=== PATIENT | male | born 1935 | race Caucasian/White ===

== ENCOUNTER 2017-06-14 10:09 | Inpatient (IN) | payer MEDICARE, OTHER ==
[2017-06-14 10:13] VITALS: BMI 23.7
--- NOTE | 2017-06-14 11:01 | C.PDOC ---
History Of Present Illness 81 y/o male, with no significant past medical history, presents to emergency department for evaluation of left lateral neck mass, gradually growing for the past few months. Patient states that for the past few weeks, the mass enlarged significantly, and gives discomfort on chewing and swallowing. Denies headache, dizziness, vertigo, SOB, dyspnea, fever, chills, nausea, vomiting, or other associated symptoms. Patient was evaluated in the clinic today and sent to ER for evaluation. Time Seen by Provider: 06/14/17 10:43 Chief Complaint (Nursing): Abnormal Skin Integrity History Per: Patient History/Exam Limitations: no limitations Onset/Duration Of Symptoms: Days, Gradual Current Symptoms Are (Timing): Still Present Location Of Injury: Left: Neck (lateral) Quality Of Symptoms: Swollen. denies: Painful Recent travel outside of the [place]: No Past Medical History Reviewed: Historical Data, Nursing Documentation, Vital Signs Vital Signs: Last Vital Signs Temp 98.2 F 06/14/17 14:56 Pulse 79 06/14/17 14:56 Resp 20 06/14/17 14:56 BP 149/83 06/14/17 14:56 Pulse Ox 98 06/14/17 16:10 - Medical History PMH: No Chronic Diseases Family History: States: Unknown Family Hx - Social History Hx Alcohol Use: No Hx Substance Use: No Review Of Systems Except As Marked, All Systems Reviewed And Found Negative. Constitutional: Negative for: Fever, Chills ENT: Negative for: Ear Pain, Throat Pain, Throat Swelling Cardiovascular: Negative for: Chest Pain Respiratory: Negative for: Cough, Shortness of Breath, Wheezing Gastrointestinal: Negative for: Nausea, Vomiting, Abdominal Pain Skin: Positive for: Other (mass to left lateral neck area). Negative for: Rash Neurological: Negative for: Weakness, Numbness, Headache, Dizziness Physical Exam - Physical Exam Appears: Non-toxic, No Acute Distress Skin: Normal Color, Warm, Dry, No Rash Head: Atraumatic, Normacephalic Eye(s): bilateral: Normal Inspection, PERRL, EOMI Ear(s): Bilateral: Normal Nose: Normal Oral Mucosa: Moist Tongue: Normal Appearing Lips: Normal Appearing Gingiva: Normal Appearing Throat: Normal, No Erythema, No Exudate, No Drooling Neck: Normal ROM, Supple, Other (10.0 x 8.0 cm, hard and solid, non-tender mass overlying the left submandibular area extending down to lateral neck. No skin changes, erythema, or fluctuance. (+) Mild trismus. ) Chest: Symmetrical Cardiovascular: Rhythm Regular Respiratory: Normal Breath Sounds, No Accessory Muscle Use, No Rales, No Rhonchi , No Wheezing Gastrointestinal/Abdominal: Soft, No Tenderness Back: Normal Inspection Extremity: Normal ROM, Capillary Refill (< 2 sec.) Neurological/Psych: Oriented x3, Normal Speech, Normal Cognition ED Course And Treatment - Laboratory Results Result Diagrams: 06/14/17 11:27 06/14/17 11:27 Lab Interpretation: No Acute Changes O2 Sat by Pulse Oximetry: 98 Pulse Ox Interpretation: Normal - CT Scan/US CT neck Other Rad Studies (CT/US): Radiology Report Reviewed CT/US Interpretation: IMPRESSION: 11.4 cm mass with an epicenter at the left oral cavity/tonsillar pillar is appreciated involving numerous spaces of the bilateral neck suspicious for an aggressive neoplasm. Consider neoplasm from the oral cavity, left tonsillar pillar including carcinoma or even potentially lymphoma. Left parotid neoplasm is not favored and tissue diagnosis is recommended. Vascular encasement affects the proximal left internal and external carotid arteries as per above with invasion into local structures including the left side of the tongue. Please see discussion above. Progress Note: CT neck soft tissue, bloodwork, UA ordered . Blood work review and appears without acute abnoramlities. CT neck review and aggressive neoplasm 11cm diameter suggested by radiologist with vascular encasement affects proximal left ICA and ECA, invasion to left side of tongue. Case discussed with ED attending and admission recommend. Swallow eval at bedside was order and as per RN, pt failed. Pt was placed NPO. Case discussed with med -on-call and admission arranged, and surgery consult was placed per . notified about consult, request CT chest/abdomen w/IV, NPO. results review and discussed with pt, agrees with plan and admission arranged. Disposition - Disposition Disposition: HOSPITALIZED Disposition Time: 15:23 Condition: STABLE - Clinical Impression Clinical Impression: Mass of left side of neck - PA / OCCUPATIONAL HEALTH PROFESSIONAL / Resident Statement MD/DO has reviewed & agrees with the documentation as recorded. - Scribe Statement The provider has reviewed the documentation as recorded by the Scribe Vinh Moussa All medical record entries made by the Scribe were at my direction and personally dictated by me. I have reviewed the chart and agree that the record accurately reflects my personal performance of the history, physical exam, medical decision making, and the department course for this patient. I have also personally directed, reviewed, and agree with the discharge instructions and disposition.
[2017-06-14 11:33] LABS: BASO % 0.6 % (0.0-2.0); EOS % 0.5 % (0.0-4.0); LYMPH # 0.8 K/uL (1.0-4.3); LYMPH % 9.6 % (20.0-40.0); MEAN CELL VOLUME 94.3 fL (80.0-94.0); MEAN CORPUSCULAR HGB CONC 33.9 g/dL (33.0-37.0); MEAN PLATELET VOLUME 8.7 fL (7.2-11.7); MONO # 0.8 K/uL (0.0-0.8); MONO % 10.1 % (0.0-10.0); PLATELET COUNT 307 K/uL (130-400); RED CELL DISTRIBUTION WIDTH 13.7 % (11.5-14.5); WHITE BLOOD COUNT 8.3 K/uL (4.8-10.8)
[2017-06-14 11:38] LABS: CHLORIDE 95 mmol/L (98-107); POTASSIUM 3.4 mmol/L (3.6-5.2); SODIUM 138 mmol/L (132-148)
[2017-06-14 11:40] LABS: BILIRUBIN,TOTAL 0.8 mg/dL (0.2-1.3); CARBON DIOXIDE 25 mmol/L (22-30); GFR AFRICAN-AMERICAN > 60
[2017-06-14 11:41] LABS: ALB/GLOB RATIO 0.9 (1.0-2.1); ALKALINE PHOSPHATASE 80 U/L (38-126); ALT/SGPT 25 U/L (21-72); AST/SGOT 39 U/L (17-59); BLOOD UREA NITROGEN 23 mg/dL (9-20); CALCIUM 9.3 mg/dl (8.6-10.4); GLUCOSE,RANDOM 105 mg/dL (75-110); TOTAL PROTEIN 8.4 g/dL (6.3-8.3)
[2017-06-14 11:43] LABS: INR 1.2
[2017-06-14 11:49] LABS: EOSINOPHIL 1 % (0-4); NEUTROPHIL 91 % (50-75); TOTAL CELLS COUNTED 100
[2017-06-14] MEDS ORDERED: Iodixanol 320 MG/ML 100 ML BOTTLE IV ONE (13:31)
--- NOTE | 2017-06-14 15:10 | CT ---
PROCEDURE: CT NECK WITH CONTRAST HISTORY: Left lateral neck mass COMPARISON: None TECHNIQUE: CT of the neck with intravenous contrast. Coronal and sagittal reformats generated. Intravenous contrast dose: Visipaque 320, 100 cc Radiation dose: DLP 393.15 mGy-cm This CT exam was performed using one or more of the following dose reduction techniques: Automated exposure control, adjustment of the mA and/or kV according to patient size, and/or use of iterative reconstruction technique. FINDINGS: Examination is positive for a very large mass enhancing in a heterogeneous fashion measuring 8.6 x 11.4 x 10.0 cm at the left neck. The epicenter of this lesion appears to be at the inferior left oral cavity/oropharynx region or possibly in the deep portion of the left parotid gland. It extends superiorly to up but the left soft palate and also extends into medial as well as lateral upper public space attendant space but does not appear to erode the left side of the mandible. It invades the mid to posterior left tongue and extends inferiorly to limit the left side of the glottis. It effaces the left vallecula and displaces the carotid sheath posteriorly likely encasing segments of both the proximal internal and external carotid arteries as well as numerous left external carotid artery branches. The lateral extent of the tumor X is to the subcutaneous fat of the left neck and the mid most medial extent is to the right submandibular space without obvious invasion of the right submandibular gland. There is limited lymphadenopathy but includes a a necrotic left jugular digastric lymph node measuring 1.3 x 1.2 cm Vocal cords intact. GLANDS: The right parotid gland appears unremarkable the right submandibular gland is compressed by the aforementioned mass with left submandibular gland potentially incorporated in the mass but is not independently identified. The left parotid gland superficial portion appears nonfocal grossly with the deep segment not identified. A small nonfocal thyroid gland is identified. LYMPH NODES: As above in initial paragraph of body of report. CERVICAL SPINE: Multilevel cervical spondylosis with reversal of upper cervical curvature evident. No fracture or spondylolisthesis. OTHER FINDINGS: Biapical pulmonary fibrosis noted minimally. IMPRESSION: 11.4 cm mass with an epicenter at the left oral cavity/tonsillar pillar is appreciated involving numerous spaces of the bilateral neck suspicious for an aggressive neoplasm. Consider neoplasm from the oral cavity, left tonsillar pillar including carcinoma or even potentially lymphoma. Left parotid neoplasm is not favored and tissue diagnosis is recommended. Vascular encasement affects the proximal left internal and external carotid arteries as per above with invasion into local structures including the left side of the tongue. Please see discussion above.
[2017-06-14] MEDS ORDERED: Dextrose 5%/0.45% NS 1,000 ML IV ONE ×2 (16:05→16:22)
[2017-06-14] MEDS ORDERED: Iohexol 350mgl/ml 50 ML ONE (18:53)
--- NOTE | 2017-06-14 20:54 | CT ---
EXAM: CT Chest With Intravenous Contrast CLINICAL HISTORY: 81 years old, male; large facial/neck mass, suspicious for malignancy TECHNIQUE: Axial computed tomography images of the chest with intravenous contrast. All CT scans at this facility use one or more dose reduction techniques, viz.: automated exposure control; ma/kV adjustment per patient size (including targeted exams where dose is matched to indication; i.e. head); or iterative reconstruction technique. Coronal and sagittal reformatted images were created and reviewed. CONTRAST: 75 mL of omnipaque 350 administered intravenously. COMPARISON: There are no prior studies for comparison. FINDINGS: Neck: There is an incompletely imaged heterogeneous mass in the base of the mouth. There is mass effect on the hypopharynx. There is extension into the left jugular space. . Lungs and pleural spaces: Subglottic trachea is unremarkable.Trachea and main bronchi are patent. There is apical pleural-parenchymal scarring bilaterally. There is dependent atelectasis bilaterally. There is atelectasis and scarring at the lung bases left greater than right. There is no focal consolidation. There is a 5.8 mm left base nodule, image 50 series 2. There are no nodules on the right There are no effusions. Pulmonary vessels are unremarkable. Heart and vasculature: Heart size is normal. There are coronary artery calcifications. There is no pericardial effusion.There is no aneurysm or dissection. There is perfusion of the 3 arch vesselsThere are vascular calcifications. Mediastinum: There are no pathologically enlarged mediastinal or hilar nodes. Esophagus is unremarkable. There is a moderately large hiatal hernia. Thyroid: Thyroid is not optimally demonstrated. Bones/joints: Bony structures are osteopenic. There degenerative changes. Soft tissues: There is mild gynecomastia. Upper abdomen: Refer to following report for abdominal findings IMPRESSION: Incompletely imaged left facial/neck mass suspicious for malignancy; indeterminate 5.8 mm left lower lobe nodule infectious/inflammatory versus neoplastic; no pathologic adenopathy in the chest; moderate size hiatal hernia Additional findings as described above. Footer: As per Fleischner Society guidelines for follow-up and management of pulmonary nodules: Consider PET scan and/or biopsy as clinically warranted. EXAM: CT Abdomen and Pelvis With Intravenous Contrast EXAM DATE/TIME: 06/14/2017 6:08 PM CLINICAL HISTORY: 81 years old, male; Condition or disease; Cancer; Other: Lymphoma; Additional info: Left neck mass / R/O lymphoma TECHNIQUE: Axial computed tomography images of the abdomen and pelvis with intravenous contrast. All CT scans at this facility use one or more dose reduction techniques, viz.: automated exposure control; ma/kV adjustment per patient size (including targeted exams where dose is matched to indication; i.e. head); or iterative reconstruction technique. Coronal and sagittal reformatted images were created and reviewed. CONTRAST: 75 mL of omnipaque 350 administered intravenously. COMPARISON: There are no prior studies for comparison. FINDINGS: Lower thorax: Refer to prior report for chest findings ABDOMEN: Liver: There is fatty infiltration of the liver. Gallbladder and bile ducts: Gallbladder is partially distended. There are is calcified stones. Common duct is unremarkable. Pancreas: Pancreas is atrophic. Spleen: unremarkable Adrenals: There is nodular adrenal thickening bilaterally. Kidneys and ureters: unremarkable Stomach and bowel: There is a moderately large hiatal hernia. Stomach is partially distended. Rotation is normal. There is no small bowel obstruction. There are mildly distended small bowel loops in the pelvis. Appendix and terminal ileum are unremarkable. Colon is incompletely distended which limits evaluation. Appendix: See above. PELVIS: Bladder: unremarkable Reproductive: Seminal vesicles and prostate are unremarkable. ABDOMEN and PELVIS: Intraperitoneal space: There is no free air or free fluid. Bones/joints: Bony structures are osteopenic.There are degenerative changes in the osseus structures. Soft tissues: unremarkable Vasculature: There are vascular calcifications. Aorta is mildly ectatic Lymph nodes: There is no pathologic adenopathy. IMPRESSION: No acute solid visceral or bowel abnormality; gallstones Additional findings as described above.
--- NOTE | 2017-06-14 22:15 | CP.PCM.HP ---
History of Present Illness - History of Present Illness History of Present Illness: CC: Large neck and jaw swelling x 1 month 81 y/o male, with no significant past medical history, presents to emergency department for evaluation of left lateral neck mass underneath the chin extending from jaw, its painful and bothering her alot, gradually growing for the past few months. Patient states that for the past few weeks, the mass enlarged significantly, and gives discomfort on chewing and swallowing. Denies headache, dizziness, vertigo, SOB, dyspnea, fever, chills, nausea, vomiting, or other associated symptoms. Patient was evaluated in the clinic today and sent to ER for evaluation. Present on Admission - Present on Admission Any Indicators Present on Admission: No Review of Systems - Review of Systems Systems not reviewed;Unavailable: Acuity of Condition - Constitutional Constitutional: absent: As Per HPI, Anorexia, Chills, Daytime Sleepiness, Excessive Sweating, Fatigue, Fever, Frequent Falls, Headache, Increased Appetite , Lethargy, Malaise, Night Sweats, Snoring, Sleep Apnea, Weight Gain, Weight Loss, Weakness, Other - EENT Eyes: absent: As Per HPI, Blind Spots, Blurred Vision, Change in Vision, Decreased Night Vision, Diplopia, Discharge, Dry Eye, Exophthalmos, Floaters, Irritation, Itchy Eyes, Loss of Peripheral Vision, Pain, Photophobia, Requires Corrective Lenses, Sees Flashes, Spots in Vision, Tunnel Vision, Other Visual Disturbances, Loss of Vision, Other Nose/Mouth/Throat: Neck Pain, Neck Mass. absent: As Per HPI, Epistaxis, Nasal Congestion, Nasal Discharge, Nasal Obstruction, Nasal Trauma, Nose Pain, Post Nasal Drip, Sinus Pain, Sinus Pressure, Bleeding Gums, Change in Voice, Dental Pain, Dry Mouth, Dysphagia, Halitosis, Hoarsness, Lip Swelling, Mouth Lesions, Mouth Pain, Odynophagia, Sore Throat, Throat Swelling, Tongue Swelling, Facial Pain, Other - Cardiovascular Cardiovascular: absent: As Per HPI, Acrocyanosis, Chest Pain, Chest Pain at Rest , Chest Pain with Activity, Claudication, Diaphoresis, Dyspnea, Dyspnea on Exertion, Edema, Irregular Heart Rhythm, Pain Radiating to Arm/Neck/Jaw, Leg Edema, Leg Ulcers, Lightheadedness, Orthopnea, Palpitations, Paroxysmal Nocturnal Dyspnea, Pedal Edema, Radiating Pain, Rapid Heart Rate, Slow Heart Rate, Syncope, Other - Respiratory Respiratory: absent: As Per HPI, Cough, Dyspnea, Hemoptysis, Dyspnea on Exertion , Wheezing, Snoring, Stridor, Pain on Inspiration, Chest Congestion, Excessive Mucous Production, Change in Mucous Color, Pain with Coughing, Other - Gastrointestinal Gastrointestinal: absent: As Per HPI, Abdominal Pain, Belching, Bloating, Change in Bowel Habits, Change in Stool Character, Coffee Ground Emesis, Constipation, Cramping, Diarrhea, Dyspepsia, Dysphagia, Early Satiety, Excessive Flatus, Fecal Incontinence, Heartburn, Hematemesis, Hematochezia, Loose Stools, Melena, Nausea, Odynophagia, Temesmus, Vomiting, Other - Genitourinary Genitourinary: absent: As Per HPI, Change in Urinary Stream, Difficulty Urinating, Dysuria, Flank Pain, Hematuria, Pyuria, Nocturia, Urinary Incontinence, Urinary Frequency, Urinary Hesitance, Urinary Urgency, Voiding Freq/Small Amts, Freq UTI, Hx Renal/Bladder Calculi, Hx /Renal Surgery, Bladder Distension, Other - Integumentary Integumentary: Swelling. absent: As Per HPI, Acne, Alopecia, Bleeding Lesions, Change in Hair, Change in Nails, Change in Pigmentation, Changing Lesions, Dry Skin, Erythema, Furuncle, Hirsutism, Lesions, New Lesions, Non-Healing Lesions, Photosensitivity, Pruritus, Rash, Skin Pain, Skin Ulcer, Sores, Striae, Unusual Bruising, Wounds, Jaundice, Other - Neurological Neurological: absent: As Per HPI, Abnormal Gait, Abnormal Hearing, Abnormal Movements, Abnormal Speech, Behavioral Changes, Burning Sensations, Confusion, Convulsions, Disequilibrium, Dizziness, Numbness, Focal Weakness, Frequent Falls , Headaches, Lack of Coordination, Loss of Vision, Memory Loss, Paresthesias, Radicular Pain, Restless Legs, Sensory Deficit, Syncope, Tingling, Tremor, Vertigo, Weakness, Other Visual Disturbances, Other Past Patient History - Past Medical History & Family History Past Medical History?: Yes - Past Social History Smoking Status: Never Smoked - CARDIAC Hx Cardiac Disorders: No - PULMONARY Hx Respiratory Disorders: No - NEUROLOGICAL Hx Neurological Disorder: No - HEENT Hx HEENT Problems: No - RENAL Hx Chronic Kidney Disease: No - ENDOCRINE/METABOLIC Hx Endocrine Disorders: No - HEMATOLOGICAL/ONCOLOGICAL Hx Blood Disorders: No - INTEGUMENTARY Hx Dermatological Problems: No - MUSCULOSKELETAL/RHEUMATOLOGICAL Hx Musculoskeletal Disorders: No Hx Falls: No - GASTROINTESTINAL Hx Gastrointestinal Disorders: No - GENITOURINARY/GYNECOLOGICAL Hx Genitourinary Disorders: No - PSYCHIATRIC Hx Psychophysiologic Disorder: No Hx Substance Use: No - SURGICAL HISTORY Hx Surgeries: No - ANESTHESIA Hx Anesthesia: No Hx Anesthesia Reactions: No Meds Allergies/Adverse Reactions: Allergies Allergy/AdvReac Type Severity Reaction Status Date / Time No Known Allergies Allergy Verified 06/14/17 10:12 Physical Exam - Constitutional Appears: No Acute Distress - Head Exam Head Exam: ATRAUMATIC, NORMAL INSPECTION, NORMOCEPHALIC - Eye Exam Eye Exam: EOMI, Normal appearance, PERRL Pupil Exam: NORMAL ACCOMODATION, PERRL - ENT Exam ENT Exam: Mucous Membranes Moist, Normal Exam - Neck Exam Additional comments: Large sweling 10.0 x 8.0 cm, hard and solid, non-tender mass overlying the left submandibular area extending down to lateral neck underneath the chin.tense, compressible. No skin changes, erythema, or fluctuance. (+) Mild trismus. Results - Vital Signs Recent Vital Signs: Last Vital Signs Temp 98.1 F 06/14/17 20:34 Pulse 81 06/14/17 20:34 Resp 20 06/14/17 20:34 BP 158/85 H 06/14/17 20:34 Pulse Ox 98 06/14/17 20:34 - Labs Result Diagrams: 07/01/17 06:26 07/01/17 06:26 Labs: Laboratory Results - last 24 hr 06/14/17 06/14/17 06/14/17 11:27 11:27 11:27 WBC 8.3 RBC 3.93 L Hgb 12.6 Hct 37.0 MCV 94.3 H MCH 32.0 H MCHC 33.9 RDW 13.7 Plt Count 307 MPV 8.7 Neut % (Auto) 79.2 H Lymph % (Auto) 9.6 L Payette % (Auto) 10.1 H Eos % (Auto) 0.5 Baso % (Auto) 0.6 Neut # 6.6 Lymph # 0.8 L Payette # 0.8 Eos # 0.0 Baso # 0.0 Neutrophils % (Manual) 91 H Lymphocytes % (Manual) 4 L Monocytes % (Manual) 4 Eosinophils % (Manual) 1 Platelet Estimate Normal RBC Morphology Normal PT 13.5 H INR 1.2 APTT 31 Sodium 138 Potassium 3.4 L Chloride 95 L Carbon Dioxide 25 Anion Gap 21 H BUN 23 H Creatinine 0.8 Est GFR ( Amer) > 60 Est GFR (Non-Af Amer) > 60 Random Glucose 105 Calcium 9.3 Total Bilirubin 0.8 AST 39 ALT 25 Alkaline Phosphatase 80 Total Protein 8.4 H Albumin 3.9 Globulin 4.5 H Albumin/Globulin Ratio 0.9 L Assessment & Plan (1) Mass of left side of neck Assessment and Plan: Rule out saladenitis, to me it looks like she has large collection of saliva in parotid gland Surgical consult Status: Acute (2) Dysphagia Status: Acute (3) Dehydration Status: Acute - Assessment and Plan (Free Text) Plan: monitor pt Surgical consult pending meanwhile medical management
[2017-06-15] MEDS ORDERED: Enoxaparin 30 mg Syringe SC SCH (10:00)
[2017-06-15] MEDS: Potassium Ch 20mEq in D5-1/2NS 1,000 ML IV SCH ×2 (14:30→18:00)
[2017-06-15] MEDS ORDERED: Lactated Ringer's 1,000 ML IV ONE (15:47)
[2017-06-15] MEDS ORDERED: Midazolam 2 MG/2 ML VIAL ONE (15:58)
[2017-06-15] MEDS ORDERED: ceFAZolin IV 2 gm in Dextrose 1 GM/50 ML BAG IVPB ONE (16:02)
[2017-06-15] MEDS: Lidocaine 1% Inj (20ml) ONE (16:02)
[2017-06-15] MEDS ORDERED: Bupivacaine HCl 0.25% PF (10 ml) Inj ONE (16:02)
--- NOTE | 2017-06-15 17:17 | OP ---
PROCEDURE DATE: 06/14/2017 PREOPERATIVE DIAGNOSIS: Malignant neoplasm of the neck. 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 PROCEDURE PERFORMED: 1. Excision of malignant neoplasm of the neck 4cm (47827) 2 Adjacent tissue closure 25 sq cm (42068) SURGEON: Rd Matrinez MD TYPE OF ANESTHESIA: Local with sedation. ESTIMATED BLOOD LOSS: 20 mL. POSTOPERATIVE CONDITION: Stable INDICATIONS FOR SURGERY: This is an 81-year-old male presents with several malignant appearing tumors of the neck who now undergo a excisional removal of one of them. DESCRIPTION OF PROCEDURE: The patient was taken to the operating room and placed in the supine position. A 4 cm tumor was selected and an elliptical incision was made surrounding it. It was dissected free and removed into the fascia. It was divided in 2 pieces, one for frozen section and one for permanent section. Bleeding was controlled using a Bovie. Generous tissue flaps were raised using the Bovie and 28 cm2 adjacent tissue transfer closure was performed using multiple layers of Monocryl, subcuticular Monocryl and skin clips. The patient tolerated the procedure well, returned to recovery room in stable condition. Rd Martinez MD MTDD
--- NOTE | 2017-06-15 22:46 | CP.PCM.PN ---
Subjective - Date & Time of Evaluation Date of Evaluation: 06/15/17 Time of Evaluation: 21:15 - Subjective Subjective: Pt seen and evalauted , He had a biopsy of frozen section of mass on his jaw and squamaous cell carcinoma was daignosed. He is on Iv fluids, he needs peg Objective - Vital Signs/Intake and Output Vital Signs (last 24 hours): Temp Pulse Resp BP Pulse Ox 99.2 F 80 14 145/79 98 06/15/17 17:15 06/15/17 17:15 06/15/17 17:15 06/15/17 17:15 06/15/17 17:15 Intake and Output: 06/15/17 06/16/17 18:59 06:59 Intake Total 1000 Balance 1000 - Medications Medications: Current Medications Enoxaparin Sodium (Lovenox) 30 mg SC DAILY [facility] Last Admin: 06/15/17 10:09 Dose: Not Given Potassium Chloride/Dextrose/Sod Cl (Potassium Chl 20 Meq In D5-1/2ns) 1,000 mls @ 100 mls/hr IV .Q10H [facility] Last Admin: 06/15/17 18:00 Dose: 100 mls/hr Pneumococcal Polyvalent Vaccine (Pneumovax 23 Vaccine) 0.5 ml IM .ONCE ONE Stop: 06/17/17 10:01 - Labs Labs: 06/14/17 11:27 06/14/17 11:27 PT 13.5 SECONDS (9.7-12.2) H 06/14/17 11:27 INR 1.2 06/14/17 11:27 APTT 31 SECONDS (21-34) 06/14/17 11:27 - Constitutional Appears: Well - Head Exam Head Exam: ATRAUMATIC, NORMAL INSPECTION, NORMOCEPHALIC - Eye Exam Eye Exam: EOMI, Normal appearance, PERRL Pupil Exam: NORMAL ACCOMODATION, PERRL - ENT Exam Additional comments: mass in right neck and jaw area - Neck Exam Additional comments: tender to touvh right neck mass extending to lateral jaw line and covering the right sided chin - Respiratory Exam Respiratory Exam: Clear to Ausculation Bilateral, NORMAL BREATHING PATTERN - Cardiovascular Exam Cardiovascular Exam: REGULAR RHYTHM, +S1, +S2. absent: Murmur - GI/Abdominal Exam GI & Abdominal Exam: Soft, Normal Bowel Sounds. absent: Tenderness - Rectal Exam Rectal Exam: Deferred Assessment and Plan (1) Mass of left side of neck Assessment & Plan: Sqaumous cell carcinoma according to biospy primary unknonw wait for further biospy result Status: Acute (2) Dysphagia Status: Acute (3) Dehydration Assessment & Plan: On Iv fluis pt need PEG Status: Acute
[2017-06-16] MEDS: Potassium Ch 20mEq in D5-1/2NS 1,000 ML IV SCH ×3 (02:30→16:34)
[2017-06-16 04:45] LABS: BASO # 0.1 K/uL (0.0-0.2); BASO % 0.5 % (0.0-2.0); EOS # 0.3 K/uL (0.0-0.7); EOS % 2.4 % (0.0-4.0); HEMATOCRIT 34.3 % (35.0-51.0); LYMPH # 1.1 K/uL (1.0-4.3); LYMPH % 9.5 % (20.0-40.0); MEAN CELL VOLUME 93.7 fL (80.0-94.0); MEAN CORPUSCULAR HGB CONC 33.1 g/dL (33.0-37.0); MEAN PLATELET VOLUME 8.8 fL (7.2-11.7); MONO # 1.4 K/uL (0.0-0.8); PLATELET COUNT 293 K/uL (130-400); RED CELL DISTRIBUTION WIDTH 13.9 % (11.5-14.5); WHITE BLOOD COUNT 11.8 K/uL (4.8-10.8)
[2017-06-16 04:52] LABS: CHLORIDE 98 mmol/L (98-107); POTASSIUM 3.1 mmol/L (3.6-5.2); SODIUM 135 mmol/L (132-148)
[2017-06-16 04:54] LABS: GFR AFRICAN-AMERICAN > 60
[2017-06-16 04:55] LABS: ALB/GLOB RATIO 0.7 (1.0-2.1); ALKALINE PHOSPHATASE 67 U/L (38-126); ALT/SGPT 27 U/L (21-72); AST/SGOT 27 U/L (17-59); BILIRUBIN,TOTAL 0.6 mg/dL (0.2-1.3); BLOOD UREA NITROGEN 9 mg/dL (9-20); CALCIUM 8.8 mg/dl (8.6-10.4); CARBON DIOXIDE 27 mmol/L (22-30); GLUCOSE,RANDOM 117 mg/dL (75-110); TOTAL PROTEIN 7.6 g/dL (6.3-8.3)
[2017-06-16 06:03] LABS: EOSINOPHIL 1 % (0-4); NEUTROPHIL 77 % (50-75); TOTAL CELLS COUNTED 100
--- NOTE | 2017-06-16 07:14 | CP.PCM.PN ---
Subjective - Date & Time of Evaluation Date of Evaluation: 06/16/17 Time of Evaluation: 10:00 - Subjective Subjective: Pt seen s/p radation oncology eval, he is for peg and helena cath, pt is afebrile c/oo dysphagia Objective - Vital Signs/Intake and Output Vital Signs (last 24 hours): Temp Pulse Resp BP Pulse Ox 98.5 F 78 20 135/75 94 L 06/16/17 00:00 06/16/17 00:00 06/16/17 00:00 06/16/17 00:00 06/16/17 00:00 - Medications Medications: Current Medications Enoxaparin Sodium (Lovenox) 30 mg SC DAILY COUNTS INCLUDE 234 BEDS AT THE [facility] Last Admin: 06/15/17 10:09 Dose: Not Given Potassium Chloride/Dextrose/Sod Cl (Potassium Chl 20 Meq In D5-1/2ns) 1,000 mls @ 100 mls/hr IV .Q10H [facility] Last Admin: 06/15/17 18:00 Dose: 100 mls/hr Pneumococcal Polyvalent Vaccine (Pneumovax 23 Vaccine) 0.5 ml IM .ONCE ONE Stop: 06/17/17 10:01 - Labs Labs: 06/16/17 04:42 06/16/17 04:42 PT 13.5 SECONDS (9.7-12.2) H 06/14/17 11:27 INR 1.2 06/14/17 11:27 APTT 31 SECONDS (21-34) 06/14/17 11:27 - Constitutional Appears: No Acute Distress - Head Exam Head Exam: ATRAUMATIC, NORMAL INSPECTION, NORMOCEPHALIC - Eye Exam Eye Exam: EOMI, Normal appearance, PERRL Pupil Exam: NORMAL ACCOMODATION, PERRL - Neck Exam Additional comments: 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 - Respiratory Exam Respiratory Exam: Clear to Ausculation Bilateral, NORMAL BREATHING PATTERN - Cardiovascular Exam Cardiovascular Exam: REGULAR RHYTHM, +S1, +S2. absent: Murmur - GI/Abdominal Exam GI & Abdominal Exam: Soft, Normal Bowel Sounds. 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 We would concur that he would benefit from chemoradiation. We would recommend a PET for staging and planning if he is discharged soon. He will be getting a port and PEG today. We spoke to the patient about radiation including the risks and benefits. Dr Salgado and Dr Sheppard will be seeing the patient. I will coordinate his chemoradiation with Dr Sheppard. We simulated the patient today to begin planning the radiation. We will follow up on the final pathology from his biopsy. A fiberoptic examination in our office showed patent airway. The large tumor involves the left neck, submental region and posterior glottis and vallecula. The epiglottis was slightly displaced posteriorly due to the vallecular involvement, however did not appear involved. Status: Acute (2) Dysphagia Status: Acute (3) Dehydration Status: Acute
--- NOTE | 2017-06-16 09:21 | CP.PCM.CON ---
History of Present Illness - History of Present Illness History of Present Illness: Mr Collins is a 81 year old male with locally advanced oropharyngeal cancer. In late April, he noticed a grape size mass in the left upper neck. He did not have a physician at this time. Over the subsequent weeks, the mass grew quickly in size. He tried to see a doctor as an outpatient, however he could not find someone who accepted his insurance. In the past week, he started having difficulty with swallowing and was mostly having a liquid/soft diet. He saw his dentist who referred him to a clinic physician who then sent him to [facility] for further evaluation. A CT of the neck on June 14, 2017 revealed a large 8.6 x 11.4 x 10cm left neck mass which was also deep to the left parotid and extending into the soft palate. 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 The tumor displaced the carotid sheath and encased the internal and external carotids. The tumor extended into the medial right submandibular space. He had a left jugular digastric node measuring 1.[address] of the chest, abdomen and pelvis revealed a 5.8mm left lower lobe nodule. He had an open biopsy on June 15, 2017 which reportedly showed squamous cell on frozen section. He is getting a port and PEG today. He is referred to us for consideration of definitive radiation. Review of Systems - Constitutional Constitutional: Weight Loss - EENT Nose/Mouth/Throat: Dysphagia, Hoarsness, Odynophagia, Neck Pain, Neck Mass Past Patient History - Past Medical History & Family History Past Medical History?: Yes - Past Social History Smoking Status: Never Smoked Alcohol: None Home Situation {Lives}: Alone - CARDIAC Hx Cardiac Disorders: No - PULMONARY Hx Respiratory Disorders: No - NEUROLOGICAL Hx Neurological Disorder: No - HEENT Hx HEENT Problems: No - RENAL Hx Chronic Kidney Disease: No - ENDOCRINE/METABOLIC Hx Endocrine Disorders: No - HEMATOLOGICAL/ONCOLOGICAL Hx Blood Disorders: No - INTEGUMENTARY Hx Dermatological Problems: No - MUSCULOSKELETAL/RHEUMATOLOGICAL Hx Musculoskeletal Disorders: No Hx Falls: No - GASTROINTESTINAL Hx Gastrointestinal Disorders: No - GENITOURINARY/GYNECOLOGICAL Hx Genitourinary Disorders: No - PSYCHIATRIC Hx Psychophysiologic Disorder: No Hx Substance Use: No - SURGICAL HISTORY Hx Surgeries: No - ANESTHESIA Hx Anesthesia: No Hx Anesthesia Reactions: No Meds Allergies/Adverse Reactions: Allergies Allergy/AdvReac Type Severity Reaction Status Date / Time No Known Allergies Allergy Verified 06/14/17 10:12 - Medications Medications: Current Medications Enoxaparin Sodium (Lovenox) 30 mg SC DAILY [facility] Last Admin: 06/15/17 10:09 Dose: Not Given Potassium Chloride/Dextrose/Sod Cl (Potassium Chl 20 Meq In D5-1/2ns) 1,000 mls @ 100 mls/hr IV .Q10H [facility] Last Admin: 06/15/17 18:00 Dose: 100 mls/hr Potassium Chloride (Potassium Chloride 20 Meq/100 Ml) 20 meq in 100 mls @ 50 mls/hr IVPB Q2 [facility] Stop: 06/16/17 17:59 Pneumococcal Polyvalent Vaccine (Pneumovax 23 Vaccine) 0.5 ml IM .ONCE ONE Stop: 06/17/17 10:01 Physical Exam - Head Exam Head Exam: NORMAL INSPECTION - Eye Exam Eye Exam: EOMI - ENT Exam Additional comments: + 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 Limited visualization of the posterior pharynx. Induration of the posterior oral tongue. - Respiratory Exam Respiratory Exam: Clear to Auscultation Bilateral - Cardiovascular Exam Cardiovascular Exam: REGULAR RHYTHM - GI/Abdominal Exam GI & Abdominal Exam: Normal Bowel Sounds - Neurological Exam Neurological exam: Motor Sensory Deficit, Oriented x3 Results - Vital Signs Recent Vital Signs: Last Vital Signs Temp 98.1 F 06/16/17 07:31 Pulse 81 06/16/17 07:31 Resp 20 06/16/17 07:31 BP 137/80 06/16/17 07:31 Pulse Ox 97 06/16/17 07:31 - Labs Result Diagrams: 06/16/17 04:42 06/16/17 04:42 Labs: Laboratory Results - last 24 hr 06/16/17 06/16/17 04:42 04:42 WBC 11.8 H RBC 3.66 L Hgb 11.3 L Hct 34.3 L MCV 93.7 MCH 31.0 MCHC 33.1 RDW 13.9 Plt Count 293 MPV 8.8 Neut % (Auto) 75.6 H Lymph % (Auto) 9.5 L Mckinley % (Auto) 12.0 H Eos % (Auto) 2.4 Baso % (Auto) 0.5 Neut # 8.9 H Lymph # 1.1 Mckinley # 1.4 H Eos # 0.3 Baso # 0.1 Neutrophils % (Manual) 77 H Lymphocytes % (Manual) 10 L Monocytes % (Manual) 12 H Eosinophils % (Manual) 1 Platelet Estimate Normal Anisocytosis (manual) Slight Sodium 135 Potassium 3.1 L Chloride 98 Carbon Dioxide 27 Anion Gap 13 BUN 9 Creatinine 0.6 L Est GFR ( Amer) > 60 Est GFR (Non-Af Amer) > 60 Random Glucose 117 H Calcium 8.8 Total Bilirubin 0.6 AST 27 ALT 27 Alkaline Phosphatase 67 Total Protein 7.6 Albumin 3.0 L D Globulin 4.5 H Albumin/Globulin Ratio 0.7 L Assessment & Plan - Assessment and Plan (Free Text) Assessment: Mr Collins is an 81 year old male with 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 We would concur that he would benefit from chemoradiation. We would recommend a PET for staging and planning if he is discharged soon. He will be getting a port and PEG today. We spoke to the patient about radiation including the risks and benefits. Dr Salgado and Dr Sheppard will be seeing the patient. I will coordinate his chemoradiation with Dr Sheppard. We simulated the patient today to begin planning the radiation. We will follow up on the final pathology from his biopsy. A fiberoptic examination in our office showed patent airway. The large tumor involves the left neck, submental region and posterior glottis and vallecula. The epiglottis was slightly displaced posteriorly due to the vallecular involvement, however did not appear involved.
[2017-06-16] MEDS ORDERED: Midazolam 2 MG/2 ML VIAL ONE (11:04)
[2017-06-16] MEDS ORDERED: Lactated Ringer's 1,000 ML IV ONE ×2 (11:13)
[2017-06-16] MEDS ORDERED: Lidocaine 1% Inj (20ml) ONE ×2 (11:27→11:33)
[2017-06-16] MEDS ORDERED: Bupivacaine HCl 0.25% PF (10 ml) Inj ONE ×2 (11:27→11:33)
[2017-06-16] MEDS ORDERED: Propofol 10 mg/ml Inj (20 ML) ONE (11:28)
[2017-06-16] MEDS ORDERED: HEPARIN-NS 5,000 UNITS/500 ML 5,000 UNIT/500 ML BAG IV ONE (11:28)
[2017-06-16] MEDS ORDERED: ceFAZolin IV 1 gm in Dextrose 1 GM/50 ML BAG IVPB ONE ×2 (11:28→11:35)
[2017-06-16] MEDS ORDERED: ceFAZolin IV 2 gm in Dextrose 0 GM/0 ML BAG IVPB ONE (11:33)
[2017-06-16] MEDS: Lidocaine 1% Inj (20ml) ONE (12:01)
[2017-06-16] MEDS: Bupivacaine HCl 0.25% PF (10 ml) Inj ONE ×2 (12:01→12:06)
[2017-06-16] MEDS ORDERED: Lactated Ringer's 1,000 ML IV SCH (13:00)
--- NOTE | 2017-06-16 15:17 | RAD ---
HISTORY: post op insertion of portacath rt chest COMPARISON: CT chest, abdomen, and pelvis with IV contrast 06/14/17 TECHNIQUE: Chest, one view. FINDINGS: Right-sided MediPort tip extends to the expected location of the SVC. LUNGS: Biapical pleural thickening. Left basilar atelectasis/infiltrate. Please note that chest x-ray has limited sensitivity for the detection of pulmonary masses. PLEURA: Blunting of left costophrenic angle consistent trace effusion. No definite pneumothorax . CARDIOVASCULAR: Borderline cardiomegaly. Atherosclerotic calcifications of the aortic knob. OSSEOUS STRUCTURES: Degenerative changes. VISUALIZED UPPER ABDOMEN: Unremarkable. OTHER FINDINGS: None. IMPRESSION: Right-sided MediPort tip extends to the expected location of the SVC. Biapical pleural thickening. Left basilar atelectasis/infiltrate. Blunting of left costophrenic angle consistent with trace effusion. Borderline cardiomegaly. Atherosclerotic calcifications of the aortic knob.
--- NOTE | 2017-06-16 15:24 | RAD ---
PROCEDURE: Intraoperative Fluoroscopy. HISTORY: SQUAMOUS CELL cancer FINDINGS: Fluoroscopic assistance was provided for right sided central venous catheter placement. Please refer to the operative report from
[2017-06-16] MEDS ORDERED: Acetaminophen 650mg/20.3ml solution UD GT PRN (17:25)
--- NOTE | 2017-06-17 02:48 | OP ---
PROCEDURE DATE: 06/16/2017 PREOPERATIVE DIAGNOSIS: Squamous cell carcinoma of the neck. POSTOPERATIVE DIAGNOSIS: Squamous cell carcinoma of the neck. PROCEDURE PERFORMED: 1. Open Rachael gastrostomy (59784). 2. Repair of enterotomy transverse colon (35540). 3. Insertion of right internal jugular Port-A-Cath (58415). 4. Use of C-arm (38719) SURGEON: Rd Martinez MD ANESTHESIA: Local sedation. INDICATION FOR SURGERY: This is an 81-year-old male who presented with a large neck mass after biopsy yesterday revealed squamous cell carcinoma since he is unable to eat. He was taken to the OR today for open gastrostomy under local anesthesia. Due to difficulty in intubation, a PEG will not be attempted. He also undergo a Port-A-Cath placement at this time. DESCRIPTION OF PROCEDURE: The patient was taken to the operating room. IV sedation was administrated. He was placed in the supine position. The neck, chest wall and abdomen were all prepped and draped. The right internal jugular vein was easily cannulated and a guidewire was inserted into the vena cava, this was confirmed fluoroscopically. Next, subcutaneous pocket was created on the chest wall and catheter was tunneled into the neck puncture site. It was inserted over an introducer. I connected to a subcutaneous port, which was placed in the pocket. I flushed with heparinized saline. Placement was confirmed fluoroscopically. The pocket was closed with subcuticular Vicryl sutures and glue. Attention was then turned to the abdomen. After local anesthesia was administered, a small upper midline abdominal incision was made. The abdomen was entered and there was a fair amount of adhesions in the upper quadrant. These were taken down and a serosal tear was noted of the colon. This was a transverse colon, this was repaired with silk. Next, the stomach was mobilized into the wound and pursestring suture of 0 Novafil was placed in it. A 20-Azeri Flexiflo gastrostomy tube was brought through the lateral stab wound into the abdomen and placed to a gastrotomy through the pursestring suture. The pursestring suture was secured and a balloon was inflated. The stomach was sutured to the abdomen wall using the same Novafil suture. The incision was closed with a running double-stranded PDS suture. The subcutaneous tissue was irrigated thoroughly and closed with Monocryl and the skin was closed with skin clips. The patient tolerated the procedure well, returned to recovery room in stable condition. Rd Martinez MD
--- NOTE | 2017-06-17 06:39 | CP.PCM.PN ---
Subjective - Date & Time of Evaluation Date of Evaluation: 06/17/17 Time of Evaluation: 06:38 - Subjective Subjective: PATIENT SEEN .. FULL NOTE WILL BE DICTATED Objective - Vital Signs/Intake and Output Vital Signs (last 24 hours): Temp Pulse Resp BP Pulse Ox 99.2 F 95 H 20 125/73 92 L 06/17/17 00:00 06/17/17 00:00 06/17/17 00:00 06/17/17 00:00 06/17/17 00:00 Intake and Output: 06/16/17 06/17/17 18:59 06:59 Intake Total 1000 Output Total 100 Balance -100 1000 - Medications Medications: Current Medications Acetaminophen (Tylenol 650mg/20.3ml Solution Ud) 650 mg GT Q6 PRN PRN Reason: Pain, Mild (1-3) Enoxaparin Sodium (Lovenox) 30 mg SC DAILY COUNTS INCLUDE 234 BEDS AT THE [facility] Last Admin: 06/15/17 10:09 Dose: Not Given Potassium Chloride/Dextrose/Sod Cl (Potassium Chl 20 Meq In D5-1/2ns) 1,000 mls @ 100 mls/hr IV .Q10H COUNTS INCLUDE 234 BEDS AT THE [facility] Last Admin: 06/16/17 16:34 Dose: 100 mls/hr Lactated Ringer's (Lactated Ringer's) 1,000 mls @ 50 mls/hr IV .Q20H COUNTS INCLUDE 234 BEDS AT THE [facility] Last Admin: 06/16/17 15:25 Dose: Not Given Morphine Sulfate (Morphine) 2 mg IVP Q6 PRN PRN Reason: Pain, moderate (4-7) Ondansetron HCl (Zofran Inj) 4 mg IVP Q6 PRN PRN Reason: Nausea/Vomiting Pneumococcal Polyvalent Vaccine (Pneumovax 23 Vaccine) 0.5 ml IM .ONCE ONE Stop: 06/17/17 10:01 - Labs Labs: 06/16/17 04:42 06/16/17 04:42 PT 13.5 SECONDS (9.7-12.2) H 06/14/17 11:27 INR 1.2 06/14/17 11:27 APTT 31 SECONDS (21-34) 06/14/17 11:27
[2017-06-17] MEDS: Potassium Ch 20mEq in D5-1/2NS 1,000 ML IV SCH ×4 (06:45→19:22)
[2017-06-17 07:25] LABS: BASO % 0.3 % (0.0-2.0); EOS % 0.2 % (0.0-4.0); HEMATOCRIT 34.9 % (35.0-51.0); LYMPH # 0.9 K/uL (1.0-4.3); LYMPH % 7.4 % (20.0-40.0); MEAN CELL VOLUME 94.2 fL (80.0-94.0); MEAN CORPUSCULAR HEMOGLOBIN 31.8 pg (27.0-31.0); MEAN CORPUSCULAR HGB CONC 33.8 g/dL (33.0-37.0); MEAN PLATELET VOLUME 9.7 fL (7.2-11.7); MONO # 1.2 K/uL (0.0-0.8); MONO % 10.1 % (0.0-10.0); PLATELET COUNT 310 K/uL (130-400); RED CELL DISTRIBUTION WIDTH 13.8 % (11.5-14.5); WHITE BLOOD COUNT 12.3 K/uL (4.8-10.8)
[2017-06-17 07:36] LABS: CHLORIDE 94 mmol/L (98-107); POTASSIUM 3.3 mmol/L (3.6-5.2); SODIUM 131 mmol/L (132-148)
[2017-06-17 07:39] LABS: BLOOD UREA NITROGEN 10 mg/dL (9-20); CARBON DIOXIDE 25 mmol/L (22-30); GFR AFRICAN-AMERICAN > 60
[2017-06-17 07:40] LABS: CALCIUM 8.3 mg/dl (8.6-10.4); GLUCOSE,RANDOM 152 mg/dL (75-110)
[2017-06-17 08:48] LABS: NEUTROPHIL 89 % (50-75); TOTAL CELLS COUNTED 100
[2017-06-17] MEDS ORDERED: Pneumococcal 23-Valent Vaccine IM ONE (10:00)
[2017-06-17] MEDS ORDERED: Influenza Vaccine 60 mcg/0.5 mL SYR (4YR UP) IM ONE (10:00)
--- NOTE | 2017-06-18 02:42 | CP.PCM.PN ---
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 Pt is s/p oncology eval and is advised for chemoradiation. He will be getting a port and PEG today. Dr Salgado and Dr Sheppard will be seeing the patient. Objective - Vital Signs/Intake and Output Vital Signs (last 24 hours): Temp Pulse Resp BP Pulse Ox 99.7 F H 110 H 20 139/80 93 L 06/18/17 00:00 06/18/17 00:00 06/18/17 00:00 06/18/17 00:00 06/18/17 00:00 Intake and Output: 06/17/17 06/18/17 18:59 06:59 Intake Total 1240 1380 Balance 1240 1380 - Medications Medications: Current Medications Acetaminophen (Tylenol 650mg/20.3ml Solution Ud) 650 mg GT Q6 PRN PRN Reason: Pain, Mild (1-3) Enoxaparin Sodium (Lovenox) 30 mg SC DAILY [facility] Last Admin: 06/15/17 10:09 Dose: Not Given Potassium Chloride/Dextrose/Sod Cl (Potassium Chl 20 Meq In D5-1/2ns) 1,000 mls @ 100 mls/hr IV .Q10H [facility] Last Admin: 06/17/17 19:22 Dose: Not Given Morphine Sulfate (Morphine) 2 mg IVP Q6 PRN PRN Reason: Pain, moderate (4-7) Ondansetron HCl (Zofran Inj) 4 mg IVP Q6 PRN PRN Reason: Nausea/Vomiting - Labs Labs: 06/17/17 07:04 06/17/17 07:04 PT 13.5 SECONDS (9.7-12.2) H 06/14/17 11:27 INR 1.2 06/14/17 11:27 APTT 31 SECONDS (21-34) 06/14/17 11:27 - Constitutional Appears: No Acute Distress - Head Exam Head Exam: ATRAUMATIC, NORMAL INSPECTION, NORMOCEPHALIC - Eye Exam Eye Exam: EOMI, Normal appearance, PERRL - Neck Exam Additional comments: 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 tumor involves the left neck, submental region and posterior glottis and vallecula. - Respiratory Exam Respiratory Exam: Clear to Ausculation Bilateral, NORMAL BREATHING PATTERN - Cardiovascular Exam Cardiovascular Exam: REGULAR RHYTHM, +S1, +S2. absent: Murmur - GI/Abdominal Exam GI & Abdominal Exam: Soft, Normal Bowel Sounds. 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 We would concur that he would benefit from chemoradiation. We would recommend a PET for staging and planning if he is discharged soon. He will be getting a port and PEG today. We spoke to the patient about radiation including the risks and benefits. Dr Salgado and Dr Sheppard will be seeing the patient. I will coordinate his chemoradiation with Dr Sheppard. We simulated the patient today to begin planning the radiation. We will follow up on the final pathology from his biopsy. A fiberoptic examination in our office showed patent airway. The large tumor involves the left neck, submental region and posterior glottis and vallecula. The epiglottis was slightly displaced posteriorly due to the vallecular involvement, however did not appear involved. Status: Acute (2) Dysphagia Status: Acute (3) Dehydration Status: Acute
--- NOTE | 2017-06-18 02:43 | CP.PCM.PN ---
Subjective - Date & Time of Evaluation Date of Evaluation: 06/18/17 Time of Evaluation: 09:00 - Subjective Subjective: PT SEEN & EXAMINED AT BEDSIDE Objective - Vital Signs/Intake and Output Vital Signs (last 24 hours): Temp Pulse Resp BP Pulse Ox 99.7 F H 110 H 20 139/80 93 L 06/18/17 00:00 06/18/17 00:00 06/18/17 00:00 06/18/17 00:00 06/18/17 00:00 Intake and Output: 06/17/17 06/18/17 18:59 06:59 Intake Total 1240 1380 Balance 1240 1380 - Medications Medications: Current Medications Acetaminophen (Tylenol 650mg/20.3ml Solution Ud) 650 mg GT Q6 PRN PRN Reason: Pain, Mild (1-3) Enoxaparin Sodium (Lovenox) 30 mg SC DAILY [facility] Last Admin: 06/15/17 10:09 Dose: Not Given Potassium Chloride/Dextrose/Sod Cl (Potassium Chl 20 Meq In D5-1/2ns) 1,000 mls @ 100 mls/hr IV .Q10H [facility] Last Admin: 06/17/17 19:22 Dose: Not Given Morphine Sulfate (Morphine) 2 mg IVP Q6 PRN PRN Reason: Pain, moderate (4-7) Ondansetron HCl (Zofran Inj) 4 mg IVP Q6 PRN PRN Reason: Nausea/Vomiting - Labs Labs: 06/17/17 07:04 06/17/17 07:04 PT 13.5 SECONDS (9.7-12.2) H 06/14/17 11:27 INR 1.2 06/14/17 11:27 APTT 31 SECONDS (21-34) 06/14/17 11:27 Assessment and Plan (1) Mass of left side of neck Status: Acute (2) Dysphagia Status: Acute (3) Dehydration Status: Acute
[2017-06-18] MEDS: Potassium Ch 20mEq in D5-1/2NS 1,000 ML IV SCH ×3 (05:00→15:04)
[2017-06-18 06:37] LABS: BASO % 0.1 % (0.0-2.0); EOS % 0.2 % (0.0-4.0); HEMATOCRIT 33.7 % (35.0-51.0); LYMPH % 6.3 % (20.0-40.0); MEAN CELL VOLUME 94.8 fL (80.0-94.0); MEAN CORPUSCULAR HEMOGLOBIN 31.8 pg (27.0-31.0); MEAN CORPUSCULAR HGB CONC 33.5 g/dL (33.0-37.0); MEAN PLATELET VOLUME 9.4 fL (7.2-11.7); MONO # 1.3 K/uL (0.0-0.8); MONO % 7.9 % (0.0-10.0); PLATELET COUNT 266 K/uL (130-400); RED CELL DISTRIBUTION WIDTH 13.7 % (11.5-14.5); WHITE BLOOD COUNT 15.9 K/uL (4.8-10.8)
[2017-06-18 06:51] LABS: CHLORIDE 97 mmol/L (98-107); POTASSIUM 3.6 mmol/L (3.6-5.2); SODIUM 131 mmol/L (132-148)
[2017-06-18 06:54] LABS: CARBON DIOXIDE 26 mmol/L (22-30); GFR AFRICAN-AMERICAN > 60
[2017-06-18 06:55] LABS: BLOOD UREA NITROGEN 9 mg/dL (9-20); CALCIUM 8.7 mg/dl (8.6-10.4); GLUCOSE,RANDOM 231 mg/dL (75-110)
[2017-06-18 08:55] LABS: NEUTROPHIL 82 % (50-75); TOTAL CELLS COUNTED 100
[2017-06-18 08:56] LABS: LARGE PLATELETS PRESENT
[2017-06-18] MEDS ORDERED: Potassium Chloride 20 mEq/15 ml LIQ UD PO STA (13:51)
[2017-06-19 07:16] LABS: BASO % 0.1 % (0.0-2.0); EOS % 0.2 % (0.0-4.0); HEMATOCRIT 33.3 % (35.0-51.0); LYMPH # 0.6 K/uL (1.0-4.3); LYMPH % 4.5 % (20.0-40.0); MEAN CELL VOLUME 94.3 fL (80.0-94.0); MEAN CORPUSCULAR HEMOGLOBIN 31.8 pg (27.0-31.0); MEAN CORPUSCULAR HGB CONC 33.7 g/dL (33.0-37.0); MEAN PLATELET VOLUME 10.1 fL (7.2-11.7); MONO # 1.1 K/uL (0.0-0.8); MONO % 8.6 % (0.0-10.0); PLATELET COUNT 256 K/uL (130-400); RED CELL DISTRIBUTION WIDTH 13.7 % (11.5-14.5)
[2017-06-19 08:05] LABS: CHLORIDE 96 mmol/L (98-107); POTASSIUM 3.6 mmol/L (3.6-5.2); SODIUM 130 mmol/L (132-148)
[2017-06-19 08:08] LABS: BLOOD UREA NITROGEN 9 mg/dL (9-20); CALCIUM 8.5 mg/dl (8.6-10.4); CARBON DIOXIDE 24 mmol/L (22-30); GFR AFRICAN-AMERICAN > 60; GLUCOSE,RANDOM 237 mg/dL (75-110)
[2017-06-19 10:50] LABS: NEUTROPHIL 86 % (50-75); TOTAL CELLS COUNTED 100
[2017-06-19 10:53] LABS: GIANT PLATELETS PRESENT; LARGE PLATELETS PRESENT
--- NOTE | 2017-06-19 14:55 | CON ---
DATE: 06/17/2017 REASON FOR CONSULTATION: Neck mass and possible tonsil mass. REQUESTING PHYSICIAN: Dr. Villa. HISTORY OF PRESENT ILLNESS: This is an 81-year-old male with left neck mass for months. The patient is not a very reliable historian; therefore, further history cannot be given; however, the patient does not report of any pain on that side. The mass has been enlarging and is not changing and it has not been painful. The patient also reports some difficulty swallowing, which is [id number] in intensity, constant, and for months as well. PAST MEDICAL HISTORY: As noted in the chart by me. MEDICATIONS: As noted in the chart by me. PHYSICAL EXAMINATION: HEAD: Atraumatic and normocephalic. FACE: Good facial movements bilaterally. CONSTITUTIONAL: Well fed, well nourished. COMMUNICATION: Communicates around appropriately. EXTERNAL NOSE: No abnormal masses. No lesions. No erythema. No edema. INTERNAL NOSE: Deviated septum. No masses. No lesions. No erythema. No edema. LIPS AND GUMS: No masses. No lesions. No erythema. No edema. NECK: There is a large level 1/2 neck mass on the left. ORAL CAVITY AND OROPHARYNX: Limited exam secondary to trismus, possible left tonsillar lesion is noted. LYMPH NODES: Lad in the neck on the left THYROID: No thyromegaly. No goiter. LABORATORY DATA: CAT scan was reviewed by me, which reveals a very large mass, possibly originating from the tonsil, going to the base of tongue, wrapped around the ramus of the mandible and extending to the neck. ASSESSMENT: 1. Deviated septum. 2. Tonsillar mass. 3. Neck mass. PLAN: The patient has excisional biopsy done already and the scar can be noted. We will await the results of the biopsy. Watson Salgado MD [email or web address]
--- NOTE | 2017-06-19 23:12 | CP.PCM.PN ---
Subjective - Date & Time of Evaluation Date of Evaluation: 06/19/17 Time of Evaluation: 09:45 - Subjective Subjective: PT SEEN & EXAMINED AT BEDSIDE Objective - Vital Signs/Intake and Output Vital Signs (last 24 hours): Temp Pulse Resp BP Pulse Ox 101.2 F H 105 H 20 129/73 91 L 06/19/17 15:00 06/19/17 15:00 06/19/17 15:00 06/19/17 15:00 06/19/17 15:00 Intake and Output: 06/19/17 06/20/17 18:59 06:59 Intake Total 1100 Balance 1100 - Medications Medications: Current Medications Acetaminophen (Tylenol 650mg/20.3ml Solution Ud) 650 mg GT Q6 PRN PRN Reason: Pain, Mild (1-3) Enoxaparin Sodium (Lovenox) 30 mg SC DAILY [facility] Last Admin: 06/15/17 10:09 Dose: Not Given Morphine Sulfate (Morphine) 2 mg IVP Q6 PRN PRN Reason: Pain, moderate (4-7) Ondansetron HCl (Zofran Inj) 4 mg IVP Q6 PRN PRN Reason: Nausea/Vomiting - Labs Labs: 06/19/17 07:01 06/19/17 07:01 PT 13.5 SECONDS (9.7-12.2) H 06/14/17 11:27 INR 1.2 06/14/17 11:27 APTT 31 SECONDS (21-34) 06/14/17 11:27 Assessment and Plan (1) Mass of left side of neck Status: Acute (2) Dysphagia Status: Acute (3) Dehydration Status: Acute
[2017-06-20] MEDS ORDERED: Sodium Chloride 0.9% 1,000 ML IV ONE ×2 (07:52→09:43)
[2017-06-20] MEDS ORDERED: Iodixanol 320 MG/ML 100 ML BOTTLE IV ONE (08:11)
--- NOTE | 2017-06-20 08:21 | PCM.RRT ---
Addendum entered and electronically signed by Derik Silverman DO 06/20/17 09:48: Patient transferred to telemetry for further monitoring Original Note: <Derik Silverman - Last Filed: 06/20/17 08:17> BEATER ENGINEER HELPER Nurses Assessment - Situation Date: 06/20/17 Time BEATER ENGINEER HELPER was called: 07:39 BEATER ENGINEER HELPER Responder Arrival Time:: 07:40 BEATER ENGINEER HELPER Location:: Med/Oncology Room Number: 357B BEATER ENGINEER HELPER Reason for Call: Tachycardia, Respiratory Distress, Looks Sicker BEATER ENGINEER HELPER Called By: RN - IV IV Inserted during BEATER ENGINEER HELPER?: No IV Fluids Initiated During BEATER ENGINEER HELPER?: NS bolus New IV Insertion Tolerance: Good - Respiratory BEATER ENGINEER HELPER Delivery Method: Nasal Cannula @L/min Oxygen Flow Rate: 6 Received Nebulizer Treatments: No Was the Patient Ventilated with Bag/Mask 100% O2?: Yes Secretions Suctioned?: Yes Was the Patient Intubated?: No Was the Patient Placed on a Ventilator?: No - Diagnostic Test Ordered EKG: Yes Chest X-Ray: Yes CT Scan: Yes Other Diagnostic Test Ordered: CT Abdomen - Stat Labs Ordered BEATER ENGINEER HELPER Stat Labs Ordered: ABG CPR started during BEATER ENGINEER HELPER?: No - Vital Signs Vital Signs: Rapid Response Vital Sign Blood Pressure 97/68 Pulse Rate 135 Respiratory Rate 24 Temperature 97.4 F Oxygen Saturation 90 - Adriane Coma Scale Coma Scale Eye Opening: Spontaneous Coma Scale Motor: Obeys Commands Movement Coma Scale Verbal: Oriented Coma Scale Total: 15 - Sepsis Screen Part 1 Sepsis Screen Part 1: Hypotensive - Time BEATER ENGINEER HELPER Ended Time BEATER ENGINEER HELPER Ended: 08:06 - Vital Signs at end of BEATER ENGINEER HELPER Vital Signs at end of BEATER ENGINEER HELPER: Rapid Response End Vital Sign Blood Pressure 115/80 Pulse Rate 115 Respiratory Rate 25 Temperature 97.4 F O2 Sat by Pulse Oximetry 90 - Recommendations Notifications: Attending Physician, Consultations I.Reason for BEATER ENGINEER HELPER - A) Acute Change in Patient: Subjective: BEATER ENGINEER HELPER was called when patient found to have stool content leaking from PEG site, which was placed on 06/17. Patient was sitting on commode at the time. Patient found to be SOB but was able to respond to commands and speak in full sentences. Patient denied any pain. Feed was on hold per RN. - Neurological Status (Select all that apply): Alert, Responsive, Follows Commands - Respiratory Oxygen Delivery Method: Nasal Cannula @L/min Oxygen Flow Rate: 6 - Constitutional Appears: Non-toxic, No Acute Distress, Chronically Ill - Head Head Exam: NORMOCEPHALIC - Eyes Eye Exam: Normal appearance - Respiratory Exam Respiratory Exam: Rales (RLL), NORMAL BREATHING PATTERN - Cardiovascular Exam Cardiovascular Exam: REGULAR RHYTHM, +S1, +S2 - GI/Abdominal Exam GI & Abdominal Exam: Soft, Normal Bowel Sounds. absent: Tenderness - Neurological Exam Neurological Exam: Alert, Awake - Extremities Exam Extremities Exam: Full ROM Plan - Assessment of Findings&Treatment Plan Initially vital BP was 97/65, HR 135, temp 97.9. Pt was moved to bed with head elevated. Feeding was stopped. NS bolus started. STAT ABG, EKG and CXR was ordered. Per Thao YANG, Dr. Martinez was contacted and ordered STAT CT of chest and abdomen. Attending Dr. Villa was also notified. <Sonia Doss V - Last Filed: 06/20/17 12:10> BEATER ENGINEER HELPER Nurses Assessment - Vital Signs Vital Signs: Rapid Response Vital Sign Blood Pressure 97/68 Pulse Rate 135 Respiratory Rate 24 Temperature 97.4 F Oxygen Saturation 90 - Vital Signs at end of BEATER ENGINEER HELPER Vital Signs at end of BEATER ENGINEER HELPER: Rapid Response End Vital Sign Blood Pressure 115/80 Pulse Rate 115 Respiratory Rate 25 Temperature 97.4 F O2 Sat by Pulse Oximetry 90 Attending/Attestation - Attestation I have personally seen and examined this patient.: Yes I have fully participated in the care of the patient.: Yes I have reviewed all pertinent clinical information, including history, physical exam and plan: Yes Notes (Text): Brief Hospitalist Note: Responded to the first BEATER ENGINEER HELPER. Nurse called following fecal/feedings on the floor. Patient sitting on the commode. Patient is borderline hypotensive and tachycardic. EKG shows tachycardia HR : 115. Chest xray ordered showing pneumonia and b/l small pleural effusions. COMMUNICATIONS SPECIALIST covering Dr. Villa is aware, will speak with the surgeon, Dr. Torres concerning that the part of peg is missing. Appears patient's peg is out and hanging by a stitch.
--- NOTE | 2017-06-20 08:42 | CP.PCM.PN ---
Subjective - Date & Time of Evaluation Date of Evaluation: 06/20/17 Time of Evaluation: 08:25 - Subjective Subjective: DIRECTOR ENTERPRISE DATA ARCHITECTURE NOTES [facility]IL [facility] CALLED THIS AM FOR GASTRIC CONTENT LEAKING FROM G - TUBE SITE , HYPOTENTION AN D TACHYCARDIA Objective - Vital Signs/Intake and Output Vital Signs (last 24 hours): Temp Pulse Resp BP Pulse Ox 99.1 F 104 H 20 93/66 L 96 06/20/17 00:00 06/20/17 00:00 06/20/17 00:00 06/20/17 00:00 06/20/17 00:00 Intake and Output: 06/20/17 06/20/17 06:59 18:59 Intake Total 580 Balance 580 - Medications Medications: Current Medications Acetaminophen (Tylenol 650mg/20.3ml Solution Ud) 650 mg GT Q6 PRN PRN Reason: Pain, Mild (1-3) Enoxaparin Sodium (Lovenox) 30 mg SC DAILY JUAN CARLOS Last Admin: 06/15/17 10:09 Dose: Not Given Sodium Chloride (Sodium Chloride 0.9%) 1,000 mls @ 1,000 mls/hr IV .Q1H ONE Stop: 06/20/17 08:51 Morphine Sulfate (Morphine) 2 mg IVP Q6 PRN PRN Reason: Pain, moderate (4-7) Ondansetron HCl (Zofran Inj) 4 mg IVP Q6 PRN PRN Reason: Nausea/Vomiting - Labs Labs: 06/19/17 07:01 06/19/17 07:01 PT 13.5 SECONDS (9.7-12.2) H 06/14/17 11:27 INR 1.2 06/14/17 11:27 APTT 31 SECONDS (21-34) 06/14/17 11:27 - Constitutional Appears: Non-toxic, In Acute Distress - Respiratory Exam Respiratory Exam: Rales, Rhonchi, Respiratory Distress (moderate ) - Cardiovascular Exam Cardiovascular Exam: Tachycardia, +S1, +S2 - GI/Abdominal Exam GI & Abdominal Exam: Soft (gastic contents leaking from g tube site bakish color and no ballon noted ) Assessment and Plan - Assessment and Plan (Free Text) Assessment: A/P 81 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 Juan above the finding , will see the patient and evaluate Dr. Pearce consulted for possible ICU transfer CXR- result- New opacity mid right lung and questionable opacity at right base. Possible small bilateral pleural effusion started on zozyn and vancomycin and Dr. Julio DIAZ consulted - ( serpsis ) The above plan discussed with Dr. Allen javier agrees with plan
--- NOTE | 2017-06-20 08:52 | RAD ---
HISTORY: rapid COMPARISON: 06/16/2017 FINDINGS: LUNGS: New opacity mid right lung. Rule out pneumonia. Followup. Questionable opacity at right lung base. PLEURA: Minimal blunting of both costophrenic angles. No pneumothorax. CARDIOVASCULAR: Right central venous infusion port. No congestive change. OSSEOUS STRUCTURES: No significant abnormalities. VISUALIZED UPPER ABDOMEN: Normal. OTHER FINDINGS: None. IMPRESSION: New opacity mid right lung and questionable opacity at right base. Possible small bilateral pleural effusion. Follow-up advised.
[2017-06-20] MEDS ORDERED: Vancomycin 1 GM 1 GM/250 ML BAG IVPB STA (09:43)
--- NOTE | 2017-06-20 09:51 | PCM.RRT ---
Addendum entered and electronically signed by Derik Silverman DO 06/20/17 10:09: lactate 6.4, pt also have hypotension as well as elevated WBC. Will call code sepsis. Original Note: <Derik Silverman - Last Filed: 06/20/17 09:54> HEALTH AND SAFETY COORDINATOR Nurses Assessment - Situation Date: 06/20/17 Time HEALTH AND SAFETY COORDINATOR was called: 09:31 HEALTH AND SAFETY COORDINATOR Responder Arrival Time:: :31 HEALTH AND SAFETY COORDINATOR Location:: Med/Surg Room Number: 357B HEALTH AND SAFETY COORDINATOR Reason for Call: Hypotension HEALTH AND SAFETY COORDINATOR Called By: RN - IV IV Fluids Initiated During HEALTH AND SAFETY COORDINATOR?: NS bolus New IV Insertion Tolerance: Good - Respiratory HEALTH AND SAFETY COORDINATOR Delivery Method: Nasal Cannula @L/min Oxygen Flow Rate: 6 Received Nebulizer Treatments: No Was the Patient Ventilated with Bag/Mask 100% O2?: Yes Was the Patient Intubated?: No Was the Patient Placed on a Ventilator?: No - Diagnostic Test Ordered EKG: No Chest X-Ray: No CT Scan: No CPR started during HEALTH AND SAFETY COORDINATOR?: No - Vital Signs Vital Signs: Rapid Response Vital Sign Blood Pressure 78/53 Pulse Rate 117 Respiratory Rate 30 Temperature 98.4 F Oxygen Saturation 86 - Adriane Coma Scale Coma Scale Eye Opening: Spontaneous Coma Scale Motor: Obeys Commands Movement Coma Scale Verbal: Oriented Coma Scale Total: 15 - Sepsis Screen Part 1 Sepsis Screen Part 1: Hypotensive - Time HEALTH AND SAFETY COORDINATOR Ended Time HEALTH AND SAFETY COORDINATOR Ended: 09:50 - Vital Signs at end of HEALTH AND SAFETY COORDINATOR Vital Signs at end of HEALTH AND SAFETY COORDINATOR: Rapid Response End Vital Sign Blood Pressure 112/70 Pulse Rate 112 Respiratory Rate 25 Temperature 97.4 F O2 Sat by Pulse Oximetry 91 - Recommendations Notifications: Attending Physician, Consultations I.Reason for HEALTH AND SAFETY COORDINATOR - A) Acute Change in Patient: (Select all that apply): Acute change in SBP below - Neurological Status (Select all that apply): Alert, Responsive, Oriented - Respiratory Oxygen Delivery Method: Nasal Cannula @L/min Oxygen Flow Rate: 6 - Constitutional Appears: Non-toxic, No Acute Distress - Head Head Exam: NORMOCEPHALIC - Eyes Eye Exam: Normal appearance - Respiratory Exam Respiratory Exam: Rales (bilateral bases), NORMAL BREATHING PATTERN - Cardiovascular Exam Cardiovascular Exam: REGULAR RHYTHM, +S1, +S2. absent: Gallop, Rubs - GI/Abdominal Exam GI & Abdominal Exam: Soft, Normal Bowel Sounds - Neurological Exam Neurological Exam: Alert, Awake, Oriented x3 Plan - Assessment of Findings&Treatment Plan HEALTH AND SAFETY COORDINATOR called 09:31 for hypotension of 78/53. Pt had another HEALTH AND SAFETY COORDINATOR this morning on 3T for leaking gastric content from PEG site and hypotension, and was just transferred to telemetry. Pt is asymptomatic. CXR from this AM showed possible bilateral pleural effusion as well as new RLL opacity. CT angio was done this AM and pending report. Pt was placed in trendelenburg position along with 1L NS bolus and pressure impoved to 112/70. Pt was also placed on ventimask and saturation improved from 86 to 91%. Pt was placed on aspiration precaution and BIPAP PRN ordered. <Sonia Doss V - Last Filed: 06/20/17 20:07> HEALTH AND SAFETY COORDINATOR Nurses Assessment - Vital Signs Vital Signs: Rapid Response Vital Sign Blood Pressure 78/53 Pulse Rate 117 Respiratory Rate 33 Temperature 98.4 F Oxygen Saturation 85 - Vital Signs at end of HEALTH AND SAFETY COORDINATOR Vital Signs at end of HEALTH AND SAFETY COORDINATOR: Rapid Response End Vital Sign Blood Pressure 110/67 Pulse Rate 106 Respiratory Rate 28 Temperature 98.4 F O2 Sat by Pulse Oximetry 91 Attending/Attestation - Attestation I have personally seen and examined this patient.: Yes I have fully participated in the care of the patient.: Yes I have reviewed all pertinent clinical information, including history, physical exam and plan: Yes Notes (Text): Brief Hospitalist Note Responded to second HEALTH AND SAFETY COORDINATOR. patient transferred to telemetry. patient is hypotensive. Patient ordered for fluid bolus. Patient completed ABG this HEALTH AND SAFETY COORDINATOR. Note for Lactic acid of 6.4. Advised resident to call code sepsis. Chest xray from 1st HEALTH AND SAFETY COORDINATOR noted for b/l pleural effusion and new opacity in light of possible aspiration. patient completed CT scan reporting pending. Blood pressure improved to 112/70. Pt was also placed on ventimask and saturation improved from 86 to 91%. Pt was placed on aspiration precaution and BIPAP PRN ordered.
[2017-06-20] MEDS: Piperacillin/Tazobact 3.375 GM in Sodium Chloride 100 ML IVPB SCH ×2 (10:00→19:24)
[2017-06-20 10:01] LABS: ABG ALLEN TEST POS; DRAW SITE RRA
[2017-06-20] MEDS ORDERED: Vancomycin 1 gm/NS 200 ml 1 GM/200 ML BAG IVPB STA ×2 (10:11→11:35)
--- NOTE | 2017-06-20 10:23 | PCM.SEPTIC ---
<SilvermanDerik - Last Filed: 06/20/17 10:19> Sepsis Progress Note - Reassessment Type Reassessment Type: Non-invasive reassessment - Non Invasive Reassessment Were the most recent vital sign reviewed: Yes Vital Sign (Latest): Temp Pulse Resp BP Pulse Ox 97.4 F L 117 H 21 115/80 90 L 06/20/17 08:43 06/20/17 08:43 06/20/17 08:43 06/20/17 08:43 06/20/17 08:43 Cardiovascular: Yes: Regular Rate, Rhythm, Chest Non Tender, Tachycardia. No: JVD Respiratory: Yes: Accessory Muscle Use, Rales Capillary Refill: Normal (Less than 2 sec) Skin: Normal Color, Dry Was a bedside cardiovascular ultrasound performed within 6 hours after the presentation of septic shock: No Was a passive leg raise performed or was a fluid challenge performed within 6 hrs of the initial fluid bolus: Yes Fluid Challenge performed: Yes <Sonia Doss V - Last Filed: 06/20/17 20:20> Sepsis Progress Note - Non Invasive Reassessment Vital Sign (Latest): Temp Pulse Resp BP Pulse Ox 99.5 F 106 H 24 111/58 L 86 L 06/20/17 15:45 06/20/17 19:00 06/20/17 19:05 06/20/17 18:29 06/20/17 19:00 Attending/Attestation - Attestation I have personally seen and examined this patient.: Yes I have fully participated in the care of the patient.: Yes I have reviewed all pertinent clinical information, including history, physical exam and plan: Yes Notes (Text): Brief Hospitalist Note: Patient called for code sepsis in light of elevated lactate. Blood work repeated. Order for fluid bolus: requires 2.4 Liter; ordered for 3 1 Liter NS boluses. Repeat lactate acid order 3 hours later per protocol. Patient ordered for dose of Zosyn and Vancomycin this morning. Informed GENARO Osuna, working with Dr. Villa covering the patient. Thao had informed general surgery regarding the peg tube since COMPOSITE SCIENCE TEACHER and awaiting CT scan result.
[2017-06-20] MEDS: Sodium Chloride 0.9% 1,000 ML IV SCH ×2 (10:30→11:30)
--- NOTE | 2017-06-20 10:38 | CT ---
PROCEDURE: CT Chest with contrast (Pulmonary Angiogram) HISTORY: sob MALFUNCTIONING PEG, THROAT CA COMPARISON: None available. TECHNIQUE: Axial computed tomography images were obtained of the chest in the pulmonary arterial phase of enhancement. Coronal and sagittal reformatted images were created and reviewed. CT angiography of the abdomen and pelvis was also performed with 1.25 mm axial sections acquired through the abdomen and pelvis during the arterial phase of enhancement. Please note that precontrast images were acquired through the abdomen from the lung base to the iliac crests. Intravenous contrast dose: 100 mL Visipaque 320 Radiation dose: Total exam DLP = 1768.13 mGy-cm. This CT exam was performed using one or more of the following dose reduction techniques: Automated exposure control, adjustment of the mA and/or kV according to patient size, and/or use of iterative reconstruction technique. FINDINGS: PULMONARY ARTERIES: Evaluation for pulmonary embolism is somewhat limited due to respiratory motion artifact. There is no evidence of pulmonary embolism. No pulmonary arterial filling defects are identified. Evaluation of subsegmental pulmonary artery branches is somewhat limited. AORTA: No acute findings. No thoracic aortic aneurysm. LUNGS: Multifocal pulmonary infiltrates are noted in all lobes. There are patchy left upper lobe opacities. There are patchy and confluent opacities in the right upper lobe. There is extensive left lower lobe opacity. There is right lower lobe subsegmental atelectasis. Followup to clearing is advised to exclude underlying pulmonary neoplasm. PLEURAL SPACES: There is small to moderate right pleural effusion. There is no left pleural effusion. There is no pneumothorax. HEART: Unremarkable. No cardiomegaly. No significant pericardial effusion. LYMPH NODES: No lymphadenopathy. BONES, CHEST WALL: Unremarkable. No fracture or destructive lesion OTHER FINDINGS: Moderate hiatal hernia. CT angiography of the abdomen and pelvis was performed following the CT angiogram chest. Contiguous 1.25 mm axial sections were acquired through the abdomen and pelvis. Sagittal and coronal images were reformatted. There is no evidence of abdominal aortic aneurysm. There is no evidence of abdominal aortic dissection. 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 The SMA is widely patent. Renal arteries are widely patent. The liver is normal in size, contour and attenuation. There is no mass or biliary dilatation. The gallbladder is significant for multiple small calculi within the gallbladder neck. The gallbladder wall is not thickened and no pericholecystic fluid is seen. The spleen is unremarkable. The pancreas is normal in appearance without evidence of focal mass or peripancreatic fluid collection. There is no pancreatic ductal dilatation. There is no adrenal mass. There is a punctate nonobstructing left lower pole renal calculus. There is no renal mass or hydronephrosis. There are no abnormal bowel loops identified. There is mild retained feces. As noted above, there is a moderate hiatal hernia. There is no bowel obstruction. The appendix is not identified. There are no secondary findings to suggest acute appendicitis. There is no ascites. There is no evidence of pneumoperitoneum. The urinary bladder is unremarkable. The prostate is small. There is lumbar levoscoliosis. There is no acute osseous fracture. There is no retroperitoneal or pelvic lymphadenopathy. IMPRESSION: No evidence of pulmonary embolism. Evaluation for pulmonary embolism is limited in the subsegmental pulmonary artery branches. See above. Multifocal bilateral pulmonary infiltrates. Nonspecific. Infectious versus inflammatory. Followup to clearing to exclude underlying neoplasm. Small to moderate right pleural effusion. Moderate hiatal hernia. No evidence of pneumoperitoneum or ascites. No bowel obstruction. No abdominal aortic aneurysm. Cholelithiasis without evidence of cholecystitis. Nonobstructing punctate left lower pole renal calculus.
[2017-06-20 11:50] LABS: BASO % 0.1 % (0.0-2.0); LYMPH # 0.6 K/uL (1.0-4.3); LYMPH % 21.4 % (20.0-40.0); MEAN CELL VOLUME 94.8 fL (80.0-94.0); MEAN CORPUSCULAR HEMOGLOBIN 31.4 pg (27.0-31.0); MEAN CORPUSCULAR HGB CONC 33.1 g/dL (33.0-37.0); MEAN PLATELET VOLUME 9.7 fL (7.2-11.7); MONO # 0.3 K/uL (0.0-0.8); MONO % 9.2 % (0.0-10.0); NRBC % 0.5 % (0.0-2.0); RED CELL DISTRIBUTION WIDTH 13.9 % (11.5-14.5); WHITE BLOOD COUNT 2.9 K/uL (4.8-10.8)
--- NOTE | 2017-06-20 11:52 | CP.PCM.CON ---
History of Present Illness - History of Present Illness History of Present Illness: INFECTIOUS DISEASE CONSULT; HPI; Patient is 81-year-old male with locally advanced oropharyngeal cancer. 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 Today rapid response was called for hypotension, tachycardia and shortness of breath. CAT scan of the chest showed bilateral infiltrate and effusion. ABG consistent with hypoxemia and elevated lactate level. Code Sepsis was initiated and pt was transferred to intensive care unit. PATIENT WAS FOUND TO HAVE LEUKOCYTOSIS WITH SERUM LACTATE OF 6.4. PATIENT ALSO NOTED TO BE FEBRILE TO 101.2. ANGIO OF THE CHEST ABDOMEN AND PELVIS 06/20/17 OBTAINED WHICH SHOWED NO EVIDENCE OF PULMONARY EMBOLISM BUT MULTIFOCAL BILATERAL INFILTRATES WITH SMALL TO MODERATE RIGHT PLEURAL EFFUSION. CHOLELITHIASIS WITHOUT OBSTRUCTION ALSO WAS SEEN. PATIENT WAS STARTED ON BRO[facility]-S[facility] ANTIBIOTICS INCLUDING zOSYN 3.375 EVERY 8 HOURLY AND zITHROMAX 500 ONCE A DAY DAILY. INFECTIOUS DISEASE CONSULTATION REQUESTED BY PMD FOR FURTHER EVALUATION FOR SEVERE SEPSIS AND BILATERAL PNEUMONIA AND HYPOXEMIA. 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 PATIENT UNABLE TO GIVE ANY HISTORY BECAUSE OF ALTERED MENTAL STATUS PMH: No Chronic Diseases Family History: States: Unknown Family Hx - Social History Hx Alcohol Use: No Hx Substance Use: No. ALLERGY; NKA. Review of Systems - Review of Systems Systems not reviewed;Unavailable: Altered Mental Status (PATIENT POORLY AROUSABLE.) Past Patient History - Past Medical History & Family History Past Medical History?: Yes - Past Social History Smoking Status: Never Smoked Alcohol: None Home Situation {Lives}: Alone - CARDIAC Hx Cardiac Disorders: No - PULMONARY Hx Respiratory Disorders: No - NEUROLOGICAL Hx Neurological Disorder: No - HEENT Hx HEENT Problems: No - RENAL Hx Chronic Kidney Disease: No - ENDOCRINE/METABOLIC Hx Endocrine Disorders: No - HEMATOLOGICAL/ONCOLOGICAL Hx Blood Disorders: No - INTEGUMENTARY Hx Dermatological Problems: No - MUSCULOSKELETAL/RHEUMATOLOGICAL Hx Musculoskeletal Disorders: No Hx Falls: No - GASTROINTESTINAL Hx Gastrointestinal Disorders: No - GENITOURINARY/GYNECOLOGICAL Hx Genitourinary Disorders: No - PSYCHIATRIC Hx Psychophysiologic Disorder: No Hx Substance Use: No - SURGICAL HISTORY Hx Surgeries: No - ANESTHESIA Hx Anesthesia: No Hx Anesthesia Reactions: No Meds Allergies/Adverse Reactions: Allergies Allergy/AdvReac Type Severity Reaction Status Date / Time No Known Allergies Allergy Verified 06/14/17 10:12 - Medications Medications: Current Medications Acetaminophen (Tylenol 650mg/20.3ml Solution Ud) 650 mg GT Q6 PRN PRN Reason: Pain, Mild (1-3) Enoxaparin Sodium (Lovenox) 30 mg SC DAILY [facility] Last Admin: 06/15/17 10:09 Dose: Not Given Piperacillin Sod/Tazobactam (Sod 3.375 gm/ Sodium Chloride) 100 mls @ 200 mls/ hr IVPB Q8H [facility] Last Admin: 06/20/17 10:00 Dose: 200 mls/hr Sodium Chloride (Sodium Chloride 0.9%) 1,000 mls @ 1,000 mls/hr IV .Q1H [facility] Stop: 06/20/17 12:29 Vancomycin/Sodium Chloride (Vancocin) 1 gm in 200 mls @ 167 mls/hr IVPB STAT STA Stop: 06/20/17 12:46 Morphine Sulfate (Morphine) 2 mg IVP Q6 PRN PRN Reason: Pain, moderate (4-7) Ondansetron HCl (Zofran Inj) 4 mg IVP Q6 PRN PRN Reason: Nausea/Vomiting Physical Exam - Constitutional Appears: Older Than Stated Age, Confused, Chronically Ill - Head Exam Head Exam: NORMOCEPHALIC - Eye Exam Eye Exam: PERRL - ENT Exam ENT Exam: Mucous Membranes Dry - Neck Exam Neck exam: Positive for: Lymphadenopathy (LEFT-SIDED MASS AT THE ANGLE OF THE JAW WITH LB IN POSITION. tHERE IS ERYTHEMA AND TENDERNESS SURROUNDING THE AREA AND MASS.), Normal Inspection, Tenderness Additional comments: PATIENT POORLY OPENS HER MOUTH ONLY HALF. - Respiratory Exam Respiratory Exam: Rhonchi (BILATERAL RHONCHI AND RALES) - Cardiovascular Exam Cardiovascular Exam: Tachycardia (.), +S1, +S2 - GI/Abdominal Exam GI & Abdominal Exam: Normal Bowel Sounds (PEG IN PLACE.), Soft - Extremities Exam Extremities exam: Positive for: pedal edema, pedal pulses present. Negative for : calf tenderness - Neurological Exam Neurological exam: Altered - Psychiatric Exam Psychiatric exam: Flat Affect - Skin Skin Exam: Dry, Warm Results - Vital Signs Recent Vital Signs: Last Vital Signs Temp 97.4 F L 06/20/17 08:43 Pulse 117 H 06/20/17 08:43 Resp 21 06/20/17 08:43 BP 115/80 06/20/17 08:43 Pulse Ox 90 L 06/20/17 08:43 - Labs Result Diagrams: 06/20/17 11:44 06/20/17 11:44 Labs: Laboratory Results - last 24 hr 06/20/17 09:56 Puncture Site Rra pCO2 39 pO2 73 L HCO3 23.4 ABG pH 7.38 ABG Total CO2 24.3 ABG O2 Saturation 97.9 ABG Base Excess -1.8 Harlan Test Pos ABG Potassium 3.8 A-a O2 Difference 591.0 Respiratory Index 8.1 Sodium 136.0 Chloride 103.0 Glucose 293 H Lactate 6.4 H* Liter Flow 15.0 FiO2 100.0 Crit Value Called To Dr. holguin Crit Value Called By Moe jacobs weaver narrow fabrics Crit Value Read Back Y Blood Gas Notified Time 1002 Arterial Blood Potassium 3.8 - Imaging and Cardiology CT scan - chest/ABDOMEN AND PELVIS ANGIO. Status: Report reviewed by me Assessment & Plan (1) Respiratory failure Status: Acute (2) Pneumonia Status: Acute (3) Dysphagia Assessment and Plan: S/P PEG INSERTION. Status: Acute (4) Oropharyngeal cancer Status: Acute (5) Dehydration Status: Acute - Assessment and Plan (Free Text) Assessment: IMPRESSION; SEPSIS- SYNDROME WITH HYPOTENSION ACUTE RESPIRATORY FAILURE . BILATERAL MULTIFOCAL PNEUMONIA ? ASPIRATION VS ATYPICAL. 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 S/P PEG. S/P MED-PORT . DEHYDRATION. PLAN; pANCULTURES CONTINUE iv zOSYN 3.375 EVERY 8 HOURLY.06/20/17 ADD iv VANCOMYCIN 1 G ONCE A DAY DAILY. CONTINUE zITHROMAX 500 MG ONCE A DAY DAILY.06/20/17. vANCO TROUGH LEVEL PRIOR TO THE FOURTH DOSE AND KEEP IT BETWEEN 10 AND 20. FOLLOW-UP RENAL FUNCTIONS CLOSELY fOLLOW-UP CULTURES TO ADJUST ANTIBIOTICS PATIENT HAS EXTENSIVE LARYNGEAL DISEASE. PER ONCOLOGY/ ? RADIATION. WILL FOLLOW PATIENT ALONG WITH YOU AND MAKE RECOMMENDATIONS NEEDED.
[2017-06-20 11:58] LABS: INR 1.4
[2017-06-20] MEDS ORDERED: Iohexol 240 (50 ml) ONE (12:02)
[2017-06-20 12:08] LABS: CHLORIDE 98 mmol/L (98-107); SODIUM 134 mmol/L (132-148)
[2017-06-20 12:09] LABS: POTASSIUM 4.3 mmol/L (3.6-5.2)
[2017-06-20 12:10] LABS: BILIRUBIN,TOTAL 0.8 mg/dL (0.2-1.3); GFR AFRICAN-AMERICAN > 60
[2017-06-20 12:11] LABS: ALB/GLOB RATIO 0.7 (1.0-2.1); ALKALINE PHOSPHATASE 148 U/L (38-126); ALT/SGPT 63 U/L (21-72); AST/SGOT 57 U/L (17-59); BLOOD UREA NITROGEN 28 mg/dL (9-20); CARBON DIOXIDE 22 mmol/L (22-30); GLUCOSE,RANDOM 239 mg/dL (75-110); TOTAL PROTEIN 6.9 g/dL (6.3-8.3)
[2017-06-20 12:12] LABS: CALCIUM 9.4 mg/dl (8.6-10.4); MAGNESIUM 1.8 mg/dL (1.6-2.3)
--- NOTE | 2017-06-20 13:32 | RAD ---
PROCEDURE: Limited upper GI/ gastrostomy tube study. HISTORY: gastrograffin study through gastric feeding tube COMPARISON: No prior similar study available for comparison P TECHNIQUE: Water-soluble contrast was injected in the indwelling gastrostomy tube. FINDINGS: Under fluoroscopic guidance water-soluble contrast was injected through the indwelling gastrostomy tube at the left abdomen. The contrast seen extending to the stomach. There was no evidence of contrast extravasation. The gastrostomy tube is seen at appropriate position. Mild diffuse gastric mucosal wall thickening is noted. IMPRESSION: Appropriate position of the gastrostomy tube.
[2017-06-20 13:42] LABS: VENOUS BLOOD GAS BASE EXCESS -0.2 mmol/L (0.0-2.0); VENOUS BLOOD GAS PCO2 41 mmHg (40-60); VENOUS BLOOD PH 7.39 (7.32-7.43)
[2017-06-20] MEDS: Dextrose 5%/0.9% NS 1,000 ML IV SCH (14:41)
[2017-06-20 14:55] LABS: URINE BILIRUBIN NEGATIVE (NEGATIVE); URINE BLOOD NEGATIVE (NEGATIVE); URINE COLOR Amber (YELLOW); URINE GLUCOSE (UA) 3+ mg/dL (Normal); URINE KETONE NEGATIVE (NEGATIVE); URINE LEUKOCYTE ESTERASE NEG Leu/uL (Negative); URINE PROTEIN 1+ mg/dL (NEGATIVE); WBC URINE 1 /hpf (0-5)
[2017-06-20] MEDS: Azithromycin 500 MG in Sodium Chloride 0.9% 250 ML IVPB SCH (16:22)
--- NOTE | 2017-06-20 19:14 | CP.PCM.CON ---
History of Present Illness - History of Present Illness History of Present Illness: reason for consultation: shortness of breath, hypertension Patient is 81-year-old male with locally advanced oropharyngeal cancer. 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 today rapid response was called for hypotension, tachycardia and shortness of breath. CAT scan of the chest showed bilateral infiltrate and effusion. ABG consistent with hypoxemia and elevated lactate level. code sepsis was initiated and pt was transferred to intensive care unit. Review of Systems - Review of Systems All systems: reviewed and no additional remarkable complaints except (shortness of breath) Past Patient History - Past Medical History & Family History Past Medical History?: Yes - Past Social History Smoking Status: Never Smoked Alcohol: None Home Situation {Lives}: Alone - CARDIAC Hx Cardiac Disorders: No - PULMONARY Hx Respiratory Disorders: No - NEUROLOGICAL Hx Neurological Disorder: No - HEENT Hx HEENT Problems: No - RENAL Hx Chronic Kidney Disease: No - ENDOCRINE/METABOLIC Hx Endocrine Disorders: No - HEMATOLOGICAL/ONCOLOGICAL Hx Blood Disorders: No - INTEGUMENTARY Hx Dermatological Problems: No - MUSCULOSKELETAL/RHEUMATOLOGICAL Hx Musculoskeletal Disorders: No Hx Falls: No - GASTROINTESTINAL Hx Gastrointestinal Disorders: No - GENITOURINARY/GYNECOLOGICAL Hx Genitourinary Disorders: No - PSYCHIATRIC Hx Psychophysiologic Disorder: No Hx Substance Use: No - SURGICAL HISTORY Hx Surgeries: No - ANESTHESIA Hx Anesthesia: No Hx Anesthesia Reactions: No Meds Allergies/Adverse Reactions: Allergies Allergy/AdvReac Type Severity Reaction Status Date / Time No Known Allergies Allergy Verified 06/14/17 10:12 - Medications Medications: Current Medications Acetaminophen (Tylenol 650mg/20.3ml Solution Ud) 650 mg GT Q6 PRN PRN Reason: Pain, Mild (1-3) Enoxaparin Sodium (Lovenox) 30 mg SC DAILY [facility] Last Admin: 06/15/17 10:09 Dose: Not Given Piperacillin Sod/Tazobactam (Sod 3.375 gm/ Sodium Chloride) 100 mls @ 200 mls/ hr IVPB Q8H [facility] Last Admin: 06/20/17 10:00 Dose: 200 mls/hr Azithromycin 500 mg/ Sodium (Chloride) 250 mls @ 166.667 mls/hr IVPB Q24H [facility] Last Admin: 06/20/17 16:22 Dose: 166.667 mls/hr Vancomycin/Sodium Chloride (Vancocin) 1 gm in 200 mls @ 133.333 mls/hr IVPB Q24H [facility] Dextrose/Sodium Chloride (Dextrose 5%/0.9% Ns 1000 Ml) 1,000 mls @ 100 mls/hr IV .Q10H [facility] Last Admin: 06/20/17 14:41 Dose: 100 mls/hr Morphine Sulfate (Morphine) 2 mg IVP Q6 PRN PRN Reason: Pain, moderate (4-7) Physical Exam - Head Exam Head Exam: ATRAUMATIC, NORMOCEPHALIC - ENT Exam ENT Exam: Mucous Membranes Moist - Neck Exam Neck exam: Positive for: Normal Inspection - Respiratory Exam Respiratory Exam: Respiratory Distress - Cardiovascular Exam Cardiovascular Exam: REGULAR RHYTHM - GI/Abdominal Exam GI & Abdominal Exam: Normal Bowel Sounds - Extremities Exam Extremities exam: Positive for: normal inspection Results - Vital Signs Recent Vital Signs: Last Vital Signs Temp 99.5 F 06/20/17 15:45 Pulse 106 H 06/20/17 19:00 Resp 22 06/20/17 19:00 BP 111/58 L 06/20/17 18:29 Pulse Ox 86 L 06/20/17 19:00 - Labs Result Diagrams: 06/20/17 11:44 06/20/17 11:44 Labs: Laboratory Results - last 24 hr 06/20/17 06/20/17 06/20/17 09:56 11:44 11:44 WBC 2.9 L D RBC 3.91 L Hgb 12.3 Hct 37.0 MCV 94.8 H MCH 31.4 H MCHC 33.1 RDW 13.9 Plt Count 240 MPV 9.7 Neut % (Auto) 69.3 Lymph % (Auto) 21.4 [place] % (Auto) 9.2 Eos % (Auto) 0.0 Baso % (Auto) 0.1 Neut # 2.0 Lymph # 0.6 L [place] # 0.3 Eos # 0.0 Baso # 0.0 PT 15.7 H INR 1.4 APTT 26 Puncture Site Rra pCO2 39 pO2 73 L HCO3 23.4 ABG pH 7.38 ABG Total CO2 24.3 ABG O2 Saturation 97.9 ABG Base Excess -1.8 Harlan Test Pos ABG Potassium 3.8 VBG pH VBG pCO2 VBG HCO3 VBG Total CO2 VBG O2 Sat (Calc) VBG Base Excess VBG Potassium A-a O2 Difference 591.0 Respiratory Index 8.1 Sodium 136.0 Chloride 103.0 Glucose 293 H Lactate 6.4 H* Liter Flow 15.0 FiO2 100.0 Crit Value Called To Dr. holguin Crit Value Called By Moe jacobs design architect Crit Value Read Back Y Blood Gas Notified Time 1002 Potassium Carbon Dioxide Anion Gap BUN Creatinine Est GFR ( Amer) Est GFR (Non-Af Amer) Random Glucose Calcium Phosphorus Magnesium Total Bilirubin AST ALT Alkaline Phosphatase Total Protein Albumin Globulin Albumin/Globulin Ratio Arterial Blood Potassium 3.8 Venous Blood Potassium Urine Color Urine Clarity Urine pH Ur Specific [place] Urine Protein Urine Glucose (UA) Urine Ketones Urine Blood Urine Nitrate Urine Bilirubin Urine Urobilinogen Ur Leukocyte Esterase Urine WBC (Auto) Ur Squamous Epith Cells 06/20/17 06/20/17 06/20/17 11:44 13:39 14:24 WBC RBC Hgb Hct MCV MCH MCHC RDW Plt Count MPV Neut % (Auto) Lymph % (Auto) [place] % (Auto) Eos % (Auto) Baso % (Auto) Neut # Lymph # [place] # Eos # Baso # PT INR APTT Puncture Site pCO2 pO2 33 HCO3 ABG pH ABG Total CO2 ABG O2 Saturation ABG Base Excess Harlan Test ABG Potassium VBG pH 7.39 VBG pCO2 41 VBG HCO3 23.8 VBG Total CO2 26.1 VBG O2 Sat (Calc) 66.6 H VBG Base Excess -0.2 L VBG Potassium 4.5 A-a O2 Difference Respiratory Index Sodium 134 138.0 Chloride 98 105.0 Glucose 228 H Lactate 6.1 H* Liter Flow FiO2 Crit Value Called To Dr antonio Crit Value Called By Boo carbajal design architect Crit Value Read Back Y Blood Gas Notified Time 1342 Potassium 4.3 Carbon Dioxide 22 Anion Gap 19 BUN 28 H Creatinine 0.7 L Est GFR ( Amer) > 60 Est GFR (Non-Af Amer) > 60 Random Glucose 239 H Calcium 9.4 Phosphorus 2.0 L Magnesium 1.8 Total Bilirubin 0.8 AST 57 ALT 63 Alkaline Phosphatase 148 H D Total Protein 6.9 Albumin 2.7 L Globulin 4.1 H Albumin/Globulin Ratio 0.7 L Arterial Blood Potassium Venous Blood Potassium 4.5 Urine Color Yoana Urine Clarity Clear Urine pH 5.0 Ur Specific [place] 1.010 Urine Protein 1+ H Urine Glucose (UA) 3+ H Urine Ketones Negative Urine Blood Negative Urine Nitrate Negative Urine Bilirubin Negative Urine Urobilinogen 4.0 Ur Leukocyte Esterase Neg Urine WBC (Auto) 1 Ur Squamous Epith Cells 1 Assessment & Plan (1) Respiratory failure Status: Acute Comment: secondary to bilateral pneumonia. IV antibiotics as per infectious disease. Followup ABG. BiPAP as needed. Palliative care consult. Followup lactate level (2) Oropharyngeal cancer Status: Acute (3) Pneumonia Status: Acute
--- NOTE | 2017-06-20 19:27 | CP.PCM.CON ---
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 status post PEG insertion, who was transferred to the ICU due to TECHNOLOGY LEAD for Code sepsis; hypotension, tachycardia and shortness of breath and lactate of 6.4, 6.1 PMHx: oropharyngeal cancer PSHx: Denies FHx: Denies Allergies: NKDA Medication: As per chart review Social Hx: Denies tobacco use, ETOH and illicit drug use Review of Systems - Constitutional Constitutional: absent: Chills, Fever - EENT Eyes: absent: Change in Vision - Cardiovascular Cardiovascular: absent: Chest Pain, Dyspnea - Respiratory Respiratory: absent: Dyspnea, Wheezing - Gastrointestinal Gastrointestinal: absent: Abdominal Pain, Nausea, Vomiting - Neurological Neurological: Weakness. absent: Dizziness, Headaches, Syncope - Endocrine Endocrine: Fatigue. absent: Palpitations Past Patient History - Past Medical History & Family History Past Medical History?: Yes - Past Social History Smoking Status: Never Smoked Alcohol: None Home Situation {Lives}: Alone - CARDIAC Hx Cardiac Disorders: No - PULMONARY Hx Respiratory Disorders: No - NEUROLOGICAL Hx Neurological Disorder: No - HEENT Hx HEENT Problems: No - RENAL Hx Chronic Kidney Disease: No - ENDOCRINE/METABOLIC Hx Endocrine Disorders: No - HEMATOLOGICAL/ONCOLOGICAL Hx Blood Disorders: No - INTEGUMENTARY Hx Dermatological Problems: No - MUSCULOSKELETAL/RHEUMATOLOGICAL Hx Musculoskeletal Disorders: No Hx Falls: No - GASTROINTESTINAL Hx Gastrointestinal Disorders: No - GENITOURINARY/GYNECOLOGICAL Hx Genitourinary Disorders: No - PSYCHIATRIC Hx Psychophysiologic Disorder: No Hx Substance Use: No - SURGICAL HISTORY Hx Surgeries: No - ANESTHESIA Hx Anesthesia: No Hx Anesthesia Reactions: No Meds Allergies/Adverse Reactions: Allergies Allergy/AdvReac Type Severity Reaction Status Date / Time No Known Allergies Allergy Verified 06/14/17 10:12 - Medications Medications: Current Medications Acetaminophen (Tylenol 650mg/20.3ml Solution Ud) 650 mg GT Q6 PRN PRN Reason: Pain, Mild (1-3) Enoxaparin Sodium (Lovenox) 30 mg SC DAILY [facility] Last Admin: 06/15/17 10:09 Dose: Not Given Piperacillin Sod/Tazobactam (Sod 3.375 gm/ Sodium Chloride) 100 mls @ 200 mls/ hr IVPB Q8H [facility] Last Admin: 06/20/17 10:00 Dose: 200 mls/hr Azithromycin 500 mg/ Sodium (Chloride) 250 mls @ 166.667 mls/hr IVPB Q24H [facility] Last Admin: 06/20/17 16:22 Dose: 166.667 mls/hr Vancomycin/Sodium Chloride (Vancocin) 1 gm in 200 mls @ 133.333 mls/hr IVPB Q24H [facility] Dextrose/Sodium Chloride (Dextrose 5%/0.9% Ns 1000 Ml) 1,000 mls @ 100 mls/hr IV .Q10H [facility] Last Admin: 06/20/17 14:41 Dose: 100 mls/hr Morphine Sulfate (Morphine) 2 mg IVP Q6 PRN PRN Reason: Pain, moderate (4-7) Physical Exam - Head Exam Head Exam: ATRAUMATIC - Eye Exam Eye Exam: EOMI - ENT Exam ENT Exam: Mucous Membranes Dry - Respiratory Exam Respiratory Exam: Rales - Cardiovascular Exam Cardiovascular Exam: +S1, +S2, Systolic Murmur - GI/Abdominal Exam GI & Abdominal Exam: Normal Bowel Sounds, Soft - Extremities Exam Extremities exam: Negative for: pedal edema - Neurological Exam Neurological exam: Alert Results - Vital Signs Recent Vital Signs: Last Vital Signs Temp 99.5 F 06/20/17 15:45 Pulse 106 H 06/20/17 19:00 Resp 22 06/20/17 19:00 BP 111/58 L 06/20/17 18:29 Pulse Ox 86 L 06/20/17 19:00 - Labs Result Diagrams: 06/20/17 11:44 06/20/17 11:44 Labs: Laboratory Results - last 24 hr 06/20/17 06/20/17 06/20/17 09:56 11:44 11:44 WBC 2.9 L D RBC 3.91 L Hgb 12.3 Hct 37.0 MCV 94.8 H MCH 31.4 H MCHC 33.1 RDW 13.9 Plt Count 240 MPV 9.7 Neut % (Auto) 69.3 Lymph % (Auto) 21.4 Lamb % (Auto) 9.2 Eos % (Auto) 0.0 Baso % (Auto) 0.1 Neut # 2.0 Lymph # 0.6 L Lamb # 0.3 Eos # 0.0 Baso # 0.0 PT 15.7 H INR 1.4 APTT 26 Puncture Site Rra pCO2 39 pO2 73 L HCO3 23.4 ABG pH 7.38 ABG Total CO2 24.3 ABG O2 Saturation 97.9 ABG Base Excess -1.8 Harlan Test Pos ABG Potassium 3.8 VBG pH VBG pCO2 VBG HCO3 VBG Total CO2 VBG O2 Sat (Calc) VBG Base Excess VBG Potassium A-a O2 Difference 591.0 Respiratory Index 8.1 Sodium 136.0 Chloride 103.0 Glucose 293 H Lactate 6.4 H* Liter Flow 15.0 FiO2 100.0 Crit Value Called To Dr. holguin Crit Value Called By Moe jacobs belt loop maker Crit Value Read Back Y Blood Gas Notified Time 1002 Potassium Carbon Dioxide Anion Gap BUN Creatinine Est GFR ( Amer) Est GFR (Non-Af Amer) Random Glucose Calcium Phosphorus Magnesium Total Bilirubin AST ALT Alkaline Phosphatase Total Protein Albumin Globulin Albumin/Globulin Ratio Arterial Blood Potassium 3.8 Venous Blood Potassium Urine Color Urine Clarity Urine pH Ur Specific [place] Urine Protein Urine Glucose (UA) Urine Ketones Urine Blood Urine Nitrate Urine Bilirubin Urine Urobilinogen Ur Leukocyte Esterase Urine WBC (Auto) Ur Squamous Epith Cells 06/20/17 06/20/17 06/20/17 11:44 13:39 14:24 WBC RBC Hgb Hct MCV MCH MCHC RDW Plt Count MPV Neut % (Auto) Lymph % (Auto) [place] % (Auto) Eos % (Auto) Baso % (Auto) Neut # Lymph # [place] # Eos # Baso # PT INR APTT Puncture Site pCO2 pO2 33 HCO3 ABG pH ABG Total CO2 ABG O2 Saturation ABG Base Excess Harlan Test ABG Potassium VBG pH 7.39 VBG pCO2 41 VBG HCO3 23.8 VBG Total CO2 26.1 VBG O2 Sat (Calc) 66.6 H VBG Base Excess -0.2 L VBG Potassium 4.5 A-a O2 Difference Respiratory Index Sodium 134 138.0 Chloride 98 105.0 Glucose 228 H Lactate 6.1 H* Liter Flow FiO2 Crit Value Called To Dr antonio Crit Value Called By Boo carbajal belt loop maker Crit Value Read Back Y Blood Gas Notified Time 1342 Potassium 4.3 Carbon Dioxide 22 Anion Gap 19 BUN 28 H Creatinine 0.7 L Est GFR ( Amer) > 60 Est GFR (Non-Af Amer) > 60 Random Glucose 239 H Calcium 9.4 Phosphorus 2.0 L Magnesium 1.8 Total Bilirubin 0.8 AST 57 ALT 63 Alkaline Phosphatase 148 H D Total Protein 6.9 Albumin 2.7 L Globulin 4.1 H Albumin/Globulin Ratio 0.7 L Arterial Blood Potassium Venous Blood Potassium 4.5 Urine Color Yoana Urine Clarity Clear Urine pH 5.0 Ur Specific [place] 1.010 Urine Protein 1+ H Urine Glucose (UA) 3+ H Urine Ketones Negative Urine Blood Negative Urine Nitrate Negative Urine Bilirubin Negative Urine Urobilinogen 4.0 Ur Leukocyte Esterase Neg Urine WBC (Auto) 1 Ur Squamous Epith Cells 1 Assessment & Plan - Assessment and Plan (Free Text) Assessment: 81 y/o male, with no significant past medical history, presents to emergency department for evaluation of left lateral neck mass underneath the chin extending from jaw, who was transferred to the ICU due to TECHNOLOGY LEAD for Code sepsis; hypotension, tachycardia and shortness of breath and lactate of 6.4, 6.1 Plan: Neuro: Alert, mildly confused Cardio: No acute issues Pulm: Pneumonia Chest X-ray (06/20/17): New opacity mid right lung and questionable opacity at right base Medication/Management: * Azithromycin 500mg IVPB Q24H GI: No acute distress Endo: No acute distress ID: Code sepsis Lactate: 6.4, 6.1 Medication/Management: * Zosyn 3.375gm IVPB Q8H * Vanco 1gm IVPB Q24H Prophylaxis: DVT: SCDs, anticogulation on hold GI: Protonix 40mg PO daily
[2017-06-21] MEDS: Dextrose 5%/0.9% NS 1,000 ML IV SCH ×3 (00:10→19:13)
[2017-06-21] MEDS: Piperacillin/Tazobact 3.375 GM in Sodium Chloride 100 ML IVPB SCH ×3 (00:11→17:36)
[2017-06-21 06:18] LABS: CHLORIDE 103 mmol/L (98-107); SODIUM 137 mmol/L (132-148)
[2017-06-21 06:19] LABS: POTASSIUM 3.8 mmol/L (3.6-5.2)
[2017-06-21 06:21] LABS: ALB/GLOB RATIO 0.7 (1.0-2.1); ALKALINE PHOSPHATASE 94 U/L (38-126); ALT/SGPT 37 U/L (21-72); AST/SGOT 27 U/L (17-59); BILIRUBIN,TOTAL 0.8 mg/dL (0.2-1.3); BLOOD UREA NITROGEN 32 mg/dL (9-20); CALCIUM 8.1 mg/dl (8.6-10.4); CARBON DIOXIDE 21 mmol/L (22-30); GFR AFRICAN-AMERICAN > 60; GLUCOSE,RANDOM 179 mg/dL (75-110); PHOSPHOROUS 1.9 mg/dL (2.5-4.5); TOTAL PROTEIN 5.6 g/dL (6.3-8.3)
[2017-06-21 06:22] LABS: MAGNESIUM 1.9 mg/dL (1.6-2.3)
[2017-06-21 06:55] LABS: BASO % 0.1 % (0.0-2.0); EOS % 0.1 % (0.0-4.0); HEMATOCRIT 30.3 % (35.0-51.0); LYMPH # 0.7 K/uL (1.0-4.3); LYMPH % 7.7 % (20.0-40.0); MEAN CELL VOLUME 94.8 fL (80.0-94.0); MEAN CORPUSCULAR HEMOGLOBIN 31.8 pg (27.0-31.0); MEAN CORPUSCULAR HGB CONC 33.6 g/dL (33.0-37.0); MEAN PLATELET VOLUME 9.7 fL (7.2-11.7); MONO # 0.5 K/uL (0.0-0.8); MONO % 4.8 % (0.0-10.0); NRBC % 0.1 % (0.0-2.0); PLATELET COUNT 223 K/uL (130-400); RED CELL DISTRIBUTION WIDTH 14.3 % (11.5-14.5); WHITE BLOOD COUNT 9.7 K/uL (4.8-10.8)
[2017-06-21 08:25] LABS: METAMYELOCYTE 1 % (0-0); MYELOCYTE 4 % (0-0); NEUTROPHIL 19 % (50-75); NUCLEATED RED BLOOD CELL 1 % (0-0); TOTAL CELLS COUNTED 100
[2017-06-21 08:28] LABS: LARGE PLATELETS PRESENT
[2017-06-21 10:50] LABS: DRAW SITE VBG
--- NOTE | 2017-06-21 11:16 | RAD ---
HISTORY: sob COMPARISON: 06/20/2017 FINDINGS: LUNGS: The patchy nodular infiltrate mid to peripheral aspects of both lungs have bilaterally increased-mildly. An element of concomitant interstitial pulmonary edema suggested PLEURA: No significant pleural effusion identified, no pneumothorax apparent. CARDIOVASCULAR: Normal heart size. Concomitant interstitial pulmonary edema suggested OSSEOUS STRUCTURES: Mild thoracic spondylosis VISUALIZED UPPER ABDOMEN: Normal. OTHER FINDINGS: Port-A-Cath tip in superior vena cava-as before. IMPRESSION: Bilateral patchy infiltrates worse since 06/20/2017 superimposed interstitial pulmonary edema suspect
[2017-06-21 11:54] LABS: ABG ALLEN TEST POS; ARTERIAL BLOOD HGB O2 SAT 93.8 % (95.0-98.0); CARBOXYHEMOGLOBIN 1.7 % (0.5-1.5); DRAW SITE RR; HHB 3.2 % (0.0-5.0); METHEMOGLOBIN 1.3 % (0.0-3.0)
[2017-06-21] MEDS ORDERED: Fluconazole IV 200mg/100 ml NS 100 ML IVPB ONE (12:00)
[2017-06-21] MEDS: Azithromycin 500 MG in Sodium Chloride 0.9% 250 ML IVPB SCH (12:10)
[2017-06-21] MEDS: Vancomycin 1 gm/NS 200 ml 1 GM/200 ML BAG IVPB SCH (14:50)
[2017-06-21 16:16] LABS: ABG ALLEN TEST POS; ARTERIAL BLOOD HGB O2 SAT 91.6 % (95.0-98.0); CARBOXYHEMOGLOBIN 1.8 % (0.5-1.5); DRAW SITE RRA; HHB 5.2 % (0.0-5.0); METHEMOGLOBIN 1.5 % (0.0-3.0)
--- NOTE | 2017-06-21 16:57 | CP.CCUPN ---
Addendum entered and electronically signed by Mateo Marie 06/21/17 17:20: A/P: ID: Urosepsis Infectious Disease consult, Dr. Dominguez---> Help appreciated Lactate: 6.4, 6.1, 5.7 ( Trendind down), Bandemia Urine culture: Gram Positive cocci Blood Culture: No growth Medication/Management: * Zosyn 3.375gm IVPB Q8H ( Started 06/20/17) * Vanco 1gm IVPB Q24H ( Started 06/21/17) * D5WNS @100mls/hr Original Note: <Mateo Marie - Last Filed: 06/21/17 17:18> CCU Subjective - Physician Review Subjective (Free Text): Patient was seen and examined at bedside. Patient was resting in bed. Patient seems to be mildly confused. Patient also has difficulty speaking due to enlarged submandibular mass. Patient admits to difficulty with breathing, therefore, patient is on Vaoptherm with 100% FIO2. CCU Objective - Vital Signs / Intake & Output Vital Signs (Last 4 hours): Vital Signs Pulse Resp BP Pulse Ox 06/21/17 14:00 128/67 06/21/17 13:47 28 H 06/21/17 13:01 99 H 15 120/62 94 L 06/21/17 13:00 101 H 21 92 L Intake and Output (Last 8hrs): Intake & Output 06/21/17 06/21/17 06/21/17 06:59 14:59 22:59 Intake Total 800 800 Output Total 445 320 Balance 355 480 Intake: Intake, IV Amount 800 800 Right Port-A-Cath 800 800 Output: Urine 445 320 Urine, Voided 445 320 Other: # Bowel Movements 1 1 - Physical Exam Head: Positive for: Atraumatic Extroacular Muscles: Positive for: EOMI Mouth: Positive for: Dry Respiratory/Chest: Positive for: Good Air Exchange, Decreased Breath Sounds. Negative for: Respiratory Distress, Accessory Muscle Use Cardiovascular: Positive for: Regular Rate and Rhythm, Murmurs Abdomen: Positive for: Other (Decreased bowel sounds ). Negative for: Tenderness, Distention Upper Extremity: Negative for: Edema Lower Extremity: Negative for: Edema, Swelling Skin: Positive for: Normal Color Psychiatric: Positive for: Alert - Medications Active Medications: Active Medications Generic Name Dose Route Start Last Admin Trade Name Freq PRN Reason Stop Dose Admin Acetaminophen 650 mg 06/16/17 17:25 Tylenol 650mg/20.3ml Solution Ud GT Q6 PRN Pain, Mild (1-3) Enoxaparin Sodium 30 mg 06/15/17 10:00 06/15/17 10:09 Lovenox SC Not Given DAILY JUAN CARLOS Piperacillin Sod/Tazobactam 100 mls @ 200 mls/hr 06/20/17 09:00 06/21/17 09: 29 Sod 3.375 gm/ Sodium Chloride IVPB 200 mls/hr Q8H JUAN CARLOS Administration Azithromycin 500 mg/ Sodium 250 mls @ 166.667 mls/hr 06/20/17 12:00 06/21/17 12:10 Chloride IVPB 166.667 mls/hr Q24H JUAN CARLOS Administration Vancomycin/Sodium Chloride 1 gm in 200 mls @ 133.333 mls/hr 06/21/17 13:00 14:50 Vancocin IVPB 133.333 mls/hr Q24H JUAN CARLOS Administration Dextrose/Sodium Chloride 1,000 mls @ 100 mls/hr 06/20/17 13:00 06/21/17 09:38 Dextrose 5%/0.9% Ns 1000 Ml IV 100 mls/hr .Q10H JUAN CARLOS Administration Fluconazole 50 mls @ 100 mls/hr 06/22/17 10:00 Diflucan Iv 100 Mg/50 Ml Ns IVPB DAILY JUAN CARLOS Morphine Sulfate 2 mg 06/16/17 16:40 Morphine IVP Q6 PRN Pain, moderate (4-7) Pantoprazole Sodium 40 mg 06/21/17 10:00 06/21/17 09:29 Protonix Inj IVP 40 mg DAILY JUAN CARLOS Administration - Patient Studies Lab Studies: Microbiology Studies 06/20/17 14:45 Urine Culture - Preliminary Urine Gram Positive Cocci Lab Studies 06/21/17 06/21/17 06/21/17 Range/Units 16:10 11:51 10:46 WBC (4.8-10.8) K/uL RBC (4.40-5.90) Mil/uL Hgb (12.0-18.0) g/dL Hct (35.0-51.0) % MCV (80.0-94.0) fL MCH (27.0-31.0) pg MCHC (33.0-37.0) g/dL RDW (11.5-14.5) % Plt Count (130-400) K/uL MPV (7.2-11.7) fL Neut % (Auto) (50.0-75.0) % Lymph % (Auto) (20.0-40.0) % [place] % (Auto) (0.0-10.0) % Eos % (Auto) (0.0-4.0) % Baso % (Auto) (0.0-2.0) % Neut # (1.8-7.0) K/uL Lymph # (1.0-4.3) K/uL [place] # (0.0-0.8) K/uL Eos # (0.0-0.7) K/uL Baso # (0.0-0.2) K/uL Neutrophils % (Manual) (50-75) % Band Neutrophils % (0-2) % Lymphocytes % (Manual) (20-40) % Monocytes % (Manual) (0-10) % Metamyelocytes % (0-0) % Myelocytes % (0-0) % Nucleated RBC % (0-0) % Toxic Granulation Platelet Estimate (NORMAL) Large Platelets Hypochromasia (manual) Poikilocytosis (manual Anisocytosis (manual) Puncture Site Rra Rr Vbg pCO2 36 37 41 (35-45) mm/Hg pO2 59 L 68 L 40 L* (80-100) mm/Hg HCO3 23.7 24.1 22.0 (21-28) mmol/L ABG pH 7.41 7.41 7.35 (7.35-7.45) ABG Total CO2 23.9 24.6 23.9 (22-28) mmol/L ABG O2 Saturation 94.6 L 96.7 79.8 L (95-98) % ABG Base Excess -1.5 -0.9 -2.9 L (-2.0-3.0) mmol/L ABG Hemoglobin 10.4 L 12.3 (11.7-17.4) g/dL ABG Carboxyhemoglobin 1.8 H 1.7 H (0.5-1.5) % POC ABG HHb (Measured) 5.2 H 3.2 (0.0-5.0) % ABG Methemoglobin 1.5 1.3 (0.0-3.0) % Harlan Test Pos Pos Na ABG Potassium 3.3 L (3.6-5.2) mmol/L A-a O2 Difference 609.0 599.0 mm/Hg Respiratory Index 10.3 8.8 Hgb O2 Saturation 91.6 L 93.8 L (95.0-98.0) % Glucose 176 H (75-110) mg/dl Lactate 5.7 H* (0.7-2.1) mmol/L FiO2 100.0 100.0 % Crit Value Called To Dr foley Crit Value Called By Larisa degroot marble setter helper Crit Value Read Back Y Blood Gas Notified Time 1050 Sodium 144.0 (132-148) mmol/L Potassium (3.6-5.2) mmol/L Chloride 114.0 H (98-107) mmol/L Carbon Dioxide (22-30) mmol/L Anion Gap (10-20) BUN (9-20) mg/dL Creatinine (0.8-1.5) mg/dL Est GFR ( Amer) Est GFR (Non-Af Amer) Random Glucose (75-110) mg/dL Calcium (8.6-10.4) mg/dl Phosphorus (2.5-4.5) mg/dL Magnesium (1.6-2.3) mg/dL Total Bilirubin (0.2-1.3) mg/dL AST (17-59) U/L ALT (21-72) U/L Alkaline Phosphatase (38-126) U/L Total Protein (6.3-8.3) g/dL Albumin (3.5-5.0) g/dL Globulin (2.2-3.9) gm/dL Albumin/Globulin Ratio (1.0-2.1) Arterial Blood Potassium 3.3 L (3.6-5.2) mmol/L 06/21/17 06/21/17 Range/Units 05:51 05:51 WBC 9.7 D (4.8-10.8) K/uL RBC 3.20 L (4.40-5.90) Mil/uL Hgb 10.2 L D (12.0-18.0) g/dL Hct 30.3 L (35.0-51.0) % MCV 94.8 H (80.0-94.0) fL MCH 31.8 H (27.0-31.0) pg MCHC 33.6 (33.0-37.0) g/dL RDW 14.3 (11.5-14.5) % Plt Count 223 (130-400) K/uL MPV 9.7 (7.2-11.7) fL Neut % (Auto) 87.3 H (50.0-75.0) % Lymph % (Auto) 7.7 L (20.0-40.0) % [place] % (Auto) 4.8 (0.0-10.0) % Eos % (Auto) 0.1 (0.0-4.0) % Baso % (Auto) 0.1 (0.0-2.0) % Neut # 8.4 H (1.8-7.0) K/uL Lymph # 0.7 L (1.0-4.3) K/uL [place] # 0.5 (0.0-0.8) K/uL Eos # 0.0 (0.0-0.7) K/uL Baso # 0.0 (0.0-0.2) K/uL Neutrophils % (Manual) 19 L (50-75) % Band Neutrophils % 58 H* (0-2) % Lymphocytes % (Manual) 16 L (20-40) % Monocytes % (Manual) 2 (0-10) % Metamyelocytes % 1 H (0-0) % Myelocytes % 4 H (0-0) % Nucleated RBC % 1 H (0-0) % Toxic Granulation Present Platelet Estimate Normal (NORMAL) Large Platelets Present Hypochromasia (manual) Slight Poikilocytosis (manual Slight Anisocytosis (manual) Slight Puncture Site pCO2 (35-45) mm/Hg pO2 (80-100) mm/Hg HCO3 (21-28) mmol/L ABG pH (7.35-7.45) ABG Total CO2 (22-28) mmol/L ABG O2 Saturation (95-98) % ABG Base Excess (-2.0-3.0) mmol/L ABG Hemoglobin (11.7-17.4) g/dL ABG Carboxyhemoglobin (0.5-1.5) % POC ABG HHb (Measured) (0.0-5.0) % ABG Methemoglobin (0.0-3.0) % Harlan Test ABG Potassium (3.6-5.2) mmol/L A-a O2 Difference mm/Hg Respiratory Index Hgb O2 Saturation (95.0-98.0) % Glucose (75-110) mg/dl Lactate (0.7-2.1) mmol/L FiO2 % Crit Value Called To Crit Value Called By Crit Value Read Back Blood Gas Notified Time Sodium 137 (132-148) mmol/L Potassium 3.8 (3.6-5.2) mmol/L Chloride 103 (98-107) mmol/L Carbon Dioxide 21 L (22-30) mmol/L Anion Gap 17 (10-20) BUN 32 H (9-20) mg/dL Creatinine 0.8 (0.8-1.5) mg/dL Est GFR ( Amer) > 60 Est GFR (Non-Af Amer) > 60 Random Glucose 179 H (75-110) mg/dL Calcium 8.1 L (8.6-10.4) mg/dl Phosphorus 1.9 L (2.5-4.5) mg/dL Magnesium 1.9 (1.6-2.3) mg/dL Total Bilirubin 0.8 (0.2-1.3) mg/dL AST 27 (17-59) U/L ALT 37 (21-72) U/L Alkaline Phosphatase 94 (38-126) U/L Total Protein 5.6 L (6.3-8.3) g/dL Albumin 2.3 L (3.5-5.0) g/dL Globulin 3.3 (2.2-3.9) gm/dL Albumin/Globulin Ratio 0.7 L (1.0-2.1) Arterial Blood Potassium (3.6-5.2) mmol/L Laboratory Results - last 24 hr 06/21/17 06/21/17 06/21/17 05:51 05:51 10:46 WBC 9.7 D RBC 3.20 L Hgb 10.2 L D Hct 30.3 L MCV 94.8 H MCH 31.8 H MCHC 33.6 RDW 14.3 Plt Count 223 MPV 9.7 Neut % (Auto) 87.3 H Lymph % (Auto) 7.7 L [place] % (Auto) 4.8 Eos % (Auto) 0.1 Baso % (Auto) 0.1 Neut # 8.4 H Lymph # 0.7 L [place] # 0.5 Eos # 0.0 Baso # 0.0 Neutrophils % (Manual) 19 L Band Neutrophils % 58 H* Lymphocytes % (Manual) 16 L Monocytes % (Manual) 2 Metamyelocytes % 1 H Myelocytes % 4 H Nucleated RBC % 1 H Toxic Granulation Present Platelet Estimate Normal Large Platelets Present Hypochromasia (manual) Slight Poikilocytosis (manual Slight Anisocytosis (manual) Slight Puncture Site Vbg pCO2 41 pO2 40 L* HCO3 22.0 ABG pH 7.35 ABG Total CO2 23.9 ABG O2 Saturation 79.8 L ABG Base Excess -2.9 L ABG Hemoglobin ABG Carboxyhemoglobin POC ABG HHb (Measured) ABG Methemoglobin Harlan Test Na ABG Potassium 3.3 L A-a O2 Difference Respiratory Index Hgb O2 Saturation Glucose 176 H Lactate 5.7 H* FiO2 Crit Value Called To Dr foley Crit Value Called By Larisa degroot marble setter helper Crit Value Read Back Y Blood Gas Notified Time 1050 Sodium 137 144.0 Potassium 3.8 Chloride 103 114.0 H Carbon Dioxide 21 L Anion Gap 17 BUN 32 H Creatinine 0.8 Est GFR ( Amer) > 60 Est GFR (Non-Af Amer) > 60 Random Glucose 179 H Calcium 8.1 L Phosphorus 1.9 L Magnesium 1.9 Total Bilirubin 0.8 AST 27 ALT 37 Alkaline Phosphatase 94 Total Protein 5.6 L Albumin 2.3 L Globulin 3.3 Albumin/Globulin Ratio 0.7 L Arterial Blood Potassium 3.3 L 06/21/17 06/21/17 11:51 16:10 WBC RBC Hgb Hct MCV MCH MCHC RDW Plt Count MPV Neut % (Auto) Lymph % (Auto) [place] % (Auto) Eos % (Auto) Baso % (Auto) Neut # Lymph # [place] # Eos # Baso # Neutrophils % (Manual) Band Neutrophils % Lymphocytes % (Manual) Monocytes % (Manual) Metamyelocytes % Myelocytes % Nucleated RBC % Toxic Granulation Platelet Estimate Large Platelets Hypochromasia (manual) Poikilocytosis (manual Anisocytosis (manual) Puncture Site Rr Rra pCO2 37 36 pO2 68 L 59 L HCO3 24.1 23.7 ABG pH 7.41 7.41 ABG Total CO2 24.6 23.9 ABG O2 Saturation 96.7 94.6 L ABG Base Excess -0.9 -1.5 ABG Hemoglobin 12.3 10.4 L ABG Carboxyhemoglobin 1.7 H 1.8 H POC ABG HHb (Measured) 3.2 5.2 H ABG Methemoglobin 1.3 1.5 Harlan Test Pos Pos ABG Potassium A-a O2 Difference 599.0 609.0 Respiratory Index 8.8 10.3 Hgb O2 Saturation 93.8 L 91.6 L Glucose Lactate FiO2 100.0 100.0 Crit Value Called To Crit Value Called By Crit Value Read Back Blood Gas Notified Time Sodium Potassium Chloride Carbon Dioxide Anion Gap BUN Creatinine Est GFR ( Amer) Est GFR (Non-Af Amer) Random Glucose Calcium Phosphorus Magnesium Total Bilirubin AST ALT Alkaline Phosphatase Total Protein Albumin Globulin Albumin/Globulin Ratio Arterial Blood Potassium Review of Systems - Constitutional Constitutional: absent: Fever, Chills - EENT Eyes: absent: Change in Vision - Cardiovascular Cardiovascular: Chest Pain, Dyspnea. absent: Diaphoresis, Lightheadedness, Palpitations - Respiratory Respiratory: Dyspnea. absent: Pain on Inspiration - Gastrointestinal Gastrointestinal: absent: Abdominal Pain, Cramping, Nausea, Vomiting - Neurological Neurological: Weakness. 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 Sheppard on board---> Help appreciated Palliative consult, Veronica on board---> Help appreciated ENT, Dr. Salgado on board---> Help appreciated Medication/Managment: * Fluconazole 100mg IV daily * Morphine 2mg IVP Q6 PRN Neuro: Alert, mildly confused Cardio: No acute issues Pulm: Pneumonia and difficulty breathing secondary to enlarged submandibular mass Chest X-ray (06/20/17): New opacity mid right lung and questionable opacity at right base Ammunition Assembly Laborer consult, Dr. GREY---> Help appreciated Medication/Management: * Azithromycin 500mg IVPB Q24H * Vapotherm, 100% FIO2 GI: No acute distress Endo: No acute distress ID: Code sepsis Lactate: 6.4, 6.1, 5.7 ( Trendind down), Bandemia Infectious Disease consult, Dr. Dominguez---> Help appreciated Medication/Management: * Zosyn 3.375gm IVPB Q8H ( Started 06/20/17) * Vanco 1gm IVPB Q24H ( Started 06/21/17) * D5WNS @100mls/hr Prophylaxis: DVT: SCDs, anticogulation on hold GI: Protonix 40mg IVP daily <Amos Foley P - Last Filed: 06/21/17 18:23> CCU Objective - Vital Signs / Intake & Output Vital Signs (Last 4 hours): Vital Signs Temp Pulse Resp BP Pulse Ox 06/21/17 17:00 103 H 37 H 139/71 91 L 06/21/17 16:00 99.4 F 24 119/66 06/21/17 15:00 105 H 12 127/61 92 L Intake and Output (Last 8hrs): Intake & Output 06/21/17 06/21/17 06/21/17 06:59 14:59 22:59 Intake Total 800 800 300 Output Total 445 320 110 Balance 355 480 190 Intake: Intake, IV Amount 800 800 300 Right Port-A-Cath 800 800 300 Output: Urine 445 320 110 Urine, Voided 445 320 110 Other: # Bowel Movements 1 1 - Medications Active Medications: Active Medications Generic Name Dose Route Start Last Admin Trade Name Freq PRN Reason Stop Dose Admin Acetaminophen 650 mg 06/16/17 17:25 Tylenol 650mg/20.3ml Solution Ud GT Q6 PRN Pain, Mild (1-3) Enoxaparin Sodium 30 mg 06/15/17 10:00 06/15/17 10:09 Lovenox SC Not Given DAILY JUAN CARLOS Piperacillin Sod/Tazobactam 100 mls @ 200 mls/hr 06/20/17 09:00 06/21/17 17: 36 Sod 3.375 gm/ Sodium Chloride IVPB 200 mls/hr Q8H JUAN CARLOS Administration Azithromycin 500 mg/ Sodium 250 mls @ 166.667 mls/hr 06/20/17 12:00 06/21/17 12:10 Chloride IVPB 166.667 mls/hr Q24H JUAN CARLOS Administration Vancomycin/Sodium Chloride 1 gm in 200 mls @ 133.333 mls/hr 06/21/17 13:00 14:50 Vancocin IVPB 133.333 mls/hr Q24H JUAN CARLOS Administration Dextrose/Sodium Chloride 1,000 mls @ 100 mls/hr 06/20/17 13:00 06/21/17 09:38 Dextrose 5%/0.9% Ns 1000 Ml IV 100 mls/hr .Q10H JUAN CARLOS Administration Fluconazole 50 mls @ 100 mls/hr 06/22/17 10:00 Diflucan Iv 100 Mg/50 Ml Ns IVPB DAILY JUAN CARLOS Morphine Sulfate 2 mg 06/16/17 16:40 Morphine IVP Q6 PRN Pain, moderate (4-7) Pantoprazole Sodium 40 mg 06/21/17 10:00 06/21/17 09:29 Protonix Inj IVP 40 mg DAILY JUAN CARLOS Administration - Patient Studies Lab Studies: Microbiology Studies 06/20/17 14:45 Urine Culture - Preliminary Urine Gram Positive Cocci Lab Studies 06/21/17 06/21/17 06/21/17 Range/Units 16:10 11:51 10:46 WBC (4.8-10.8) K/uL RBC (4.40-5.90) Mil/uL Hgb (12.0-18.0) g/dL Hct (35.0-51.0) % MCV (80.0-94.0) fL MCH (27.0-31.0) pg MCHC (33.0-37.0) g/dL RDW (11.5-14.5) % Plt Count (130-400) K/uL MPV (7.2-11.7) fL Neut % (Auto) (50.0-75.0) % Lymph % (Auto) (20.0-40.0) % [place] % (Auto) (0.0-10.0) % Eos % (Auto) (0.0-4.0) % Baso % (Auto) (0.0-2.0) % Neut # (1.8-7.0) K/uL Lymph # (1.0-4.3) K/uL [place] # (0.0-0.8) K/uL Eos # (0.0-0.7) K/uL Baso # (0.0-0.2) K/uL Neutrophils % (Manual) (50-75) % Band Neutrophils % (0-2) % Lymphocytes % (Manual) (20-40) % Monocytes % (Manual) (0-10) % Metamyelocytes % (0-0) % Myelocytes % (0-0) % Nucleated RBC % (0-0) % Toxic Granulation Platelet Estimate (NORMAL) Large Platelets Hypochromasia (manual) Poikilocytosis (manual Anisocytosis (manual) Puncture Site Rra Rr Vbg pCO2 36 37 41 (35-45) mm/Hg pO2 59 L 68 L 40 L* (80-100) mm/Hg HCO3 23.7 24.1 22.0 (21-28) mmol/L ABG pH 7.41 7.41 7.35 (7.35-7.45) ABG Total CO2 23.9 24.6 23.9 (22-28) mmol/L ABG O2 Saturation 94.6 L 96.7 79.8 L (95-98) % ABG Base Excess -1.5 -0.9 -2.9 L (-2.0-3.0) mmol/L ABG Hemoglobin 10.4 L 12.3 (11.7-17.4) g/dL ABG Carboxyhemoglobin 1.8 H 1.7 H (0.5-1.5) % POC ABG HHb (Measured) 5.2 H 3.2 (0.0-5.0) % ABG Methemoglobin 1.5 1.3 (0.0-3.0) % Harlan Test Pos Pos Na ABG Potassium 3.3 L (3.6-5.2) mmol/L A-a O2 Difference 609.0 599.0 mm/Hg Respiratory Index 10.3 8.8 Hgb O2 Saturation 91.6 L 93.8 L (95.0-98.0) % Glucose 176 H (75-110) mg/dl Lactate 5.7 H* (0.7-2.1) mmol/L FiO2 100.0 100.0 % Crit Value Called To Dr foley Crit Value Called By Larisa degroot marble setter helper Crit Value Read Back Y Blood Gas Notified Time 1050 Sodium 144.0 (132-148) mmol/L Potassium (3.6-5.2) mmol/L Chloride 114.0 H (98-107) mmol/L Carbon Dioxide (22-30) mmol/L Anion Gap (10-20) BUN (9-20) mg/dL Creatinine (0.8-1.5) mg/dL Est GFR ( Amer) Est GFR (Non-Af Amer) Random Glucose (75-110) mg/dL Calcium (8.6-10.4) mg/dl Phosphorus (2.5-4.5) mg/dL Magnesium (1.6-2.3) mg/dL Total Bilirubin (0.2-1.3) mg/dL AST (17-59) U/L ALT (21-72) U/L Alkaline Phosphatase (38-126) U/L Total Protein (6.3-8.3) g/dL Albumin (3.5-5.0) g/dL Globulin (2.2-3.9) gm/dL Albumin/Globulin Ratio (1.0-2.1) Arterial Blood Potassium 3.3 L (3.6-5.2) mmol/L 06/21/17 06/21/17 Range/Units 05:51 05:51 WBC 9.7 D (4.8-10.8) K/uL RBC 3.20 L (4.40-5.90) Mil/uL Hgb 10.2 L D (12.0-18.0) g/dL Hct 30.3 L (35.0-51.0) % MCV 94.8 H (80.0-94.0) fL MCH 31.8 H (27.0-31.0) pg MCHC 33.6 (33.0-37.0) g/dL RDW 14.3 (11.5-14.5) % Plt Count 223 (130-400) K/uL MPV 9.7 (7.2-11.7) fL Neut % (Auto) 87.3 H (50.0-75.0) % Lymph % (Auto) 7.7 L (20.0-40.0) % [place] % (Auto) 4.8 (0.0-10.0) % Eos % (Auto) 0.1 (0.0-4.0) % Baso % (Auto) 0.1 (0.0-2.0) % Neut # 8.4 H (1.8-7.0) K/uL Lymph # 0.7 L (1.0-4.3) K/uL [place] # 0.5 (0.0-0.8) K/uL Eos # 0.0 (0.0-0.7) K/uL Baso # 0.0 (0.0-0.2) K/uL Neutrophils % (Manual) 19 L (50-75) % Band Neutrophils % 58 H* (0-2) % Lymphocytes % (Manual) 16 L (20-40) % Monocytes % (Manual) 2 (0-10) % Metamyelocytes % 1 H (0-0) % Myelocytes % 4 H (0-0) % Nucleated RBC % 1 H (0-0) % Toxic Granulation Present Platelet Estimate Normal (NORMAL) Large Platelets Present Hypochromasia (manual) Slight Poikilocytosis (manual Slight Anisocytosis (manual) Slight Puncture Site pCO2 (35-45) mm/Hg pO2 (80-100) mm/Hg HCO3 (21-28) mmol/L ABG pH (7.35-7.45) ABG Total CO2 (22-28) mmol/L ABG O2 Saturation (95-98) % ABG Base Excess (-2.0-3.0) mmol/L ABG Hemoglobin (11.7-17.4) g/dL ABG Carboxyhemoglobin (0.5-1.5) % POC ABG HHb (Measured) (0.0-5.0) % ABG Methemoglobin (0.0-3.0) % Harlan Test ABG Potassium (3.6-5.2) mmol/L A-a O2 Difference mm/Hg Respiratory Index Hgb O2 Saturation (95.0-98.0) % Glucose (75-110) mg/dl Lactate (0.7-2.1) mmol/L FiO2 % Crit Value Called To Crit Value Called By Crit Value Read Back Blood Gas Notified Time Sodium 137 (132-148) mmol/L Potassium 3.8 (3.6-5.2) mmol/L Chloride 103 (98-107) mmol/L Carbon Dioxide 21 L (22-30) mmol/L Anion Gap 17 (10-20) BUN 32 H (9-20) mg/dL Creatinine 0.8 (0.8-1.5) mg/dL Est GFR ( Amer) > 60 Est GFR (Non-Af Amer) > 60 Random Glucose 179 H (75-110) mg/dL Calcium 8.1 L (8.6-10.4) mg/dl Phosphorus 1.9 L (2.5-4.5) mg/dL Magnesium 1.9 (1.6-2.3) mg/dL Total Bilirubin 0.8 (0.2-1.3) mg/dL AST 27 (17-59) U/L ALT 37 (21-72) U/L Alkaline Phosphatase 94 (38-126) U/L Total Protein 5.6 L (6.3-8.3) g/dL Albumin 2.3 L (3.5-5.0) g/dL Globulin 3.3 (2.2-3.9) gm/dL Albumin/Globulin Ratio 0.7 L (1.0-2.1) Arterial Blood Potassium (3.6-5.2) mmol/L Laboratory Results - last 24 hr 06/21/17 06/21/17 06/21/17 05:51 05:51 10:46 WBC 9.7 D RBC 3.20 L Hgb 10.2 L D Hct 30.3 L MCV 94.8 H MCH 31.8 H MCHC 33.6 RDW 14.3 Plt Count 223 MPV 9.7 Neut % (Auto) 87.3 H Lymph % (Auto) 7.7 L [place] % (Auto) 4.8 Eos % (Auto) 0.1 Baso % (Auto) 0.1 Neut # 8.4 H Lymph # 0.7 L [place] # 0.5 Eos # 0.0 Baso # 0.0 Neutrophils % (Manual) 19 L Band Neutrophils % 58 H* Lymphocytes % (Manual) 16 L Monocytes % (Manual) 2 Metamyelocytes % 1 H Myelocytes % 4 H Nucleated RBC % 1 H Toxic Granulation Present Platelet Estimate Normal Large Platelets Present Hypochromasia (manual) Slight Poikilocytosis (manual Slight Anisocytosis (manual) Slight Puncture Site Vbg pCO2 41 pO2 40 L* HCO3 22.0 ABG pH 7.35 ABG Total CO2 23.9 ABG O2 Saturation 79.8 L ABG Base Excess -2.9 L ABG Hemoglobin ABG Carboxyhemoglobin POC ABG HHb (Measured) ABG Methemoglobin [place]lan Test Na ABG Potassium 3.3 L A-a O2 Difference Respiratory Index Hgb O2 Saturation Glucose 176 H Lactate 5.7 H* FiO2 Crit Value Called To Dr foley Crit Value Called By Larisa degroot marble setter helper Crit Value Read Back Y Blood Gas Notified Time 1050 Sodium 137 144.0 Potassium 3.8 Chloride 103 114.0 H Carbon Dioxide 21 L Anion Gap 17 BUN 32 H Creatinine 0.8 Est GFR ( Amer) > 60 Est GFR (Non-Af Amer) > 60 Random Glucose 179 H Calcium 8.1 L Phosphorus 1.9 L Magnesium 1.9 Total Bilirubin 0.8 AST 27 ALT 37 Alkaline Phosphatase 94 Total Protein 5.6 L Albumin 2.3 L Globulin 3.3 Albumin/Globulin Ratio 0.7 L Arterial Blood Potassium 3.3 L 06/21/17 06/21/17 11:51 16:10 WBC RBC Hgb Hct MCV MCH MCHC RDW Plt Count MPV Neut % (Auto) Lymph % (Auto) [place] % (Auto) Eos % (Auto) Baso % (Auto) Neut # Lymph # [place] # Eos # Baso # Neutrophils % (Manual) Band Neutrophils % Lymphocytes % (Manual) Monocytes % (Manual) Metamyelocytes % Myelocytes % Nucleated RBC % Toxic Granulation Platelet Estimate Large Platelets Hypochromasia (manual) Poikilocytosis (manual Anisocytosis (manual) Puncture Site Rr Rra pCO2 37 36 pO2 68 L 59 L HCO3 24.1 23.7 ABG pH 7.41 7.41 ABG Total CO2 24.6 23.9 ABG O2 Saturation 96.7 94.6 L ABG Base Excess -0.9 -1.5 ABG Hemoglobin 12.3 10.4 L ABG Carboxyhemoglobin 1.7 H 1.8 H POC ABG HHb (Measured) 3.2 5.2 H ABG Methemoglobin 1.3 1.5 [place]lan Test Pos Pos ABG Potassium A-a O2 Difference 599.0 609.0 Respiratory Index 8.8 10.3 Hgb O2 Saturation 93.8 L 91.6 L Glucose Lactate FiO2 100.0 100.0 Crit Value Called To Crit Value Called By Crit Value Read Back Blood Gas Notified Time Sodium Potassium Chloride Carbon Dioxide Anion Gap BUN Creatinine Est GFR ( Amer) Est GFR (Non-Af Amer) Random Glucose Calcium Phosphorus Magnesium Total Bilirubin AST ALT Alkaline Phosphatase Total Protein Albumin Globulin Albumin/Globulin Ratio Arterial Blood Potassium Critical Care Progress Note - Nutrition Nutrition: Nutrition Category Date Time Status NPO Diet [DIET] Diets 06/14/17 Lunch Active Attending/Attestation - Attestation I have personally seen and examined this patient.: Yes I have fully participated in the care of the patient.: Yes I have reviewed all pertinent clinical information: Yes Notes (Text): Patient awake, oriented visible sob, with RR in 30's but says doing fine, he has been FIO2 of 100% with po2 gradually going down, on CXR multilobar infiltrate noticed, d/w anesthesia and ENT, patient will benefit with elective fibreopic intbation 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 Patient had currently gone for the above procedure in OR electively. 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 See orders for detail.
--- NOTE | 2017-06-21 17:17 | OP ---
PROCEDURE DATE: 06/21/2017 PREOPERATIVE DIAGNOSIS: Possible airway obstruction. POSTOPERATIVE DIAGNOSIS: Possible airway obstruction. PROCEDURE: Flexible laryngoscopy. SIGNIFICANT FINDINGS: Base of tongue infiltrated with tumor, airway is okay. DESCRIPTION OF PROCEDURE: The patient was placed in seated position. The flexible laryngoscope was inserted into the nasal cavity and passed to the nasopharynx, oropharynx and hypopharynx. The pharyngeal bucio, base of tongue, vallecula, epiglottis, AE folds, false cords, true cords and piriform sinuses were brought into view. An infiltrating mass was noted in the base of tongue; however, the mass did not go into the glottis. The Flexible laryngoscope was removed. The airway is okay, and the patient should be intubated well through fiberoptic intubation. Watson Salgado MD MTDD
[2017-06-21] MEDS ORDERED: Lactated Ringer's 1,000 ML IV ONE (17:50)
[2017-06-21] MEDS ORDERED: Lidocaine 2% Jelly (Uro-Jet) ONE (17:53)
[2017-06-21] MEDS ORDERED: Oxymetazoline 0.05% Nasal Spray (30 ml) NS ONE (17:57)
[2017-06-21] MEDS ORDERED: Midazolam 2 MG/2 ML VIAL ONE (18:06)
[2017-06-21] MEDS ORDERED: Propofol 10 mg/ml Inj (20 ML) ONE (18:06)
[2017-06-21] MEDS ORDERED: Rocuronium 10 mg/ml (5 ml) ONE (18:08)
[2017-06-21] MEDS ORDERED: Lidocaine 4% (Laryng-O-Jet) Kit MM ONE (18:34)
[2017-06-21] MEDS: Propofol 10 mg/ml 1,000 MG/100 ML VIAL IV PRN (19:17)
--- NOTE | 2017-06-21 22:24 | CP.PCM.PN ---
Subjective - Date & Time of Evaluation Date of Evaluation: 06/21/17 Time of Evaluation: 22:24 - Subjective Subjective: CHIEF COMPLAINTS TODAY : AFEBRILE, More awake/and responsive but WEAK. C/O DIFFICULTY BREATHING DENIES DYSPHAGIA ROS HEENT : N. Resp : No SOB wheezing, cough Cardio : No CP, PND orthopnea GI : No abd. Pain, n/v FAMILY AND MARRIAGE COUNSELLOR : No headache , focal deficit. Musculoskel : N Ext. : Pedal pulses intact, no edema or calf pain Derm : N Psych : N. PE. Pt. is MORE awake in no distress. V.S As noted in the chart Head ,ear nose,throat and eyes : Normal. Neck : Supple with normal carotids.LTSIDED JAW SWELLING WITH CELLULITIS AND TENDERNESS BX SITE. +VE LB Lungs: Clear air entry. Heart : S1 & S2 normal . . No murmur. S4 + Abd : Soft non tender with normal bowel sounds. Neuro : Moves all ext. with no localized deficit. Ext : No edema with intact pulses. Neg. calf tenderness Derm : No rashes or decubitus ulcer. Radiology/Labs . wbc 9.7 WITH 58% BANDS SERUM LACTATE 5.7. URINE CULTURE GRAM-POSITIVE COCCI 06/20/17. lftS NORMAL. CREATININE 0.8/bun 32. Objective - Vital Signs/Intake and Output Vital Signs (last 24 hours): Temp Pulse Resp BP Pulse Ox 98.3 F 97 H 29 H 98/53 L 95 06/21/17 20:00 06/21/17 21:00 06/21/17 21:00 06/21/17 20:53 06/21/17 21:00 Intake and Output: 06/21/17 06/22/17 18:59 06:59 Intake Total 1200 306.9 Output Total 470 80 Balance 730 226.9 - Medications Medications: Current Medications Acetaminophen (Tylenol 650mg/20.3ml Solution Ud) 650 mg GT Q6 PRN PRN Reason: Pain, Mild (1-3) Enoxaparin Sodium (Lovenox) 30 mg SC DAILY [facility] Last Admin: 06/15/17 10:09 Dose: Not Given Piperacillin Sod/Tazobactam (Sod 3.375 gm/ Sodium Chloride) 100 mls @ 200 mls/ hr IVPB Q8H [facility] Last Admin: 06/21/17 17:36 Dose: 200 mls/hr Azithromycin 500 mg/ Sodium (Chloride) 250 mls @ 166.667 mls/hr IVPB Q24H [facility] Last Admin: 06/21/17 12:10 Dose: 166.667 mls/hr Vancomycin/Sodium Chloride (Vancocin) 1 gm in 200 mls @ 133.333 mls/hr IVPB Q24H [facility] Last Admin: 06/21/17 14:50 Dose: 133.333 mls/hr Dextrose/Sodium Chloride (Dextrose 5%/0.9% Ns 1000 Ml) 1,000 mls @ 100 mls/hr IV .Q10H [facility] Last Admin: 06/21/17 19:13 Dose: Not Given Fluconazole (Diflucan Iv 100 Mg/50 Ml Ns) 50 mls @ 100 mls/hr IVPB DAILY [facility] Propofol (Diprivan) 1,000 mg in 100 mls @ 2.313 mls/hr IV .Q24H PRN; Protocol; 5 MCG/KG/MIN PRN Reason: TITRATE PER MD ORDER Last Admin: 06/21/17 19:17 Dose: 5 mcg/kg/min, 2.313 mls/hr Morphine Sulfate (Morphine) 2 mg IVP Q6 PRN PRN Reason: Pain, moderate (4-7) Pantoprazole Sodium (Protonix Inj) 40 mg IVP DAILY [facility] Last Admin: 06/21/17 09:29 Dose: 40 mg - Labs Labs: 06/21/17 05:51 06/21/17 05:51 PT 15.7 SECONDS (9.7-12.2) H 06/20/17 11:44 INR 1.4 06/20/17 11:44 APTT 26 SECONDS (21-34) 06/20/17 11:44 Assessment and Plan (1) Respiratory failure Status: Acute (2) Pneumonia Status: Acute (3) Dysphagia Status: Acute (4) Oropharyngeal cancer Status: Acute (5) Dehydration Status: Acute - Assessment and Plan (Free Text) Assessment: IMPRESSION; SEPSIS- SYNDROME WITH HYPOTENSION ACUTE RESPIRATORY FAILURE . BILATERAL MULTIFOCAL PNEUMONIA ? ASPIRATION VS ATYPICAL. 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 S/P PEG. S/P MED-PORT . DEHYDRATION. PLAN; pANCULTURES CONTINUE iv zOSYN 3.375 EVERY 8 HOURLY.10/9/17 ADD iv VANCOMYCIN 1 G ONCE A DAY DAILY. 06/20/17 CONTINUE zITHROMAX 500 MG ONCE A DAY DAILY.06/20/17. vANCO TROUGH LEVEL PRIOR TO THE FOURTH DOSE AND KEEP IT BETWEEN 10 AND 20. FOLLOW-UP RENAL FUNCTIONS CLOSELY. F/U URINE CULTURES TO ADJUST ANTIBIOTICS.
--- NOTE | 2017-06-21 23:16 | CP.PCM.PN ---
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, full pathology pending, his lactic acid is elevated Objective - Vital Signs/Intake and Output Vital Signs (last 24 hours): Temp Pulse Resp BP Pulse Ox 98.3 F 94 H 30 H 110/59 L 95 06/21/17 20:00 06/21/17 22:23 06/21/17 22:23 06/21/17 22:23 06/21/17 22:23 Intake and Output: 06/21/17 06/22/17 18:59 06:59 Intake Total 1200 409.2 Output Total 470 80 Balance 730 329.2 - Medications Medications: Current Medications Acetaminophen (Tylenol 650mg/20.3ml Solution Ud) 650 mg GT Q6 PRN PRN Reason: Pain, Mild (1-3) Enoxaparin Sodium (Lovenox) 30 mg SC DAILY [facility] Last Admin: 06/15/17 10:09 Dose: Not Given Piperacillin Sod/Tazobactam (Sod 3.375 gm/ Sodium Chloride) 100 mls @ 200 mls/ hr IVPB Q8H [facility] Last Admin: 06/21/17 17:36 Dose: 200 mls/hr Azithromycin 500 mg/ Sodium (Chloride) 250 mls @ 166.667 mls/hr IVPB Q24H [facility] Last Admin: 06/21/17 12:10 Dose: 166.667 mls/hr Vancomycin/Sodium Chloride (Vancocin) 1 gm in 200 mls @ 133.333 mls/hr IVPB Q24H [facility] Last Admin: 06/21/17 14:50 Dose: 133.333 mls/hr Dextrose/Sodium Chloride (Dextrose 5%/0.9% Ns 1000 Ml) 1,000 mls @ 100 mls/hr IV .Q10H [facility] Last Admin: 06/21/17 19:13 Dose: Not Given Fluconazole (Diflucan Iv 100 Mg/50 Ml Ns) 50 mls @ 100 mls/hr IVPB DAILY [facility] Propofol (Diprivan) 1,000 mg in 100 mls @ 2.313 mls/hr IV .Q24H PRN; Protocol; 5 MCG/KG/MIN PRN Reason: TITRATE PER MD ORDER Last Admin: 06/21/17 19:17 Dose: 5 mcg/kg/min, 2.313 mls/hr Morphine Sulfate (Morphine) 2 mg IVP Q6 PRN PRN Reason: Pain, moderate (4-7) Pantoprazole Sodium (Protonix Inj) 40 mg IVP DAILY [facility] Last Admin: 06/21/17 09:29 Dose: 40 mg - Labs Labs: 06/21/17 05:51 06/21/17 05:51 PT 15.7 SECONDS (9.7-12.2) H 06/20/17 11:44 INR 1.4 06/20/17 11:44 APTT 26 SECONDS (21-34) 06/20/17 11:44 - Constitutional Appears: No Acute Distress - Head Exam Head Exam: ATRAUMATIC, NORMAL INSPECTION, NORMOCEPHALIC - Eye Exam Eye Exam: EOMI, Normal appearance, PERRL Pupil Exam: NORMAL ACCOMODATION, PERRL - Respiratory Exam Respiratory Exam: Clear to Ausculation Bilateral, NORMAL BREATHING PATTERN - Cardiovascular Exam Cardiovascular Exam: REGULAR RHYTHM, +S1, +S2. absent: Murmur - GI/Abdominal Exam GI & Abdominal Exam: Soft, Normal Bowel Sounds. absent: Tenderness - Rectal Exam Rectal Exam: NORMAL INSPECTION Assessment and Plan (1) Mass of left side of neck Assessment & Plan: pathology pending Status: Acute (2) Dysphagia Assessment & Plan: due to tumor compression Status: Acute (3) Dehydration Status: Acute (4) Lactic acid acidosis Assessment & Plan: rule out septicemia Status: Acute - Assessment and Plan (Free Text) Plan: cultures are neg lactic acid high pt is afebrile
[2017-06-22] MEDS: Piperacillin/Tazobact 3.375 GM in Sodium Chloride 100 ML IVPB SCH ×2 (00:58→09:13)
[2017-06-22] MEDS: Dextrose 5%/0.9% NS 1,000 ML IV SCH ×4 (01:02→17:50)
[2017-06-22 05:41] LABS: ABG MECHANICAL RATE 12; ARTERIAL BLOOD GAS MODE PRVC; ARTERIAL BLOOD HGB O2 SAT 93.1 % (95.0-98.0); ATERIAL BLOOD GAS PEEP 5; CARBOXYHEMOGLOBIN 2.1 % (0.5-1.5); DRAW SITE RB; METHEMOGLOBIN 0.7 % (0.0-3.0)
[2017-06-22 06:32] LABS: HEMATOCRIT 30.4 % (35.0-51.0); MEAN CELL VOLUME 94.7 fL (80.0-94.0); WHITE BLOOD COUNT 18.7 K/uL (4.8-10.8)
[2017-06-22 06:33] LABS: BASO % 0.2 % (0.0-2.0); EOS % 0.2 % (0.0-4.0); LYMPH # 0.2 K/uL (1.0-4.3); LYMPH % 1.1 % (20.0-40.0); MEAN CORPUSCULAR HEMOGLOBIN 31.1 pg (27.0-31.0); MEAN CORPUSCULAR HGB CONC 32.9 g/dL (33.0-37.0); MEAN PLATELET VOLUME 10.1 fL (7.2-11.7); MONO # 0.4 K/uL (0.0-0.8); MONO % 2.1 % (0.0-10.0); NRBC % 0.1 % (0.0-2.0); PLATELET COUNT 203 K/uL (130-400); RED CELL DISTRIBUTION WIDTH 14.5 % (11.5-14.5)
[2017-06-22 06:46] LABS: CHLORIDE 107 mmol/L (98-107)
[2017-06-22 06:47] LABS: POTASSIUM 3.5 mmol/L (3.6-5.2); SODIUM 145 mmol/L (132-148)
[2017-06-22 06:48] LABS: GFR AFRICAN-AMERICAN > 60
[2017-06-22 06:49] LABS: ALB/GLOB RATIO 0.6 (1.0-2.1); ALKALINE PHOSPHATASE 97 U/L (38-126); ALT/SGPT 34 U/L (21-72); AST/SGOT 36 U/L (17-59); BILIRUBIN,TOTAL 0.7 mg/dL (0.2-1.3); BLOOD UREA NITROGEN 29 mg/dL (9-20); CALCIUM 8.4 mg/dl (8.6-10.4); CARBON DIOXIDE 24 mmol/L (22-30); GLUCOSE,RANDOM 142 mg/dL (75-110); TOTAL PROTEIN 5.8 g/dL (6.3-8.3)
[2017-06-22 06:50] LABS: MAGNESIUM 2.4 mg/dL (1.6-2.3)
[2017-06-22 08:43] LABS: LARGE PLATELETS PRESENT; MYELOCYTE 1 % (0-0); NEUTROPHIL 39 % (50-75); NUCLEATED RED BLOOD CELL 3 % (0-0); TOTAL CELLS COUNTED 100
[2017-06-22 08:44] LABS: GIANT PLATELETS PRESENT
[2017-06-22] MEDS: Fluconazole IV 100mg/50 ml NS 50 ML IVPB SCH (10:23)
[2017-06-22] MEDS: Propofol 10 mg/ml 1,000 MG/100 ML VIAL IV PRN ×2 (10:26→21:14)
[2017-06-22] MEDS ORDERED: Potassium Phosphate 15 MMOLE in Sodium Chloride 0.9% 250 ML IV ONE (10:30)
--- NOTE | 2017-06-22 10:57 | RAD ---
Chest x-ray single frontal view History: Post intubation. Comparison: None available. Findings: Endotracheal tube extending into upper thoracic trachea. Right chest wall port with tip extending to the cavoatrial junction. Confluent diffuse bilateral airspace opacifications throughout both lungs. Prominent consolidative changes in the left mid to lower lung zone. Small bilateral pleural effusions. Calcification at the aortic knob. Mild cardiomegaly. Degenerative changes in the spine and shoulders. Impression: Endotracheal tube extending into upper thoracic trachea. Right chest wall port with tip extending to the cavoatrial junction. Confluent diffuse bilateral airspace opacifications throughout both lungs. Prominent consolidative changes in the left mid to lower lung zone. Small bilateral pleural effusions. Calcification at the aortic knob. Mild cardiomegaly.
[2017-06-22] MEDS: Azithromycin 500 MG in Sodium Chloride 0.9% 250 ML IVPB SCH (13:23)
--- NOTE | 2017-06-22 13:49 | CP.CCUPN ---
<Mateo Marie E - Last Filed: 06/22/17 16:22> CCU Subjective - Physician Review Subjective (Free Text): Patient was seen and examined at bedside. Patient is currently intubated due to desaturation. Patient was intubated in the OR due to enlarged submandibular mass. Unable to evaluate ROS due to patient current clinical status. CCU Objective - Vital Signs / Intake & Output Vital Signs (Last 4 hours): Vital Signs Temp Pulse Resp BP Pulse Ox 06/22/17 13:03 98 H 17 118/66 93 L 06/22/17 13:00 119 H 29 H 96 06/22/17 12:02 122 H 29 H 115/62 96 06/22/17 12:00 99.1 F 119 H 28 H 96 06/22/17 11:02 117 H 28 H 116/54 L 95 06/22/17 11:00 117 H 25 H 96 06/22/17 10:02 114 H 28 H 115/55 L 95 06/22/17 10:00 115 H 29 H 95 Intake and Output (Last 8hrs): Intake & Output 06/21/17 06/22/17 06/22/17 22:59 06:59 14:59 Intake Total 809.2 931.4 840.6 Output Total 280 250 285 Balance 529.2 681.4 555.6 Intake: IV 40 81 Intake, IV Amount 809.2 891.4 739.6 Right Port-A-Cath 800 850 589 left forearm 100 right PC 9.2 41.4 50.6 Tube Feeding 20 Output: Urine 280 250 285 Urine, Voided 280 250 285 - Physical Exam Head: Positive for: Atraumatic Mouth: Positive for: Dry Respiratory/Chest: Positive for: Good Air Exchange, Decreased Breath Sounds, Other (Patient is currently inutbated ). Negative for: Respiratory Distress, Accessory Muscle Use Cardiovascular: Positive for: Regular Rate and Rhythm, Murmurs Abdomen: Positive for: Other (Decreased bowel sounds ). Negative for: Tenderness, Distention Upper Extremity: Negative for: Edema Lower Extremity: Negative for: Edema, Swelling Skin: Positive for: Normal Color - Medications Active Medications: Active Medications Generic Name Dose Route Start Last Admin Trade Name Freq PRN Reason Stop Dose Admin Acetaminophen 650 mg 06/16/17 17:25 Tylenol 650mg/20.3ml Solution Ud GT Q6 PRN Pain, Mild (1-3) Enoxaparin Sodium 30 mg 06/15/17 10:00 06/15/17 10:09 Lovenox SC Not Given DAILY JUAN CARLOS Azithromycin 500 mg/ Sodium 250 mls @ 166.667 mls/hr 06/20/17 12:00 06/22/17 13:23 Chloride IVPB 166.667 mls/hr Q24H JUAN CARLOS Administration Vancomycin/Sodium Chloride 1 gm in 200 mls @ 133.333 mls/hr 06/21/17 13:00 14:50 Vancocin IVPB 133.333 mls/hr Q24H JUAN CARLOS Administration Dextrose/Sodium Chloride 1,000 mls @ 100 mls/hr 06/20/17 13:00 06/22/17 06:09 Dextrose 5%/0.9% Ns 1000 Ml IV Not Given .Q10H JUAN CARLOS Fluconazole 50 mls @ 100 mls/hr 06/22/17 10:00 06/22/17 10:23 Diflucan Iv 100 Mg/50 Ml Ns IVPB 100 mls/hr DAILY JUAN CARLOS Administration Propofol 1,000 mg in 100 mls @ 2.313 mls/hr 06/21/17 19:02 06/22/17 13:26 Diprivan IV 20 mcg/kg/min .Q24H PRN 9.253 mls/hr TITRATE PER MD ORDER Titration Protocol 5 MCG/KG/MIN Potassium Phosphate 15 mmole/ 255 mls @ 63 mls/hr 06/22/17 10:30 06/22/17 11: 11 Sodium Chloride IV 06/22/17 14:32 63 mls/hr ONCE ONE Administration Imipenem/Cilastatin Sodium 500 100 mls @ 100 mls/hr 06/22/17 12:00 06/22/17 12:37 mg/ Sodium Chloride IVPB 100 mls/hr Q8H JUAN CARLOS Administration Morphine Sulfate 2 mg 06/16/17 16:40 Morphine IVP Q6 PRN Pain, moderate (4-7) Pantoprazole Sodium 40 mg 06/21/17 10:00 06/22/17 09:12 Protonix Inj IVP 40 mg DAILY JUAN CARLOS Administration - Patient Studies Lab Studies: Microbiology Studies 06/20/17 14:45 Urine Culture - Final Urine Enterococcus Faecalis 10/09/17 17:48 MRSA Culture (Admit) - Final Nose MRSA NOT DETECTED Lab Studies 06/22/17 06/22/17 06/22/17 Range/Units 10:23 06:19 06:15 WBC 18.7 H D (4.8-10.8) K/uL RBC 3.21 L (4.40-5.90) Mil/uL Hgb 10.0 L (12.0-18.0) g/dL Hct 30.4 L (35.0-51.0) % MCV 94.7 H (80.0-94.0) fL MCH 31.1 H (27.0-31.0) pg MCHC 32.9 L (33.0-37.0) g/dL RDW 14.5 (11.5-14.5) % Plt Count 203 (130-400) K/uL MPV 10.1 (7.2-11.7) fL Neut % (Auto) 96.4 H (50.0-75.0) % Lymph % (Auto) 1.1 L (20.0-40.0) % Weld % (Auto) 2.1 (0.0-10.0) % Eos % (Auto) 0.2 (0.0-4.0) % Baso % (Auto) 0.2 (0.0-2.0) % Neut # 18.0 H (1.8-7.0) K/uL Lymph # 0.2 L (1.0-4.3) K/uL Weld # 0.4 (0.0-0.8) K/uL Eos # 0.0 (0.0-0.7) K/uL Baso # 0.0 (0.0-0.2) K/uL Neutrophils % (Manual) 39 L (50-75) % Band Neutrophils % 56 H* (0-2) % Lymphocytes % (Manual) 2 L (20-40) % Monocytes % (Manual) 2 (0-10) % Myelocytes % 1 H (0-0) % Nucleated RBC % 3 H (0-0) % Toxic Granulation Present Dohle Bodies Present Jude Rods Platelet Estimate Normal (NORMAL) Large Platelets Present Giant Platelets Present Macrocytosis (manual) Slight Puncture Site pCO2 (35-45) mm/Hg pO2 (80-100) mm/Hg HCO3 (21-28) mmol/L ABG pH (7.35-7.45) ABG Total CO2 (22-28) mmol/L ABG O2 Saturation (95-98) % ABG Base Excess (-2.0-3.0) mmol/L ABG Hemoglobin (11.7-17.4) g/dL ABG Carboxyhemoglobin (0.5-1.5) % POC ABG HHb (Measured) (0.0-5.0) % ABG Methemoglobin (0.0-3.0) % Harlan Test A-a O2 Difference mm/Hg Respiratory Index Hgb O2 Saturation (95.0-98.0) % Vent Mode Mechanical Rate FiO2 % Tidal Volume PEEP Sodium 145 (132-148) mmol/L Potassium 3.5 L (3.6-5.2) mmol/L Chloride 107 (98-107) mmol/L Carbon Dioxide 24 (22-30) mmol/L Anion Gap 18 (10-20) BUN 29 H (9-20) mg/dL Creatinine 0.7 L (0.8-1.5) mg/dL Est GFR ( Amer) > 60 Est GFR (Non-Af Amer) > 60 Random Glucose 142 H (75-110) mg/dL Calcium 8.4 L (8.6-10.4) mg/dl Phosphorus 2.0 L (2.5-4.5) mg/dL Magnesium 2.4 H (1.6-2.3) mg/dL Total Bilirubin 0.7 (0.2-1.3) mg/dL AST 36 (17-59) U/L ALT 34 (21-72) U/L Alkaline Phosphatase 97 (38-126) U/L Total Protein 5.8 L (6.3-8.3) g/dL Albumin 2.1 L (3.5-5.0) g/dL Globulin 3.7 (2.2-3.9) gm/dL Albumin/Globulin Ratio 0.6 L (1.0-2.1) Ur L.pneumophila Ag Negative (NEGATIVE) 06/22/17 06/21/17 Range/Units 05:23 16:10 WBC (4.8-10.8) K/uL RBC (4.40-5.90) Mil/uL Hgb (12.0-18.0) g/dL Hct (35.0-51.0) % MCV (80.0-94.0) fL MCH (27.0-31.0) pg MCHC (33.0-37.0) g/dL RDW (11.5-14.5) % Plt Count (130-400) K/uL MPV (7.2-11.7) fL Neut % (Auto) (50.0-75.0) % Lymph % (Auto) (20.0-40.0) % Weld % (Auto) (0.0-10.0) % Eos % (Auto) (0.0-4.0) % Baso % (Auto) (0.0-2.0) % Neut # (1.8-7.0) K/uL Lymph # (1.0-4.3) K/uL Weld # (0.0-0.8) K/uL Eos # (0.0-0.7) K/uL Baso # (0.0-0.2) K/uL Neutrophils % (Manual) (50-75) % Band Neutrophils % (0-2) % Lymphocytes % (Manual) (20-40) % Monocytes % (Manual) (0-10) % Myelocytes % (0-0) % Nucleated RBC % (0-0) % Toxic Granulation Dohle Bodies Jude Rods Platelet Estimate (NORMAL) Large Platelets Giant Platelets Macrocytosis (manual) Puncture Site Rb Rra pCO2 36 36 (35-45) mm/Hg pO2 60 L 59 L (80-100) mm/Hg HCO3 22.2 23.7 (21-28) mmol/L ABG pH 7.38 7.41 (7.35-7.45) ABG Total CO2 22.4 23.9 (22-28) mmol/L ABG O2 Saturation 95.9 94.6 L (95-98) % ABG Base Excess -3.4 L -1.5 (-2.0-3.0) mmol/L ABG Hemoglobin 9.6 L 10.4 L (11.7-17.4) g/dL ABG Carboxyhemoglobin 2.1 H 1.8 H (0.5-1.5) % POC ABG HHb (Measured) 4.0 5.2 H (0.0-5.0) % ABG Methemoglobin 0.7 1.5 (0.0-3.0) % Harlan Test Na Pos A-a O2 Difference 323.0 609.0 mm/Hg Respiratory Index 5.4 10.3 Hgb O2 Saturation 93.1 L 91.6 L (95.0-98.0) % Vent Mode Prvc Mechanical Rate 12 FiO2 60.0 100.0 % Tidal Volume 550 PEEP 5 Sodium (132-148) mmol/L Potassium (3.6-5.2) mmol/L Chloride (98-107) mmol/L Carbon Dioxide (22-30) mmol/L Anion Gap (10-20) BUN (9-20) mg/dL Creatinine (0.8-1.5) mg/dL Est GFR ( Amer) Est GFR (Non-Af Amer) Random Glucose (75-110) mg/dL Calcium (8.6-10.4) mg/dl Phosphorus (2.5-4.5) mg/dL Magnesium (1.6-2.3) mg/dL Total Bilirubin (0.2-1.3) mg/dL AST (17-59) U/L ALT (21-72) U/L Alkaline Phosphatase (38-126) U/L Total Protein (6.3-8.3) g/dL Albumin (3.5-5.0) g/dL Globulin (2.2-3.9) gm/dL Albumin/Globulin Ratio (1.0-2.1) Ur L.pneumophila Ag (NEGATIVE) Laboratory Results - last 24 hr 06/21/17 06/22/17 06/22/17 16:10 05:23 06:15 WBC 18.7 H D RBC 3.21 L Hgb 10.0 L Hct 30.4 L MCV 94.7 H MCH 31.1 H MCHC 32.9 L RDW 14.5 Plt Count 203 MPV 10.1 Neut % (Auto) 96.4 H Lymph % (Auto) 1.1 L Weld % (Auto) 2.1 Eos % (Auto) 0.2 Baso % (Auto) 0.2 Neut # 18.0 H Lymph # 0.2 L Weld # 0.4 Eos # 0.0 Baso # 0.0 Neutrophils % (Manual) 39 L Band Neutrophils % 56 H* Lymphocytes % (Manual) 2 L Monocytes % (Manual) 2 Myelocytes % 1 H Nucleated RBC % 3 H Toxic Granulation Present Dohle Bodies Present Jude Rods Platelet Estimate Normal Large Platelets Present Giant Platelets Present Macrocytosis (manual) Slight Puncture Site Rra Rb pCO2 36 36 pO2 59 L 60 L HCO3 23.7 22.2 ABG pH 7.41 7.38 ABG Total CO2 23.9 22.4 ABG O2 Saturation 94.6 L 95.9 ABG Base Excess -1.5 -3.4 L ABG Hemoglobin 10.4 L 9.6 L ABG Carboxyhemoglobin 1.8 H 2.1 H POC ABG HHb (Measured) 5.2 H 4.0 ABG Methemoglobin 1.5 0.7 Harlan Test Pos Na A-a O2 Difference 609.0 323.0 Respiratory Index 10.3 5.4 Hgb O2 Saturation 91.6 L 93.1 L Vent Mode Prvc Mechanical Rate 12 FiO2 100.0 60.0 Tidal Volume 550 PEEP 5 Sodium Potassium Chloride Carbon Dioxide Anion Gap BUN Creatinine Est GFR ( Amer) Est GFR (Non-Af Amer) Random Glucose Calcium Phosphorus Magnesium Total Bilirubin AST ALT Alkaline Phosphatase Total Protein Albumin Globulin Albumin/Globulin Ratio Ur L.pneumophila Ag 06/22/17 06/22/17 06:19 10:23 WBC RBC Hgb Hct MCV MCH MCHC RDW Plt Count MPV Neut % (Auto) Lymph % (Auto) Weld % (Auto) Eos % (Auto) Baso % (Auto) Neut # Lymph # Weld # Eos # Baso # Neutrophils % (Manual) Band Neutrophils % Lymphocytes % (Manual) Monocytes % (Manual) Myelocytes % Nucleated RBC % Toxic Granulation Dohle Bodies Jude Rods Platelet Estimate Large Platelets Giant Platelets Macrocytosis (manual) Puncture Site pCO2 pO2 HCO3 ABG pH ABG Total CO2 ABG O2 Saturation ABG Base Excess ABG Hemoglobin ABG Carboxyhemoglobin POC ABG HHb (Measured) ABG Methemoglobin Harlan Test A-a O2 Difference Respiratory Index Hgb O2 Saturation Vent Mode Mechanical Rate FiO2 Tidal Volume PEEP Sodium 145 Potassium 3.5 L Chloride 107 Carbon Dioxide 24 Anion Gap 18 BUN 29 H Creatinine 0.7 L Est GFR ( Amer) > 60 Est GFR (Non-Af Amer) > 60 Random Glucose 142 H Calcium 8.4 L Phosphorus 2.0 L Magnesium 2.4 H Total Bilirubin 0.7 AST 36 ALT 34 Alkaline Phosphatase 97 Total Protein 5.8 L Albumin 2.1 L Globulin 3.7 Albumin/Globulin Ratio 0.6 L Ur L.pneumophila Ag Negative Review of Systems - Constitutional Additional comments: Unable to evaluate due to patient's current clinical status (Intubation) Critical Care Progress Note - Nutrition Nutrition: Nutrition Category Date Time Status NPO Diet [DIET] Diets 06/14/17 Lunch Active Assessment/Plan - Assessment and Plan (Free Text) Assessment: 81 y/o male, with no significant past medical history, presents to emergency department for evaluation of left lateral neck mass underneath the chin extending from jaw (Submandibular mass), 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 Sheppard on board---> Help appreciated Palliative consult, Veronica on board---> Help appreciated ENT, Dr. Salgado on board---> Help appreciated Medication/Managment: * Fluconazole 100mg IV daily * Morphine 2mg IVP Q6 PRN Neuro: Intubated Medication/Management: * Propofil 1,000mg IV 5mcg/kg/min Cardio: No acute issues Pulm: Pneumonia and difficulty breathing secondary to enlarged submandibular mass Chest X-ray (06/20/17): New opacity mid right lung and questionable opacity at right base Shoe Associate consult, Dr. PEREZ---> Help appreciated Medication/Management: * Intubated * Azithromycin 500mg IVPB Q24H GI: No acute distress Endo: No acute distress ID: Code sepsis Lactate: 6.4, 6.1, 5.7 ( Trendind down), Bandemia Infectious Disease consult, Dr. Dominguez---> Help appreciated Medication/Management: * Zosyn 3.375gm IVPB Q8H ( Started 06/20/17)---> stopped (06/22/17) * Primaxin 500mg IV Q8H ( Started 06/22/17) * Vanco 1gm IVPB Q24H ( Started 06/21/17) * D5WNS @100mls/hr Prophylaxis: DVT: SCDs, anticogulation on hold GI: Protonix 40mg IVP daily <Darryl Perez - Last Filed: 06/22/17 17:10> CCU Objective - Vital Signs / Intake & Output Vital Signs (Last 4 hours): Vital Signs Temp Pulse Resp BP Pulse Ox 06/22/17 16:02 106 H 31 H 112/67 95 06/22/17 16:00 99.9 F H 108 H 26 H 95 06/22/17 15:02 113 H 31 H 104/65 96 06/22/17 15:00 112 H 27 H 96 06/22/17 14:02 108 H 24 102/58 L 92 L 06/22/17 14:00 111 H 23 94 L Intake and Output (Last 8hrs): Intake & Output 06/22/17 06/22/17 06/22/17 06:59 14:59 22:59 Intake Total 931.4 1182.8 408.4 Output Total 250 335 95 Balance 681.4 847.8 313.4 Intake: IV 40 81 Intake, IV Amount 891.4 1061.8 368.4 Right Port-A-Cath 850 652 350 left forearm 350 right PC 41.4 59.8 18.4 Tube Feeding 40 40 Output: Urine 250 335 95 Urine, Voided 250 335 95 - Medications Active Medications: Active Medications Generic Name Dose Route Start Last Admin Trade Name Freq PRN Reason Stop Dose Admin Acetaminophen 650 mg 06/16/17 17:25 Tylenol 650mg/20.3ml Solution Ud GT Q6 PRN Pain, Mild (1-3) Enoxaparin Sodium 30 mg 06/15/17 10:00 06/15/17 10:09 Lovenox SC Not Given DAILY JUAN CARLOS Azithromycin 500 mg/ Sodium 250 mls @ 166.667 mls/hr 06/20/17 12:00 06/22/17 13:23 Chloride IVPB 166.667 mls/hr Q24H JUAN CARLOS Administration Vancomycin/Sodium Chloride 1 gm in 200 mls @ 133.333 mls/hr 06/21/17 13:00 15:04 Vancocin IVPB 133.333 mls/hr Q24H JUAN CARLOS Administration Dextrose/Sodium Chloride 1,000 mls @ 100 mls/hr 06/20/17 13:00 06/22/17 15:05 Dextrose 5%/0.9% Ns 1000 Ml IV Not Given .Q10H JUAN CARLOS Fluconazole 50 mls @ 100 mls/hr 06/22/17 10:00 06/22/17 10:23 Diflucan Iv 100 Mg/50 Ml Ns IVPB 100 mls/hr DAILY JUAN CARLOS Administration Propofol 1,000 mg in 100 mls @ 2.313 mls/hr 06/21/17 19:02 06/22/17 13:26 Diprivan IV 20 mcg/kg/min .Q24H PRN 9.253 mls/hr TITRATE PER MD ORDER Titration Protocol 5 MCG/KG/MIN Imipenem/Cilastatin Sodium 500 100 mls @ 100 mls/hr 06/22/17 12:00 06/22/17 12:37 mg/ Sodium Chloride IVPB 100 mls/hr Q8H JUAN CARLOS Administration Morphine Sulfate 2 mg 06/16/17 16:40 Morphine IVP Q6 PRN Pain, moderate (4-7) Pantoprazole Sodium 40 mg 06/21/17 10:00 06/22/17 09:12 Protonix Inj IVP 40 mg DAILY JUAN CARLOS Administration - Patient Studies Lab Studies: Microbiology Studies 06/20/17 14:45 Urine Culture - Final Urine Enterococcus Faecalis 06/20/17 17:48 MRSA Culture (Admit) - Final Nose MRSA NOT DETECTED Lab Studies 06/22/17 06/22/17 06/22/17 Range/Units 10:23 06:19 06:15 WBC 18.7 H D (4.8-10.8) K/uL RBC 3.21 L (4.40-5.90) Mil/uL Hgb 10.0 L (12.0-18.0) g/dL Hct 30.4 L (35.0-51.0) % MCV 94.7 H (80.0-94.0) fL MCH 31.1 H (27.0-31.0) pg MCHC 32.9 L (33.0-37.0) g/dL RDW 14.5 (11.5-14.5) % Plt Count 203 (130-400) K/uL MPV 10.1 (7.2-11.7) fL Neut % (Auto) 96.4 H (50.0-75.0) % Lymph % (Auto) 1.1 L (20.0-40.0) % Weld % (Auto) 2.1 (0.0-10.0) % Eos % (Auto) 0.2 (0.0-4.0) % Baso % (Auto) 0.2 (0.0-2.0) % Neut # 18.0 H (1.8-7.0) K/uL Lymph # 0.2 L (1.0-4.3) K/uL Weld # 0.4 (0.0-0.8) K/uL Eos # 0.0 (0.0-0.7) K/uL Baso # 0.0 (0.0-0.2) K/uL Neutrophils % (Manual) 39 L (50-75) % Band Neutrophils % 56 H* (0-2) % Lymphocytes % (Manual) 2 L (20-40) % Monocytes % (Manual) 2 (0-10) % Myelocytes % 1 H (0-0) % Nucleated RBC % 3 H (0-0) % Toxic Granulation Present Dohle Bodies Present Jude Rods Platelet Estimate Normal (NORMAL) Large Platelets Present Giant Platelets Present Macrocytosis (manual) Slight Puncture Site pCO2 (35-45) mm/Hg pO2 (80-100) mm/Hg HCO3 (21-28) mmol/L ABG pH (7.35-7.45) ABG Total CO2 (22-28) mmol/L ABG O2 Saturation (95-98) % ABG Base Excess (-2.0-3.0) mmol/L ABG Hemoglobin (11.7-17.4) g/dL ABG Carboxyhemoglobin (0.5-1.5) % POC ABG HHb (Measured) (0.0-5.0) % ABG Methemoglobin (0.0-3.0) % Harlan Test A-a O2 Difference mm/Hg Respiratory Index Hgb O2 Saturation (95.0-98.0) % Vent Mode Mechanical Rate FiO2 % Tidal Volume PEEP Sodium 145 (132-148) mmol/L Potassium 3.5 L (3.6-5.2) mmol/L Chloride 107 (98-107) mmol/L Carbon Dioxide 24 (22-30) mmol/L Anion Gap 18 (10-20) BUN 29 H (9-20) mg/dL Creatinine 0.7 L (0.8-1.5) mg/dL Est GFR ( Amer) > 60 Est GFR (Non-Af Amer) > 60 Random Glucose 142 H (75-110) mg/dL Calcium 8.4 L (8.6-10.4) mg/dl Phosphorus 2.0 L (2.5-4.5) mg/dL Magnesium 2.4 H (1.6-2.3) mg/dL Total Bilirubin 0.7 (0.2-1.3) mg/dL AST 36 (17-59) U/L ALT 34 (21-72) U/L Alkaline Phosphatase 97 (38-126) U/L Total Protein 5.8 L (6.3-8.3) g/dL Albumin 2.1 L (3.5-5.0) g/dL Globulin 3.7 (2.2-3.9) gm/dL Albumin/Globulin Ratio 0.6 L (1.0-2.1) Ur L.pneumophila Ag Negative (NEGATIVE) 06/22/17 Range/Units 05:23 WBC (4.8-10.8) K/uL RBC (4.40-5.90) Mil/uL Hgb (12.0-18.0) g/dL Hct (35.0-51.0) % MCV (80.0-94.0) fL MCH (27.0-31.0) pg MCHC (33.0-37.0) g/dL RDW (11.5-14.5) % Plt Count (130-400) K/uL MPV (7.2-11.7) fL Neut % (Auto) (50.0-75.0) % Lymph % (Auto) (20.0-40.0) % Weld % (Auto) (0.0-10.0) % Eos % (Auto) (0.0-4.0) % Baso % (Auto) (0.0-2.0) % Neut # (1.8-7.0) K/uL Lymph # (1.0-4.3) K/uL Weld # (0.0-0.8) K/uL Eos # (0.0-0.7) K/uL Baso # (0.0-0.2) K/uL Neutrophils % (Manual) (50-75) % Band Neutrophils % (0-2) % Lymphocytes % (Manual) (20-40) % Monocytes % (Manual) (0-10) % Myelocytes % (0-0) % Nucleated RBC % (0-0) % Toxic Granulation Dohle Bodies Jude Rods Platelet Estimate (NORMAL) Large Platelets Giant Platelets Macrocytosis (manual) Puncture Site Rb pCO2 36 (35-45) mm/Hg pO2 60 L (80-100) mm/Hg HCO3 22.2 (21-28) mmol/L ABG pH 7.38 (7.35-7.45) ABG Total CO2 22.4 (22-28) mmol/L ABG O2 Saturation 95.9 (95-98) % ABG Base Excess -3.4 L (-2.0-3.0) mmol/L ABG Hemoglobin 9.6 L (11.7-17.4) g/dL ABG Carboxyhemoglobin 2.1 H (0.5-1.5) % POC ABG HHb (Measured) 4.0 (0.0-5.0) % ABG Methemoglobin 0.7 (0.0-3.0) % Harlan Test Na A-a O2 Difference 323.0 mm/Hg Respiratory Index 5.4 Hgb O2 Saturation 93.1 L (95.0-98.0) % Vent Mode Prvc Mechanical Rate 12 FiO2 60.0 % Tidal Volume 550 PEEP 5 Sodium (132-148) mmol/L Potassium (3.6-5.2) mmol/L Chloride (98-107) mmol/L Carbon Dioxide (22-30) mmol/L Anion Gap (10-20) BUN (9-20) mg/dL Creatinine (0.8-1.5) mg/dL Est GFR ( Amer) Est GFR (Non-Af Amer) Random Glucose (75-110) mg/dL Calcium (8.6-10.4) mg/dl Phosphorus (2.5-4.5) mg/dL Magnesium (1.6-2.3) mg/dL Total Bilirubin (0.2-1.3) mg/dL AST (17-59) U/L ALT (21-72) U/L Alkaline Phosphatase (38-126) U/L Total Protein (6.3-8.3) g/dL Albumin (3.5-5.0) g/dL Globulin (2.2-3.9) gm/dL Albumin/Globulin Ratio (1.0-2.1) Ur L.pneumophila Ag (NEGATIVE) Laboratory Results - last 24 hr 06/22/17 06/22/17 06/22/17 05:23 06:15 06:19 WBC 18.7 H D RBC 3.21 L Hgb 10.0 L Hct 30.4 L MCV 94.7 H MCH 31.1 H MCHC 32.9 L RDW 14.5 Plt Count 203 MPV 10.1 Neut % (Auto) 96.4 H Lymph % (Auto) 1.1 L Weld % (Auto) 2.1 Eos % (Auto) 0.2 Baso % (Auto) 0.2 Neut # 18.0 H Lymph # 0.2 L Weld # 0.4 Eos # 0.0 Baso # 0.0 Neutrophils % (Manual) 39 L Band Neutrophils % 56 H* Lymphocytes % (Manual) 2 L Monocytes % (Manual) 2 Myelocytes % 1 H Nucleated RBC % 3 H Toxic Granulation Present Dohle Bodies Present Jude Rods Platelet Estimate Normal Large Platelets Present Giant Platelets Present Macrocytosis (manual) Slight Puncture Site Rb pCO2 36 pO2 60 L HCO3 22.2 ABG pH 7.38 ABG Total CO2 22.4 ABG O2 Saturation 95.9 ABG Base Excess -3.4 L ABG Hemoglobin 9.6 L ABG Carboxyhemoglobin 2.1 H POC ABG HHb (Measured) 4.0 ABG Methemoglobin 0.7 Harlan Test Na A-a O2 Difference 323.0 Respiratory Index 5.4 Hgb O2 Saturation 93.1 L Vent Mode Prvc Mechanical Rate 12 FiO2 60.0 Tidal Volume 550 PEEP 5 Sodium 145 Potassium 3.5 L Chloride 107 Carbon Dioxide 24 Anion Gap 18 BUN 29 H Creatinine 0.7 L Est GFR ( Amer) > 60 Est GFR (Non-Af Amer) > 60 Random Glucose 142 H Calcium 8.4 L Phosphorus 2.0 L Magnesium 2.4 H Total Bilirubin 0.7 AST 36 ALT 34 Alkaline Phosphatase 97 Total Protein 5.8 L Albumin 2.1 L Globulin 3.7 Albumin/Globulin Ratio 0.6 L Ur L.pneumophila Ag 06/22/17 10:23 WBC RBC Hgb Hct MCV MCH MCHC RDW Plt Count MPV Neut % (Auto) Lymph % (Auto) Weld % (Auto) Eos % (Auto) Baso % (Auto) Neut # Lymph # Weld # Eos # Baso # Neutrophils % (Manual) Band Neutrophils % Lymphocytes % (Manual) Monocytes % (Manual) Myelocytes % Nucleated RBC % Toxic Granulation Dohle Bodies Jude Rods Platelet Estimate Large Platelets Giant Platelets Macrocytosis (manual) Puncture Site pCO2 pO2 HCO3 ABG pH ABG Total CO2 ABG O2 Saturation ABG Base Excess ABG Hemoglobin ABG Carboxyhemoglobin POC ABG HHb (Measured) ABG Methemoglobin Harlan Test A-a O2 Difference Respiratory Index Hgb O2 Saturation Vent Mode Mechanical Rate FiO2 Tidal Volume PEEP Sodium Potassium Chloride Carbon Dioxide Anion Gap BUN Creatinine Est GFR ( Amer) Est GFR (Non-Af Amer) Random Glucose Calcium Phosphorus Magnesium Total Bilirubin AST ALT Alkaline Phosphatase Total Protein Albumin Globulin Albumin/Globulin Ratio Ur L.pneumophila Ag Negative Critical Care Progress Note - Nutrition Nutrition: Nutrition Category Date Time Status NPO Diet [DIET] Diets 06/14/17 Lunch Active Assessment/Plan (1) Respiratory failure Current Visit: Yes Status: Acute (2) Oropharyngeal cancer Current Visit: Yes Status: Acute (3) Pneumonia Current Visit: Yes Status: Acute Attending/Attestation - Attestation I have personally seen and examined this patient.: Yes I have fully participated in the care of the patient.: Yes I have reviewed all pertinent clinical information: Yes Notes (Text): 06/22/17 17:08 Patient seen and examined in the intensive care unit. Case discussed with staff in the morning. 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
--- NOTE | 2017-06-22 14:27 | RAD ---
Chest x-ray single frontal view History: Intubation. Comparison: 06/21/2017 Findings: Lines and tubes in stable position. Persistent patchy confluent ill-defined consolidative opacities throughout both lungs. Small right and small to moderate left pleural effusion. More dense consolidation at the left lung base. Biapical pleural thickening with upper lobe granulomatous changes Calcification at the aortic knob. Degenerative changes in the spine and shoulders. Impression: Lines and tubes in stable position. Persistent patchy confluent ill-defined consolidative opacities throughout both lungs. Small right and small to moderate left pleural effusion. More dense consolidation at the left lung base. Biapical pleural thickening with upper lobe granulomatous changes
[2017-06-22] MEDS: Vancomycin 1 gm/NS 200 ml 1 GM/200 ML BAG IVPB SCH (15:04)
--- NOTE | 2017-06-22 17:44 | CARD ---
APPROVED REPORT EXAM: Two-dimensional and M-mode echocardiogram with Doppler and color Doppler. Other Information Quality : TDSRhythm : INDICATION Dyspnea Chest Pain Syncope 2D DIMENSIONS IVSd1.0 (0.7-1.1cm)LVDd3.3 (3.9-5.9cm) PWd1.0 (0.7-1.1cm)LVDs2.0 (2.5-4.0cm) FS (%) 38.8 %LVEF (%)70.5 (>50%) M-Mode DIMENSIONS Left Atrium (MM)3.80 (2.5-4.0cm)Aortic Root3.49 (2.2-3.7cm) Aortic Cusp Exc.2.18 (1.5-2.0cm) Mitral Valve MV E Ybibmyyc98.9cm/sMV A Bsejtcxq758.9cm/sE/A ratio0.6 TDI E/Lateral E'0.0E/Medial E'0.0 Tricuspid Valve TR Peak Ooenlbay868mq/sTR Peak Gr.[id number] LEFT VENTRICLE The left ventricle is normal size. There is normal left ventricular wall thickness. The left ventricular function is normal. The left ventricular ejection fraction is within the normal range. There is normal LV segmental wall motion. Transmitral Doppler flow pattern is Grade I-abnormal relaxation pattern. RIGHT VENTRICLE The right ventricle is normal size. There is normal right ventricular wall thickness. The right ventricular systolic function is normal. ATRIA The left atrium size is normal. The right atrium size is normal. AORTIC VALVE The aortic valve is thickened but opens well. No aortic regurgitation is present. There is no aortic valvular stenosis. MITRAL VALVE The mitral valve is mildly thickened. There is no mitral valve stenosis. There is no mitral valve regurgitation noted. TRICUSPID VALVE There is mild pulmonary hypertension. GREAT VESSELS The aortic root is normal in size. The IVC is normal in size and collapses >50% with inspiration. PERICARDIAL EFFUSION There is no pericardial effusion. <Conclusion> The left ventricle is normal size. There is normal left ventricular wall thickness. The left ventricular function is normal. The left ventricular ejection fraction is within the normal range. There is normal LV segmental wall motion. Transmitral Doppler flow pattern is Grade I-abnormal relaxation pattern. There is mild pulmonary hypertension.
--- NOTE | 2017-06-22 22:55 | CARD ---
APPROVED REPORT EKG Measurement Heart [id number] <Conclusion> Sinus tachycardia Left axis deviation Abnormal ECG
--- NOTE | 2017-06-22 23:10 | CP.PCM.PN ---
Subjective - Date & Time of Evaluation Date of Evaluation: 06/22/17 Time of Evaluation: 23:10 - Subjective Subjective: CHIEF COMPLAINTS TODAY : EVENTS NOTED. PATIENT INTUBATED DUE TO DESATURATION IN THE OR. afebrile, tachycardic Sedated ROS on observation only HEENT : LEFT SUBMANDIBULAR MASS AND SWELLING, ON VENTILATOR Resp : No SOB wheezing, cough Cardio : No CP, PND orthopnea GI : No abd. 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 Musculoskel : N Ext. : Pedal pulses intact, no edema or calf pain Derm : N Psych : N. PE. Pt. is ON VENTILATOR, SEDATED tACHYCARDIC. V.S As noted in the chart Head ,ear nose,throat and eyes : Normal. Neck : Supple with normal carotids.LTSIDED JAW SWELLING WITH CELLULITIS AND TENDERNESS, LEFT-SIDED MANDIBULAR MASS BX SITE. +VE LB Lungs: SCATTERED RHONCHI AND RALES. Heart : S1 & S2 normal . . No murmur. S4 + Abd : Soft non tender with normal bowel sounds. Neuro : Moves all ext. with no localized deficit. Ext : No edema with intact pulses. Neg. calf tenderness Derm : No rashes or decubitus ulcer. Radiology/Labs . WBC 18.7 increasing with 56% bandemia. URINE CULTURE +ve Enterococcus faecalis 06/20/17. lftS NORMAL. CREATININE 0.8/bun 29. URINARY ANTIGEN AND lEGIONELLA NEGATIVE. . Objective - Vital Signs/Intake and Output Vital Signs (last 24 hours): Temp Pulse Resp BP Pulse Ox 100.3 F H 113 H 26 H 115/66 95 06/22/17 20:00 06/22/17 22:02 06/22/17 22:02 06/22/17 22:02 06/22/17 22:02 Intake and Output: 06/22/17 06/23/17 18:59 06:59 Intake Total 1849.6 595.8 Output Total 515 180 Balance 1334.6 415.8 - Medications Medications: Current Medications Acetaminophen (Tylenol 650mg/20.3ml Solution Ud) 650 mg GT Q6 PRN PRN Reason: Pain, Mild (1-3) Enoxaparin Sodium (Lovenox) 30 mg SC DAILY [facility] Last Admin: 06/15/17 10:09 Dose: Not Given Azithromycin 500 mg/ Sodium (Chloride) 250 mls @ 166.667 mls/hr IVPB Q24H [facility] Last Admin: 06/22/17 13:23 Dose: 166.667 mls/hr Vancomycin/Sodium Chloride (Vancocin) 1 gm in 200 mls @ 133.333 mls/hr IVPB Q24H [facility] Last Admin: 06/22/17 15:04 Dose: 133.333 mls/hr Dextrose/Sodium Chloride (Dextrose 5%/0.9% Ns 1000 Ml) 1,000 mls @ 100 mls/hr IV .Q10H [facility] Last Admin: 06/22/17 17:50 Dose: 100 mls/hr Fluconazole (Diflucan Iv 100 Mg/50 Ml Ns) 50 mls @ 100 mls/hr IVPB DAILY [facility] Last Admin: 06/22/17 10:23 Dose: 100 mls/hr Propofol (Diprivan) 1,000 mg in 100 mls @ 2.313 mls/hr IV .Q24H PRN; Protocol; 5 MCG/KG/MIN PRN Reason: TITRATE PER MD ORDER Last Admin: 06/22/17 21:14 Dose: 20 mcg/kg/min, 9.253 mls/hr Imipenem/Cilastatin Sodium 500 (mg/ Sodium Chloride) 100 mls @ 100 mls/hr IVPB Q8H [facility] Last Admin: 06/22/17 12:37 Dose: 100 mls/hr Morphine Sulfate (Morphine) 2 mg IVP Q6 PRN PRN Reason: Pain, moderate (4-7) Pantoprazole Sodium (Protonix Inj) 40 mg IVP DAILY [facility] Last Admin: 06/22/17 09:12 Dose: 40 mg - Labs Labs: 06/22/17 06:15 06/22/17 06:19 PT 15.7 SECONDS (9.7-12.2) H 06/20/17 11:44 INR 1.4 06/20/17 11:44 APTT 26 SECONDS (21-34) 06/20/17 11:44 Assessment and Plan (1) Respiratory failure Status: Acute (2) Pneumonia Status: Acute (3) Dysphagia Status: Acute (4) Oropharyngeal cancer Status: Acute (5) Dehydration Status: Acute - Assessment and Plan (Free Text) Assessment: IMPRESSION; SEPSIS- SYNDROME WITH HYPOTENSION ACUTE RESPIRATORY FAILURE . BILATERAL MULTIFOCAL PNEUMONIA ? ASPIRATION VS ATYPICAL. 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 S/P PEG. S/P MED-PORT . DEHYDRATION. PLAN; ANTIBIOTICS ADJUSTED NOTED oN iv pRIMAXIN 500 EVERY 8 HOURLY 06/22/17 OFF iv zOSYN 3.375 EVERY 8 HOURLY. ON iv VANCOMYCIN 1 G ONCE A DAY DAILY. 06/20/17 CONTINUE zITHROMAX 500 MG ONCE A DAY DAILY.06/20/17. FLUCONAZOLE ADDED BY PLATE FORMER 06/22/17 vANCO TROUGH LEVEL PRIOR TO THE FOURTH DOSE AND KEEP IT BETWEEN 10 AND 20. FOLLOW-UP RENAL FUNCTIONS CLOSELY. PULMONARY TOILET PER PLATE FORMER.
--- NOTE | 2017-06-22 23:31 | CP.PCM.PN ---
Subjective - Date & Time of Evaluation Date of Evaluation: 06/22/17 Time of Evaluation: 18:00 - Subjective Subjective: Pt seen and examined at bedside, pt is feeling better Objective - Vital Signs/Intake and Output Vital Signs (last 24 hours): Temp Pulse Resp BP Pulse Ox 100.3 F H 109 H 22 113/62 95 06/22/17 20:00 06/22/17 23:02 06/22/17 23:02 06/22/17 23:02 06/22/17 23:02 Intake and Output: 06/22/17 06/23/17 18:59 06:59 Intake Total 1849.6 725.0 Output Total 515 225 Balance 1334.6 500.0 - Medications Medications: Current Medications Acetaminophen (Tylenol 650mg/20.3ml Solution Ud) 650 mg GT Q6 PRN PRN Reason: Pain, Mild (1-3) Enoxaparin Sodium (Lovenox) 30 mg SC DAILY [facility] Last Admin: 06/15/17 10:09 Dose: Not Given Azithromycin 500 mg/ Sodium (Chloride) 250 mls @ 166.667 mls/hr IVPB Q24H [facility] Last Admin: 06/22/17 13:23 Dose: 166.667 mls/hr Vancomycin/Sodium Chloride (Vancocin) 1 gm in 200 mls @ 133.333 mls/hr IVPB Q24H [facility] Last Admin: 06/22/17 15:04 Dose: 133.333 mls/hr Dextrose/Sodium Chloride (Dextrose 5%/0.9% Ns 1000 Ml) 1,000 mls @ 100 mls/hr IV .Q10H [facility] Last Admin: 06/22/17 17:50 Dose: 100 mls/hr Fluconazole (Diflucan Iv 100 Mg/50 Ml Ns) 50 mls @ 100 mls/hr IVPB DAILY [facility] Last Admin: 06/22/17 10:23 Dose: 100 mls/hr Propofol (Diprivan) 1,000 mg in 100 mls @ 2.313 mls/hr IV .Q24H PRN; Protocol; 5 MCG/KG/MIN PRN Reason: TITRATE PER MD ORDER Last Admin: 06/22/17 21:14 Dose: 20 mcg/kg/min, 9.253 mls/hr Imipenem/Cilastatin Sodium 500 (mg/ Sodium Chloride) 100 mls @ 100 mls/hr IVPB Q8H [facility] Last Admin: 06/22/17 19:50 Dose: 100 mls/hr Morphine Sulfate (Morphine) 2 mg IVP Q6 PRN PRN Reason: Pain, moderate (4-7) Pantoprazole Sodium (Protonix Inj) 40 mg IVP DAILY [facility] Last Admin: 06/22/17 09:12 Dose: 40 mg - Labs Labs: 06/22/17 06:15 06/22/17 06:19 PT 15.7 SECONDS (9.7-12.2) H 06/20/17 11:44 INR 1.4 06/20/17 11:44 APTT 26 SECONDS (21-34) 06/20/17 11:44 - Constitutional Appears: No Acute Distress - Head Exam Head Exam: ATRAUMATIC, NORMAL INSPECTION, NORMOCEPHALIC Additional comments: neck mass - Eye Exam Eye Exam: EOMI, Normal appearance, PERRL Pupil Exam: NORMAL ACCOMODATION, PERRL - Neck Exam Additional comments: neck mass sqmous cell carcinoma - Respiratory Exam Respiratory Exam: Clear to Ausculation Bilateral, NORMAL BREATHING PATTERN - Cardiovascular Exam Cardiovascular Exam: REGULAR RHYTHM, +S1, +S2. 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
[2017-06-23] MEDS: Dextrose 5%/0.9% NS 1,000 ML IV SCH ×2 (01:59→18:30)
[2017-06-23 05:32] LABS: ARTERIAL BLOOD GAS MODE PRVC; ARTERIAL BLOOD HGB O2 SAT 96.8 % (95.0-98.0); ATERIAL BLOOD GAS PEEP 5; CARBOXYHEMOGLOBIN 1.6 % (0.5-1.5); HHB 0.7 % (0.0-5.0); METHEMOGLOBIN 0.8 % (0.0-3.0)
[2017-06-23 05:43] LABS: ABG MECHANICAL RATE 12; DRAW SITE RB
[2017-06-23 06:46] LABS: BASO % 0.1 % (0.0-2.0); EOS % 0.1 % (0.0-4.0); HEMATOCRIT 30.6 % (35.0-51.0); LYMPH # 0.6 K/uL (1.0-4.3); LYMPH % 2.8 % (20.0-40.0); MEAN CELL VOLUME 95.2 fL (80.0-94.0); MEAN CORPUSCULAR HGB CONC 32.6 g/dL (33.0-37.0); MONO # 0.9 K/uL (0.0-0.8); NRBC % 0.1 % (0.0-2.0); PLATELET COUNT 182 K/uL (130-400); RED CELL DISTRIBUTION WIDTH 14.7 % (11.5-14.5); WHITE BLOOD COUNT 23.3 K/uL (4.8-10.8)
[2017-06-23 07:06] LABS: CHLORIDE 112 mmol/L (98-107); POTASSIUM 3.6 mmol/L (3.6-5.2); SODIUM 149 mmol/L (132-148)
[2017-06-23 07:08] LABS: GFR AFRICAN-AMERICAN > 60
[2017-06-23 07:09] LABS: ALB/GLOB RATIO 0.6 (1.0-2.1); ALKALINE PHOSPHATASE 130 U/L (38-126); ALT/SGPT 40 U/L (21-72); AST/SGOT 54 U/L (17-59); BILIRUBIN,TOTAL 0.5 mg/dL (0.2-1.3); BLOOD UREA NITROGEN 39 mg/dL (9-20); CARBON DIOXIDE 25 mmol/L (22-30); GLUCOSE,RANDOM 205 mg/dL (75-110); PHOSPHOROUS 2.8 mg/dL (2.5-4.5); TOTAL PROTEIN 5.7 g/dL (6.3-8.3)
[2017-06-23 07:10] LABS: CALCIUM 8.3 mg/dl (8.6-10.4); MAGNESIUM 2.6 mg/dL (1.6-2.3)
--- NOTE | 2017-06-23 08:32 | RAD ---
Chest x-ray single frontal view History: Intubation. Comparison: 06/22/2017 Findings: Endotracheal tube in stable position. Right chest wall port with tip extending into the mid right SVC. Prominent diffuse increased interstitial lung markings. Patchy consolidative changes at both lung bases ; left greater than right with associated small bilateral pleural effusions. Biapical pleural thickening with upper lobe granulomatous changes. Degenerative changes in the spine and shoulders. Calcification at the aortic knob. Mild cardiomegaly. Impression: Endotracheal tube in stable position. Right chest wall port with tip extending into the mid right SVC. Prominent diffuse increased interstitial lung markings. Patchy consolidative changes at both lung bases ; left greater than right with associated small bilateral pleural effusions. Biapical pleural thickening with upper lobe granulomatous changes. Degenerative changes in the spine and shoulders. Calcification at the aortic knob. Mild cardiomegaly.
[2017-06-23 08:37] LABS: NEUTROPHIL 77 % (50-75); TOTAL CELLS COUNTED 100
[2017-06-23] MEDS: Fluconazole IV 100mg/50 ml NS 50 ML IVPB SCH (09:23)
[2017-06-23] MEDS: Propofol 10 mg/ml 1,000 MG/100 ML VIAL IV PRN ×2 (09:28→23:00)
[2017-06-23] MEDS: Azithromycin 500 MG in Sodium Chloride 0.9% 250 ML IVPB SCH (11:13)
[2017-06-23] MEDS: (Novolin R) Insulin Human Regular 100 units/ml vial SC SCH ×2 (11:21→18:29)
--- NOTE | 2017-06-23 13:21 | RAD ---
Chest x-ray single frontal view History: Endotracheal tube. Comparison: 06/23/2017 Findings: Endotracheal tube extending into the mid thoracic trachea. Right central venous catheter tip extending to the cavoatrial junction. Prominent diffuse increased interstitial lung markings with confluent airspace opacities throughout both lungs. Confluent consolidative changes in the left mid to lower lung zone as well as the right lung base. Small bilateral pleural effusions. Biapical pleural thickening with upper lobe granulomatous changes. Calcification at the aortic knob. Mild cardiomegaly. Degenerative changes in the spine and shoulders. Impression: Endotracheal tube extending into the mid thoracic trachea. Right central venous catheter tip extending to the cavoatrial junction. Prominent diffuse increased interstitial lung markings with confluent airspace opacities throughout both lungs. Confluent consolidative changes in the left mid to lower lung zone as well as the right lung base. Small bilateral pleural effusions. Biapical pleural thickening with upper lobe granulomatous changes. Calcification at the aortic knob. Mild cardiomegaly.
--- NOTE | 2017-06-23 13:45 | RAD ---
HISTORY: ett placement COMPARISON: Chest x-ray performed 06/23/17 at 715 hours and subsequent chest x-ray performed at 1111 hours TECHNIQUE: Chest, one view. FINDINGS: Distal tip of the endotracheal tube terminates approximately 10.7 cm above the tamia. Right-sided MediPort catheter extends the SVC. LUNGS: Increased interstitial markings may reflect infection or edema. Bibasilar atelectasis or infiltrates. Biapical pleural thickening. Please note that chest x-ray has limited sensitivity for the detection of pulmonary masses. PLEURA: Small bilateral pleural effusions. No definite pneumothorax . CARDIOVASCULAR: Mild cardiomegaly. Atherosclerotic calcifications of the aorta. OSSEOUS STRUCTURES: Osseous demineralization. Degenerative changes. VISUALIZED UPPER ABDOMEN: Unremarkable. OTHER FINDINGS: None. IMPRESSION: Distal tip of the endotracheal tube terminates approximately 10.7 cm above the tamia. Right-sided MediPort catheter extends the SVC. Increased interstitial markings may reflect edema or infection. Bibasilar atelectasis or infiltrates. Biapical pleural thickening. Small bilateral pleural effusions.
[2017-06-23] MEDS: Vancomycin 1 gm/NS 200 ml 1 GM/200 ML BAG IVPB SCH (14:56)
--- NOTE | 2017-06-23 15:03 | CP.PCM.PN ---
Subjective - Date & Time of Evaluation Date of Evaluation: 06/20/17 Time of Evaluation: 09:00 - Subjective Subjective: Today rapid response was called for hypotension, tachycardia and shortness of breath. CAT scan of the chest showed bilateral infiltrate and effusion. ABG consistent with hypoxemia and elevated lactate level. Code Sepsis was initiated and pt was transferred to intensive care unit. PATIENT WAS FOUND TO HAVE LEUKOCYTOSIS WITH SERUM LACTATE OF 6.4. PATIENT ALSO NOTED TO BE FEBRILE TO 101.2. ANGIO OF THE CHEST ABDOMEN AND PELVIS 06/20/17 OBTAINED WHICH SHOWED NO EVIDENCE OF PULMONARY EMBOLISM BUT MULTIFOCAL BILATERAL INFILTRATES WITH SMALL TO MODERATE RIGHT PLEURAL EFFUSION. CHOLELITHIASIS WITHOUT OBSTRUCTION ALSO WAS SEEN. PATIENT WAS STARTED ON BROAD-SPECTRUM ANTIBIOTICS INCLUDING zOSYN 3.375 EVERY 8 HOURLY AND zITHROMAX 500 ONCE A DAY DAILY. Objective - Vital Signs/Intake and Output Vital Signs (last 24 hours): Temp Pulse Resp BP Pulse Ox 99.4 F 111 H 22 113/70 92 L 06/23/17 12:00 06/23/17 15:00 06/23/17 15:00 06/23/17 14:02 06/23/17 15:00 Intake and Output: 06/23/17 06/23/17 06:59 18:59 Intake Total 1529.4 1337.2 Output Total 540 345 Balance 989.4 992.2 - Medications Medications: Current Medications Acetaminophen (Tylenol 650mg/20.3ml Solution Ud) 650 mg GT Q6 PRN PRN Reason: Pain, Mild (1-3) Enoxaparin Sodium (Lovenox) 30 mg SC DAILY [facility] Last Admin: 06/15/17 10:09 Dose: Not Given Azithromycin 500 mg/ Sodium (Chloride) 250 mls @ 166.667 mls/hr IVPB Q24H [facility] Last Admin: 06/23/17 11:13 Dose: 166.667 mls/hr Vancomycin/Sodium Chloride (Vancocin) 1 gm in 200 mls @ 133.333 mls/hr IVPB Q24H [facility] Last Admin: 06/23/17 14:56 Dose: 133.333 mls/hr Fluconazole (Diflucan Iv 100 Mg/50 Ml Ns) 50 mls @ 100 mls/hr IVPB DAILY [facility] Last Admin: 06/23/17 09:23 Dose: 100 mls/hr Propofol (Diprivan) 1,000 mg in 100 mls @ 2.313 mls/hr IV .Q24H PRN; Protocol; 5 MCG/KG/MIN PRN Reason: TITRATE PER MD ORDER Last Admin: 06/23/17 09:28 Dose: 14 mcg/kg/min, 6.477 mls/hr Imipenem/Cilastatin Sodium 500 (mg/ Sodium Chloride) 100 mls @ 100 mls/hr IVPB Q8H [facility] Last Admin: 06/23/17 11:10 Dose: 100 mls/hr Insulin Human Regular (Novolin R) 0 unit SC Q6 [facility] PRN Reason: Protocol Last Admin: 06/23/17 11:21 Dose: 2 unit Morphine Sulfate (Morphine) 2 mg IVP Q6 PRN PRN Reason: Pain, moderate (4-7) Pantoprazole Sodium (Protonix Inj) 40 mg IVP DAILY [facility] Last Admin: 06/23/17 09:29 Dose: 40 mg - Labs Labs: 06/23/17 06:32 06/23/17 06:32 PT 15.7 SECONDS (9.7-12.2) H 06/20/17 11:44 INR 1.4 06/20/17 11:44 APTT 26 SECONDS (21-34) 06/20/17 11:44 - Constitutional Appears: In Acute Distress, Chronically Ill - Head Exam Head Exam: ATRAUMATIC, NORMAL INSPECTION, NORMOCEPHALIC - Eye Exam Eye Exam: EOMI, Normal appearance, PERRL Pupil Exam: NORMAL ACCOMODATION, PERRL - Respiratory Exam Respiratory Exam: Decreased Breath Sounds, Rales, Rhonchi - Cardiovascular Exam Cardiovascular Exam: REGULAR RHYTHM, +S1, +S2. absent: Murmur - GI/Abdominal Exam GI & Abdominal Exam: Soft, Normal Bowel Sounds. absent: Tenderness - Neurological Exam Neurological Exam: Altered Assessment and Plan (1) Mass of left side of neck Status: Acute (2) Dysphagia Status: Acute (3) Dehydration Status: Acute (4) Lactic acid acidosis Status: Acute
--- NOTE | 2017-06-23 15:04 | CP.PCM.PN ---
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, has been seen by oncology Objective - Vital Signs/Intake and Output Vital Signs (last 24 hours): Temp Pulse Resp BP Pulse Ox 99.4 F 111 H 22 113/70 92 L 06/23/17 12:00 06/23/17 15:00 06/23/17 15:00 06/23/17 14:02 06/23/17 15:00 Intake and Output: 06/23/17 06/23/17 06:59 18:59 Intake Total 1529.4 1337.2 Output Total 540 345 Balance 989.4 992.2 - Medications Medications: Current Medications Acetaminophen (Tylenol 650mg/20.3ml Solution Ud) 650 mg GT Q6 PRN PRN Reason: Pain, Mild (1-3) Enoxaparin Sodium (Lovenox) 30 mg SC DAILY [facility] Last Admin: 06/15/17 10:09 Dose: Not Given Azithromycin 500 mg/ Sodium (Chloride) 250 mls @ 166.667 mls/hr IVPB Q24H [facility] Last Admin: 06/23/17 11:13 Dose: 166.667 mls/hr Vancomycin/Sodium Chloride (Vancocin) 1 gm in 200 mls @ 133.333 mls/hr IVPB Q24H [facility] Last Admin: 06/23/17 14:56 Dose: 133.333 mls/hr Fluconazole (Diflucan Iv 100 Mg/50 Ml Ns) 50 mls @ 100 mls/hr IVPB DAILY [facility] Last Admin: 06/23/17 09:23 Dose: 100 mls/hr Propofol (Diprivan) 1,000 mg in 100 mls @ 2.313 mls/hr IV .Q24H PRN; Protocol; 5 MCG/KG/MIN PRN Reason: TITRATE PER MD ORDER Last Admin: 06/23/17 09:28 Dose: 14 mcg/kg/min, 6.477 mls/hr Imipenem/Cilastatin Sodium 500 (mg/ Sodium Chloride) 100 mls @ 100 mls/hr IVPB Q8H [facility] Last Admin: 06/23/17 11:10 Dose: 100 mls/hr Insulin Human Regular (Novolin R) 0 unit SC Q6 [facility] PRN Reason: Protocol Last Admin: 06/23/17 11:21 Dose: 2 unit Morphine Sulfate (Morphine) 2 mg IVP Q6 PRN PRN Reason: Pain, moderate (4-7) Pantoprazole Sodium (Protonix Inj) 40 mg IVP DAILY [facility] Last Admin: 06/23/17 09:29 Dose: 40 mg - Labs Labs: 06/23/17 06:32 06/23/17 06:32 PT 15.7 SECONDS (9.7-12.2) H 06/20/17 11:44 INR 1.4 06/20/17 11:44 APTT 26 SECONDS (21-34) 06/20/17 11:44 - Constitutional Appears: No Acute Distress - Head Exam Head Exam: ATRAUMATIC, NORMOCEPHALIC Additional comments: mass on neck and jaw left side - Respiratory Exam Respiratory Exam: Decreased Breath Sounds, Rales, Rhonchi - Cardiovascular Exam Cardiovascular Exam: REGULAR RHYTHM, +S1, +S2. absent: Murmur - GI/Abdominal Exam GI & Abdominal Exam: Soft, Normal Bowel Sounds. absent: Tenderness Assessment and Plan (1) Mass of left side of neck Status: Acute (2) Dysphagia Assessment & Plan: due to tumor compression Status: Acute (3) Dehydration Status: Acute (4) Lactic acid acidosis Status: Acute (5) Respiratory failure Assessment & Plan: intubated on ventilaotor Status: Acute (6) Oropharyngeal cancer Assessment & Plan: oncology follow up Status: Acute
--- NOTE | 2017-06-23 16:40 | CP.CCUPN ---
<BonanzaZoey [email or web address] E - Last Filed: 06/23/17 16:55> CCU Subjective - Physician Review Subjective (Free Text): Patient was seen and examined at bedside. Patient remains intubated. Unable to evaluate adequate ROS due to patient current clinical status. 06/23/17 16:57 CCU Objective - Vital Signs / Intake & Output Vital Signs (Last 4 hours): Vital Signs Pulse Resp BP Pulse Ox 06/23/17 15:00 111 H 22 92 L 06/23/17 14:02 111 H 22 113/70 95 06/23/17 13:00 103 H 17 97 Intake and Output (Last 8hrs): Intake & Output 06/23/17 06/23/17 06/23/17 06:59 14:59 22:59 Intake Total 933.6 1231.2 106.0 Output Total 360 345 Balance 573.6 886.2 106.0 Intake: IV 100 Intake, IV Amount 873.6 1051.2 106.0 Right Port-A-Cath 800 1000 100 right PC 73.6 51.2 6.0 Tube Feeding 60 80 Output: Urine 360 345 Urine, Voided 360 345 Other: # Bowel Movements 1 - Physical Exam Head: Positive for: Atraumatic Extroacular Muscles: Positive for: EOMI Respiratory/Chest: Positive for: Good Air Exchange, Other (Patient is currently inutbated ). Negative for: Respiratory Distress, Accessory Muscle Use Cardiovascular: Positive for: Regular Rate and Rhythm, Murmurs Abdomen: Positive for: Other (Mildly decreased bowel sounds ). Negative for: Tenderness, Distention Upper Extremity: Negative for: Edema Lower Extremity: Negative for: Edema, Swelling Skin: Positive for: Normal Color - Medications Active Medications: Active Medications Generic Name Dose Route Start Last Admin Trade Name Freq PRN Reason Stop Dose Admin Acetaminophen 650 mg 06/16/17 17:25 Tylenol 650mg/20.3ml Solution Ud GT Q6 PRN Pain, Mild (1-3) Enoxaparin Sodium 30 mg 06/15/17 10:00 06/15/17 10:09 Lovenox SC Not Given DAILY JUAN CARLOS Azithromycin 500 mg/ Sodium 250 mls @ 166.667 mls/hr 06/20/17 12:00 06/23/17 11:13 Chloride IVPB 166.667 mls/hr Q24H JUAN CARLOS Administration Vancomycin/Sodium Chloride 1 gm in 200 mls @ 133.333 mls/hr 06/21/17 13:00 14:56 Vancocin IVPB 133.333 mls/hr Q24H JUAN CARLOS Administration Fluconazole 50 mls @ 100 mls/hr 06/22/17 10:00 06/23/17 09:23 Diflucan Iv 100 Mg/50 Ml Ns IVPB 100 mls/hr DAILY JUAN CARLOS Administration Propofol 1,000 mg in 100 mls @ 2.313 mls/hr 06/21/17 19:02 06/23/17 09:28 Diprivan IV 14 mcg/kg/min .Q24H PRN 6.477 mls/hr TITRATE PER MD ORDER Administration Protocol 5 MCG/KG/MIN Imipenem/Cilastatin Sodium 500 100 mls @ 100 mls/hr 06/22/17 12:00 06/23/17 11:10 mg/ Sodium Chloride IVPB 100 mls/hr Q8H JUAN CARLOS Administration Insulin Human Regular 0 unit 06/23/17 12:00 06/23/17 11:21 Novolin R SC 2 unit Q6 JUAN CARLOS Administration Protocol Morphine Sulfate 2 mg 06/16/17 16:40 Morphine IVP Q6 PRN Pain, moderate (4-7) Pantoprazole Sodium 40 mg 06/21/17 10:00 06/23/17 09:29 Protonix Inj IVP 40 mg DAILY JUAN CARLOS Administration - Patient Studies Lab Studies: Lab Studies 06/23/17 06/23/17 06/23/17 Range/Units 11:08 06:32 06:32 WBC 23.3 H (4.8-10.8) K/uL RBC 3.21 L (4.40-5.90) Mil/uL Hgb 10.0 L (12.0-18.0) g/dL Hct 30.6 L (35.0-51.0) % MCV 95.2 H (80.0-94.0) fL MCH 31.0 (27.0-31.0) pg MCHC 32.6 L (33.0-37.0) g/dL RDW 14.7 H (11.5-14.5) % Plt Count 182 (130-400) K/uL MPV 10.0 (7.2-11.7) fL Neut % (Auto) 93.0 H (50.0-75.0) % Lymph % (Auto) 2.8 L (20.0-40.0) % [place] % (Auto) 4.0 (0.0-10.0) % Eos % (Auto) 0.1 (0.0-4.0) % Baso % (Auto) 0.1 (0.0-2.0) % Neut # 21.7 H (1.8-7.0) K/uL Lymph # 0.6 L (1.0-4.3) K/uL [place] # 0.9 H (0.0-0.8) K/uL Eos # 0.0 (0.0-0.7) K/uL Baso # 0.0 (0.0-0.2) K/uL Neutrophils % (Manual) 77 H (50-75) % Band Neutrophils % 17 H* (0-2) % Lymphocytes % (Manual) 3 L (20-40) % Monocytes % (Manual) 3 (0-10) % Platelet Estimate Normal (NORMAL) Hypochromasia (manual) Slight Poikilocytosis (manual Slight Anisocytosis (manual) Slight Puncture Site pCO2 (35-45) mm/Hg pO2 (80-100) mm/Hg HCO3 (21-28) mmol/L ABG pH (7.35-7.45) ABG Total CO2 (22-28) mmol/L ABG O2 Saturation (95-98) % ABG Base Excess (-2.0-3.0) mmol/L ABG Hemoglobin (11.7-17.4) g/dL ABG Carboxyhemoglobin (0.5-1.5) % POC ABG HHb (Measured) (0.0-5.0) % ABG Methemoglobin (0.0-3.0) % Harlan Test A-a O2 Difference mm/Hg Respiratory Index Hgb O2 Saturation (95.0-98.0) % Vent Mode Mechanical Rate FiO2 % Tidal Volume PEEP Sodium 149 H (132-148) mmol/L Potassium 3.6 (3.6-5.2) mmol/L Chloride 112 H (98-107) mmol/L Carbon Dioxide 25 (22-30) mmol/L Anion Gap 16 (10-20) BUN 39 H (9-20) mg/dL Creatinine 0.8 (0.8-1.5) mg/dL Est GFR ( Amer) > 60 Est GFR (Non-Af Amer) > 60 POC Glucose (mg/dL) 241 H (65-110) mg/dL Random Glucose 205 H (75-110) mg/dL Calcium 8.3 L (8.6-10.4) mg/dl Phosphorus 2.8 (2.5-4.5) mg/dL Magnesium 2.6 H (1.6-2.3) mg/dL Total Bilirubin 0.5 (0.2-1.3) mg/dL AST 54 (17-59) U/L ALT 40 (21-72) U/L Alkaline Phosphatase 130 H D (38-126) U/L Total Protein 5.7 L (6.3-8.3) g/dL Albumin 2.1 L (3.5-5.0) g/dL Globulin 3.6 (2.2-3.9) gm/dL Albumin/Globulin Ratio 0.6 L (1.0-2.1) 06/23/17 Range/Units 05:23 WBC (4.8-10.8) K/uL RBC (4.40-5.90) Mil/uL Hgb (12.0-18.0) g/dL Hct (35.0-51.0) % MCV (80.0-94.0) fL MCH (27.0-31.0) pg MCHC (33.0-37.0) g/dL RDW (11.5-14.5) % Plt Count (130-400) K/uL MPV (7.2-11.7) fL Neut % (Auto) (50.0-75.0) % Lymph % (Auto) (20.0-40.0) % [place] % (Auto) (0.0-10.0) % Eos % (Auto) (0.0-4.0) % Baso % (Auto) (0.0-2.0) % Neut # (1.8-7.0) K/uL Lymph # (1.0-4.3) K/uL [place] # (0.0-0.8) K/uL Eos # (0.0-0.7) K/uL Baso # (0.0-0.2) K/uL Neutrophils % (Manual) (50-75) % Band Neutrophils % (0-2) % Lymphocytes % (Manual) (20-40) % Monocytes % (Manual) (0-10) % Platelet Estimate (NORMAL) Hypochromasia (manual) Poikilocytosis (manual Anisocytosis (manual) Puncture Site Rb pCO2 45 (35-45) mm/Hg pO2 130 H (80-100) mm/Hg HCO3 23.1 (21-28) mmol/L ABG pH 7.33 L (7.35-7.45) ABG Total CO2 25.1 (22-28) mmol/L ABG O2 Saturation 99.6 H (95-98) % ABG Base Excess -2.4 L (-2.0-3.0) mmol/L ABG Hemoglobin 9.5 L (11.7-17.4) g/dL ABG Carboxyhemoglobin 1.6 H (0.5-1.5) % POC ABG HHb (Measured) 0.7 (0.0-5.0) % ABG Methemoglobin 0.8 (0.0-3.0) % Harlan Test Na A-a O2 Difference 527.0 mm/Hg Respiratory Index 4.1 Hgb O2 Saturation 96.8 (95.0-98.0) % Vent Mode Prvc Mechanical Rate 12 FiO2 100.0 % Tidal Volume 550 PEEP 5 Sodium (132-148) mmol/L Potassium (3.6-5.2) mmol/L Chloride (98-107) mmol/L Carbon Dioxide (22-30) mmol/L Anion Gap (10-20) BUN (9-20) mg/dL Creatinine (0.8-1.5) mg/dL Est GFR ( Amer) Est GFR (Non-Af Amer) POC Glucose (mg/dL) (65-110) mg/dL Random Glucose (75-110) mg/dL Calcium (8.6-10.4) mg/dl Phosphorus (2.5-4.5) mg/dL Magnesium (1.6-2.3) mg/dL Total Bilirubin (0.2-1.3) mg/dL AST (17-59) U/L ALT (21-72) U/L Alkaline Phosphatase (38-126) U/L Total Protein (6.3-8.3) g/dL Albumin (3.5-5.0) g/dL Globulin (2.2-3.9) gm/dL Albumin/Globulin Ratio (1.0-2.1) Laboratory Results - last 24 hr 06/23/17 06/23/17 06/23/17 05:23 06:32 06:32 WBC 23.3 H RBC 3.21 L Hgb 10.0 L Hct 30.6 L MCV 95.2 H MCH 31.0 MCHC 32.6 L RDW 14.7 H Plt Count 182 MPV 10.0 Neut % (Auto) 93.0 H Lymph % (Auto) 2.8 L [place] % (Auto) 4.0 Eos % (Auto) 0.1 Baso % (Auto) 0.1 Neut # 21.7 H Lymph # 0.6 L [place] # 0.9 H Eos # 0.0 Baso # 0.0 Neutrophils % (Manual) 77 H Band Neutrophils % 17 H* Lymphocytes % (Manual) 3 L Monocytes % (Manual) 3 Platelet Estimate Normal Hypochromasia (manual) Slight Poikilocytosis (manual Slight Anisocytosis (manual) Slight Puncture Site Rb pCO2 45 pO2 130 H HCO3 23.1 ABG pH 7.33 L ABG Total CO2 25.1 ABG O2 Saturation 99.6 H ABG Base Excess -2.4 L ABG Hemoglobin 9.5 L ABG Carboxyhemoglobin 1.6 H POC ABG HHb (Measured) 0.7 ABG Methemoglobin 0.8 Harlan Test Na A-a O2 Difference 527.0 Respiratory Index 4.1 Hgb O2 Saturation 96.8 Vent Mode Prvc Mechanical Rate 12 FiO2 100.0 Tidal Volume 550 PEEP 5 Sodium 149 H Potassium 3.6 Chloride 112 H Carbon Dioxide 25 Anion Gap 16 BUN 39 H Creatinine 0.8 Est GFR ( Amer) > 60 Est GFR (Non-Af Amer) > 60 POC Glucose (mg/dL) Random Glucose 205 H Calcium 8.3 L Phosphorus 2.8 Magnesium 2.6 H Total Bilirubin 0.5 AST 54 ALT 40 Alkaline Phosphatase 130 H D Total Protein 5.7 L Albumin 2.1 L Globulin 3.6 Albumin/Globulin Ratio 0.6 L 06/23/17 11:08 WBC RBC Hgb Hct MCV MCH MCHC RDW Plt Count MPV Neut % (Auto) Lymph % (Auto) [place] % (Auto) Eos % (Auto) Baso % (Auto) Neut # Lymph # [place] # Eos # Baso # Neutrophils % (Manual) Band Neutrophils % Lymphocytes % (Manual) Monocytes % (Manual) Platelet Estimate Hypochromasia (manual) Poikilocytosis (manual Anisocytosis (manual) Puncture Site pCO2 pO2 HCO3 ABG pH ABG Total CO2 ABG O2 Saturation ABG Base Excess ABG Hemoglobin ABG Carboxyhemoglobin POC ABG HHb (Measured) ABG Methemoglobin Harlan Test A-a O2 Difference Respiratory Index Hgb O2 Saturation Vent Mode Mechanical Rate FiO2 Tidal Volume PEEP Sodium Potassium Chloride Carbon Dioxide Anion Gap BUN Creatinine Est GFR ( Amer) Est GFR (Non-Af Amer) POC Glucose (mg/dL) 241 H Random Glucose Calcium Phosphorus Magnesium Total Bilirubin AST ALT Alkaline Phosphatase Total Protein Albumin Globulin Albumin/Globulin Ratio Review of Systems - Review of Systems Review of Systems: Unable to evaluate due to patient's current clinical status ( Intubated) Critical Care Progress Note - Nutrition Nutrition: Nutrition Category Date Time Status NPO Diet [DIET] Diets 06/14/17 Lunch Active Assessment/Plan - Assessment and Plan (Free Text) Assessment: 81 y/o male, with no significant past medical history, presents to emergency department for evaluation of left lateral neck mass underneath the chin extending from jaw (Submandibular mass), 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 Sheppard on board---> Help appreciated Palliative consult, Veronica on board---> Help appreciated ENT, Dr. Salgado on board---> Help appreciated Medication/Managment: * Fluconazole 100mg IV daily * Morphine 2mg IVP Q6 PRN Neuro: Intubated Medication/Management: * Propofil 1,000mg IV 5mcg/kg/min Cardio: No acute issues Pulm: Pneumonia and difficulty breathing secondary to enlarged submandibular mass Chest X-ray (06/20/17): New opacity mid right lung and questionable opacity at right base Forensic Medical Examiner consult, Dr. GREY---> Help appreciated Medication/Management: * Intubated * Azithromycin 500mg IVPB Q24H GI: No acute distress Endo: No acute distress ID: Code sepsis Lactate: 6.4, 6.1, 5.7 ( Trendind down), Bandemia Infectious Disease consult, Dr. Dominguez---> Help appreciated Medication/Management: * Zosyn 3.375gm IVPB Q8H ( Started 06/20/17)---> stopped (06/22/17) * Primaxin 500mg IV Q8H ( Started 06/22/17) * Vanco 1gm IVPB Q24H ( Started 06/21/17) * D5WNS @100mls/hr Prophylaxis: DVT: SCDs, anticogulation on hold GI: Protonix 40mg IVP daily <Stanislav Cordova - Last Filed: 06/23/17 17:56> CCU Objective - Vital Signs / Intake & Output Vital Signs (Last 4 hours): Vital Signs Temp Pulse Resp BP Pulse Ox 06/23/17 17:02 106 H 22 96/58 L 94 L 06/23/17 17:00 106 H 24 94 L 06/23/17 16:02 108 H 24 111/72 91 L 06/23/17 16:00 98.7 F 06/23/17 15:02 112 H 26 H 113/74 91 L 06/23/17 15:00 111 H 22 92 L 06/23/17 14:02 111 H 22 113/70 95 Intake and Output (Last 8hrs): Intake & Output 06/23/17 06/23/17 06/23/17 06:59 14:59 22:59 Intake Total 933.6 1231.2 318.0 Output Total 360 345 130 Balance 573.6 886.2 188.0 Intake: IV 100 Intake, IV Amount 873.6 1051.2 318.0 Right Port-A-Cath 800 1000 300 right PC 73.6 51.2 18.0 Tube Feeding 60 80 Output: Urine 360 345 130 Urine, Voided 360 345 130 Other: # Bowel Movements 1 - Medications Active Medications: Active Medications Generic Name Dose Route Start Last Admin Trade Name Freq PRN Reason Stop Dose Admin Acetaminophen 650 mg 06/16/17 17:25 Tylenol 650mg/20.3ml Solution Ud GT Q6 PRN Pain, Mild (1-3) Enoxaparin Sodium 30 mg 06/15/17 10:00 06/15/17 10:09 Lovenox SC Not Given DAILY JUAN CARLOS Azithromycin 500 mg/ Sodium 250 mls @ 166.667 mls/hr 06/20/17 12:00 06/23/17 11:13 Chloride IVPB 166.667 mls/hr Q24H JUAN CARLOS Administration Vancomycin/Sodium Chloride 1 gm in 200 mls @ 133.333 mls/hr 06/21/17 13:00 14:56 Vancocin IVPB 133.333 mls/hr Q24H JUAN CARLOS Administration Fluconazole 50 mls @ 100 mls/hr 06/22/17 10:00 06/23/17 09:23 Diflucan Iv 100 Mg/50 Ml Ns IVPB 100 mls/hr DAILY JUAN CARLOS Administration Propofol 1,000 mg in 100 mls @ 2.313 mls/hr 06/21/17 19:02 06/23/17 09:28 Diprivan IV 14 mcg/kg/min .Q24H PRN 6.477 mls/hr TITRATE PER MD ORDER Administration Protocol 5 MCG/KG/MIN Imipenem/Cilastatin Sodium 500 100 mls @ 100 mls/hr 06/22/17 12:00 06/23/17 11:10 mg/ Sodium Chloride IVPB 100 mls/hr Q8H JUAN CARLOS Administration Insulin Human Regular 0 unit 06/23/17 12:00 06/23/17 11:21 Novolin R SC 2 unit Q6 JUAN CARLOS Administration Protocol Morphine Sulfate 2 mg 06/16/17 16:40 Morphine IVP Q6 PRN Pain, moderate (4-7) Pantoprazole Sodium 40 mg 06/21/17 10:00 06/23/17 09:29 Protonix Inj IVP 40 mg DAILY JUAN CARLOS Administration - Patient Studies Lab Studies: Lab Studies 06/23/17 06/23/17 06/23/17 Range/Units 11:08 06:32 06:32 WBC 23.3 H (4.8-10.8) K/uL RBC 3.21 L (4.40-5.90) Mil/uL Hgb 10.0 L (12.0-18.0) g/dL Hct 30.6 L (35.0-51.0) % MCV 95.2 H (80.0-94.0) fL MCH 31.0 (27.0-31.0) pg MCHC 32.6 L (33.0-37.0) g/dL RDW 14.7 H (11.5-14.5) % Plt Count 182 (130-400) K/uL MPV 10.0 (7.2-11.7) fL Neut % (Auto) 93.0 H (50.0-75.0) % Lymph % (Auto) 2.8 L (20.0-40.0) % [place] % (Auto) 4.0 (0.0-10.0) % Eos % (Auto) 0.1 (0.0-4.0) % Baso % (Auto) 0.1 (0.0-2.0) % Neut # 21.7 H (1.8-7.0) K/uL Lymph # 0.6 L (1.0-4.3) K/uL [place] # 0.9 H (0.0-0.8) K/uL Eos # 0.0 (0.0-0.7) K/uL Baso # 0.0 (0.0-0.2) K/uL Neutrophils % (Manual) 77 H (50-75) % Band Neutrophils % 17 H* (0-2) % Lymphocytes % (Manual) 3 L (20-40) % Monocytes % (Manual) 3 (0-10) % Platelet Estimate Normal (NORMAL) Hypochromasia (manual) Slight Poikilocytosis (manual Slight Anisocytosis (manual) Slight Puncture Site pCO2 (35-45) mm/Hg pO2 (80-100) mm/Hg HCO3 (21-28) mmol/L ABG pH (7.35-7.45) ABG Total CO2 (22-28) mmol/L ABG O2 Saturation (95-98) % ABG Base Excess (-2.0-3.0) mmol/L ABG Hemoglobin (11.7-17.4) g/dL ABG Carboxyhemoglobin (0.5-1.5) % POC ABG HHb (Measured) (0.0-5.0) % ABG Methemoglobin (0.0-3.0) % Harlan Test A-a O2 Difference mm/Hg Respiratory Index Hgb O2 Saturation (95.0-98.0) % Vent Mode Mechanical Rate FiO2 % Tidal Volume PEEP Sodium 149 H (132-148) mmol/L Potassium 3.6 (3.6-5.2) mmol/L Chloride 112 H (98-107) mmol/L Carbon Dioxide 25 (22-30) mmol/L Anion Gap 16 (10-20) BUN 39 H (9-20) mg/dL Creatinine 0.8 (0.8-1.5) mg/dL Est GFR ( Amer) > 60 Est GFR (Non-Af Amer) > 60 POC Glucose (mg/dL) 241 H (65-110) mg/dL Random Glucose 205 H (75-110) mg/dL Calcium 8.3 L (8.6-10.4) mg/dl Phosphorus 2.8 (2.5-4.5) mg/dL Magnesium 2.6 H (1.6-2.3) mg/dL Total Bilirubin 0.5 (0.2-1.3) mg/dL AST 54 (17-59) U/L ALT 40 (21-72) U/L Alkaline Phosphatase 130 H D (38-126) U/L Total Protein 5.7 L (6.3-8.3) g/dL Albumin 2.1 L (3.5-5.0) g/dL Globulin 3.6 (2.2-3.9) gm/dL Albumin/Globulin Ratio 0.6 L (1.0-2.1) 06/23/17 Range/Units 05:23 WBC (4.8-10.8) K/uL RBC (4.40-5.90) Mil/uL Hgb (12.0-18.0) g/dL Hct (35.0-51.0) % MCV (80.0-94.0) fL MCH (27.0-31.0) pg MCHC (33.0-37.0) g/dL RDW (11.5-14.5) % Plt Count (130-400) K/uL MPV (7.2-11.7) fL Neut % (Auto) (50.0-75.0) % Lymph % (Auto) (20.0-40.0) % [place] % (Auto) (0.0-10.0) % Eos % (Auto) (0.0-4.0) % Baso % (Auto) (0.0-2.0) % Neut # (1.8-7.0) K/uL Lymph # (1.0-4.3) K/uL [place] # (0.0-0.8) K/uL Eos # (0.0-0.7) K/uL Baso # (0.0-0.2) K/uL Neutrophils % (Manual) (50-75) % Band Neutrophils % (0-2) % Lymphocytes % (Manual) (20-40) % Monocytes % (Manual) (0-10) % Platelet Estimate (NORMAL) Hypochromasia (manual) Poikilocytosis (manual Anisocytosis (manual) Puncture Site Rb pCO2 45 (35-45) mm/Hg pO2 130 H (80-100) mm/Hg HCO3 23.1 (21-28) mmol/L ABG pH 7.33 L (7.35-7.45) ABG Total CO2 25.1 (22-28) mmol/L ABG O2 Saturation 99.6 H (95-98) % ABG Base Excess -2.4 L (-2.0-3.0) mmol/L ABG Hemoglobin 9.5 L (11.7-17.4) g/dL ABG Carboxyhemoglobin 1.6 H (0.5-1.5) % POC ABG HHb (Measured) 0.7 (0.0-5.0) % ABG Methemoglobin 0.8 (0.0-3.0) % Harlan Test Na A-a O2 Difference 527.0 mm/Hg Respiratory Index 4.1 Hgb O2 Saturation 96.8 (95.0-98.0) % Vent Mode Prvc Mechanical Rate 12 FiO2 100.0 % Tidal Volume 550 PEEP 5 Sodium (132-148) mmol/L Potassium (3.6-5.2) mmol/L Chloride (98-107) mmol/L Carbon Dioxide (22-30) mmol/L Anion Gap (10-20) BUN (9-20) mg/dL Creatinine (0.8-1.5) mg/dL Est GFR ( Amer) Est GFR (Non-Af Amer) POC Glucose (mg/dL) (65-110) mg/dL Random Glucose (75-110) mg/dL Calcium (8.6-10.4) mg/dl Phosphorus (2.5-4.5) mg/dL Magnesium (1.6-2.3) mg/dL Total Bilirubin (0.2-1.3) mg/dL AST (17-59) U/L ALT (21-72) U/L Alkaline Phosphatase (38-126) U/L Total Protein (6.3-8.3) g/dL Albumin (3.5-5.0) g/dL Globulin (2.2-3.9) gm/dL Albumin/Globulin Ratio (1.0-2.1) Laboratory Results - last 24 hr 06/23/17 06/23/17 06/23/17 05:23 06:32 06:32 WBC 23.3 H RBC 3.21 L Hgb 10.0 L Hct 30.6 L MCV 95.2 H MCH 31.0 MCHC 32.6 L RDW 14.7 H Plt Count 182 MPV 10.0 Neut % (Auto) 93.0 H Lymph % (Auto) 2.8 L [place] % (Auto) 4.0 Eos % (Auto) 0.1 Baso % (Auto) 0.1 Neut # 21.7 H Lymph # 0.6 L [place] # 0.9 H Eos # 0.0 Baso # 0.0 Neutrophils % (Manual) 77 H Band Neutrophils % 17 H* Lymphocytes % (Manual) 3 L Monocytes % (Manual) 3 Platelet Estimate Normal Hypochromasia (manual) Slight Poikilocytosis (manual Slight Anisocytosis (manual) Slight Puncture Site Rb pCO2 45 pO2 130 H HCO3 23.1 ABG pH 7.33 L ABG Total CO2 25.1 ABG O2 Saturation 99.6 H ABG Base Excess -2.4 L ABG Hemoglobin 9.5 L ABG Carboxyhemoglobin 1.6 H POC ABG HHb (Measured) 0.7 ABG Methemoglobin 0.8 Harlan Test Na A-a O2 Difference 527.0 Respiratory Index 4.1 Hgb O2 Saturation 96.8 Vent Mode Prvc Mechanical Rate 12 FiO2 100.0 Tidal Volume 550 PEEP 5 Sodium 149 H Potassium 3.6 Chloride 112 H Carbon Dioxide 25 Anion Gap 16 BUN 39 H Creatinine 0.8 Est GFR ( Amer) > 60 Est GFR (Non-Af Amer) > 60 POC Glucose (mg/dL) Random Glucose 205 H Calcium 8.3 L Phosphorus 2.8 Magnesium 2.6 H Total Bilirubin 0.5 AST 54 ALT 40 Alkaline Phosphatase 130 H D Total Protein 5.7 L Albumin 2.1 L Globulin 3.6 Albumin/Globulin Ratio 0.6 L 06/23/17 11:08 WBC RBC Hgb Hct MCV MCH MCHC RDW Plt Count MPV Neut % (Auto) Lymph % (Auto) [place] % (Auto) Eos % (Auto) Baso % (Auto) Neut # Lymph # [place] # Eos # Baso # Neutrophils % (Manual) Band Neutrophils % Lymphocytes % (Manual) Monocytes % (Manual) Platelet Estimate Hypochromasia (manual) Poikilocytosis (manual Anisocytosis (manual) Puncture Site pCO2 pO2 HCO3 ABG pH ABG Total CO2 ABG O2 Saturation ABG Base Excess ABG Hemoglobin ABG Carboxyhemoglobin POC ABG HHb (Measured) ABG Methemoglobin Harlan Test A-a O2 Difference Respiratory Index Hgb O2 Saturation Vent Mode Mechanical Rate FiO2 Tidal Volume PEEP Sodium Potassium Chloride Carbon Dioxide Anion Gap BUN Creatinine Est GFR ( Amer) Est GFR (Non-Af Amer) POC Glucose (mg/dL) 241 H Random Glucose Calcium Phosphorus Magnesium Total Bilirubin AST ALT Alkaline Phosphatase Total Protein Albumin Globulin Albumin/Globulin Ratio Critical Care Progress Note - Nutrition Nutrition: Nutrition Category Date Time Status NPO Diet [DIET] Diets 06/14/17 Lunch Active Attending/Attestation - Attestation I have personally seen and examined this patient.: Yes I have fully participated in the care of the patient.: Yes I have reviewed all pertinent clinical information: Yes Notes (Text): 06/23/17 17:18 Today: June The Patient was seen and examined at the bedside, Medical records reviewed, and management issues were discussed and formulated with the house staff. I have reviewed all the relevant clinical, laboratory, hemodynamic, radiographic data and medications Events reviewed Pain issues, skin care, head of the bed elevation, glycemic control were addressed. Acute hypoxemic Respiratory failure, severe sepsis sec to bilateral pneumonia Daily vent wean as tolerates Monitor resp status IV antibiotics with IV Vanco, Azithromycin, Diflucan and Imipenem/Cilastatin Pain control G tube feeding Bowel regimen Monitor urine output BD nebs q 6h prn Tight glycemic control, RISS coverage DVT/GI PPX: PPI, Lovenox Code status: Full code Total critical care time 48 minutes I concur with resident's assessment and plan of care as transcribed in Dr. Marie note.
--- NOTE | 2017-06-23 16:57 | CP.PCM.PN ---
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 Objective - Vital Signs/Intake and Output Vital Signs (last 24 hours): Temp Pulse Resp BP Pulse Ox 98.7 F 108 H 24 111/72 91 L 06/23/17 16:00 06/23/17 16:02 06/23/17 16:02 06/23/17 16:02 06/23/17 16:02 Intake and Output: 06/23/17 06/23/17 06:59 18:59 Intake Total 1529.4 1443.2 Output Total 540 435 Balance 989.4 1008.2 - Medications Medications: Current Medications Acetaminophen (Tylenol 650mg/20.3ml Solution Ud) 650 mg GT Q6 PRN PRN Reason: Pain, Mild (1-3) Enoxaparin Sodium (Lovenox) 30 mg SC DAILY [facility] Last Admin: 06/15/17 10:09 Dose: Not Given Azithromycin 500 mg/ Sodium (Chloride) 250 mls @ 166.667 mls/hr IVPB Q24H [facility] Last Admin: 06/23/17 11:13 Dose: 166.667 mls/hr Vancomycin/Sodium Chloride (Vancocin) 1 gm in 200 mls @ 133.333 mls/hr IVPB Q24H [facility] Last Admin: 06/23/17 14:56 Dose: 133.333 mls/hr Fluconazole (Diflucan Iv 100 Mg/50 Ml Ns) 50 mls @ 100 mls/hr IVPB DAILY [facility] Last Admin: 06/23/17 09:23 Dose: 100 mls/hr Propofol (Diprivan) 1,000 mg in 100 mls @ 2.313 mls/hr IV .Q24H PRN; Protocol; 5 MCG/KG/MIN PRN Reason: TITRATE PER MD ORDER Last Admin: 06/23/17 09:28 Dose: 14 mcg/kg/min, 6.477 mls/hr Imipenem/Cilastatin Sodium 500 (mg/ Sodium Chloride) 100 mls @ 100 mls/hr IVPB Q8H [facility] Last Admin: 06/23/17 11:10 Dose: 100 mls/hr Insulin Human Regular (Novolin R) 0 unit SC Q6 JUAN CARLOS PRN Reason: Protocol Last Admin: 06/23/17 11:21 Dose: 2 unit Morphine Sulfate (Morphine) 2 mg IVP Q6 PRN PRN Reason: Pain, moderate (4-7) Pantoprazole Sodium (Protonix Inj) 40 mg IVP DAILY [facility] Last Admin: 06/23/17 09:29 Dose: 40 mg - Labs Labs: 06/23/17 06:32 06/23/17 06:32 PT 15.7 SECONDS (9.7-12.2) H 06/20/17 11:44 INR 1.4 06/20/17 11:44 APTT 26 SECONDS (21-34) 06/20/17 11:44 - Head Exam Head Exam: ATRAUMATIC, NORMOCEPHALIC - ENT Exam ENT Exam: Mucous Membranes Moist - Respiratory Exam Respiratory Exam: Decreased Breath Sounds - Cardiovascular Exam Cardiovascular Exam: REGULAR RHYTHM - GI/Abdominal Exam GI & Abdominal Exam: Soft, Normal Bowel Sounds - Extremities Exam Extremities Exam: Normal Inspection - Neurological Exam Neurological Exam: Altered Assessment and Plan (1) Respiratory failure Assessment & Plan: continue ventilatory support and reduce FiO2 as tolerated Increase PEEP Continue antibiotics for bilateral pneumonia IV sedation NGT feeding Status: Acute (2) Oropharyngeal cancer Status: Acute (3) Pneumonia Status: Acute
--- NOTE | 2017-06-23 23:36 | CP.PCM.PN ---
Subjective - Date & Time of Evaluation Date of Evaluation: 06/23/17 Time of Evaluation: 23:36 - Subjective Subjective: CHIEF COMPLAINTS TODAY : PATIENT ON VENTILATOR TEMPERATURE 99.3, tachycardic ROS on observation only HEENT : LEFT SUBMANDIBULAR MASS AND SWELLING, ON VENTILATOR Resp : No SOB wheezing, cough Cardio : No CP, PND orthopnea GI : No abd. 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 Musculoskel : N Ext. : Pedal pulses intact, no edema or calf pain Derm : N Psych : N. PE. Pt. is ON VENTILATOR, SEDATED TACHYCARDIC. V.S As noted in the chart Head ,ear nose,throat and eyes : Normal. Neck : Supple with normal carotids.LTSIDED JAW SWELLING WITH CELLULITIS AND TENDERNESS, LEFT-SIDED MANDIBULAR MASS BX SITE. +VE LB Lungs: SCATTERED RHONCHI AND RALES. Heart : S1 & S2 normal . . No murmur. S4 + Abd : Soft non tender with normal bowel sounds. Neuro : Moves all ext. with no localized deficit. Ext : No edema with intact pulses. Neg. calf tenderness Derm : No rashes or decubitus ulcer. Radiology/Labs . WBC 23.3 increasing with DECREASING BANDEMIA URINE CULTURE +ve Enterococcus faecalis 06/20/17.S-AMPICILLIN VANCOMYCIN lftS NORMAL. CREATININE 0.8/bun 29. URINARY ANTIGEN AND lEGIONELLA NEGATIVE. .chest x-ray 06/23/17-bilateral confluent consolidative changes left mid to left lower lung zones and right lower lobe. Objective - Vital Signs/Intake and Output Vital Signs (last 24 hours): Temp Pulse Resp BP Pulse Ox 99.3 F 109 H 19 132/70 97 06/23/17 20:00 06/23/17 22:02 06/23/17 22:02 06/23/17 22:02 06/23/17 22:02 Intake and Output: 06/23/17 06/24/17 18:59 06:59 Intake Total 1655.2 506.7 Output Total 505 120 Balance 1150.2 386.7 - Medications Medications: Current Medications Acetaminophen (Tylenol 650mg/20.3ml Solution Ud) 650 mg GT Q6 PRN PRN Reason: Pain, Mild (1-3) Enoxaparin Sodium (Lovenox) 30 mg SC DAILY JUAN CARLOS Last Admin: 06/15/17 10:09 Dose: Not Given Azithromycin 500 mg/ Sodium (Chloride) 250 mls @ 166.667 mls/hr IVPB Q24H [facility] Last Admin: 06/23/17 11:13 Dose: 166.667 mls/hr Vancomycin/Sodium Chloride (Vancocin) 1 gm in 200 mls @ 133.333 mls/hr IVPB Q24H [facility] Last Admin: 06/23/17 14:56 Dose: 133.333 mls/hr Fluconazole (Diflucan Iv 100 Mg/50 Ml Ns) 50 mls @ 100 mls/hr IVPB DAILY [facility] Last Admin: 06/23/17 09:23 Dose: 100 mls/hr Propofol (Diprivan) 1,000 mg in 100 mls @ 2.313 mls/hr IV .Q24H PRN; Protocol; 5 MCG/KG/MIN PRN Reason: TITRATE PER MD ORDER Last Titration: 06/23/17 19:00 Dose: 14.91 mcg/kg/min, 6.898 mls/hr Imipenem/Cilastatin Sodium 500 (mg/ Sodium Chloride) 100 mls @ 100 mls/hr IVPB Q8H [facility] Last Admin: 06/23/17 20:11 Dose: 100 mls/hr Insulin Human Regular (Novolin R) 0 unit SC Q6 JUAN CARLOS PRN Reason: Protocol Last Admin: 06/23/17 18:29 Dose: 1 unit Morphine Sulfate (Morphine) 2 mg IVP Q6 PRN PRN Reason: Pain, moderate (4-7) Pantoprazole Sodium (Protonix Inj) 40 mg IVP DAILY [facility] Last Admin: 06/23/17 09:29 Dose: 40 mg - Labs Labs: 06/23/17 06:32 06/23/17 06:32 PT 15.7 SECONDS (9.7-12.2) H 06/20/17 11:44 INR 1.4 06/20/17 11:44 APTT 26 SECONDS (21-34) 06/20/17 11:44 Assessment and Plan (1) Respiratory failure Status: Acute (2) Pneumonia Status: Acute (3) Dysphagia Status: Acute (4) Oropharyngeal cancer Status: Acute (5) Dehydration Status: Acute - Assessment and Plan (Free Text) Plan: IMPRESSION; SEPSIS- SYNDROME WITH HYPOTENSION ACUTE RESPIRATORY FAILURE . BILATERAL MULTIFOCAL PNEUMONIA ? ASPIRATION VS ATYPICAL. 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 S/P PEG. S/P MED-PORT . DEHYDRATION. PLAN; oN iv pRIMAXIN 500 EVERY 8 HOURLY 06/22/17 ON iv VANCOMYCIN 1 G ONCE A DAY DAILY. 06/20/17 CONTINUE zITHROMAX 500 MG ONCE A DAY DAILY.06/20/17. FLUCONAZOLE ADDED BY BUSINESS ECONOMIST 06/22/17 VANCO TROUGH LEVEL PRIOR TO THE FOURTH DOSE AND KEEP IT BETWEEN 10 AND 20. SPUTUM gRAM STAIN AND CULTURE. FOLLOW-UP RENAL FUNCTIONS CLOSELY. PULMONARY TOILET PER BUSINESS ECONOMIST.
[2017-06-24] MEDS: (Novolin R) Insulin Human Regular 100 units/ml vial SC SCH ×4 (00:36→18:05)
[2017-06-24 05:37] LABS: ABG ALLEN TEST POS; ABG MECHANICAL RATE 12; ARTERIAL BLOOD GAS MODE PRVC; ARTERIAL BLOOD HGB O2 SAT 94.9 % (95.0-98.0); ATERIAL BLOOD GAS PEEP 5; CARBOXYHEMOGLOBIN 1.8 % (0.5-1.5); DRAW SITE RR; HHB 1.7 % (0.0-5.0); METHEMOGLOBIN 1.6 % (0.0-3.0)
[2017-06-24 06:18] LABS: BASO % 0.1 % (0.0-2.0); HEMATOCRIT 33.9 % (35.0-51.0); LYMPH # 0.7 K/uL (1.0-4.3); LYMPH % 3.2 % (20.0-40.0); MEAN CELL VOLUME 95.3 fL (80.0-94.0); MEAN CORPUSCULAR HEMOGLOBIN 30.7 pg (27.0-31.0); MEAN CORPUSCULAR HGB CONC 32.3 g/dL (33.0-37.0); MEAN PLATELET VOLUME 10.3 fL (7.2-11.7); MONO # 0.6 K/uL (0.0-0.8); MONO % 2.9 % (0.0-10.0); NRBC % 0.4 % (0.0-2.0); PLATELET COUNT 179 K/uL (130-400); WHITE BLOOD COUNT 22.4 K/uL (4.8-10.8)
[2017-06-24] MEDS: Dextrose 5%/0.9% NS 1,000 ML IV SCH ×2 (06:20→17:05)
[2017-06-24 06:32] LABS: CHLORIDE 117 mmol/L (98-107)
[2017-06-24 06:33] LABS: SODIUM 151 mmol/L (132-148)
[2017-06-24 06:36] LABS: ALB/GLOB RATIO 0.6 (1.0-2.1); ALKALINE PHOSPHATASE 149 U/L (38-126); ALT/SGPT 60 U/L (21-72); AST/SGOT 75 U/L (17-59); BILIRUBIN,TOTAL 0.5 mg/dL (0.2-1.3); BLOOD UREA NITROGEN 43 mg/dL (9-20); CARBON DIOXIDE 23 mmol/L (22-30); GFR AFRICAN-AMERICAN > 60; GLUCOSE,RANDOM 166 mg/dL (75-110); PHOSPHOROUS 2.4 mg/dL (2.5-4.5); TOTAL PROTEIN 5.6 g/dL (6.3-8.3)
[2017-06-24 06:37] LABS: CALCIUM 8.2 mg/dl (8.6-10.4); MAGNESIUM 2.7 mg/dL (1.6-2.3)
--- NOTE | 2017-06-24 08:12 | RAD ---
Chest x-ray single frontal view History: Intubation. Comparison: 06/23/2017 Findings: Lines and tubes in stable position. Dense consolidative opacifications seen within the left mid to lower lung zone as well as the right hilar and infrahilar regions. Additional more patchy consolidative changes throughout both lungs. Small to moderate left pleural effusion. Calcification at the aortic knob. Degenerative changes in the spine and shoulders. Scattered nodular densities throughout both lungs. Impression: Lines and tubes in stable position. Dense consolidative opacifications seen within the left mid to lower lung zone as well as the right hilar and infrahilar regions. Additional more patchy consolidative changes throughout both lungs. Small to moderate left pleural effusion. Calcification at the aortic knob. Degenerative changes in the spine and shoulders. Scattered nodular densities throughout both lungs.
[2017-06-24 08:48] LABS: TOTAL CELLS COUNTED 100
[2017-06-24 08:49] LABS: NEUTROPHIL 82 % (50-75)
[2017-06-24] MEDS: Fluconazole IV 100mg/50 ml NS 50 ML IVPB SCH (09:38)
[2017-06-24] MEDS: Propofol 10 mg/ml 1,000 MG/100 ML VIAL IV PRN (11:44)
[2017-06-24] MEDS: Azithromycin 500 MG in Sodium Chloride 0.9% 250 ML IVPB SCH (12:45)
[2017-06-24] MEDS: Vancomycin 1 gm/NS 200 ml 1 GM/200 ML BAG IVPB SCH (14:47)
--- NOTE | 2017-06-24 15:13 | CP.CCUPN ---
<Mateo Marie E - Last Filed: 06/24/17 15:30> CCU Subjective - Physician Review Subjective (Free Text): Patient was seen and examined at bedside. Patient remains intubated. Unable to evaluate adequate ROS due to patient current clinical status. CCU Objective - Vital Signs / Intake & Output Vital Signs (Last 4 hours): Vital Signs Temp Pulse Resp BP Pulse Ox 06/24/17 13:02 112 H 22 132/77 97 06/24/17 13:00 108 H 24 98 06/24/17 12:02 112 H 21 134/76 99 06/24/17 12:00 98.9 F 111 H 20 99 Intake and Output (Last 8hrs): Intake & Output 06/24/17 06/24/17 06/24/17 06:59 14:59 22:59 Intake Total 881.6 706 Output Total 280 230 Balance 601.6 476 Weight 181 lb 12.8 oz Intake: IV 30 70 Intake, IV Amount 851.6 636 Right Port-A-Cath 800 600 right PC 51.6 36 Output: Urine 280 230 Urine, Voided 280 230 Other: # Bowel Movements 1 - Physical Exam Head: Positive for: Atraumatic Respiratory/Chest: Positive for: Good Air Exchange (Anteriorly ), Other ( Patient is currently inutbated ). Negative for: Respiratory Distress, Accessory Muscle Use Cardiovascular: Positive for: Regular Rate and Rhythm, Murmurs, Normal S1, S2 Abdomen: Positive for: Other (Mildly diminished bowel sounds ). Negative for: Tenderness, Distention Upper Extremity: Negative for: Edema Lower Extremity: Negative for: Edema, Swelling Skin: Positive for: Normal Color - Medications Active Medications: Active Medications Generic Name Dose Route Start Last Admin Trade Name Freq PRN Reason Stop Dose Admin Acetaminophen 650 mg 06/16/17 17:25 Tylenol 650mg/20.3ml Solution Ud GT Q6 PRN Pain, Mild (1-3) Enoxaparin Sodium 30 mg 06/15/17 10:00 06/15/17 10:09 Lovenox SC Not Given DAILY JUAN CARLOS Azithromycin 500 mg/ Sodium 250 mls @ 166.667 mls/hr 06/20/17 12:00 06/24/17 12:45 Chloride IVPB 166.667 mls/hr Q24H JUAN CARLOS Administration Vancomycin/Sodium Chloride 1 gm in 200 mls @ 133.333 mls/hr 06/21/17 13:00 14:47 Vancocin IVPB 133.333 mls/hr Q24H JUAN CARLOS Administration Fluconazole 50 mls @ 100 mls/hr 06/22/17 10:00 06/24/17 09:38 Diflucan Iv 100 Mg/50 Ml Ns IVPB 100 mls/hr DAILY JUAN CARLOS Administration Propofol 1,000 mg in 100 mls @ 2.313 mls/hr 06/21/17 19:02 06/24/17 11:44 Diprivan IV 12.96 mcg/kg/min .Q24H PRN 6 mls/hr TITRATE PER MD ORDER Administration Protocol 5 MCG/KG/MIN Imipenem/Cilastatin Sodium 500 100 mls @ 100 mls/hr 06/22/17 12:00 06/24/17 11:10 mg/ Sodium Chloride IVPB 100 mls/hr Q8H JUAN CARLOS Administration Dextrose/Sodium Chloride 1,000 mls @ 100 mls/hr 06/24/17 06:15 06/24/17 06:20 Dextrose 5%/0.9% Ns 1000 Ml IV 100 mls/hr .Q10H JUAN CARLOS Administration Insulin Human Regular 0 unit 06/23/17 12:00 06/24/17 12:44 Novolin R SC 2 unit Q6 JUAN CARLOS Administration Protocol Pantoprazole Sodium 40 mg 06/21/17 10:00 06/24/17 09:32 Protonix Inj IVP 40 mg DAILY JUAN CARLOS Administration - Patient Studies Lab Studies: Lab Studies 06/24/17 06/24/17 06/24/17 Range/Units 13:03 12:09 08:30 WBC (4.8-10.8) K/uL RBC (4.40-5.90) Mil/uL Hgb (12.0-18.0) g/dL Hct (35.0-51.0) % MCV (80.0-94.0) fL MCH (27.0-31.0) pg MCHC (33.0-37.0) g/dL RDW (11.5-14.5) % Plt Count (130-400) K/uL MPV (7.2-11.7) fL Neut % (Auto) (50.0-75.0) % Lymph % (Auto) (20.0-40.0) % Todd % (Auto) (0.0-10.0) % Eos % (Auto) (0.0-4.0) % Baso % (Auto) (0.0-2.0) % Neut # (1.8-7.0) K/uL Lymph # (1.0-4.3) K/uL Todd # (0.0-0.8) K/uL Eos # (0.0-0.7) K/uL Baso # (0.0-0.2) K/uL Neutrophils % (Manual) (50-75) % Band Neutrophils % (0-2) % Lymphocytes % (Manual) (20-40) % Monocytes % (Manual) (0-10) % Toxic Granulation Platelet Estimate (NORMAL) Hypochromasia (manual) Poikilocytosis (manual Anisocytosis (manual) Puncture Site pCO2 (35-45) mm/Hg pO2 (80-100) mm/Hg HCO3 (21-28) mmol/L ABG pH (7.35-7.45) ABG Total CO2 (22-28) mmol/L ABG O2 Saturation (95-98) % ABG Base Excess (-2.0-3.0) mmol/L ABG Hemoglobin (11.7-17.4) g/dL ABG Carboxyhemoglobin (0.5-1.5) % POC ABG HHb (Measured) (0.0-5.0) % ABG Methemoglobin (0.0-3.0) % Harlan Test A-a O2 Difference mm/Hg Respiratory Index Hgb O2 Saturation (95.0-98.0) % Vent Mode Mechanical Rate FiO2 % Tidal Volume PEEP Sodium (132-148) mmol/L Potassium (3.6-5.2) mmol/L Chloride (98-107) mmol/L Carbon Dioxide (22-30) mmol/L Anion Gap (10-20) BUN (9-20) mg/dL Creatinine (0.8-1.5) mg/dL Est GFR ( Amer) Est GFR (Non-Af Amer) POC Glucose (mg/dL) 202 H (65-110) mg/dL Random Glucose (75-110) mg/dL Calcium (8.6-10.4) mg/dl Phosphorus (2.5-4.5) mg/dL Magnesium (1.6-2.3) mg/dL Total Bilirubin (0.2-1.3) mg/dL AST (17-59) U/L ALT (21-72) U/L Alkaline Phosphatase (38-126) U/L Total Protein (6.3-8.3) g/dL Albumin (3.5-5.0) g/dL Globulin (2.2-3.9) gm/dL Albumin/Globulin Ratio (1.0-2.1) Vancomycin Trough 7.8 (5.0-10.0) ug/mL C. difficile Ag & Toxin Positive H (NEGATIVE) 06/24/17 06/24/17 06/24/17 Range/Units 06:04 06:04 06:03 WBC 22.4 H (4.8-10.8) K/uL RBC 3.56 L (4.40-5.90) Mil/uL Hgb 10.9 L (12.0-18.0) g/dL Hct 33.9 L (35.0-51.0) % MCV 95.3 H (80.0-94.0) fL MCH 30.7 (27.0-31.0) pg MCHC 32.3 L (33.0-37.0) g/dL RDW 15.0 H (11.5-14.5) % Plt Count 179 (130-400) K/uL MPV 10.3 (7.2-11.7) fL Neut % (Auto) 93.8 H (50.0-75.0) % Lymph % (Auto) 3.2 L (20.0-40.0) % Todd % (Auto) 2.9 (0.0-10.0) % Eos % (Auto) 0.0 (0.0-4.0) % Baso % (Auto) 0.1 (0.0-2.0) % Neut # 21.0 H (1.8-7.0) K/uL Lymph # 0.7 L (1.0-4.3) K/uL Todd # 0.6 (0.0-0.8) K/uL Eos # 0.0 (0.0-0.7) K/uL Baso # 0.0 (0.0-0.2) K/uL Neutrophils % (Manual) 82 H (50-75) % Band Neutrophils % 10 H (0-2) % Lymphocytes % (Manual) 4 L (20-40) % Monocytes % (Manual) 4 (0-10) % Toxic Granulation Present Platelet Estimate Normal (NORMAL) Hypochromasia (manual) Slight Poikilocytosis (manual Slight Anisocytosis (manual) Slight Puncture Site pCO2 (35-45) mm/Hg pO2 (80-100) mm/Hg HCO3 (21-28) mmol/L ABG pH (7.35-7.45) ABG Total CO2 (22-28) mmol/L ABG O2 Saturation (95-98) % ABG Base Excess (-2.0-3.0) mmol/L ABG Hemoglobin (11.7-17.4) g/dL ABG Carboxyhemoglobin (0.5-1.5) % POC ABG HHb (Measured) (0.0-5.0) % ABG Methemoglobin (0.0-3.0) % Harlan Test A-a O2 Difference mm/Hg Respiratory Index Hgb O2 Saturation (95.0-98.0) % Vent Mode Mechanical Rate FiO2 % Tidal Volume PEEP Sodium 151 H (132-148) mmol/L Potassium 4.0 (3.6-5.2) mmol/L Chloride 117 H (98-107) mmol/L Carbon Dioxide 23 (22-30) mmol/L Anion Gap 15 (10-20) BUN 43 H (9-20) mg/dL Creatinine 0.7 L (0.8-1.5) mg/dL Est GFR ( Amer) > 60 Est GFR (Non-Af Amer) > 60 POC Glucose (mg/dL) 182 H (65-110) mg/dL Random Glucose 166 H (75-110) mg/dL Calcium 8.2 L (8.6-10.4) mg/dl Phosphorus 2.4 L (2.5-4.5) mg/dL Magnesium 2.7 H (1.6-2.3) mg/dL Total Bilirubin 0.5 (0.2-1.3) mg/dL AST 75 H D (17-59) U/L ALT 60 (21-72) U/L Alkaline Phosphatase 149 H (38-126) U/L Total Protein 5.6 L (6.3-8.3) g/dL Albumin 2.0 L (3.5-5.0) g/dL Globulin 3.6 (2.2-3.9) gm/dL Albumin/Globulin Ratio 0.6 L (1.0-2.1) Vancomycin Trough (5.0-10.0) ug/mL C. difficile Ag & Toxin (NEGATIVE) 06/24/17 06/23/17 06/23/17 Range/Units 05:16 23:29 17:53 WBC (4.8-10.8) K/uL RBC (4.40-5.90) Mil/uL Hgb (12.0-18.0) g/dL Hct (35.0-51.0) % MCV (80.0-94.0) fL MCH (27.0-31.0) pg MCHC (33.0-37.0) g/dL RDW (11.5-14.5) % Plt Count (130-400) K/uL MPV (7.2-11.7) fL Neut % (Auto) (50.0-75.0) % Lymph % (Auto) (20.0-40.0) % Todd % (Auto) (0.0-10.0) % Eos % (Auto) (0.0-4.0) % Baso % (Auto) (0.0-2.0) % Neut # (1.8-7.0) K/uL Lymph # (1.0-4.3) K/uL Todd # (0.0-0.8) K/uL Eos # (0.0-0.7) K/uL Baso # (0.0-0.2) K/uL Neutrophils % (Manual) (50-75) % Band Neutrophils % (0-2) % Lymphocytes % (Manual) (20-40) % Monocytes % (Manual) (0-10) % Toxic Granulation Platelet Estimate (NORMAL) Hypochromasia (manual) Poikilocytosis (manual Anisocytosis (manual) Puncture Site Rr pCO2 42 (35-45) mm/Hg pO2 83 (80-100) mm/Hg HCO3 24.1 (21-28) mmol/L ABG pH 7.37 (7.35-7.45) ABG Total CO2 25.6 (22-28) mmol/L ABG O2 Saturation 98.2 H (95-98) % ABG Base Excess -1.0 (-2.0-3.0) mmol/L ABG Hemoglobin 12.2 (11.7-17.4) g/dL ABG Carboxyhemoglobin 1.8 H (0.5-1.5) % POC ABG HHb (Measured) 1.7 (0.0-5.0) % ABG Methemoglobin 1.6 (0.0-3.0) % Harlan Test Pos A-a O2 Difference 435.0 mm/Hg Respiratory Index 5.2 Hgb O2 Saturation 94.9 L (95.0-98.0) % Vent Mode Prvc Mechanical Rate 12 FiO2 80.0 % Tidal Volume 550 PEEP 5 Sodium (132-148) mmol/L Potassium (3.6-5.2) mmol/L Chloride (98-107) mmol/L Carbon Dioxide (22-30) mmol/L Anion Gap (10-20) BUN (9-20) mg/dL Creatinine (0.8-1.5) mg/dL Est GFR ( Amer) Est GFR (Non-Af Amer) POC Glucose (mg/dL) 182 H 190 H (65-110) mg/dL Random Glucose (75-110) mg/dL Calcium (8.6-10.4) mg/dl Phosphorus (2.5-4.5) mg/dL Magnesium (1.6-2.3) mg/dL Total Bilirubin (0.2-1.3) mg/dL AST (17-59) U/L ALT (21-72) U/L Alkaline Phosphatase (38-126) U/L Total Protein (6.3-8.3) g/dL Albumin (3.5-5.0) g/dL Globulin (2.2-3.9) gm/dL Albumin/Globulin Ratio (1.0-2.1) Vancomycin Trough (5.0-10.0) ug/mL C. difficile Ag & Toxin (NEGATIVE) Laboratory Results - last 24 hr 06/23/17 06/23/17 06/24/17 17:53 23:29 05:16 WBC RBC Hgb Hct MCV MCH MCHC RDW Plt Count MPV Neut % (Auto) Lymph % (Auto) Todd % (Auto) Eos % (Auto) Baso % (Auto) Neut # Lymph # Todd # Eos # Baso # Neutrophils % (Manual) Band Neutrophils % Lymphocytes % (Manual) Monocytes % (Manual) Toxic Granulation Platelet Estimate Hypochromasia (manual) Poikilocytosis (manual Anisocytosis (manual) Puncture Site Rr pCO2 42 pO2 83 HCO3 24.1 ABG pH 7.37 ABG Total CO2 25.6 ABG O2 Saturation 98.2 H ABG Base Excess -1.0 ABG Hemoglobin 12.2 ABG Carboxyhemoglobin 1.8 H POC ABG HHb (Measured) 1.7 ABG Methemoglobin 1.6 Harlan Test Pos A-a O2 Difference 435.0 Respiratory Index 5.2 Hgb O2 Saturation 94.9 L Vent Mode Prvc Mechanical Rate 12 FiO2 80.0 Tidal Volume 550 PEEP 5 Sodium Potassium Chloride Carbon Dioxide Anion Gap BUN Creatinine Est GFR ( Amer) Est GFR (Non-Af Amer) POC Glucose (mg/dL) 190 H 182 H Random Glucose Calcium Phosphorus Magnesium Total Bilirubin AST ALT Alkaline Phosphatase Total Protein Albumin Globulin Albumin/Globulin Ratio Vancomycin Trough C. difficile Ag & Toxin 06/24/17 06/24/17 06/24/17 06:03 06:04 06:04 WBC 22.4 H RBC 3.56 L Hgb 10.9 L Hct 33.9 L MCV 95.3 H MCH 30.7 MCHC 32.3 L RDW 15.0 H Plt Count 179 MPV 10.3 Neut % (Auto) 93.8 H Lymph % (Auto) 3.2 L Todd % (Auto) 2.9 Eos % (Auto) 0.0 Baso % (Auto) 0.1 Neut # 21.0 H Lymph # 0.7 L Todd # 0.6 Eos # 0.0 Baso # 0.0 Neutrophils % (Manual) 82 H Band Neutrophils % 10 H Lymphocytes % (Manual) 4 L Monocytes % (Manual) 4 Toxic Granulation Present Platelet Estimate Normal Hypochromasia (manual) Slight Poikilocytosis (manual Slight Anisocytosis (manual) Slight Puncture Site pCO2 pO2 HCO3 ABG pH ABG Total CO2 ABG O2 Saturation ABG Base Excess ABG Hemoglobin ABG Carboxyhemoglobin POC ABG HHb (Measured) ABG Methemoglobin Harlan Test A-a O2 Difference Respiratory Index Hgb O2 Saturation Vent Mode Mechanical Rate FiO2 Tidal Volume PEEP Sodium 151 H Potassium 4.0 Chloride 117 H Carbon Dioxide 23 Anion Gap 15 BUN 43 H Creatinine 0.7 L Est GFR ( Amer) > 60 Est GFR (Non-Af Amer) > 60 POC Glucose (mg/dL) 182 H Random Glucose 166 H Calcium 8.2 L Phosphorus 2.4 L Magnesium 2.7 H Total Bilirubin 0.5 AST 75 H D ALT 60 Alkaline Phosphatase 149 H Total Protein 5.6 L Albumin 2.0 L Globulin 3.6 Albumin/Globulin Ratio 0.6 L Vancomycin Trough C. difficile Ag & Toxin 06/24/17 06/24/17 06/24/17 08:30 12:09 13:03 WBC RBC Hgb Hct MCV MCH MCHC RDW Plt Count MPV Neut % (Auto) Lymph % (Auto) Todd % (Auto) Eos % (Auto) Baso % (Auto) Neut # Lymph # Todd # Eos # Baso # Neutrophils % (Manual) Band Neutrophils % Lymphocytes % (Manual) Monocytes % (Manual) Toxic Granulation Platelet Estimate Hypochromasia (manual) Poikilocytosis (manual Anisocytosis (manual) Puncture Site pCO2 pO2 HCO3 ABG pH ABG Total CO2 ABG O2 Saturation ABG Base Excess ABG Hemoglobin ABG Carboxyhemoglobin POC ABG HHb (Measured) ABG Methemoglobin Harlan Test A-a O2 Difference Respiratory Index Hgb O2 Saturation Vent Mode Mechanical Rate FiO2 Tidal Volume PEEP Sodium Potassium Chloride Carbon Dioxide Anion Gap BUN Creatinine Est GFR ( Amer) Est GFR (Non-Af Amer) POC Glucose (mg/dL) 202 H Random Glucose Calcium Phosphorus Magnesium Total Bilirubin AST ALT Alkaline Phosphatase Total Protein Albumin Globulin Albumin/Globulin Ratio Vancomycin Trough 7.8 C. difficile Ag & Toxin Positive H Fingerstick Blood Sugar Results: 202 Review of Systems - Review of Systems Review of Systems: Unable to evaluate due to patient' s current clinical status Critical Care Progress Note - Ventilator Checklist Daily Sedation Vacation: Yes Daily Assessment of Readiness to Wean: No Daily Spontaneous Breathing Trial: No - Nutrition Nutrition: Nutrition Category Date Time Status NPO Diet [DIET] Diets 06/14/17 Lunch Active Assessment/Plan - Assessment and Plan (Free Text) Assessment: 81 y/o male, with no significant past medical history, presents to emergency department for evaluation of left lateral neck mass underneath the chin extending from jaw (Submandibular mass), 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 Sheppard on board---> Help appreciated Palliative consult, Veronica on board---> Help appreciated ENT, Dr. Salgado on board---> Help appreciated Medication/Managment: * Fluconazole 100mg IV daily * Morphine 2mg IVP Q6 PRN Neuro: Intubated Medication/Management: * Propofol 1,000mg IV 5mcg/kg/min Cardio: No acute issues Pulm: Pneumonia and difficulty breathing secondary to enlarged submandibular mass Chest X-ray (06/20/17): New opacity mid right lung and questionable opacity at right base Fish Conservationist consult, Dr. GREY---> Help appreciated Medication/Management: * Intubated * Azithromycin 500mg IVPB Q24H ( started 06/20/17) GI: No acute distress Endo: Elevated blood glucose Medication/Management: * Accuchecks * ISS low dose protocol ID: Code sepsis Lactate: 6.4, 6.1, 5.7 ( Trendind down), Bandemia Infectious Disease consult, Dr. Dominguez---> Help appreciated Medication/Management: * Zosyn 3.375gm IVPB Q8H ( Started 06/20/17)---> stopped (06/22/17) * Primaxin 500mg IV Q8H ( Started 06/22/17) * Vanco 1gm IVPB Q24H ( Started 06/20/17) * D5WNS @100mls/hr Prophylaxis: DVT: SCDs, anticogulation on hold GI: Protonix 40mg IVP daily <Stanislav Cordova - Last Filed: 06/29/17 00:33> CCU Objective - Vital Signs / Intake & Output Vital Signs (Last 4 hours): Vital Signs Pulse Resp BP Pulse Ox 06/28/17 23:17 89 81/37 L 96 06/28/17 23:08 90 72/27 L 96 06/28/17 23:06 90 70/31 L 94 L 10/17/17 23:00 91 H 96 06/28/17 22:26 95 H 20 114/73 92 L 06/28/17 22:05 95 H 95/50 L 96 06/28/17 22:00 94 H 96 06/28/17 21:05 96 H 103/55 L 96 06/28/17 21:00 97 H 96 Intake and Output (Last 8hrs): Intake & Output 06/28/17 06/28/17 06/29/17 14:59 22:59 06:59 Intake Total 1584.5 714.5 68.6 Output Total 375 400 50 Balance 1209.5 314.5 18.6 Intake: IV 140 118 25 Intake, IV Amount 1204.5 356.5 13.6 Right Port-A-Cath 1134.7 90.4 11.3 right PC side port 69.8 266.1 2.3 Tube Feeding 240 240 30 Output: Urine 375 400 50 Urine, Voided 375 400 50 Other: # Bowel Movements 0 0 - Medications Active Medications: Active Medications Generic Name Dose Route Start Last Admin Trade Name Freq PRN Reason Stop Dose Admin Acetaminophen 650 mg 06/16/17 17:25 Tylenol 650mg/20.3ml Solution Ud GT Q6 PRN Pain, Mild (1-3) Albumin Human 12.5 gm 06/28/17 09:30 06/29/17 00:30 Albumin Human 25% (12.5 Gm/50 Ml) IV 06/30/17 01:31 12.5 gm Q8H JUAN CARLOS Administration Albuterol Sulfate 2.5 mg 06/25/17 12:00 06/28/17 19:41 Albuterol 0.083% Inhal Anita (2.5 Mg/3 Ml) Ud INH 2.5 mg RQ6 JUAN CARLOS Administration Famotidine 20 mg 06/27/17 10:15 06/28/17 09:59 Pepcid IVP 20 mg DAILY JUAN CARLOS Administration Heparin Sodium (Porcine) 5,000 units 06/25/17 22:00 06/28/17 22:14 Heparin SC 5,000 units Q8H JUAN CARLOS Administration Fluconazole 50 mls @ 100 mls/hr 06/22/17 10:00 06/28/17 09:57 Diflucan Iv 100 Mg/50 Ml Ns IVPB 100 mls/hr DAILY JUAN CARLOS Administration Imipenem/Cilastatin Sodium 500 100 mls @ 100 mls/hr 06/22/17 12:00 06/28/17 20:19 mg/ Sodium Chloride IVPB 100 mls/hr Q8H JUAN CARLOS Administration Vancomycin/Sodium Chloride 1 gm in 200 mls @ 166.7 mls/hr 06/25/17 14:00 15:14 Vancocin IVPB 06/30/17 14:01 166.7 mls/hr Q24H JUAN CARLOS Administration Metronidazole 250 mg/ 50 mls @ 100 mls/hr 06/26/17 06:00 06/28/17 22:13 Miscellaneous IVPB 100 mls/hr Q8 JUAN CARLOS Administration Norepinephrine Bitartrate 8 mg 258 mls @ 7.74 mls/hr 06/27/17 00:40 06/28/17 23:43 / Sodium Chloride IV 8 mcg/min .Q24H PRN 15.48 mls/hr TITRATE PER MD ORDER Titration Protocol 4 MCG/MIN Propofol 1,000 mg in 100 mls @ 2.504 mls/hr 06/27/17 14:00 06/28/17 11:02 Diprivan IV 5 mcg/kg/min .Q24H PRN 2.504 mls/hr TITRATE PER MD ORDER Administration Protocol 5 MCG/KG/MIN Insulin Glargine 15 unit 06/26/17 22:00 06/28/17 22:14 Lantus SC 15 units HS JUAN CARLOS Administration Insulin Human Regular 0 unit 06/26/17 10:36 06/29/17 00:30 Novolin R SC 6 unit Q6 JUAN CARLOS Administration Protocol Morphine Sulfate 2 mg 06/25/17 10:14 06/26/17 03:18 Morphine IVP 2 mg Q4 PRN Administration Pain, moderate (4-7) Neomycin/Polymyxin/Bacitracin 0.5 gm 06/26/17 22:30 06/28/17 17:38 Neosporin Triple Antibiotic Oint TOP 1 applic BID JUAN CARLOS Administration Vancomycin HCl 250 mg 06/26/17 23:15 06/28/17 22:14 Vancocin (Oral Or Rectal Use) PO 250 mg QID JUAN CARLOS Administration - Patient Studies Lab Studies: Lab Studies 06/28/17 06/28/17 06/28/17 Range/Units 23:52 17:41 11:27 WBC (4.8-10.8) K/uL RBC (4.40-5.90) Mil/uL Hgb (12.0-18.0) g/dL Hct (35.0-51.0) % MCV (80.0-94.0) fL MCH (27.0-31.0) pg MCHC (33.0-37.0) g/dL RDW (11.5-14.5) % Plt Count (130-400) K/uL MPV (7.2-11.7) fL Neut % (Auto) (50.0-75.0) % Lymph % (Auto) (20.0-40.0) % Todd % (Auto) (0.0-10.0) % Eos % (Auto) (0.0-4.0) % Baso % (Auto) (0.0-2.0) % Neut # (1.8-7.0) K/uL Lymph # (1.0-4.3) K/uL Todd # (0.0-0.8) K/uL Eos # (0.0-0.7) K/uL Baso # (0.0-0.2) K/uL Neutrophils % (Manual) (50-75) % Band Neutrophils % (0-2) % Lymphocytes % (Manual) (20-40) % Monocytes % (Manual) (0-10) % Eosinophils % (Manual) (0-4) % Myelocytes % (0-0) % Nucleated RBC % (0-0) % Toxic Granulation Platelet Estimate (NORMAL) Large Platelets Anisocytosis (manual) Puncture Site pCO2 (35-45) mm/Hg pO2 (80-100) mm/Hg HCO3 (21-28) mmol/L ABG pH (7.35-7.45) ABG Total CO2 (22-28) mmol/L ABG O2 Saturation (95-98) % ABG Base Excess (-2.0-3.0) mmol/L ABG Hemoglobin (11.7-17.4) g/dL ABG Carboxyhemoglobin (0.5-1.5) % POC ABG HHb (Measured) (0.0-5.0) % ABG Methemoglobin (0.0-3.0) % Harlan Test A-a O2 Difference mm/Hg Respiratory Index Hgb O2 Saturation (95.0-98.0) % Vent Mode Mechanical Rate FiO2 % Tidal Volume PEEP Sodium (132-148) mmol/L Potassium (3.6-5.2) mmol/L Chloride (98-107) mmol/L Carbon Dioxide (22-30) mmol/L Anion Gap (10-20) BUN (9-20) mg/dL Creatinine (0.8-1.5) mg/dL Est GFR ( Amer) Est GFR (Non-Af Amer) POC Glucose (mg/dL) 257 H 197 H 194 H (65-110) mg/dL Random Glucose (75-110) mg/dL Calcium (8.6-10.4) mg/dl Phosphorus (2.5-4.5) mg/dL Magnesium (1.6-2.3) mg/dL Total Bilirubin (0.2-1.3) mg/dL AST (17-59) U/L ALT (21-72) U/L Alkaline Phosphatase (38-126) U/L Total Protein (6.3-8.3) g/dL Albumin (3.5-5.0) g/dL Globulin (2.2-3.9) gm/dL Albumin/Globulin Ratio (1.0-2.1) Urine Color (YELLOW) Urine Clarity (Clear) Urine pH (5.0-8.0) Ur Specific [place] (1.003-1.030) Urine Protein (NEGATIVE) mg/dL Urine Glucose (UA) (Normal) mg/dL Urine Ketones (NEGATIVE) mg/dL Urine Blood (NEGATIVE) Urine Nitrate (NEGATIVE) Urine Bilirubin (NEGATIVE) Urine Urobilinogen (0.2-1.0) mg/dL Ur Leukocyte Esterase (Negative) Lilia/uL Urine WBC (Auto) (0-5) /hpf Urine RBC (Auto) (0-3) /hpf Ur Squamous Epith Cells (0-5) /hpf Urine Bacteria (<OCC) Hyaline Casts (0-2) /lpf Granular Casts (Auto) (0-1) /lpf Broad Casts (0-1) /lpf 06/28/17 06/28/17 06/28/17 Range/Units 06:20 06:20 06:20 WBC 34.5 H (4.8-10.8) K/uL RBC 3.45 L (4.40-5.90) Mil/uL Hgb 10.8 L (12.0-18.0) g/dL Hct 33.3 L (35.0-51.0) % MCV 96.4 H (80.0-94.0) fL MCH 31.2 H (27.0-31.0) pg MCHC 32.4 L (33.0-37.0) g/dL RDW 15.9 H (11.5-14.5) % Plt Count 202 (130-400) K/uL MPV 11.3 (7.2-11.7) fL Neut % (Auto) 96.8 H (50.0-75.0) % Lymph % (Auto) 1.3 L (20.0-40.0) % Todd % (Auto) 1.5 (0.0-10.0) % Eos % (Auto) 0.2 (0.0-4.0) % Baso % (Auto) 0.2 (0.0-2.0) % Neut # 33.4 H (1.8-7.0) K/uL Lymph # 0.5 L (1.0-4.3) K/uL Todd # 0.5 (0.0-0.8) K/uL Eos # 0.1 (0.0-0.7) K/uL Baso # 0.1 (0.0-0.2) K/uL Neutrophils % (Manual) 86 H (50-75) % Band Neutrophils % 9 H (0-2) % Lymphocytes % (Manual) 1 L (20-40) % Monocytes % (Manual) 1 (0-10) % Eosinophils % (Manual) 1 (0-4) % Myelocytes % 2 H (0-0) % Nucleated RBC % 4 H (0-0) % Toxic Granulation Present Platelet Estimate Normal (NORMAL) Large Platelets Present Anisocytosis (manual) Slight Puncture Site pCO2 (35-45) mm/Hg pO2 (80-100) mm/Hg HCO3 (21-28) mmol/L ABG pH (7.35-7.45) ABG Total CO2 (22-28) mmol/L ABG O2 Saturation (95-98) % ABG Base Excess (-2.0-3.0) mmol/L ABG Hemoglobin (11.7-17.4) g/dL ABG Carboxyhemoglobin (0.5-1.5) % POC ABG HHb (Measured) (0.0-5.0) % ABG Methemoglobin (0.0-3.0) % Harlan Test A-a O2 Difference mm/Hg Respiratory Index Hgb O2 Saturation (95.0-98.0) % Vent Mode Mechanical Rate FiO2 % Tidal Volume PEEP Sodium 156 H (132-148) mmol/L Potassium 4.8 (3.6-5.2) mmol/L Chloride 121 H (98-107) mmol/L Carbon Dioxide 22 (22-30) mmol/L Anion Gap 18 (10-20) BUN 74 H (9-20) mg/dL Creatinine 1.0 (0.8-1.5) mg/dL Est GFR ( Amer) > 60 Est GFR (Non-Af Amer) > 60 POC Glucose (mg/dL) (65-110) mg/dL Random Glucose 192 H (75-110) mg/dL Calcium 7.6 L (8.6-10.4) mg/dl Phosphorus 3.3 (2.5-4.5) mg/dL Magnesium 3.0 H (1.6-2.3) mg/dL Total Bilirubin 0.7 (0.2-1.3) mg/dL AST 66 H (17-59) U/L ALT 49 (21-72) U/L Alkaline Phosphatase 296 H (38-126) U/L Total Protein 5.3 L (6.3-8.3) g/dL Albumin 2.0 L (3.5-5.0) g/dL Globulin 3.3 (2.2-3.9) gm/dL Albumin/Globulin Ratio 0.6 L (1.0-2.1) Urine Color Yoana (YELLOW) Urine Clarity Hazy (Clear) Urine pH 5.0 (5.0-8.0) Ur Specific [place] 1.021 (1.003-1.030) Urine Protein Negative (NEGATIVE) mg/dL Urine Glucose (UA) 1+ H (Normal) mg/dL Urine Ketones Trace (NEGATIVE) mg/dL Urine Blood 1+ H (NEGATIVE) Urine Nitrate Negative (NEGATIVE) Urine Bilirubin Negative (NEGATIVE) Urine Urobilinogen 2.0 (0.2-1.0) mg/dL Ur Leukocyte Esterase Trace (Negative) Lilia/uL Urine WBC (Auto) 4 (0-5) /hpf Urine RBC (Auto) 15 H (0-3) /hpf Ur Squamous Epith Cells < 1 (0-5) /hpf Urine Bacteria Rare (<OCC) Hyaline Casts 3-5 H (0-2) /lpf Granular Casts (Auto) 5 (0-1) /lpf Broad Casts 4 (0-1) /lpf 06/28/17 06/28/17 Range/Units 05:29 04:41 WBC (4.8-10.8) K/uL RBC (4.40-5.90) Mil/uL Hgb (12.0-18.0) g/dL Hct (35.0-51.0) % MCV (80.0-94.0) fL MCH (27.0-31.0) pg MCHC (33.0-37.0) g/dL RDW (11.5-14.5) % Plt Count (130-400) K/uL MPV (7.2-11.7) fL Neut % (Auto) (50.0-75.0) % Lymph % (Auto) (20.0-40.0) % Todd % (Auto) (0.0-10.0) % Eos % (Auto) (0.0-4.0) % Baso % (Auto) (0.0-2.0) % Neut # (1.8-7.0) K/uL Lymph # (1.0-4.3) K/uL Todd # (0.0-0.8) K/uL Eos # (0.0-0.7) K/uL Baso # (0.0-0.2) K/uL Neutrophils % (Manual) (50-75) % Band Neutrophils % (0-2) % Lymphocytes % (Manual) (20-40) % Monocytes % (Manual) (0-10) % Eosinophils % (Manual) (0-4) % Myelocytes % (0-0) % Nucleated RBC % (0-0) % Toxic Granulation Platelet Estimate (NORMAL) Large Platelets Anisocytosis (manual) Puncture Site Rr pCO2 36 (35-45) mm/Hg pO2 77 L (80-100) mm/Hg HCO3 21.8 (21-28) mmol/L ABG pH 7.37 (7.35-7.45) ABG Total CO2 21.9 L (22-28) mmol/L ABG O2 Saturation 97.7 (95-98) % ABG Base Excess -4.0 L (-2.0-3.0) mmol/L ABG Hemoglobin 11.3 L (11.7-17.4) g/dL ABG Carboxyhemoglobin 2.1 H (0.5-1.5) % POC ABG HHb (Measured) 2.2 (0.0-5.0) % ABG Methemoglobin 1.3 (0.0-3.0) % Harlan Test Pos A-a O2 Difference 377.0 mm/Hg Respiratory Index 4.9 Hgb O2 Saturation 94.4 L (95.0-98.0) % Vent Mode Prvc Mechanical Rate 20 FiO2 70.0 % Tidal Volume 550 PEEP 5 Sodium (132-148) mmol/L Potassium (3.6-5.2) mmol/L Chloride (98-107) mmol/L Carbon Dioxide (22-30) mmol/L Anion Gap (10-20) BUN (9-20) mg/dL Creatinine (0.8-1.5) mg/dL Est GFR ( Amer) Est GFR (Non-Af Amer) POC Glucose (mg/dL) 204 H (65-110) mg/dL Random Glucose (75-110) mg/dL Calcium (8.6-10.4) mg/dl Phosphorus (2.5-4.5) mg/dL Magnesium (1.6-2.3) mg/dL Total Bilirubin (0.2-1.3) mg/dL AST (17-59) U/L ALT (21-72) U/L Alkaline Phosphatase (38-126) U/L Total Protein (6.3-8.3) g/dL Albumin (3.5-5.0) g/dL Globulin (2.2-3.9) gm/dL Albumin/Globulin Ratio (1.0-2.1) Urine Color (YELLOW) Urine Clarity (Clear) Urine pH (5.0-8.0) Ur Specific [place] (1.003-1.030) Urine Protein (NEGATIVE) mg/dL Urine Glucose (UA) (Normal) mg/dL Urine Ketones (NEGATIVE) mg/dL Urine Blood (NEGATIVE) Urine Nitrate (NEGATIVE) Urine Bilirubin (NEGATIVE) Urine Urobilinogen (0.2-1.0) mg/dL Ur Leukocyte Esterase (Negative) Lilia/uL Urine WBC (Auto) (0-5) /hpf Urine RBC (Auto) (0-3) /hpf Ur Squamous Epith Cells (0-5) /hpf Urine Bacteria (<OCC) Hyaline Casts (0-2) /lpf Granular Casts (Auto) (0-1) /lpf Broad Casts (0-1) /lpf Laboratory Results - last 24 hr 06/28/17 06/28/17 06/28/17 04:41 05:29 06:20 WBC RBC Hgb Hct MCV MCH MCHC RDW Plt Count MPV Neut % (Auto) Lymph % (Auto) Todd % (Auto) Eos % (Auto) Baso % (Auto) Neut # Lymph # Todd # Eos # Baso # Neutrophils % (Manual) Band Neutrophils % Lymphocytes % (Manual) Monocytes % (Manual) Eosinophils % (Manual) Myelocytes % Nucleated RBC % Toxic Granulation Platelet Estimate Large Platelets Anisocytosis (manual) Puncture Site Rr pCO2 36 pO2 77 L HCO3 21.8 ABG pH 7.37 ABG Total CO2 21.9 L ABG O2 Saturation 97.7 ABG Base Excess -4.0 L ABG Hemoglobin 11.3 L ABG Carboxyhemoglobin 2.1 H POC ABG HHb (Measured) 2.2 ABG Methemoglobin 1.3 Harlan Test Pos A-a O2 Difference 377.0 Respiratory Index 4.9 Hgb O2 Saturation 94.4 L Vent Mode Prvc Mechanical Rate 20 FiO2 70.0 Tidal Volume 550 PEEP 5 Sodium Potassium Chloride Carbon Dioxide Anion Gap BUN Creatinine Est GFR ( Amer) Est GFR (Non-Af Amer) POC Glucose (mg/dL) 204 H Random Glucose Calcium Phosphorus Magnesium Total Bilirubin AST ALT Alkaline Phosphatase Total Protein Albumin Globulin Albumin/Globulin Ratio Urine Color Yoana Urine Clarity Hazy Urine pH 5.0 Ur Specific [place] 1.021 Urine Protein Negative Urine Glucose (UA) 1+ H Urine Ketones Trace Urine Blood 1+ H Urine Nitrate Negative Urine Bilirubin Negative Urine Urobilinogen 2.0 Ur Leukocyte Esterase Trace Urine WBC (Auto) 4 Urine RBC (Auto) 15 H Ur Squamous Epith Cells < 1 Urine Bacteria Rare Hyaline Casts 3-5 H Granular Casts (Auto) 5 Broad Casts 4 06/28/17 06/28/17 06/28/17 06:20 06:20 11:27 WBC 34.5 H RBC 3.45 L Hgb 10.8 L Hct 33.3 L MCV 96.4 H MCH 31.2 H MCHC 32.4 L RDW 15.9 H Plt Count 202 MPV 11.3 Neut % (Auto) 96.8 H Lymph % (Auto) 1.3 L Todd % (Auto) 1.5 Eos % (Auto) 0.2 Baso % (Auto) 0.2 Neut # 33.4 H Lymph # 0.5 L Todd # 0.5 Eos # 0.1 Baso # 0.1 Neutrophils % (Manual) 86 H Band Neutrophils % 9 H Lymphocytes % (Manual) 1 L Monocytes % (Manual) 1 Eosinophils % (Manual) 1 Myelocytes % 2 H Nucleated RBC % 4 H Toxic Granulation Present Platelet Estimate Normal Large Platelets Present Anisocytosis (manual) Slight Puncture Site pCO2 pO2 HCO3 ABG pH ABG Total CO2 ABG O2 Saturation ABG Base Excess ABG Hemoglobin ABG Carboxyhemoglobin POC ABG HHb (Measured) ABG Methemoglobin Harlan Test A-a O2 Difference Respiratory Index Hgb O2 Saturation Vent Mode Mechanical Rate FiO2 Tidal Volume PEEP Sodium 156 H Potassium 4.8 Chloride 121 H Carbon Dioxide 22 Anion Gap 18 BUN 74 H Creatinine 1.0 Est GFR ( Amer) > 60 Est GFR (Non-Af Amer) > 60 POC Glucose (mg/dL) 194 H Random Glucose 192 H Calcium 7.6 L Phosphorus 3.3 Magnesium 3.0 H Total Bilirubin 0.7 AST 66 H ALT 49 Alkaline Phosphatase 296 H Total Protein 5.3 L Albumin 2.0 L Globulin 3.3 Albumin/Globulin Ratio 0.6 L Urine Color Urine Clarity Urine pH Ur Specific [place] Urine Protein Urine Glucose (UA) Urine Ketones Urine Blood Urine Nitrate Urine Bilirubin Urine Urobilinogen Ur Leukocyte Esterase Urine WBC (Auto) Urine RBC (Auto) Ur Squamous Epith Cells Urine Bacteria Hyaline Casts Granular Casts (Auto) Broad Casts 06/28/17 06/28/17 17:41 23:52 WBC RBC Hgb Hct MCV MCH MCHC RDW Plt Count MPV Neut % (Auto) Lymph % (Auto) Todd % (Auto) Eos % (Auto) Baso % (Auto) Neut # Lymph # Todd # Eos # Baso # Neutrophils % (Manual) Band Neutrophils % Lymphocytes % (Manual) Monocytes % (Manual) Eosinophils % (Manual) Myelocytes % Nucleated RBC % Toxic Granulation Platelet Estimate Large Platelets Anisocytosis (manual) Puncture Site pCO2 pO2 HCO3 ABG pH ABG Total CO2 ABG O2 Saturation ABG Base Excess ABG Hemoglobin ABG Carboxyhemoglobin POC ABG HHb (Measured) ABG Methemoglobin Harlan Test A-a O2 Difference Respiratory Index Hgb O2 Saturation Vent Mode Mechanical Rate FiO2 Tidal Volume PEEP Sodium Potassium Chloride Carbon Dioxide Anion Gap BUN Creatinine Est GFR ( Amer) Est GFR (Non-Af Amer) POC Glucose (mg/dL) 197 H 257 H Random Glucose Calcium Phosphorus Magnesium Total Bilirubin AST ALT Alkaline Phosphatase Total Protein Albumin Globulin Albumin/Globulin Ratio Urine Color Urine Clarity Urine pH Ur Specific [place] Urine Protein Urine Glucose (UA) Urine Ketones Urine Blood Urine Nitrate Urine Bilirubin Urine Urobilinogen Ur Leukocyte Esterase Urine WBC (Auto) Urine RBC (Auto) Ur Squamous Epith Cells Urine Bacteria Hyaline Casts Granular Casts (Auto) Broad Casts Critical Care Progress Note - Nutrition Nutrition: Nutrition Category Date Time Status NPO Diet [DIET] Diets 06/14/17 Lunch Active Attending/Attestation - Attestation I have personally seen and examined this patient.: Yes I have fully participated in the care of the patient.: Yes I have reviewed all pertinent clinical information: Yes Notes (Text): 06/24/17 Today: Saturday, June 24, 2017 The Patient was seen and examined at the bedside, Medical records reviewed, and management issues were discussed and formulated with the house staff. I have reviewed all the relevant clinical, laboratory, hemodynamic, radiographic data and medications Pain issues, skin care, head of the bed elevation, glycemic control were addressed. Code status: Full code I concur with resident's assessment and plan of care as transcribed in Dr. Marie note.
--- NOTE | 2017-06-24 17:14 | CP.PCM.PN ---
Subjective - Date & Time of Evaluation Date of Evaluation: 06/24/17 Time of Evaluation: 13:00 - Subjective Subjective: Patient seen and examined in the intensive care unit. Remains intubated on ventilatory support FiO2 75% saturation in the mid 90s Sedated on Diprivan Afebrile with good urine output Objective - Vital Signs/Intake and Output Vital Signs (last 24 hours): Temp Pulse Resp BP Pulse Ox 98.2 F 114 H 25 H 122/75 96 06/24/17 16:00 06/24/17 16:02 06/24/17 16:02 06/24/17 16:02 06/24/17 16:02 Intake and Output: 06/24/17 06/24/17 06:59 18:59 Intake Total 1408.3 1280 Output Total 400 230 Balance 1008.3 1050 - Medications Medications: Current Medications Acetaminophen (Tylenol 650mg/20.3ml Solution Ud) 650 mg GT Q6 PRN PRN Reason: Pain, Mild (1-3) Enoxaparin Sodium (Lovenox) 30 mg SC DAILY [facility] Last Admin: 06/15/17 10:09 Dose: Not Given Azithromycin 500 mg/ Sodium (Chloride) 250 mls @ 166.667 mls/hr IVPB Q24H [facility] Last Admin: 06/24/17 12:45 Dose: 166.667 mls/hr Vancomycin/Sodium Chloride (Vancocin) 1 gm in 200 mls @ 133.333 mls/hr IVPB Q24H [facility] Last Admin: 06/24/17 14:47 Dose: 133.333 mls/hr Fluconazole (Diflucan Iv 100 Mg/50 Ml Ns) 50 mls @ 100 mls/hr IVPB DAILY [facility] Last Admin: 06/24/17 09:38 Dose: 100 mls/hr Propofol (Diprivan) 1,000 mg in 100 mls @ 2.313 mls/hr IV .Q24H PRN; Protocol; 5 MCG/KG/MIN PRN Reason: TITRATE PER MD ORDER Last Admin: 06/24/17 11:44 Dose: 12.96 mcg/kg/min, 6 mls/hr Imipenem/Cilastatin Sodium 500 (mg/ Sodium Chloride) 100 mls @ 100 mls/hr IVPB Q8H [facility] Last Admin: 06/24/17 11:10 Dose: 100 mls/hr Dextrose/Sodium Chloride (Dextrose 5%/0.9% Ns 1000 Ml) 1,000 mls @ 100 mls/hr IV .Q10H [facility] Last Admin: 06/24/17 17:05 Dose: Not Given Insulin Human Regular (Novolin R) 0 unit SC Q6 [facility] PRN Reason: Protocol Last Admin: 06/24/17 12:44 Dose: 2 unit Pantoprazole Sodium (Protonix Inj) 40 mg IVP DAILY [facility] Last Admin: 06/24/17 09:32 Dose: 40 mg - Labs Labs: 06/24/17 06:04 06/24/17 06:04 PT 15.7 SECONDS (9.7-12.2) H 06/20/17 11:44 INR 1.4 06/20/17 11:44 APTT 26 SECONDS (21-34) 06/20/17 11:44 - Head Exam Head Exam: ATRAUMATIC, NORMOCEPHALIC - ENT Exam ENT Exam: Mucous Membranes Moist - Respiratory Exam Respiratory Exam: Decreased Breath Sounds - Cardiovascular Exam Cardiovascular Exam: REGULAR RHYTHM - GI/Abdominal Exam GI & Abdominal Exam: Soft - Extremities Exam Extremities Exam: Normal Inspection Assessment and Plan (1) Respiratory failure Assessment & Plan: Continue ventilatory support and reduce FiO2 as tolerated Increase PEEP Continue antibiotics Sedation NGT feeding Follow-up chest x-ray and ABG DVT and stress ulcer prophylaxis Status: Acute (2) Oropharyngeal cancer Status: Acute (3) Pneumonia Status: Acute
--- NOTE | 2017-06-24 18:54 | CP.PCM.PN ---
Subjective - Date & Time of Evaluation Date of Evaluation: 06/24/17 Time of Evaluation: 18:54 - Subjective Subjective: CHIEF COMPLAINTS TODAY : PATIENT REMAINS ON VENTILATOR on diprivan DRIP . Unable to obtain review of systems ROS on observation only HEENT : LEFT SUBMANDIBULAR MASS AND SWELLING, ON VENTILATOR Resp : No SOB wheezing, cough Cardio : No CP, PND orthopnea GI : No abd. Pain, n/v BRACELET FORMER : No headache , focal deficit. Musculoskel : N Ext. : Pedal pulses intact, no edema or calf pain Derm : N Psych : N. PE. Pt. is ON VENTILATOR, SEDATED TACHYCARDIC. V.S As noted in the chart Head ,ear nose,throat and eyes : Normal. Neck : Supple with normal carotids.LT. SIDED JAW SWELLING WITH CELLULITIS AND TENDERNESS, LEFT-SIDED MANDIBULAR MASS BX SITE. +VE LB Lungs: SCATTERED RHONCHI AND RALES. Heart : S1 & S2 normal . . No murmur. S4 + Abd : Soft non tender with normal bowel sounds. Neuro : Moves all ext. with no localized deficit. Ext : No edema with intact pulses. Neg. calf tenderness Derm : No rashes or decubitus ulcer. Radiology/Labs . stools positive C. difficile antigen. WBC 22.4 with DECREASING BANDEMIA URINE CULTURE +ve Enterococcus faecalis 06/20/17.S-AMPICILLIN VANCOMYCIN CREATININE 0.7/bun 43 sodium 151 chest x-ray 06/24/17. dense consolidative opacification seen within the left mid lower lung zones as well as right hilar and infrahilar region .Small to moderate left pleural effusion. Scattered nodular densities both lungs . Objective - Vital Signs/Intake and Output Vital Signs (last 24 hours): Temp Pulse Resp BP Pulse Ox 98.2 F 112 H 22 111/65 96 06/24/17 16:00 06/24/17 18:02 06/24/17 18:02 06/24/17 18:02 06/24/17 18:02 Intake and Output: 06/24/17 06/24/17 06:59 18:59 Intake Total 1408.3 1592 Output Total 400 350 Balance 1008.3 1242 - Medications Medications: Current Medications Acetaminophen (Tylenol 650mg/20.3ml Solution Ud) 650 mg GT Q6 PRN PRN Reason: Pain, Mild (1-3) Enoxaparin Sodium (Lovenox) 30 mg SC DAILY [facility] Last Admin: 06/15/17 10:09 Dose: Not Given Heparin Sodium (Porcine) (Heparin) 5,000 units SC Q8H [facility] Last Admin: 06/24/17 18:05 Dose: 5,000 units Azithromycin 500 mg/ Sodium (Chloride) 250 mls @ 166.667 mls/hr IVPB Q24H [facility] Last Admin: 06/24/17 12:45 Dose: 166.667 mls/hr Fluconazole (Diflucan Iv 100 Mg/50 Ml Ns) 50 mls @ 100 mls/hr IVPB DAILY [facility] Last Admin: 06/24/17 09:38 Dose: 100 mls/hr Propofol (Diprivan) 1,000 mg in 100 mls @ 2.313 mls/hr IV .Q24H PRN; Protocol; 5 MCG/KG/MIN PRN Reason: TITRATE PER MD ORDER Last Admin: 06/24/17 11:44 Dose: 12.96 mcg/kg/min, 6 mls/hr Imipenem/Cilastatin Sodium 500 (mg/ Sodium Chloride) 100 mls @ 100 mls/hr IVPB Q8H [facility] Last Admin: 06/24/17 11:10 Dose: 100 mls/hr Dextrose/Sodium Chloride (Dextrose 5%/0.9% Ns 1000 Ml) 1,000 mls @ 100 mls/hr IV .Q10H [facility] Last Admin: 06/24/17 17:05 Dose: Not Given Insulin Human Regular (Novolin R) 0 unit SC Q6 [facility] PRN Reason: Protocol Last Admin: 06/24/17 18:05 Dose: 2 unit Pantoprazole Sodium (Protonix Inj) 40 mg IVP DAILY [facility] Last Admin: 06/24/17 09:32 Dose: 40 mg Vancomycin HCl (Vancocin (Oral Or Rectal Use)) 250 mg PO QID [facility] - Labs Labs: 06/24/17 06:04 06/24/17 06:04 PT 15.7 SECONDS (9.7-12.2) H 06/20/17 11:44 INR 1.4 06/20/17 11:44 APTT 26 SECONDS (21-34) 06/20/17 11:44 Assessment and Plan (1) Respiratory failure Status: Acute (2) Pneumonia Status: Acute (3) Dysphagia Status: Acute (4) Oropharyngeal cancer Status: Acute (5) Dehydration Status: Acute (6) UTI (urinary tract infection) due to Enterococcus Status: Acute - Assessment and Plan (Free Text) Assessment: IMPRESSION; SEPSIS- SYNDROME ACUTE RESPIRATORY FAILURE . 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 S/P PEG. S/P MED-PORT . PSEUDOMEMBRANOUS COLITIS.( c. DIFFICILE ANTIGEN POSITIVE 06/24/17 ) PLAN; ON iv pRIMAXIN 500 EVERY 8 HOURLY 06/22/17 CONTINUE iv VANCOMYCIN 1 G ONCE A DAY DAILY. 06/20/17- PATIENT HAS ENTEROCOCCAL UTI ALSO DICONTINUE zITHROMAX FLUCONAZOLE ADDED BY TUBULAR SPLITTING MACHINE TENDER 06/22/17. START ON iv fLAGYL 500 EVERY 8 HOURLY FOR CDAD 06/24/17 SPUTUM gRAM STAIN AND CULTURE. FOLLOW-UP RENAL FUNCTIONS CLOSELY. PULMONARY TOILET PER TUBULAR SPLITTING MACHINE TENDER. CONTACT PRECAUTIONS.
[2017-06-24] MEDS: Potassium Chloride 20 MEQ in Dextrose 5%/0.45% NS 1,000 ML IV SCH (21:51)
[2017-06-24] MEDS: metroNIDAZOLE IV 500 mg/100 ml 500 MG/100 ML BAG IVPB SCH (21:52)
[2017-06-24] MEDS ORDERED: Vancomycin 125 MG/5 ML SOLN (ORAL/RECTAL) PO SCH (22:00)
--- NOTE | 2017-06-24 22:59 | CP.PCM.PN ---
Subjective - Date & Time of Evaluation Date of Evaluation: 06/24/17 Time of Evaluation: 19:45 - Subjective Subjective: Pt seen and examined, remains on MV with PEEP of 5, pt is afberile Objective - Vital Signs/Intake and Output Vital Signs (last 24 hours): Temp Pulse Resp BP Pulse Ox 98.5 F 114 H 20 105/68 97 06/24/17 20:00 06/24/17 22:02 06/24/17 22:02 06/24/17 22:02 06/24/17 22:02 Intake and Output: 06/24/17 06/25/17 18:59 06:59 Intake Total 1592 604 Output Total 350 100 Balance 1242 504 - Medications Medications: Current Medications Acetaminophen (Tylenol 650mg/20.3ml Solution Ud) 650 mg GT Q6 PRN PRN Reason: Pain, Mild (1-3) Enoxaparin Sodium (Lovenox) 30 mg SC DAILY [facility] BEDS AT [facility] Last Admin: 06/15/17 10:09 Dose: Not Given Heparin Sodium (Porcine) (Heparin) 5,000 units SC Q8H [facility]CLUDE 234 BEDS AT THE [facility] Last Admin: 06/24/17 18:05 Dose: 5,000 units Fluconazole (Diflucan Iv 100 Mg/50 Ml Ns) 50 mls @ 100 mls/hr IVPB DAILY [facility]S [facility]CLUDE 234 BEDS AT THE [facility] Last Admin: 06/24/17 09:38 Dose: 100 mls/hr Propofol (Diprivan) 1,000 mg in 100 mls @ 2.313 mls/hr IV .Q24H PRN; Protocol; 5 MCG/KG/MIN PRN Reason: TITRATE PER MD ORDER Last Admin: 06/24/17 11:44 Dose: 12.96 mcg/kg/min, 6 mls/hr Imipenem/Cilastatin Sodium 500 (mg/ Sodium Chloride) 100 mls @ 100 mls/hr IVPB Q8H [facility]S [facility]CLUDE 234 BEDS AT THE [facility] Last Admin: 06/24/17 20:54 Dose: 100 mls/hr Potassium Chloride 20 meq/ (Dextrose/Sodium Chloride) 1,010 mls @ 100 mls/hr IV .Q10H6M COUNTS INCLUDE 234 BEDS AT THE [facility] Last Admin: 06/24/17 21:51 Dose: 100 mls/hr Metronidazole (Flagyl) 500 mg in 100 mls @ 100 mls/hr IVPB Q8 COUNTS INCLUDE 234 BEDS AT THE [facility] Last Admin: 06/24/17 21:52 Dose: 100 mls/hr Vancomycin HCl 1 gm/ Sodium (Chloride) 250 mls @ 166.7 mls/hr IVPB Q24H [facility] Insulin Human Regular (Novolin R) 0 unit SC Q6 [facility] PRN Reason: Protocol Last Admin: 06/24/17 18:05 Dose: 2 unit Pantoprazole Sodium (Protonix Inj) 40 mg IVP DAILY [facility]CLUDE 234 BEDS AT THE [facility] Last Admin: 06/24/17 09:32 Dose: 40 mg - Labs Labs: 06/24/17 06:04 06/24/17 06:04 PT 15.7 SECONDS (9.7-12.2) H 06/20/17 11:44 INR 1.4 06/20/17 11:44 APTT 26 SECONDS (21-34) 06/20/17 11:44 - Constitutional Appears: No Acute Distress - Head Exam Head Exam: ATRAUMATIC, NORMAL INSPECTION, NORMOCEPHALIC - Eye Exam Eye Exam: EOMI, Normal appearance, PERRL Pupil Exam: NORMAL ACCOMODATION, PERRL - Respiratory Exam Respiratory Exam: Decreased Breath Sounds Additional comments: crackles - Cardiovascular Exam Cardiovascular Exam: REGULAR RHYTHM, +S1, +S2. absent: Murmur - GI/Abdominal Exam GI & Abdominal Exam: Soft, Normal Bowel Sounds. absent: Tenderness Assessment and Plan (1) Mass of left side of neck Status: Acute (2) Dysphagia Status: Acute (3) Dehydration Status: Acute (4) Lactic acid acidosis Status: Acute (5) Respiratory failure Assessment & Plan: secondary to obstruction from tumor continue mechanical ventilator Status: Acute (6) Oropharyngeal cancer Status: Acute
[2017-06-25] MEDS: Propofol 10 mg/ml 1,000 MG/100 ML VIAL IV PRN ×2 (00:38→12:49)
[2017-06-25] MEDS: metroNIDAZOLE IV 500 mg/100 ml 500 MG/100 ML BAG IVPB SCH ×3 (05:28→21:59)
[2017-06-25] MEDS: (Novolin R) Insulin Human Regular 100 units/ml vial SC SCH ×5 (05:34→23:48)
[2017-06-25 05:58] LABS: ABG ALLEN TEST POS; ABG MECHANICAL RATE 12; ARTERIAL BLOOD GAS MODE PRVC; ARTERIAL BLOOD HGB O2 SAT 96.1 % (95.0-98.0); ATERIAL BLOOD GAS PEEP 5; CARBOXYHEMOGLOBIN 1.8 % (0.5-1.5); DRAW SITE R RAD; HHB 0.7 % (0.0-5.0); METHEMOGLOBIN 1.4 % (0.0-3.0)
[2017-06-25 06:24] LABS: BASO % 0.2 % (0.0-2.0); EOS % 0.1 % (0.0-4.0); HEMATOCRIT 34.9 % (35.0-51.0); LYMPH # 0.7 K/uL (1.0-4.3); LYMPH % 2.6 % (20.0-40.0); MEAN CELL VOLUME 96.1 fL (80.0-94.0); MEAN CORPUSCULAR HEMOGLOBIN 30.9 pg (27.0-31.0); MEAN CORPUSCULAR HGB CONC 32.2 g/dL (33.0-37.0); MEAN PLATELET VOLUME 10.4 fL (7.2-11.7); MONO # 0.9 K/uL (0.0-0.8); MONO % 3.7 % (0.0-10.0); NRBC % 2.5 % (0.0-2.0); PLATELET COUNT 199 K/uL (130-400); RED CELL DISTRIBUTION WIDTH 15.7 % (11.5-14.5); WHITE BLOOD COUNT 24.8 K/uL (4.8-10.8)
[2017-06-25 06:51] LABS: CHLORIDE 119 mmol/L (98-107)
[2017-06-25 06:52] LABS: POTASSIUM 4.6 mmol/L (3.6-5.2); SODIUM 148 mmol/L (132-148)
[2017-06-25 06:54] LABS: ALB/GLOB RATIO 0.5 (1.0-2.1); ALKALINE PHOSPHATASE 197 U/L (38-126); ALT/SGPT 74 U/L (21-72); AST/SGOT 157 U/L (17-59); BILIRUBIN,TOTAL 0.4 mg/dL (0.2-1.3); BLOOD UREA NITROGEN 55 mg/dL (9-20); CARBON DIOXIDE 22 mmol/L (22-30); GFR AFRICAN-AMERICAN > 60; GLUCOSE,RANDOM 225 mg/dL (75-110); TOTAL PROTEIN 5.7 g/dL (6.3-8.3)
[2017-06-25 06:55] LABS: MAGNESIUM 2.7 mg/dL (1.6-2.3); PHOSPHOROUS 3.1 mg/dL (2.5-4.5)
[2017-06-25] MEDS: Potassium Chloride 20 MEQ in Dextrose 5%/0.45% NS 1,000 ML IV SCH (08:06)
[2017-06-25 08:31] LABS: NEUTROPHIL 93 % (50-75); TOTAL CELLS COUNTED 100
[2017-06-25 08:33] LABS: LARGE PLATELETS PRESENT
[2017-06-25] MEDS: Potassium Ch 20mEq in D5-1/2NS 1,000 ML IV SCH (09:01)
[2017-06-25] MEDS: Fluconazole IV 100mg/50 ml NS 50 ML IVPB SCH (09:09)
[2017-06-25] MEDS ORDERED: Albuterol 0.083% Inhal Sol (2.5 mg/3 mL) UD INH PRN (12:00)
[2017-06-25 12:36] LABS: ABG ALLEN TEST POS; ABG MECHANICAL RATE 20; ARTERIAL BLOOD HGB O2 SAT 95.7 % (95.0-98.0); ATERIAL BLOOD GAS PEEP 5; CARBOXYHEMOGLOBIN 1.8 % (0.5-1.5); DRAW SITE RR; HHB 1.2 % (0.0-5.0); METHEMOGLOBIN 1.3 % (0.0-3.0)
[2017-06-25] MEDS: Albuterol 0.083% Inhal Sol (2.5 mg/3 mL) UD INH SCH ×3 (12:42→19:27)
[2017-06-25] MEDS: Vancomycin 1 gm/NS 200 ml 1 GM/200 ML BAG IVPB SCH (13:02)
--- NOTE | 2017-06-25 13:50 | CP.CCUPN ---
CCU Subjective - Physician Review Events Since Last Encounter (Free Text): 06/25/17 13:48 Patient seen and examined in the intensive care unit. Case discussed with house staff in the morning. Intubated on ventilatory support still requiring high FiO2 of 70% with PEEP of 5 Good urine output Sedated on Diprivan IV sedation was reduced because of hypotension Tolerating feeding Being treated for C. difficile colitis Drainage noted PEG tube insertion site Nasally intubated CCU Objective - Vital Signs / Intake & Output Vital Signs (Last 4 hours): Vital Signs Pulse Resp BP Pulse Ox 06/25/17 13:04 105 H 20 97/58 L 99 06/25/17 13:02 106 H 20 87/52 L 99 06/25/17 13:00 105 H 20 98 06/25/17 12:02 108 H 19 92/59 L 98 06/25/17 12:00 108 H 20 98 06/25/17 11:02 115 H 21 109/68 97 06/25/17 11:00 115 H 21 97 06/25/17 10:02 114 H 21 101/68 98 06/25/17 10:00 114 H 22 98 Intake and Output (Last 8hrs): Intake & Output 06/24/17 06/25/17 06/25/17 22:59 06:59 14:59 Intake Total 1158 1308 787 Output Total 180 245 195 Balance 978 1063 592 Intake: IV 100 100 Intake, IV Amount 998 1048 417 Right Port-A-Cath 950 1000 350 right PC side port 48 48 67 Tube Feeding 160 160 120 Other 150 Output: Urine 180 245 195 Urine, Voided 180 245 195 Stool 0 Other: # Bowel Movements 0 - Physical Exam Head: Positive for: Atraumatic Extroacular Muscles: Positive for: EOMI Mouth: Positive for: Dry Respiratory/Chest: Positive for: Good Air Exchange (Anteriorly ), Other ( Patient is currently inutbated ). Negative for: Respiratory Distress, Accessory Muscle Use Cardiovascular: Positive for: Regular Rate and Rhythm, Murmurs, Normal S1, S2 Abdomen: Positive for: Other (Mildly diminished bowel sounds ). Negative for: Tenderness, Distention Upper Extremity: Negative for: Edema Lower Extremity: Negative for: Edema, Swelling Skin: Positive for: Normal Color Psychiatric: Positive for: Alert - Medications Active Medications: Active Medications Generic Name Dose Route Start Last Admin Trade Name Freq PRN Reason Stop Dose Admin Acetaminophen 650 mg 06/16/17 17:25 Tylenol 650mg/20.3ml Solution Ud GT Q6 PRN Pain, Mild (1-3) Albuterol Sulfate 2.5 mg 06/25/17 12:00 06/25/17 12:42 Albuterol 0.083% Inhal Anita (2.5 Mg/3 Ml) Ud INH 2.5 mg RQ6 JUAN CARLOS Administration Heparin Sodium (Porcine) 5,000 units 06/25/17 22:00 Heparin SC Q8H JUAN CARLOS Fluconazole 50 mls @ 100 mls/hr 06/22/17 10:00 06/25/17 09:09 Diflucan Iv 100 Mg/50 Ml Ns IVPB 100 mls/hr DAILY JUAN CARLOS Administration Propofol 1,000 mg in 100 mls @ 2.313 mls/hr 06/21/17 19:02 06/25/17 12:49 Diprivan IV 8.64 mcg/kg/min .Q24H PRN 3.997 mls/hr TITRATE PER MD ORDER Administration Protocol 5 MCG/KG/MIN Imipenem/Cilastatin Sodium 500 100 mls @ 100 mls/hr 06/22/17 12:00 06/25/17 11:21 mg/ Sodium Chloride IVPB 100 mls/hr Q8H JUAN CARLOS Administration Metronidazole 500 mg in 100 mls @ 100 mls/hr 06/24/17 22:00 06/25/17 05:28 Flagyl IVPB 100 mls/hr Q8 JUAN CARLOS Administration Vancomycin/Sodium Chloride 1 gm in 200 mls @ 166.7 mls/hr 06/25/17 14:00 13:02 Vancocin IVPB 06/30/17 14:01 166.7 mls/hr Q24H JUAN CARLOS Administration Insulin Human Regular 0 unit 06/25/17 11:48 06/25/17 12:40 Novolin R SC 2 unit Q6 JUAN CARLOS Administration Protocol Morphine Sulfate 2 mg 06/25/17 10:14 06/25/17 11:21 Morphine IVP 2 mg Q4 PRN Administration Pain, moderate (4-7) Pantoprazole Sodium 40 mg 06/21/17 10:00 06/25/17 09:09 Protonix Inj IVP 40 mg DAILY JUAN CARLOS Administration - Patient Studies Lab Studies: Lab Studies 1006/25/17 06/25/17 Range/Units 12:30 11:38 06:13 WBC (4.8-10.8) K/uL RBC (4.40-5.90) Mil/uL Hgb (12.0-18.0) g/dL Hct (35.0-51.0) % MCV (80.0-94.0) fL MCH (27.0-31.0) pg MCHC (33.0-37.0) g/dL RDW (11.5-14.5) % Plt Count (130-400) K/uL MPV (7.2-11.7) fL Neut % (Auto) (50.0-75.0) % Lymph % (Auto) (20.0-40.0) % Piute % (Auto) (0.0-10.0) % Eos % (Auto) (0.0-4.0) % Baso % (Auto) (0.0-2.0) % Neut # (1.8-7.0) K/uL Lymph # (1.0-4.3) K/uL Piute # (0.0-0.8) K/uL Eos # (0.0-0.7) K/uL Baso # (0.0-0.2) K/uL Neutrophils % (Manual) (50-75) % Band Neutrophils % (0-2) % Lymphocytes % (Manual) (20-40) % Monocytes % (Manual) (0-10) % Toxic Granulation Platelet Estimate (NORMAL) Large Platelets Polychromasia Hypochromasia (manual) Basophilic Stippling Anisocytosis (manual) Macrocytosis (manual) Ovalocytes Puncture Site Rr pCO2 40 (35-45) mm/Hg pO2 86 (80-100) mm/Hg HCO3 21.9 (21-28) mmol/L ABG pH 7.34 L (7.35-7.45) ABG Total CO2 22.8 (22-28) mmol/L ABG O2 Saturation 98.8 H (95-98) % ABG Base Excess -3.9 L (-2.0-3.0) mmol/L ABG Hemoglobin 11.7 (11.7-17.4) g/dL ABG Carboxyhemoglobin 1.8 H (0.5-1.5) % POC ABG HHb (Measured) 1.2 (0.0-5.0) % ABG Methemoglobin 1.3 (0.0-3.0) % Harlan Test Pos A-a O2 Difference 363.0 mm/Hg Respiratory Index 4.2 Hgb O2 Saturation 95.7 (95.0-98.0) % Vent Mode Mechanical Rate 20 FiO2 70.0 % Tidal Volume 550 PEEP 5 Sodium 148 (132-148) mmol/L Potassium 4.6 (3.6-5.2) mmol/L Chloride 119 H (98-107) mmol/L Carbon Dioxide 22 (22-30) mmol/L Anion Gap 12 (10-20) BUN 55 H (9-20) mg/dL Creatinine 0.9 (0.8-1.5) mg/dL Est GFR ( Amer) > 60 Est GFR (Non-Af Amer) > 60 POC Glucose (mg/dL) 190 H (65-110) mg/dL Random Glucose 225 H (75-110) mg/dL Calcium 8.0 L (8.6-10.4) mg/dl Phosphorus 3.1 (2.5-4.5) mg/dL Magnesium 2.7 H (1.6-2.3) mg/dL Total Bilirubin 0.4 (0.2-1.3) mg/dL AST 157 H D (17-59) U/L ALT 74 H D (21-72) U/L Alkaline Phosphatase 197 H D (38-126) U/L Total Protein 5.7 L (6.3-8.3) g/dL Albumin 2.0 L (3.5-5.0) g/dL Globulin 3.7 (2.2-3.9) gm/dL Albumin/Globulin Ratio 0.5 L (1.0-2.1) Mycoplasma pneumon IgG (<=0.90) Mycoplasma pneumon IgM (<770) U/mL 06/25/17 06/25/17 06/25/17 Range/Units 06:13 05:31 05:31 WBC 24.8 H (4.8-10.8) K/uL RBC 3.64 L (4.40-5.90) Mil/uL Hgb 11.2 L (12.0-18.0) g/dL Hct 34.9 L (35.0-51.0) % MCV 96.1 H (80.0-94.0) fL MCH 30.9 (27.0-31.0) pg MCHC 32.2 L (33.0-37.0) g/dL RDW 15.7 H (11.5-14.5) % Plt Count 199 (130-400) K/uL MPV 10.4 (7.2-11.7) fL Neut % (Auto) 93.4 H (50.0-75.0) % Lymph % (Auto) 2.6 L (20.0-40.0) % Piute % (Auto) 3.7 (0.0-10.0) % Eos % (Auto) 0.1 (0.0-4.0) % Baso % (Auto) 0.2 (0.0-2.0) % Neut # 23.2 H (1.8-7.0) K/uL Lymph # 0.7 L (1.0-4.3) K/uL Piute # 0.9 H (0.0-0.8) K/uL Eos # 0.0 (0.0-0.7) K/uL Baso # 0.0 (0.0-0.2) K/uL Neutrophils % (Manual) 93 H (50-75) % Band Neutrophils % 1 (0-2) % Lymphocytes % (Manual) 4 L (20-40) % Monocytes % (Manual) 2 (0-10) % Toxic Granulation Present Platelet Estimate Normal (NORMAL) Large Platelets Present Polychromasia Slight Hypochromasia (manual) Slight Basophilic Stippling Slight Anisocytosis (manual) Slight Macrocytosis (manual) Slight Ovalocytes Slight Puncture Site R rad pCO2 49 H (35-45) mm/Hg pO2 101 H (80-100) mm/Hg HCO3 21.8 (21-28) mmol/L ABG pH 7.28 L (7.35-7.45) ABG Total CO2 24.5 (22-28) mmol/L ABG O2 Saturation 99.3 H (95-98) % ABG Base Excess -4.0 L (-2.0-3.0) mmol/L ABG Hemoglobin 12.2 (11.7-17.4) g/dL ABG Carboxyhemoglobin 1.8 H (0.5-1.5) % POC ABG HHb (Measured) 0.7 (0.0-5.0) % ABG Methemoglobin 1.4 (0.0-3.0) % Harlan Test Pos A-a O2 Difference 408.0 mm/Hg Respiratory Index 4.0 Hgb O2 Saturation 96.1 (95.0-98.0) % Vent Mode Prvc Mechanical Rate 12 FiO2 80.0 % Tidal Volume 550 PEEP 5 Sodium (132-148) mmol/L Potassium (3.6-5.2) mmol/L Chloride (98-107) mmol/L Carbon Dioxide (22-30) mmol/L Anion Gap (10-20) BUN (9-20) mg/dL Creatinine (0.8-1.5) mg/dL Est GFR ( Amer) Est GFR (Non-Af Amer) POC Glucose (mg/dL) 283 H (65-110) mg/dL Random Glucose (75-110) mg/dL Calcium (8.6-10.4) mg/dl Phosphorus (2.5-4.5) mg/dL Magnesium (1.6-2.3) mg/dL Total Bilirubin (0.2-1.3) mg/dL AST (17-59) U/L ALT (21-72) U/L Alkaline Phosphatase (38-126) U/L Total Protein (6.3-8.3) g/dL Albumin (3.5-5.0) g/dL Globulin (2.2-3.9) gm/dL Albumin/Globulin Ratio (1.0-2.1) Mycoplasma pneumon IgG (<=0.90) Mycoplasma pneumon IgM (<770) U/mL 06/25/17 06/24/17 06/22/17 Range/Units 00:08 17:48 10:23 WBC (4.8-10.8) K/uL RBC (4.40-5.90) Mil/uL Hgb (12.0-18.0) g/dL Hct (35.0-51.0) % MCV (80.0-94.0) fL MCH (27.0-31.0) pg MCHC (33.0-37.0) g/dL RDW (11.5-14.5) % Plt Count (130-400) K/uL MPV (7.2-11.7) fL Neut % (Auto) (50.0-75.0) % Lymph % (Auto) (20.0-40.0) % Piute % (Auto) (0.0-10.0) % Eos % (Auto) (0.0-4.0) % Baso % (Auto) (0.0-2.0) % Neut # (1.8-7.0) K/uL Lymph # (1.0-4.3) K/uL Piute # (0.0-0.8) K/uL Eos # (0.0-0.7) K/uL Baso # (0.0-0.2) K/uL Neutrophils % (Manual) (50-75) % Band Neutrophils % (0-2) % Lymphocytes % (Manual) (20-40) % Monocytes % (Manual) (0-10) % Toxic Granulation Platelet Estimate (NORMAL) Large Platelets Polychromasia Hypochromasia (manual) Basophilic Stippling Anisocytosis (manual) Macrocytosis (manual) Ovalocytes Puncture Site pCO2 (35-45) mm/Hg pO2 (80-100) mm/Hg HCO3 (21-28) mmol/L ABG pH (7.35-7.45) ABG Total CO2 (22-28) mmol/L ABG O2 Saturation (95-98) % ABG Base Excess (-2.0-3.0) mmol/L ABG Hemoglobin (11.7-17.4) g/dL ABG Carboxyhemoglobin (0.5-1.5) % POC ABG HHb (Measured) (0.0-5.0) % ABG Methemoglobin (0.0-3.0) % Harlan Test A-a O2 Difference mm/Hg Respiratory Index Hgb O2 Saturation (95.0-98.0) % Vent Mode Mechanical Rate FiO2 % Tidal Volume PEEP Sodium (132-148) mmol/L Potassium (3.6-5.2) mmol/L Chloride (98-107) mmol/L Carbon Dioxide (22-30) mmol/L Anion Gap (10-20) BUN (9-20) mg/dL Creatinine (0.8-1.5) mg/dL Est GFR ( Amer) Est GFR (Non-Af Amer) POC Glucose (mg/dL) 251 H 238 H (65-110) mg/dL Random Glucose (75-110) mg/dL Calcium (8.6-10.4) mg/dl Phosphorus (2.5-4.5) mg/dL Magnesium (1.6-2.3) mg/dL Total Bilirubin (0.2-1.3) mg/dL AST (17-59) U/L ALT (21-72) U/L Alkaline Phosphatase (38-126) U/L Total Protein (6.3-8.3) g/dL Albumin (3.5-5.0) g/dL Globulin (2.2-3.9) gm/dL Albumin/Globulin Ratio (1.0-2.1) Mycoplasma pneumon IgG <=0.90 (<=0.90) Mycoplasma pneumon IgM 208 (<770) U/mL Laboratory Results - last 24 hr 06/22/17 06/24/17 06/25/17 10:23 17:48 00:08 WBC RBC Hgb Hct MCV MCH MCHC RDW Plt Count MPV Neut % (Auto) Lymph % (Auto) Piute % (Auto) Eos % (Auto) Baso % (Auto) Neut # Lymph # Piute # Eos # Baso # Neutrophils % (Manual) Band Neutrophils % Lymphocytes % (Manual) Monocytes % (Manual) Toxic Granulation Platelet Estimate Large Platelets Polychromasia Hypochromasia (manual) Basophilic Stippling Anisocytosis (manual) Macrocytosis (manual) Ovalocytes Puncture Site pCO2 pO2 HCO3 ABG pH ABG Total CO2 ABG O2 Saturation ABG Base Excess ABG Hemoglobin ABG Carboxyhemoglobin POC ABG HHb (Measured) ABG Methemoglobin Harlan Test A-a O2 Difference Respiratory Index Hgb O2 Saturation Vent Mode Mechanical Rate FiO2 Tidal Volume PEEP Sodium Potassium Chloride Carbon Dioxide Anion Gap BUN Creatinine Est GFR ( Amer) Est GFR (Non-Af Amer) POC Glucose (mg/dL) 238 H 251 H Random Glucose Calcium Phosphorus Magnesium Total Bilirubin AST ALT Alkaline Phosphatase Total Protein Albumin Globulin Albumin/Globulin Ratio Mycoplasma pneumon IgG <=0.90 Mycoplasma pneumon IgM 208 06/25/17 06/25/17 06/25/17 05:31 05:31 06:13 WBC 24.8 H RBC 3.64 L Hgb 11.2 L Hct 34.9 L MCV 96.1 H MCH 30.9 MCHC 32.2 L RDW 15.7 H Plt Count 199 MPV 10.4 Neut % (Auto) 93.4 H Lymph % (Auto) 2.6 L Piute % (Auto) 3.7 Eos % (Auto) 0.1 Baso % (Auto) 0.2 Neut # 23.2 H Lymph # 0.7 L Piute # 0.9 H Eos # 0.0 Baso # 0.0 Neutrophils % (Manual) 93 H Band Neutrophils % 1 Lymphocytes % (Manual) 4 L Monocytes % (Manual) 2 Toxic Granulation Present Platelet Estimate Normal Large Platelets Present Polychromasia Slight Hypochromasia (manual) Slight Basophilic Stippling Slight Anisocytosis (manual) Slight Macrocytosis (manual) Slight Ovalocytes Slight Puncture Site R rad pCO2 49 H pO2 101 H HCO3 21.8 ABG pH 7.28 L ABG Total CO2 24.5 ABG O2 Saturation 99.3 H ABG Base Excess -4.0 L ABG Hemoglobin 12.2 ABG Carboxyhemoglobin 1.8 H POC ABG HHb (Measured) 0.7 ABG Methemoglobin 1.4 Harlan Test Pos A-a O2 Difference 408.0 Respiratory Index 4.0 Hgb O2 Saturation 96.1 Vent Mode Prvc Mechanical Rate 12 FiO2 80.0 Tidal Volume 550 PEEP 5 Sodium Potassium Chloride Carbon Dioxide Anion Gap BUN Creatinine Est GFR ( Amer) Est GFR (Non-Af Amer) POC Glucose (mg/dL) 283 H Random Glucose Calcium Phosphorus Magnesium Total Bilirubin AST ALT Alkaline Phosphatase Total Protein Albumin Globulin Albumin/Globulin Ratio Mycoplasma pneumon IgG Mycoplasma pneumon IgM 06/25/17 06/25/17 06/25/17 06:13 11:38 12:30 WBC RBC Hgb Hct MCV MCH MCHC RDW Plt Count MPV Neut % (Auto) Lymph % (Auto) Piute % (Auto) Eos % (Auto) Baso % (Auto) Neut # Lymph # Piute # Eos # Baso # Neutrophils % (Manual) Band Neutrophils % Lymphocytes % (Manual) Monocytes % (Manual) Toxic Granulation Platelet Estimate Large Platelets Polychromasia Hypochromasia (manual) Basophilic Stippling Anisocytosis (manual) Macrocytosis (manual) Ovalocytes Puncture Site Rr pCO2 40 pO2 86 HCO3 21.9 ABG pH 7.34 L ABG Total CO2 22.8 ABG O2 Saturation 98.8 H ABG Base Excess -3.9 L ABG Hemoglobin 11.7 ABG Carboxyhemoglobin 1.8 H POC ABG HHb (Measured) 1.2 ABG Methemoglobin 1.3 Harlan Test Pos A-a O2 Difference 363.0 Respiratory Index 4.2 Hgb O2 Saturation 95.7 Vent Mode Mechanical Rate 20 FiO2 70.0 Tidal Volume 550 PEEP 5 Sodium 148 Potassium 4.6 Chloride 119 H Carbon Dioxide 22 Anion Gap 12 BUN 55 H Creatinine 0.9 Est GFR ( Amer) > 60 Est GFR (Non-Af Amer) > 60 POC Glucose (mg/dL) 190 H Random Glucose 225 H Calcium 8.0 L Phosphorus 3.1 Magnesium 2.7 H Total Bilirubin 0.4 AST 157 H D ALT 74 H D Alkaline Phosphatase 197 H D Total Protein 5.7 L Albumin 2.0 L Globulin 3.7 Albumin/Globulin Ratio 0.5 L Mycoplasma pneumon IgG Mycoplasma pneumon IgM Fingerstick Blood Sugar Results: 190 Review of Systems - Review of Systems Systems not reviewed;Unavailable: Intubated Critical Care Progress Note - Ventilator Checklist Head of Bed 30 Degrees: Yes Daily Sedation Vacation: No Daily Spontaneous Breathing Trial: No PUD Prophalyxis: Yes DVT Prophylaxis: Yes - Nutrition Nutrition: Nutrition Category Date Time Status NPO Diet [DIET] Diets 06/14/17 Lunch Active Assessment/Plan (1) Respiratory failure Current Visit: Yes Status: Acute Comment: Reduce FiO2 as tolerated Continue antibiotics for pneumonia Improving chest x-ray noted Continue feeding Continue antibiotic for C. difficile colitis Culture and sensitivity of fluid from PEG site Discontinue IV fluids (2) Oropharyngeal cancer Current Visit: Yes Status: Acute (3) Pneumonia Current Visit: Yes Status: Acute
[2017-06-25] MEDS ORDERED: Albumin Human 25% (12.5 gm/50 ml) IV ONE (15:22)
--- NOTE | 2017-06-25 19:07 | RAD ---
HISTORY: Intubation COMPARISON: Comparison is made to 06/24/2017 FINDINGS: LUNGS: Interval [id number] improvement in the lungs since the previous exam. Residual heterogeneous infiltrate or opacities at the lower lobes left larger than right. The ET tube is seen at high position. PLEURA: Blunting of both costophrenic angles again noted. CARDIOVASCULAR: Normal. OSSEOUS STRUCTURES: No significant abnormalities. VISUALIZED UPPER ABDOMEN: Normal. OTHER FINDINGS: Right-sided Infusaport is seen in place. IMPRESSION: Interval improvement in the lungs since the previous exam. Somewhat high position of the ETT.
--- NOTE | 2017-06-25 21:12 | CP.PCM.PN ---
Subjective - Date & Time of Evaluation Date of Evaluation: 06/25/17 Time of Evaluation: 16:35 - Subjective Subjective: Patient seen and examined in the intensive care unit.he is drowsy on mechanical ventilator, no distress, not weanable Intubated on ventilatory support still requiring high FiO2 of 70% with PEEP of 5 Good urine output Sedated on Diprivan IV sedation was reduced because of hypotension Tolerating feeding Being treated for C. difficile colitis Drainage noted PEG tube insertion site Nasally intubated Objective - Vital Signs/Intake and Output Vital Signs (last 24 hours): Temp Pulse Resp BP Pulse Ox 98.3 F 100 H 20 119/56 L 100 06/25/17 20:00 06/25/17 20:02 06/25/17 20:02 06/25/17 20:02 06/25/17 20:02 Intake and Output: 06/25/17 06/26/17 18:59 06:59 Intake Total 1495 68 Output Total 400 75 Balance 1095 -7 - Medications Medications: Current Medications Acetaminophen (Tylenol 650mg/20.3ml Solution Ud) 650 mg GT Q6 PRN PRN Reason: Pain, Mild (1-3) Albuterol Sulfate (Albuterol 0.083% Inhal Anita (2.5 Mg/3 Ml) Ud) 2.5 mg INH RQ6 [facility] Last Admin: 06/25/17 19:27 Dose: 2.5 mg Heparin Sodium (Porcine) (Heparin) 5,000 units SC Q8H JUAN CARLOS Fluconazole (Diflucan Iv 100 Mg/50 Ml Ns) 50 mls @ 100 mls/hr IVPB DAILY [facility] Last Admin: 06/25/17 09:09 Dose: 100 mls/hr Propofol (Diprivan) 1,000 mg in 100 mls @ 2.313 mls/hr IV .Q24H PRN; Protocol; 5 MCG/KG/MIN PRN Reason: TITRATE PER MD ORDER Last Admin: 06/25/17 12:49 Dose: 8.64 mcg/kg/min, 3.997 mls/hr Imipenem/Cilastatin Sodium 500 (mg/ Sodium Chloride) 100 mls @ 100 mls/hr IVPB Q8H [facility] Last Admin: 06/25/17 20:18 Dose: 100 mls/hr Metronidazole (Flagyl) 500 mg in 100 mls @ 100 mls/hr IVPB Q8 JUAN CARLOS Last Admin: 06/25/17 15:25 Dose: 100 mls/hr Vancomycin/Sodium Chloride (Vancocin) 1 gm in 200 mls @ 166.7 mls/hr IVPB Q24H [facility] Stop: 06/30/17 14:01 Last Admin: 06/25/17 13:02 Dose: 166.7 mls/hr Insulin Human Regular (Novolin R) 0 unit SC Q6 JUAN CARLOS PRN Reason: Protocol Last Admin: 06/25/17 17:17 Dose: 3 unit Morphine Sulfate (Morphine) 2 mg IVP Q4 PRN PRN Reason: Pain, moderate (4-7) Last Admin: 06/25/17 20:18 Dose: 2 mg Pantoprazole Sodium (Protonix Inj) 40 mg IVP DAILY [facility] Last Admin: 06/25/17 09:09 Dose: 40 mg - Labs Labs: 06/25/17 06:13 06/25/17 06:13 PT 15.7 SECONDS (9.7-12.2) H 06/20/17 11:44 INR 1.4 06/20/17 11:44 APTT 26 SECONDS (21-34) 06/20/17 11:44 - Constitutional Appears: No Acute Distress, Chronically Ill - Head Exam Head Exam: ATRAUMATIC, NORMAL INSPECTION, NORMOCEPHALIC - Eye Exam Eye Exam: EOMI, Normal appearance, PERRL Pupil Exam: NORMAL ACCOMODATION, PERRL - Respiratory Exam Respiratory Exam: Decreased Breath Sounds, Rales, Rhonchi - Cardiovascular Exam Cardiovascular Exam: REGULAR RHYTHM, +S1, +S2. absent: Murmur - GI/Abdominal Exam GI & Abdominal Exam: Soft, Normal Bowel Sounds. absent: Tenderness Assessment and Plan (1) Mass of left side of neck Status: Acute (2) Dysphagia Status: Acute (3) Dehydration Status: Acute (4) Lactic acid acidosis Status: Acute (5) Respiratory failure Status: Acute (6) Oropharyngeal cancer Status: Acute (7) Septicemia Assessment & Plan: positive leukocytosis moniotor WBC count Status: Acute
--- NOTE | 2017-06-25 22:47 | CP.PCM.PN ---
Subjective - Date & Time of Evaluation Date of Evaluation: 06/25/17 Time of Evaluation: 22:46 - Subjective Subjective: CHIEF COMPLAINTS TODAY : PATIENT REMAINS ON VENTILATOR unable to wean Sedation reduced because of hypotension. elevated WBC 24.8 Output good Unable to obtain review of systems ROS on observation only HEENT : LEFT SUBMANDIBULAR MASS AND SWELLING, ON VENTILATOR Resp : No SOB wheezing, cough Cardio : No CP, PND orthopnea GI : No abd. Pain, n/v +VE PEG IN PLACE. 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 Musculoskel : N Ext. : Pedal pulses intact, no edema or calf pain Derm : N Psych : N. PE. Pt. is ON VENTILATOR, SEDATED TACHYCARDIC. V.S As noted in the chart Head ,ear nose,throat and eyes : Normal. Neck : Supple with normal carotids.LT. SIDED JAW SWELLING WITH CELLULITIS AND TENDERNESS, LEFT-SIDED MANDIBULAR MASS BX SITE. +VE LB Lungs: SCATTERED RHONCHI AND RALES. Heart : S1 & S2 normal . . No murmur. S4 + Abd : Soft non tender with normal bowel sounds.+VE PEG , DRAINAGE AROUND THE PEG SITE Neuro : Moves all ext. with no localized deficit. Ext : No edema with intact pulses. Neg. calf tenderness Derm : No rashes or decubitus ulcer. Radiology/Labs . stools positive C. difficile antigen. URINE CULTURE +ve Enterococcus faecalis 06/20/17.S-AMPICILLIN VANCOMYCIN CREATININE 0.7/bun 55 sodium 148 chest x-ray 06/24/17. dense consolidative opacification seen within the left mid lower lung zones as well as right hilar and infrahilar region .Small to moderate left pleural effusion. Scattered nodular densities both lungs Objective - Vital Signs/Intake and Output Vital Signs (last 24 hours): Temp Pulse Resp BP Pulse Ox 98.3 F 100 H 17 118/57 L 98 06/25/17 20:00 06/25/17 22:02 06/25/17 22:02 06/25/17 22:02 06/25/17 22:02 Intake and Output: 06/25/17 06/26/17 18:59 06:59 Intake Total 1495 236 Output Total 400 185 Balance 1095 51 - Medications Medications: Current Medications Acetaminophen (Tylenol 650mg/20.3ml Solution Ud) 650 mg GT Q6 PRN PRN Reason: Pain, Mild (1-3) Albuterol Sulfate (Albuterol 0.083% Inhal Anita (2.5 Mg/3 Ml) Ud) 2.5 mg INH RQ6 [facility] Last Admin: 06/25/17 19:27 Dose: 2.5 mg Heparin Sodium (Porcine) (Heparin) 5,000 units SC Q8H [facility] Last Admin: 06/25/17 22:00 Dose: 5,000 units Fluconazole (Diflucan Iv 100 Mg/50 Ml Ns) 50 mls @ 100 mls/hr IVPB DAILY [facility] Last Admin: 06/25/17 09:09 Dose: 100 mls/hr Propofol (Diprivan) 1,000 mg in 100 mls @ 2.313 mls/hr IV .Q24H PRN; Protocol; 5 MCG/KG/MIN PRN Reason: TITRATE PER MD ORDER Last Admin: 06/25/17 12:49 Dose: 8.64 mcg/kg/min, 3.997 mls/hr Imipenem/Cilastatin Sodium 500 (mg/ Sodium Chloride) 100 mls @ 100 mls/hr IVPB Q8H [facility] Last Admin: 06/25/17 20:18 Dose: 100 mls/hr Metronidazole (Flagyl) 500 mg in 100 mls @ 100 mls/hr IVPB Q8 [facility] Last Admin: 06/25/17 21:59 Dose: 100 mls/hr Vancomycin/Sodium Chloride (Vancocin) 1 gm in 200 mls @ 166.7 mls/hr IVPB Q24H [facility] Stop: 06/30/17 14:01 Last Admin: 06/25/17 13:02 Dose: 166.7 mls/hr Insulin Human Regular (Novolin R) 0 unit SC Q6 JUAN CARLOS PRN Reason: Protocol Last Admin: 06/25/17 17:17 Dose: 3 unit Morphine Sulfate (Morphine) 2 mg IVP Q4 PRN PRN Reason: Pain, moderate (4-7) Last Admin: 06/25/17 20:18 Dose: 2 mg Pantoprazole Sodium (Protonix Inj) 40 mg IVP DAILY [facility] Last Admin: 06/25/17 09:09 Dose: 40 mg - Labs Labs: 06/25/17 06:13 06/25/17 06:13 PT 15.7 SECONDS (9.7-12.2) H 06/20/17 11:44 INR 1.4 06/20/17 11:44 APTT 26 SECONDS (21-34) 06/20/17 11:44 Assessment and Plan (1) Respiratory failure Status: Acute (2) Pneumonia Status: Acute (3) Dysphagia Status: Acute (4) Oropharyngeal cancer Status: Acute (5) Dehydration Status: Acute (6) UTI (urinary tract infection) due to Enterococcus Status: Acute (7) PMC (pseudomembranous colitis) Assessment & Plan: ON CONTACT PRECAUTIONS. cONTINUE iv fLAGYL DECREASED DOSE TO 250 EVERY 8 HOURLY IN VIEW OF TRANSAMINITIS. Status: Acute - Assessment and Plan (Free Text) Assessment: IMPRESSION; SEPSIS- SYNDROME/HYPOTENSION ACUTE RESPIRATORY FAILURE . BILATERAL MULTIFOCAL PNEUMONIA /nodular densities r/o metastasis PSEUDOMEMBRANOUS COLITIS.( c. 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 S/P PEG. S/P MED-PORT . TRANSAMINITIS ? DRUGS. PLAN; ON iv pRIMAXIN 500 EVERY 8 HOURLY 06/22/17 CONTINUE iv VANCOMYCIN 1 G ONCE A DAY DAILY. 06/20/17- PATIENT HAS ENTEROCOCCAL UTI ALSO ON iv FLUCONAZOLE, 100 MG od ADDED BY BUSINESS SYSTEMS TECHNICIAN 06/22/17. ON iv fLAGYL DECREASED DOSE TO 250 EVERY 8 HOURLY FOR CDAD 06/24/17 SPUTUM gRAM STAIN AND CULTURE.-P FOLLOW-UP RENAL FUNCTIONS CLOSELY. PULMONARY TOILET PER BUSINESS SYSTEMS TECHNICIAN. CONTACT PRECAUTIONS.
[2017-06-26] MEDS: Albuterol 0.083% Inhal Sol (2.5 mg/3 mL) UD INH SCH ×4 (01:49→19:48)
[2017-06-26] MEDS: Propofol 10 mg/ml 1,000 MG/100 ML VIAL IV PRN (05:13)
[2017-06-26] MEDS: metroNIDAZOLE IV 500 mg/100 ml 250 MG in Premixed IV 1 EA IVPB SCH ×3 (05:22→20:59)
[2017-06-26 05:43] LABS: ABG ALLEN TEST POS; ABG MECHANICAL RATE 20; ARTERIAL BLOOD GAS MODE PRVC; ARTERIAL BLOOD HGB O2 SAT 94.1 % (95.0-98.0); ATERIAL BLOOD GAS PEEP 5; CARBOXYHEMOGLOBIN 2.1 % (0.5-1.5); DRAW SITE R RAD; HHB 2.4 % (0.0-5.0); METHEMOGLOBIN 1.4 % (0.0-3.0)
[2017-06-26] MEDS: (Novolin R) Insulin Human Regular 100 units/ml vial SC SCH ×3 (06:16→17:56)
[2017-06-26 06:36] LABS: CHLORIDE 121 mmol/L (98-107)
[2017-06-26 06:37] LABS: POTASSIUM 4.7 mmol/L (3.6-5.2); SODIUM 150 mmol/L (132-148)
[2017-06-26 06:39] LABS: ALB/GLOB RATIO 0.6 (1.0-2.1); ALKALINE PHOSPHATASE 232 U/L (38-126); AST/SGOT 52 U/L (17-59); BILIRUBIN,TOTAL 0.4 mg/dL (0.2-1.3); BLOOD UREA NITROGEN 69 mg/dL (9-20); CARBON DIOXIDE 19 mmol/L (22-30); GFR AFRICAN-AMERICAN > 60; TOTAL PROTEIN 5.7 g/dL (6.3-8.3)
[2017-06-26 06:40] LABS: ALT/SGPT 60 U/L (21-72); CALCIUM 7.9 mg/dl (8.6-10.4); GLUCOSE,RANDOM 205 mg/dL (75-110); MAGNESIUM 2.8 mg/dL (1.6-2.3); PHOSPHOROUS 3.3 mg/dL (2.5-4.5)
[2017-06-26 06:44] LABS: HEMATOCRIT 35.6 % (35.0-51.0); MEAN CELL VOLUME 97.2 fL (80.0-94.0); MEAN CORPUSCULAR HEMOGLOBIN 30.3 pg (27.0-31.0); MEAN CORPUSCULAR HGB CONC 31.2 g/dL (33.0-37.0); MEAN PLATELET VOLUME 11.2 fL (7.2-11.7); PLATELET COUNT 194 K/uL (130-400); RED CELL DISTRIBUTION WIDTH 15.9 % (11.5-14.5)
--- NOTE | 2017-06-26 07:00 | CP.PCM.PN ---
Subjective - Date & Time of Evaluation Date of Evaluation: 06/26/17 Time of Evaluation: 02:00 - Subjective Subjective: ET tube repositioned with help of fiberoptic bronchoscope by anesthesia, placement confirmed but actual visualization and CXR for level, secured at 26 at the nasal ala Objective - Vital Signs/Intake and Output Vital Signs (last 24 hours): Temp Pulse Resp BP Pulse Ox 98.1 F 105 H 19 102/57 L 96 06/26/17 00:00 06/26/17 06:02 06/26/17 06:02 06/26/17 06:02 06/26/17 06:02 Intake and Output: 06/25/17 06/26/17 18:59 06:59 Intake Total 1495 1291 Output Total 400 580 Balance 1095 711 - Medications Medications: Current Medications Acetaminophen (Tylenol 650mg/20.3ml Solution Ud) 650 mg GT Q6 PRN PRN Reason: Pain, Mild (1-3) Albuterol Sulfate (Albuterol 0.083% Inhal Anita (2.5 Mg/3 Ml) Ud) 2.5 mg INH RQ6 [facility] Last Admin: 06/26/17 01:49 Dose: 2.5 mg Heparin Sodium (Porcine) (Heparin) 5,000 units SC Q8H [facility] Last Admin: 06/26/17 05:16 Dose: 5,000 units Fluconazole (Diflucan Iv 100 Mg/50 Ml Ns) 50 mls @ 100 mls/hr IVPB DAILY [facility] Last Admin: 06/25/17 09:09 Dose: 100 mls/hr Propofol (Diprivan) 1,000 mg in 100 mls @ 2.313 mls/hr IV .Q24H PRN; Protocol; 5 MCG/KG/MIN PRN Reason: TITRATE PER MD ORDER Last Titration: 06/26/17 05:22 Dose: 10.8 mcg/kg/min, 5 mls/hr Imipenem/Cilastatin Sodium 500 (mg/ Sodium Chloride) 100 mls @ 100 mls/hr IVPB Q8H [facility] Last Admin: 06/26/17 03:18 Dose: 100 mls/hr Vancomycin/Sodium Chloride (Vancocin) 1 gm in 200 mls @ 166.7 mls/hr IVPB Q24H [facility] Stop: 06/30/17 14:01 Last Admin: 06/25/17 13:02 Dose: 166.7 mls/hr Metronidazole 250 mg/ (Miscellaneous) 50 mls @ 100 mls/hr IVPB Q8 [facility] Last Admin: 06/26/17 05:22 Dose: 100 mls/hr Insulin Human Regular (Novolin R) 0 unit SC Q6 [facility] CARLOS PRN Reason: Protocol Last Admin: 06/26/17 06:16 Dose: 3 unit Morphine Sulfate (Morphine) 2 mg IVP Q4 PRN PRN Reason: Pain, moderate (4-7) Last Admin: 06/26/17 03:18 Dose: 2 mg Pantoprazole Sodium (Protonix Inj) 40 mg IVP DAILY [facility] Last Admin: 06/25/17 09:09 Dose: 40 mg - Labs Labs: 06/25/17 06:13 06/26/17 06:17 PT 15.7 SECONDS (9.7-12.2) H 06/20/17 11:44 INR 1.4 06/20/17 11:44 APTT 26 SECONDS (21-34) 06/20/17 11:44
[2017-06-26 09:26] LABS: EOSINOPHIL 1 % (0-4); NEUTROPHIL 82 % (50-75); NUCLEATED RED BLOOD CELL 1 % (0-0); TOTAL CELLS COUNTED 100
[2017-06-26 09:27] LABS: SPHEROCYTES SLIGHT
[2017-06-26] MEDS: Fluconazole IV 100mg/50 ml NS 50 ML IVPB SCH (10:39)
--- NOTE | 2017-06-26 12:44 | CP.CCUPN ---
CCU Subjective - Physician Review Events Since Last Encounter (Free Text): 06/26/17 12:41 Patient seen and examined in the intensive care unit. On ventilatory support FiO2 70% Tolerating feeding Being treated for C. difficile colitis Afebrile Started on albumin for hypotension CCU Objective - Vital Signs / Intake & Output Vital Signs (Last 4 hours): Vital Signs Pulse Resp BP Pulse Ox 06/26/17 11:02 109 H 17 85/56 L 98 06/26/17 11:00 108 H 14 98 06/26/17 10:02 107 H 19 93/63 L 98 06/26/17 10:00 108 H 18 97 06/26/17 09:49 108 H 17 92/56 L 98 06/26/17 09:02 109 H 15 99/60 L 96 06/26/17 09:00 109 H 17 96 Intake and Output (Last 8hrs): Intake & Output 06/25/17 06/26/17 06/26/17 22:59 06:59 14:59 Intake Total 672 1055 240.3 Output Total 320 395 120 Balance 352 660 120.3 Weight 184 lb 184 lb Intake: IV 101 15.5 Intake, IV Amount 282 344 64.8 Right Port-A-Cath 200 300 50 left forearm 50 right PC side port 32 44 14.8 Tube Feeding 240 310 160 Other 150 300 Output: Urine 320 395 120 Urine, Voided 320 395 120 - Physical Exam Head: Positive for: Atraumatic Extroacular Muscles: Positive for: EOMI Mouth: Positive for: Dry Respiratory/Chest: Positive for: Good Air Exchange (Anteriorly ), Other ( Patient is currently inutbated ). Negative for: Respiratory Distress, Accessory Muscle Use Cardiovascular: Positive for: Regular Rate and Rhythm, Murmurs, Normal S1, S2 Abdomen: Positive for: Other (Mildly diminished bowel sounds ). Negative for: Tenderness, Distention Upper Extremity: Negative for: Edema Lower Extremity: Negative for: Edema, Swelling Skin: Positive for: Normal Color Psychiatric: Positive for: Alert - Medications Active Medications: Active Medications Generic Name Dose Route Start Last Admin Trade Name Freq PRN Reason Stop Dose Admin Acetaminophen 650 mg 06/16/17 17:25 Tylenol 650mg/20.3ml Solution Ud GT Q6 PRN Pain, Mild (1-3) Albuterol Sulfate 2.5 mg 06/25/17 12:00 06/26/17 07:28 Albuterol 0.083% Inhal Anita (2.5 Mg/3 Ml) Ud INH 2.5 mg RQ6 JUAN CARLOS Administration Heparin Sodium (Porcine) 5,000 units 06/25/17 22:00 06/26/17 05:16 Heparin SC 5,000 units Q8H JUAN CARLOS Administration Fluconazole 50 mls @ 100 mls/hr 06/22/17 10:00 06/26/17 10:39 Diflucan Iv 100 Mg/50 Ml Ns IVPB 100 mls/hr DAILY [facility] CARLOS Administration Propofol 1,000 mg in 100 mls @ 2.313 mls/hr 06/21/17 19:02 06/26/17 07:18 Diprivan IV 8 mcg/kg/min .Q24H PRN 3.701 mls/hr TITRATE PER MD ORDER Titration Protocol 5 MCG/KG/MIN Imipenem/Cilastatin Sodium 500 100 mls @ 100 mls/hr 06/22/17 12:00 06/26/17 11:51 mg/ Sodium Chloride IVPB 100 mls/hr Q8H [facility] CARLOS Administration Vancomycin/Sodium Chloride 1 gm in 200 mls @ 166.7 mls/hr 06/25/17 14:00 13:02 Vancocin IVPB 06/30/17 14:01 166.7 mls/hr Q24H JU[facility] CARLOS Administration Metronidazole 250 mg/ 50 mls @ 100 mls/hr 06/26/17 06:00 06/26/17 05:22 Miscellaneous IVPB 100 mls/hr Q8 JUAN CARLOS Administration Insulin Human Regular 0 unit 06/26/17 10:36 Novolin R SC Q6 JU[facility] CARLOS Protocol Morphine Sulfate 2 mg 06/25/17 10:14 06/26/17 03:18 Morphine IVP 2 mg Q4 PRN Administration Pain, moderate (4-7) Pantoprazole Sodium 40 mg 06/21/17 10:00 06/26/17 10:39 Protonix Inj IVP 40 mg DAILY [facility] CARLOS Administration - Patient Studies Lab Studies: Microbiology Studies 06/25/17 10:09 Gram Stain - Final Abdomen Wound Culture - Preliminary Gram Negative Saleem Lab Studies 06/26/17 06/26/17 06/26/17 Range/Units 11:58 06:17 06:17 WBC 27.0 H (4.8-10.8) K/uL RBC 3.67 L (4.40-5.90) Mil/uL Hgb 11.1 L (12.0-18.0) g/dL Hct 35.6 (35.0-51.0) % MCV 97.2 H (80.0-94.0) fL MCH 30.3 (27.0-31.0) pg MCHC 31.2 L (33.0-37.0) g/dL RDW 15.9 H (11.5-14.5) % Plt Count 194 (130-400) K/uL MPV 11.2 (7.2-11.7) fL Neutrophils % (Manual) 82 H (50-75) % Band Neutrophils % 7 H (0-2) % Lymphocytes % (Manual) 7 L (20-40) % Monocytes % (Manual) 3 (0-10) % Eosinophils % (Manual) 1 (0-4) % Nucleated RBC % 1 H (0-0) % Toxic Granulation Present Platelet Estimate Normal (NORMAL) Hypochromasia (manual) Slight Poikilocytosis (manual Slight Anisocytosis (manual) Slight Microcytosis (manual) Slight Macrocytosis (manual) Slight Spherocytes Slight Tear Drop Cells Slight Ovalocytes Slight Puncture Site pCO2 (35-45) mm/Hg pO2 (80-100) mm/Hg HCO3 (21-28) mmol/L ABG pH (7.35-7.45) ABG Total CO2 (22-28) mmol/L ABG O2 Saturation (95-98) % ABG Base Excess (-2.0-3.0) mmol/L ABG Hemoglobin (11.7-17.4) g/dL ABG Carboxyhemoglobin (0.5-1.5) % POC ABG HHb (Measured) (0.0-5.0) % ABG Methemoglobin (0.0-3.0) % Harlan Test A-a O2 Difference mm/Hg Respiratory Index Hgb O2 Saturation (95.0-98.0) % Vent Mode Mechanical Rate FiO2 % Tidal Volume PEEP Sodium 150 H (132-148) mmol/L Potassium 4.7 (3.6-5.2) mmol/L Chloride 121 H (98-107) mmol/L Carbon Dioxide 19 L (22-30) mmol/L Anion Gap 15 (10-20) BUN 69 H (9-20) mg/dL Creatinine 0.9 (0.8-1.5) mg/dL Est GFR ( Amer) > 60 Est GFR (Non-Af Amer) > 60 POC Glucose (mg/dL) 322 H (65-110) mg/dL Random Glucose 205 H (75-110) mg/dL Calcium 7.9 L (8.6-10.4) mg/dl Phosphorus 3.3 (2.5-4.5) mg/dL Magnesium 2.8 H (1.6-2.3) mg/dL Total Bilirubin 0.4 (0.2-1.3) mg/dL AST 52 (17-59) U/L ALT 60 (21-72) U/L Alkaline Phosphatase 232 H (38-126) U/L Total Protein 5.7 L (6.3-8.3) g/dL Albumin 2.1 L (3.5-5.0) g/dL Globulin 3.6 (2.2-3.9) gm/dL Albumin/Globulin Ratio 0.6 L (1.0-2.1) 06/26/17 06/26/17 06/25/17 Range/Units 05:31 05:26 23:19 WBC (4.8-10.8) K/uL RBC (4.40-5.90) Mil/uL Hgb (12.0-18.0) g/dL Hct (35.0-51.0) % MCV (80.0-94.0) fL MCH (27.0-31.0) pg MCHC (33.0-37.0) g/dL RDW (11.5-14.5) % Plt Count (130-400) K/uL MPV (7.2-11.7) fL Neutrophils % (Manual) (50-75) % Band Neutrophils % (0-2) % Lymphocytes % (Manual) (20-40) % Monocytes % (Manual) (0-10) % Eosinophils % (Manual) (0-4) % Nucleated RBC % (0-0) % Toxic Granulation Platelet Estimate (NORMAL) Hypochromasia (manual) Poikilocytosis (manual Anisocytosis (manual) Microcytosis (manual) Macrocytosis (manual) Spherocytes Tear Drop Cells Ovalocytes Puncture Site R rad pCO2 39 (35-45) mm/Hg pO2 73 L (80-100) mm/Hg HCO3 21.0 (21-28) mmol/L ABG pH 7.33 L (7.35-7.45) ABG Total CO2 21.8 L (22-28) mmol/L ABG O2 Saturation 97.5 (95-98) % ABG Base Excess -4.9 L (-2.0-3.0) mmol/L ABG Hemoglobin 11.8 (11.7-17.4) g/dL ABG Carboxyhemoglobin 2.1 H (0.5-1.5) % POC ABG HHb (Measured) 2.4 (0.0-5.0) % ABG Methemoglobin 1.4 (0.0-3.0) % Harlan Test Pos A-a O2 Difference 377.0 mm/Hg Respiratory Index 5.2 Hgb O2 Saturation 94.1 L (95.0-98.0) % Vent Mode Prvc Mechanical Rate 20 FiO2 70.0 % Tidal Volume 550 PEEP 5 Sodium (132-148) mmol/L Potassium (3.6-5.2) mmol/L Chloride (98-107) mmol/L Carbon Dioxide (22-30) mmol/L Anion Gap (10-20) BUN (9-20) mg/dL Creatinine (0.8-1.5) mg/dL Est GFR ( Amer) Est GFR (Non-Af Amer) POC Glucose (mg/dL) 216 H 265 H (65-110) mg/dL Random Glucose (75-110) mg/dL Calcium (8.6-10.4) mg/dl Phosphorus (2.5-4.5) mg/dL Magnesium (1.6-2.3) mg/dL Total Bilirubin (0.2-1.3) mg/dL AST (17-59) U/L ALT (21-72) U/L Alkaline Phosphatase (38-126) U/L Total Protein (6.3-8.3) g/dL Albumin (3.5-5.0) g/dL Globulin (2.2-3.9) gm/dL Albumin/Globulin Ratio (1.0-2.1) 06/25/17 Range/Units 17:07 WBC (4.8-10.8) K/uL RBC (4.40-5.90) Mil/uL Hgb (12.0-18.0) g/dL Hct (35.0-51.0) % MCV (80.0-94.0) fL MCH (27.0-31.0) pg MCHC (33.0-37.0) g/dL RDW (11.5-14.5) % Plt Count (130-400) K/uL MPV (7.2-11.7) fL Neutrophils % (Manual) (50-75) % Band Neutrophils % (0-2) % Lymphocytes % (Manual) (20-40) % Monocytes % (Manual) (0-10) % Eosinophils % (Manual) (0-4) % Nucleated RBC % (0-0) % Toxic Granulation Platelet Estimate (NORMAL) Hypochromasia (manual) Poikilocytosis (manual Anisocytosis (manual) Microcytosis (manual) Macrocytosis (manual) Spherocytes Tear Drop Cells Ovalocytes Puncture Site pCO2 (35-45) mm/Hg pO2 (80-100) mm/Hg HCO3 (21-28) mmol/L ABG pH (7.35-7.45) ABG Total CO2 (22-28) mmol/L ABG O2 Saturation (95-98) % ABG Base Excess (-2.0-3.0) mmol/L ABG Hemoglobin (11.7-17.4) g/dL ABG Carboxyhemoglobin (0.5-1.5) % POC ABG HHb (Measured) (0.0-5.0) % ABG Methemoglobin (0.0-3.0) % Harlan Test A-a O2 Difference mm/Hg Respiratory Index Hgb O2 Saturation (95.0-98.0) % Vent Mode Mechanical Rate FiO2 % Tidal Volume PEEP Sodium (132-148) mmol/L Potassium (3.6-5.2) mmol/L Chloride (98-107) mmol/L Carbon Dioxide (22-30) mmol/L Anion Gap (10-20) BUN (9-20) mg/dL Creatinine (0.8-1.5) mg/dL Est GFR ( Amer) Est GFR (Non-Af Amer) POC Glucose (mg/dL) 233 H (65-110) mg/dL Random Glucose (75-110) mg/dL Calcium (8.6-10.4) mg/dl Phosphorus (2.5-4.5) mg/dL Magnesium (1.6-2.3) mg/dL Total Bilirubin (0.2-1.3) mg/dL AST (17-59) U/L ALT (21-72) U/L Alkaline Phosphatase (38-126) U/L Total Protein (6.3-8.3) g/dL Albumin (3.5-5.0) g/dL Globulin (2.2-3.9) gm/dL Albumin/Globulin Ratio (1.0-2.1) Laboratory Results - last 24 hr 06/25/17 06/25/17 06/26/17 17:07 23:19 05:26 WBC RBC Hgb Hct MCV MCH MCHC RDW Plt Count MPV Neutrophils % (Manual) Band Neutrophils % Lymphocytes % (Manual) Monocytes % (Manual) Eosinophils % (Manual) Nucleated RBC % Toxic Granulation Platelet Estimate Hypochromasia (manual) Poikilocytosis (manual Anisocytosis (manual) Microcytosis (manual) Macrocytosis (manual) Spherocytes Tear Drop Cells Ovalocytes Puncture Site pCO2 pO2 HCO3 ABG pH ABG Total CO2 ABG O2 Saturation ABG Base Excess ABG Hemoglobin ABG Carboxyhemoglobin POC ABG HHb (Measured) ABG Methemoglobin Harlan Test A-a O2 Difference Respiratory Index Hgb O2 Saturation Vent Mode Mechanical Rate FiO2 Tidal Volume PEEP Sodium Potassium Chloride Carbon Dioxide Anion Gap BUN Creatinine Est GFR ( Amer) Est GFR (Non-Af Amer) POC Glucose (mg/dL) 233 H 265 H 216 H Random Glucose Calcium Phosphorus Magnesium Total Bilirubin AST ALT Alkaline Phosphatase Total Protein Albumin Globulin Albumin/Globulin Ratio 06/26/17 06/26/17 06/26/17 05:31 06:17 06:17 WBC 27.0 H RBC 3.67 L Hgb 11.1 L Hct 35.6 MCV 97.2 H MCH 30.3 MCHC 31.2 L RDW 15.9 H Plt Count 194 MPV 11.2 Neutrophils % (Manual) 82 H Band Neutrophils % 7 H Lymphocytes % (Manual) 7 L Monocytes % (Manual) 3 Eosinophils % (Manual) 1 Nucleated RBC % 1 H Toxic Granulation Present Platelet Estimate Normal Hypochromasia (manual) Slight Poikilocytosis (manual Slight Anisocytosis (manual) Slight Microcytosis (manual) Slight Macrocytosis (manual) Slight Spherocytes Slight Tear Drop Cells Slight Ovalocytes Slight Puncture Site R rad pCO2 39 pO2 73 L HCO3 21.0 ABG pH 7.33 L ABG Total CO2 21.8 L ABG O2 Saturation 97.5 ABG Base Excess -4.9 L ABG Hemoglobin 11.8 ABG Carboxyhemoglobin 2.1 H POC ABG HHb (Measured) 2.4 ABG Methemoglobin 1.4 Harlan Test Pos A-a O2 Difference 377.0 Respiratory Index 5.2 Hgb O2 Saturation 94.1 L Vent Mode Prvc Mechanical Rate 20 FiO2 70.0 Tidal Volume 550 PEEP 5 Sodium 150 H Potassium 4.7 Chloride 121 H Carbon Dioxide 19 L Anion Gap 15 BUN 69 H Creatinine 0.9 Est GFR ( Amer) > 60 Est GFR (Non-Af Amer) > 60 POC Glucose (mg/dL) Random Glucose 205 H Calcium 7.9 L Phosphorus 3.3 Magnesium 2.8 H Total Bilirubin 0.4 AST 52 ALT 60 Alkaline Phosphatase 232 H Total Protein 5.7 L Albumin 2.1 L Globulin 3.6 Albumin/Globulin Ratio 0.6 L 06/26/17 11:58 WBC RBC Hgb Hct MCV MCH MCHC RDW Plt Count MPV Neutrophils % (Manual) Band Neutrophils % Lymphocytes % (Manual) Monocytes % (Manual) Eosinophils % (Manual) Nucleated RBC % Toxic Granulation Platelet Estimate Hypochromasia (manual) Poikilocytosis (manual Anisocytosis (manual) Microcytosis (manual) Macrocytosis (manual) Spherocytes Tear Drop Cells Ovalocytes Puncture Site pCO2 pO2 HCO3 ABG pH ABG Total CO2 ABG O2 Saturation ABG Base Excess ABG Hemoglobin ABG Carboxyhemoglobin POC ABG HHb (Measured) ABG Methemoglobin Harlan Test A-a O2 Difference Respiratory Index Hgb O2 Saturation Vent Mode Mechanical Rate FiO2 Tidal Volume PEEP Sodium Potassium Chloride Carbon Dioxide Anion Gap BUN Creatinine Est GFR ( Amer) Est GFR (Non-Af Amer) POC Glucose (mg/dL) 322 H Random Glucose Calcium Phosphorus Magnesium Total Bilirubin AST ALT Alkaline Phosphatase Total Protein Albumin Globulin Albumin/Globulin Ratio Fingerstick Blood Sugar Results: 216 Review of Systems - Review of Systems Systems not reviewed;Unavailable: Intubated Critical Care Progress Note - Ventilator Checklist Head of Bed 30 Degrees: Yes Daily Sedation Vacation: No Daily Spontaneous Breathing Trial: No PUD Prophalyxis: Yes DVT Prophylaxis: Yes - Vent Settings MODE:: PRVC - Nutrition Nutrition: Nutrition Category Date Time Status NPO Diet [DIET] Diets 06/14/17 Lunch Active Assessment/Plan (1) Respiratory failure Assessment and plan: Still requiring high FiO2 Continue treatment for pneumonia Continue ventilatory support and reduce FiO2 as tolerated Continue feeding IV albumin Current Visit: Yes Status: Acute Comment: Reduce FiO2 as tolerated Continue antibiotics for pneumonia Improving chest x-ray noted Continue feeding Continue antibiotic for C. difficile colitis Culture and sensitivity of fluid from PEG site Discontinue IV fluids (2) Oropharyngeal cancer Current Visit: Yes Status: Acute (3) Pneumonia Current Visit: Yes Status: Acute
--- NOTE | 2017-06-26 13:10 | RAD ---
HISTORY: repositioned ETT COMPARISON: Comparison is made to previous study dated 06/26/2027 FINDINGS: LUNGS: Interval mild improvement in the lower lobes since the previous exam. Persistent diffuse hazy opacities seen more prominent at the mid and lower lungs. The ET tube is seen at appropriate bruise PLEURA: Blunting of both costophrenic angles is again noted CARDIOVASCULAR: Normal. OSSEOUS STRUCTURES: No significant abnormalities. VISUALIZED UPPER ABDOMEN: Normal. OTHER FINDINGS: Right-sided Infusaport is seen in place. IMPRESSION: Several slight improvement in the lower lobes. Otherwise no significant change. The ET tube tip seen above level of the clavicles.
[2017-06-26] MEDS: Vancomycin 1 gm/NS 200 ml 1 GM/200 ML BAG IVPB SCH (13:21)
--- NOTE | 2017-06-26 14:00 | RAD ---
PROCEDURE: CHEST RADIOGRAPH, 1 VIEW HISTORY: confirm ET Tube placement COMPARISON: Comparison is made to 06/25/2017 FINDINGS: LUNGS: Interval worsening of hazy opacity at the right lung base since the previous exam. Otherwise no significant interval change. PLEURA: Blunting of the right costophrenic angle likely due to pleural effusion CARDIOVASCULAR: Normal. OSSEOUS STRUCTURES: No significant abnormalities. VISUALIZED UPPER ABDOMEN: Normal. OTHER FINDINGS: Right-sided Infusaport is seen in place. IMPRESSION: Heterogeneous infiltrate and opacity at the right lower lobe worse compared to the previous exam. Suspicious for small right pleural effusion.
[2017-06-26] MEDS ORDERED: Albumin Human 25% (12.5 gm/50 ml) IV ONE ×2 (18:12→23:03)
[2017-06-26] MEDS ORDERED: Sodium Chloride 0.9% 500 ML IV ONE (18:15)
[2017-06-26] MEDS ORDERED: (Novolin N) Insulin Human Isophane (NPH) 100 u/ml 10 ml vial SC STA (20:25)
--- NOTE | 2017-06-26 20:28 | CP.PCM.PN ---
Subjective - Date & Time of Evaluation Date of Evaluation: 06/26/17 Time of Evaluation: 20:27 - Subjective Subjective: Patient started on Insulin lantus 15 units subq hs and NPH 5 units stat. Objective - Vital Signs/Intake and Output Vital Signs (last 24 hours): Temp Pulse Resp BP Pulse Ox 98.3 F 111 H 17 82/48 L 99 06/26/17 16:00 06/26/17 19:00 06/26/17 19:00 06/26/17 18:22 06/26/17 19:00 Intake and Output: 06/26/17 06/27/17 18:59 06:59 Intake Total 946.2 533.7 Output Total 330 30 Balance 616.2 503.7 - Medications Medications: Current Medications Acetaminophen (Tylenol 650mg/20.3ml Solution Ud) 650 mg GT Q6 PRN PRN Reason: Pain, Mild (1-3) Albuterol Sulfate (Albuterol 0.083% Inhal Anita (2.5 Mg/3 Ml) Ud) 2.5 mg INH RQ6 [facility] Last Admin: 06/26/17 19:48 Dose: 2.5 mg Heparin Sodium (Porcine) (Heparin) 5,000 units SC Q8H [facility] Last Admin: 06/26/17 13:20 Dose: 5,000 units Fluconazole (Diflucan Iv 100 Mg/50 Ml Ns) 50 mls @ 100 mls/hr IVPB DAILY [facility] Last Admin: 06/26/17 10:39 Dose: 100 mls/hr Propofol (Diprivan) 1,000 mg in 100 mls @ 2.313 mls/hr IV .Q24H PRN; Protocol; 5 MCG/KG/MIN PRN Reason: TITRATE PER MD ORDER Last Titration: 06/26/17 07:18 Dose: 8 mcg/kg/min, 3.701 mls/hr Imipenem/Cilastatin Sodium 500 (mg/ Sodium Chloride) 100 mls @ 100 mls/hr IVPB Q8H [facility] Last Admin: 06/26/17 11:51 Dose: 100 mls/hr Vancomycin/Sodium Chloride (Vancocin) 1 gm in 200 mls @ 166.7 mls/hr IVPB Q24H [facility] Stop: 06/30/17 14:01 Last Admin: 06/26/17 13:21 Dose: 166.7 mls/hr Metronidazole 250 mg/ (Miscellaneous) 50 mls @ 100 mls/hr IVPB Q8 [facility] CARLOS Last Admin: 06/26/17 13:20 Dose: 100 mls/hr Insulin Human Regular (Novolin R) 0 unit SC Q6 JU[facility] CARLOS PRN Reason: Protocol Last Admin: 06/26/17 17:56 Dose: 8 unit Morphine Sulfate (Morphine) 2 mg IVP Q4 PRN PRN Reason: Pain, moderate (4-7) Last Admin: 06/26/17 03:18 Dose: 2 mg Pantoprazole Sodium (Protonix Inj) 40 mg IVP DAILY [facility] Last Admin: 06/26/17 10:39 Dose: 40 mg - Labs Labs: 06/26/17 06:17 06/26/17 06:17 PT 15.7 SECONDS (9.7-12.2) H 06/20/17 11:44 INR 1.4 06/20/17 11:44 APTT 26 SECONDS (21-34) 06/20/17 11:44
[2017-06-26] MEDS: (Lantus) Insulin Glargine, Recombinant SC SCH (21:07)
--- NOTE | 2017-06-26 21:45 | CP.PCM.PN ---
Subjective - Date & Time of Evaluation Date of Evaluation: 06/26/17 Time of Evaluation: 16:00 - Subjective Subjective: pt has increasing leukocytosis, he is not doing well, hypotensive, sugars are up Objective - Vital Signs/Intake and Output Vital Signs (last 24 hours): Temp Pulse Resp BP Pulse Ox 98.3 F 111 H 17 82/48 L 99 06/26/17 16:00 06/26/17 19:00 06/26/17 19:00 06/26/17 18:22 06/26/17 19:00 Intake and Output: 06/26/17 06/27/17 18:59 06:59 Intake Total 946.2 533.7 Output Total 330 30 Balance 616.2 503.7 - Medications Medications: Current Medications Acetaminophen (Tylenol 650mg/20.3ml Solution Ud) 650 mg GT Q6 PRN PRN Reason: Pain, Mild (1-3) Albuterol Sulfate (Albuterol 0.083% Inhal Anita (2.5 Mg/3 Ml) Ud) 2.5 mg INH RQ6 [facility] Last Admin: 06/26/17 19:48 Dose: 2.5 mg Heparin Sodium (Porcine) (Heparin) 5,000 units SC Q8H [facility] Last Admin: 06/26/17 21:07 Dose: 5,000 units Fluconazole (Diflucan Iv 100 Mg/50 Ml Ns) 50 mls @ 100 mls/hr IVPB DAILY [facility] Last Admin: 06/26/17 10:39 Dose: 100 mls/hr Propofol (Diprivan) 1,000 mg in 100 mls @ 2.313 mls/hr IV .Q24H PRN; Protocol; 5 MCG/KG/MIN PRN Reason: TITRATE PER MD ORDER Last Titration: 06/26/17 07:18 Dose: 8 mcg/kg/min, 3.701 mls/hr Imipenem/Cilastatin Sodium 500 (mg/ Sodium Chloride) 100 mls @ 100 mls/hr IVPB Q8H [facility] Last Admin: 06/26/17 20:58 Dose: 100 mls/hr Vancomycin/Sodium Chloride (Vancocin) 1 gm in 200 mls @ 166.7 mls/hr IVPB Q24H [facility] Stop: 06/30/17 14:01 Last Admin: 06/26/17 13:21 Dose: 166.7 mls/hr Metronidazole 250 mg/ (Miscellaneous) 50 mls @ 100 mls/hr IVPB Q8 [facility] Last Admin: 06/26/17 20:59 Dose: 100 mls/hr Insulin Glargine (Lantus) 15 unit SC HS [facility] Last Admin: 06/26/17 21:07 Dose: 15 units Insulin Human Regular (Novolin R) 0 unit SC Q6 [facility] CARLOS PRN Reason: Protocol Last Admin: 06/26/17 17:56 Dose: 8 unit Morphine Sulfate (Morphine) 2 mg IVP Q4 PRN PRN Reason: Pain, moderate (4-7) Last Admin: 06/26/17 03:18 Dose: 2 mg Pantoprazole Sodium (Protonix Inj) 40 mg IVP DAILY [facility] Last Admin: 06/26/17 10:39 Dose: 40 mg - Labs Labs: 06/26/17 06:17 06/26/17 06:17 PT 15.7 SECONDS (9.7-12.2) H 06/20/17 11:44 INR 1.4 06/20/17 11:44 APTT 26 SECONDS (21-34) 06/20/17 11:44 - Constitutional Appears: In Acute Distress, Chronically Ill - Head Exam Head Exam: ATRAUMATIC, NORMAL INSPECTION, NORMOCEPHALIC - Eye Exam Eye Exam: EOMI, Normal appearance, PERRL Pupil Exam: NORMAL ACCOMODATION, PERRL - Respiratory Exam Respiratory Exam: Decreased Breath Sounds, Rales, Rhonchi - Cardiovascular Exam Cardiovascular Exam: REGULAR RHYTHM, +S1, +S2. absent: Murmur - GI/Abdominal Exam GI & Abdominal Exam: Soft, Normal Bowel Sounds. absent: Tenderness Assessment and Plan (1) Mass of left side of neck Status: Acute (2) Dysphagia Status: Acute (3) Dehydration Status: Acute (4) Lactic acid acidosis Status: Acute (5) Respiratory failure Assessment & Plan: on mechanical ventilator etiology of resp failure is most likey pnemonia Status: Acute (6) Oropharyngeal cancer Status: Acute (7) Septicemia Assessment & Plan: continu antibiotics ID EVAL Status: Acute
--- NOTE | 2017-06-26 23:06 | CP.PCM.PCO ---
Physician Communication Note - Physician Communication Note Physician Communication Note: Additional 25g of albumin, added PEG vanco, cortisol level
[2017-06-27] MEDS: Vancomycin 125 MG/5 ML SOLN (ORAL/RECTAL) PO SCH ×5 (00:22→22:46)
[2017-06-27] MEDS: Bacitracin/Neomycin/Polymyxin Oint(30GM) TOP SCH ×3 (00:23→17:55)
[2017-06-27] MEDS: (Novolin R) Insulin Human Regular 100 units/ml vial SC SCH ×4 (00:26→17:53)
[2017-06-27] MEDS ORDERED: Lactated Ringer's 1,000 ML IV ONE (00:40)
[2017-06-27] MEDS: Albuterol 0.083% Inhal Sol (2.5 mg/3 mL) UD INH SCH ×3 (01:12→13:15)
[2017-06-27] MEDS: metroNIDAZOLE IV 500 mg/100 ml 250 MG in Premixed IV 1 EA IVPB SCH ×3 (06:15→22:45)
[2017-06-27 06:17] LABS: ABG ALLEN TEST POS; ABG MECHANICAL RATE 20; ARTERIAL BLOOD GAS MODE PRVC; ARTERIAL BLOOD HGB O2 SAT 96.4 % (95.0-98.0); ATERIAL BLOOD GAS PEEP 5; CARBOXYHEMOGLOBIN 1.7 % (0.5-1.5); DRAW SITE R RAD; HHB 0.3 % (0.0-5.0); METHEMOGLOBIN 1.6 % (0.0-3.0)
[2017-06-27 06:42] LABS: BASO # 0.1 K/uL (0.0-0.2); BASO % 0.2 % (0.0-2.0); EOS % 0.2 % (0.0-4.0); HEMATOCRIT 28.5 % (35.0-51.0); LYMPH # 1.5 K/uL (1.0-4.3); LYMPH % 5.9 % (20.0-40.0); MEAN CELL VOLUME 95.9 fL (80.0-94.0); MEAN CORPUSCULAR HEMOGLOBIN 31.1 pg (27.0-31.0); MEAN CORPUSCULAR HGB CONC 32.5 g/dL (33.0-37.0); MEAN PLATELET VOLUME 11.2 fL (7.2-11.7); MONO # 0.4 K/uL (0.0-0.8); MONO % 1.5 % (0.0-10.0); PLATELET COUNT 180 K/uL (130-400); RED CELL DISTRIBUTION WIDTH 15.3 % (11.5-14.5); WHITE BLOOD COUNT 26.1 K/uL (4.8-10.8)
[2017-06-27 07:07] LABS: CHLORIDE 122 mmol/L (98-107); SODIUM 156 mmol/L (132-148)
[2017-06-27 07:08] LABS: POTASSIUM 4.6 mmol/L (3.6-5.2)
[2017-06-27 07:10] LABS: ALKALINE PHOSPHATASE 247 U/L (38-126); AST/SGOT 56 U/L (17-59); BILIRUBIN,TOTAL 0.5 mg/dL (0.2-1.3); BLOOD UREA NITROGEN 81 mg/dL (9-20); CARBON DIOXIDE 22 mmol/L (22-30); GFR AFRICAN-AMERICAN > 60; GLUCOSE,RANDOM 138 mg/dL (75-110); PHOSPHOROUS 2.6 mg/dL (2.5-4.5); TOTAL PROTEIN 5.1 g/dL (6.3-8.3)
[2017-06-27 07:11] LABS: ALT/SGPT 48 U/L (21-72); CALCIUM 7.8 mg/dl (8.6-10.4); MAGNESIUM 2.8 mg/dL (1.6-2.3)
[2017-06-27 07:23] LABS: ALB/GLOB RATIO 0.6 (1.0-2.1)
[2017-06-27 08:15] LABS: NEUTROPHIL 92 % (50-75); NUCLEATED RED BLOOD CELL 2 % (0-0); TOTAL CELLS COUNTED 100
[2017-06-27] MEDS: Fluconazole IV 100mg/50 ml NS 50 ML IVPB SCH (10:50)
--- NOTE | 2017-06-27 11:31 | CP.CCUPN ---
CCU Subjective - Physician Review Subjective (Free Text): Patient was seen and examined at bedside. Patient remains intubated. Unable to evaluate adequate ROS due to patient current clinical status. CCU Objective - Vital Signs / Intake & Output Vital Signs (Last 4 hours): Vital Signs Temp Pulse Resp BP Pulse Ox 06/27/17 11:06 96 H 15 128/54 L 97 06/27/17 11:00 98 H 18 98 06/27/17 10:47 99 H 22 113/57 L 98 06/27/17 10:17 97 H 17 104/31 L 98 06/27/17 10:00 96 H 16 97 06/27/17 09:47 97 H 14 98/33 L 96 06/27/17 09:17 97 H 17 104/32 L 96 06/27/17 09:00 96 H 17 96 06/27/17 08:47 91 H 18 105/47 L 97 06/27/17 08:17 92 H 15 103/40 L 100 06/27/17 08:00 98 F 94 H 20 100 06/27/17 07:47 97 H 21 93/42 L 100 Intake and Output (Last 8hrs): Intake & Output 06/26/17 06/27/17 06/27/17 22:59 06:59 14:59 Intake Total 1069.6 1660.2 48.7 Output Total 225 325 100 Balance 844.6 1335.2 -51.3 Intake: IV 39 Intake, IV Amount 679.6 1381.2 18.7 Right Port-A-Cath 150 1351.6 15 left forearm 500 right PC side port 29.6 29.6 3.7 Tube Feeding 240 240 30 Other 150 Output: Urine 225 325 100 Urine, Voided 225 325 100 - Physical Exam Head: Positive for: Atraumatic Extroacular Muscles: Positive for: EOMI Respiratory/Chest: Positive for: Good Air Exchange (Anteriorly ), Other ( Patient is currently inutbated ). Negative for: Respiratory Distress, Accessory Muscle Use Cardiovascular: Positive for: Regular Rate and Rhythm, Murmurs, Normal S1, S2 Abdomen: Positive for: Other (Mildly diminished bowel sounds ). Negative for: Tenderness, Distention, Normal Bowel Sounds Upper Extremity: Negative for: Edema Lower Extremity: Positive for: Edema. Negative for: Swelling Neurological: Negative for: GCS=15, Speech Normal Skin: Positive for: Normal Color - Medications Active Medications: Active Medications Generic Name Dose Route Start Last Admin Trade Name Freq PRN Reason Stop Dose Admin Acetaminophen 650 mg 06/16/17 17:25 Tylenol 650mg/20.3ml Solution Ud GT Q6 PRN Pain, Mild (1-3) Albuterol Sulfate 2.5 mg 06/25/17 12:00 06/27/17 07:28 Albuterol 0.083% Inhal Anita (2.5 Mg/3 Ml) Ud INH 2.5 mg RQ6 JUAN CARLOS Administration Famotidine 20 mg 06/27/17 10:15 06/27/17 10:50 Pepcid IVP 20 mg DAILY JUAN CARLOS Administration Heparin Sodium (Porcine) 5,000 units 06/25/17 22:00 06/27/17 06:10 Heparin SC 5,000 units Q8H JUAN CARLOS Administration Fluconazole 50 mls @ 100 mls/hr 06/22/17 10:00 06/27/17 10:50 Diflucan Iv 100 Mg/50 Ml Ns IVPB 100 mls/hr DAILY JUAN CARLOS Administration Propofol 1,000 mg in 100 mls @ 2.313 mls/hr 06/21/17 19:02 06/26/17 07:18 Diprivan IV 8 mcg/kg/min .Q24H PRN 3.701 mls/hr TITRATE PER MD ORDER Titration Protocol 5 MCG/KG/MIN Imipenem/Cilastatin Sodium 500 100 mls @ 100 mls/hr 06/22/17 12:00 06/27/17 03:02 mg/ Sodium Chloride IVPB 100 mls/hr Q8H JUAN CARLOS Administration Vancomycin/Sodium Chloride 1 gm in 200 mls @ 166.7 mls/hr 06/25/17 14:00 13:21 Vancocin IVPB 06/30/17 14:01 166.7 mls/hr Q24H JUAN CARLOS Administration Metronidazole 250 mg/ 50 mls @ 100 mls/hr 06/26/17 06:00 06/27/17 06:15 Miscellaneous IVPB 100 mls/hr Q8 JUAN CARLOS Administration Norepinephrine Bitartrate 8 mg 258 mls @ 7.74 mls/hr 06/27/17 00:40 06/27/17 06:47 / Sodium Chloride IV 8 mcg/min .Q24H PRN 15.48 mls/hr TITRATE PER MD ORDER Titration Protocol 4 MCG/MIN Insulin Glargine 15 unit 06/26/17 22:00 06/26/17 21:07 Lantus SC 15 units HS JUAN CARLOS Administration Insulin Human Regular 0 unit 06/26/17 10:36 06/27/17 06:25 Novolin R SC 2 unit Q6 JUAN CARLOS Administration Protocol Morphine Sulfate 2 mg 06/25/17 10:14 06/26/17 03:18 Morphine IVP 2 mg Q4 PRN Administration Pain, moderate (4-7) Neomycin/Polymyxin/Bacitracin 0.5 gm 06/26/17 22:30 06/27/17 10:51 Neosporin Triple Antibiotic Oint TOP 1 applic BID JUAN CARLOS Administration Vancomycin HCl 250 mg 06/26/17 23:15 06/27/17 10:56 Vancocin (Oral Or Rectal Use) PO 250 mg QID JUAN CARLOS Administration - Patient Studies Lab Studies: Microbiology Studies 06/25/17 10:09 Gram Stain - Final Abdomen Wound Culture - Final Klebsiella Pneumoniae Ssp Pneu Lab Studies 06/27/17 06/27/17 06/27/17 Range/Units 06:28 06:28 06:28 WBC 26.1 H (4.8-10.8) K/uL RBC 2.97 L (4.40-5.90) Mil/uL Hgb 9.2 L (12.0-18.0) g/dL Hct 28.5 L (35.0-51.0) % MCV 95.9 H (80.0-94.0) fL MCH 31.1 H (27.0-31.0) pg MCHC 32.5 L (33.0-37.0) g/dL RDW 15.3 H (11.5-14.5) % Plt Count 180 (130-400) K/uL MPV 11.2 (7.2-11.7) fL Neut % (Auto) 92.2 H (50.0-75.0) % Lymph % (Auto) 5.9 L (20.0-40.0) % [place] % (Auto) 1.5 (0.0-10.0) % Eos % (Auto) 0.2 (0.0-4.0) % Baso % (Auto) 0.2 (0.0-2.0) % Neut # 24.1 H (1.8-7.0) K/uL Lymph # 1.5 (1.0-4.3) K/uL [place] # 0.4 (0.0-0.8) K/uL Eos # 0.0 (0.0-0.7) K/uL Baso # 0.1 (0.0-0.2) K/uL Neutrophils % (Manual) 92 H (50-75) % Band Neutrophils % 5 H (0-2) % Lymphocytes % (Manual) 2 L (20-40) % Monocytes % (Manual) 1 (0-10) % Nucleated RBC % 2 H (0-0) % Platelet Estimate Normal (NORMAL) Polychromasia Slight Hypochromasia (manual) Slight Anisocytosis (manual) Slight Puncture Site pCO2 (35-45) mm/Hg pO2 (80-100) mm/Hg HCO3 (21-28) mmol/L ABG pH (7.35-7.45) ABG Total CO2 (22-28) mmol/L ABG O2 Saturation (95-98) % ABG Base Excess (-2.0-3.0) mmol/L ABG Hemoglobin (11.7-17.4) g/dL ABG Carboxyhemoglobin (0.5-1.5) % POC ABG HHb (Measured) (0.0-5.0) % ABG Methemoglobin (0.0-3.0) % Harlan Test A-a O2 Difference mm/Hg Respiratory Index Hgb O2 Saturation (95.0-98.0) % Vent Mode Mechanical Rate FiO2 % Tidal Volume PEEP Sodium 156 H (132-148) mmol/L Potassium 4.6 (3.6-5.2) mmol/L Chloride 122 H (98-107) mmol/L Carbon Dioxide 22 (22-30) mmol/L Anion Gap 17 (10-20) BUN 81 H (9-20) mg/dL Creatinine 1.2 (0.8-1.5) mg/dL Est GFR ( Amer) > 60 Est GFR (Non-Af Amer) 58 POC Glucose (mg/dL) (65-110) mg/dL Random Glucose 138 H (75-110) mg/dL Calcium 7.8 L (8.6-10.4) mg/dl Phosphorus 2.6 (2.5-4.5) mg/dL Magnesium 2.8 H (1.6-2.3) mg/dL Total Bilirubin 0.5 (0.2-1.3) mg/dL AST 56 (17-59) U/L ALT 48 (21-72) U/L Alkaline Phosphatase 247 H (38-126) U/L Total Protein 5.1 L (6.3-8.3) g/dL Albumin 2.0 L (3.5-5.0) g/dL Globulin 3.1 (2.2-3.9) gm/dL Albumin/Globulin Ratio 0.6 L (1.0-2.1) Cortisol AM Sample 61.4 H (4.46-22.7) ug/dL 06/27/17 06/27/17 06/26/17 Range/Units 05:30 04:58 23:55 WBC (4.8-10.8) K/uL RBC (4.40-5.90) Mil/uL Hgb (12.0-18.0) g/dL Hct (35.0-51.0) % MCV (80.0-94.0) fL MCH (27.0-31.0) pg MCHC (33.0-37.0) g/dL RDW (11.5-14.5) % Plt Count (130-400) K/uL MPV (7.2-11.7) fL Neut % (Auto) (50.0-75.0) % Lymph % (Auto) (20.0-40.0) % [place] % (Auto) (0.0-10.0) % Eos % (Auto) (0.0-4.0) % Baso % (Auto) (0.0-2.0) % Neut # (1.8-7.0) K/uL Lymph # (1.0-4.3) K/uL [place] # (0.0-0.8) K/uL Eos # (0.0-0.7) K/uL Baso # (0.0-0.2) K/uL Neutrophils % (Manual) (50-75) % Band Neutrophils % (0-2) % Lymphocytes % (Manual) (20-40) % Monocytes % (Manual) (0-10) % Nucleated RBC % (0-0) % Platelet Estimate (NORMAL) Polychromasia Hypochromasia (manual) Anisocytosis (manual) Puncture Site R rad pCO2 39 (35-45) mm/Hg pO2 108 H (80-100) mm/Hg HCO3 22.4 (21-28) mmol/L ABG pH 7.36 (7.35-7.45) ABG Total CO2 23.2 (22-28) mmol/L ABG O2 Saturation 99.7 H (95-98) % ABG Base Excess -3.2 L (-2.0-3.0) mmol/L ABG Hemoglobin 10.2 L (11.7-17.4) g/dL ABG Carboxyhemoglobin 1.7 H (0.5-1.5) % POC ABG HHb (Measured) 0.3 (0.0-5.0) % ABG Methemoglobin 1.6 (0.0-3.0) % Harlan Test Pos A-a O2 Difference 342.0 mm/Hg Respiratory Index 3.2 Hgb O2 Saturation 96.4 (95.0-98.0) % Vent Mode Prvc Mechanical Rate 20 FiO2 70.0 % Tidal Volume 550 PEEP 5 Sodium (132-148) mmol/L Potassium (3.6-5.2) mmol/L Chloride (98-107) mmol/L Carbon Dioxide (22-30) mmol/L Anion Gap (10-20) BUN (9-20) mg/dL Creatinine (0.8-1.5) mg/dL Est GFR ( Amer) Est GFR (Non-Af Amer) POC Glucose (mg/dL) 152 H 247 H (65-110) mg/dL Random Glucose (75-110) mg/dL Calcium (8.6-10.4) mg/dl Phosphorus (2.5-4.5) mg/dL Magnesium (1.6-2.3) mg/dL Total Bilirubin (0.2-1.3) mg/dL AST (17-59) U/L ALT (21-72) U/L Alkaline Phosphatase (38-126) U/L Total Protein (6.3-8.3) g/dL Albumin (3.5-5.0) g/dL Globulin (2.2-3.9) gm/dL Albumin/Globulin Ratio (1.0-2.1) Cortisol AM Sample (4.46-22.7) ug/dL 06/26/17 06/26/17 Range/Units 17:44 11:58 WBC (4.8-10.8) K/uL RBC (4.40-5.90) Mil/uL Hgb (12.0-18.0) g/dL Hct (35.0-51.0) % MCV (80.0-94.0) fL MCH (27.0-31.0) pg MCHC (33.0-37.0) g/dL RDW (11.5-14.5) % Plt Count (130-400) K/uL MPV (7.2-11.7) fL Neut % (Auto) (50.0-75.0) % Lymph % (Auto) (20.0-40.0) % [place] % (Auto) (0.0-10.0) % Eos % (Auto) (0.0-4.0) % Baso % (Auto) (0.0-2.0) % Neut # (1.8-7.0) K/uL Lymph # (1.0-4.3) K/uL [place] # (0.0-0.8) K/uL Eos # (0.0-0.7) K/uL Baso # (0.0-0.2) K/uL Neutrophils % (Manual) (50-75) % Band Neutrophils % (0-2) % Lymphocytes % (Manual) (20-40) % Monocytes % (Manual) (0-10) % Nucleated RBC % (0-0) % Platelet Estimate (NORMAL) Polychromasia Hypochromasia (manual) Anisocytosis (manual) Puncture Site pCO2 (35-45) mm/Hg pO2 (80-100) mm/Hg HCO3 (21-28) mmol/L ABG pH (7.35-7.45) ABG Total CO2 (22-28) mmol/L ABG O2 Saturation (95-98) % ABG Base Excess (-2.0-3.0) mmol/L ABG Hemoglobin (11.7-17.4) g/dL ABG Carboxyhemoglobin (0.5-1.5) % POC ABG HHb (Measured) (0.0-5.0) % ABG Methemoglobin (0.0-3.0) % Harlan Test A-a O2 Difference mm/Hg Respiratory Index Hgb O2 Saturation (95.0-98.0) % Vent Mode Mechanical Rate FiO2 % Tidal Volume PEEP Sodium (132-148) mmol/L Potassium (3.6-5.2) mmol/L Chloride (98-107) mmol/L Carbon Dioxide (22-30) mmol/L Anion Gap (10-20) BUN (9-20) mg/dL Creatinine (0.8-1.5) mg/dL Est GFR ( Amer) Est GFR (Non-Af Amer) POC Glucose (mg/dL) 340 H 322 H (65-110) mg/dL Random Glucose (75-110) mg/dL Calcium (8.6-10.4) mg/dl Phosphorus (2.5-4.5) mg/dL Magnesium (1.6-2.3) mg/dL Total Bilirubin (0.2-1.3) mg/dL AST (17-59) U/L ALT (21-72) U/L Alkaline Phosphatase (38-126) U/L Total Protein (6.3-8.3) g/dL Albumin (3.5-5.0) g/dL Globulin (2.2-3.9) gm/dL Albumin/Globulin Ratio (1.0-2.1) Cortisol AM Sample (4.46-22.7) ug/dL Laboratory Results - last 24 hr 06/26/17 06/26/17 06/26/17 11:58 17:44 23:55 WBC RBC Hgb Hct MCV MCH MCHC RDW Plt Count MPV Neut % (Auto) Lymph % (Auto) [place] % (Auto) Eos % (Auto) Baso % (Auto) Neut # Lymph # [place] # Eos # Baso # Neutrophils % (Manual) Band Neutrophils % Lymphocytes % (Manual) Monocytes % (Manual) Nucleated RBC % Platelet Estimate Polychromasia Hypochromasia (manual) Anisocytosis (manual) Puncture Site pCO2 pO2 HCO3 ABG pH ABG Total CO2 ABG O2 Saturation ABG Base Excess ABG Hemoglobin ABG Carboxyhemoglobin POC ABG HHb (Measured) ABG Methemoglobin [place]lan Test A-a O2 Difference Respiratory Index Hgb O2 Saturation Vent Mode Mechanical Rate FiO2 Tidal Volume PEEP Sodium Potassium Chloride Carbon Dioxide Anion Gap BUN Creatinine Est GFR ( Amer) Est GFR (Non-Af Amer) POC Glucose (mg/dL) 322 H 340 H 247 H Random Glucose Calcium Phosphorus Magnesium Total Bilirubin AST ALT Alkaline Phosphatase Total Protein Albumin Globulin Albumin/Globulin Ratio Cortisol AM Sample 06/27/17 06/27/17 06/27/17 04:58 05:30 06:28 WBC 26.1 H RBC 2.97 L Hgb 9.2 L Hct 28.5 L MCV 95.9 H MCH 31.1 H MCHC 32.5 L RDW 15.3 H Plt Count 180 MPV 11.2 Neut % (Auto) 92.2 H Lymph % (Auto) 5.9 L [place] % (Auto) 1.5 Eos % (Auto) 0.2 Baso % (Auto) 0.2 Neut # 24.1 H Lymph # 1.5 [place] # 0.4 Eos # 0.0 Baso # 0.1 Neutrophils % (Manual) 92 H Band Neutrophils % 5 H Lymphocytes % (Manual) 2 L Monocytes % (Manual) 1 Nucleated RBC % 2 H Platelet Estimate Normal Polychromasia Slight Hypochromasia (manual) Slight Anisocytosis (manual) Slight Puncture Site R rad pCO2 39 pO2 108 H HCO3 22.4 ABG pH 7.36 ABG Total CO2 23.2 ABG O2 Saturation 99.7 H ABG Base Excess -3.2 L ABG Hemoglobin 10.2 L ABG Carboxyhemoglobin 1.7 H POC ABG HHb (Measured) 0.3 ABG Methemoglobin 1.6 Harlan Test Pos A-a O2 Difference 342.0 Respiratory Index 3.2 Hgb O2 Saturation 96.4 Vent Mode Prvc Mechanical Rate 20 FiO2 70.0 Tidal Volume 550 PEEP 5 Sodium Potassium Chloride Carbon Dioxide Anion Gap BUN Creatinine Est GFR ( Amer) Est GFR (Non-Af Amer) POC Glucose (mg/dL) 152 H Random Glucose Calcium Phosphorus Magnesium Total Bilirubin AST ALT Alkaline Phosphatase Total Protein Albumin Globulin Albumin/Globulin Ratio Cortisol AM Sample 06/27/17 06/27/17 06:28 06:28 WBC RBC Hgb Hct MCV MCH MCHC RDW Plt Count MPV Neut % (Auto) Lymph % (Auto) [place] % (Auto) Eos % (Auto) Baso % (Auto) Neut # Lymph # [place] # Eos # Baso # Neutrophils % (Manual) Band Neutrophils % Lymphocytes % (Manual) Monocytes % (Manual) Nucleated RBC % Platelet Estimate Polychromasia Hypochromasia (manual) Anisocytosis (manual) Puncture Site pCO2 pO2 HCO3 ABG pH ABG Total CO2 ABG O2 Saturation ABG Base Excess ABG Hemoglobin ABG Carboxyhemoglobin POC ABG HHb (Measured) ABG Methemoglobin [place] Test A-a O2 Difference Respiratory Index Hgb O2 Saturation Vent Mode Mechanical Rate FiO2 Tidal Volume PEEP Sodium 156 H Potassium 4.6 Chloride 122 H Carbon Dioxide 22 Anion Gap 17 BUN 81 H Creatinine 1.2 Est GFR ( Amer) > 60 Est GFR (Non-Af Amer) 58 POC Glucose (mg/dL) Random Glucose 138 H Calcium 7.8 L Phosphorus 2.6 Magnesium 2.8 H Total Bilirubin 0.5 AST 56 ALT 48 Alkaline Phosphatase 247 H Total Protein 5.1 L Albumin 2.0 L Globulin 3.1 Albumin/Globulin Ratio 0.6 L Cortisol AM Sample 61.4 H Fingerstick Blood Sugar Results: 153 Review of Systems - Review of Systems Review of Systems: Unable to evaluate adequate ROS due to patient's current clinical status Critical Care Progress Note - Ventilator Checklist Daily Sedation Vacation: Yes Daily Assessment of Readiness to Wean: No Daily Spontaneous Breathing Trial: No PUD Prophalyxis: Yes DVT Prophylaxis: Yes - Nutrition Nutrition: Nutrition Category Date Time Status NPO Diet [DIET] Diets 06/14/17 Lunch Active Assessment/Plan - Assessment and Plan (Free Text) Assessment: 81 y/o male, with no significant past medical history, presents to emergency department for evaluation of left lateral neck mass underneath the chin extending from jaw (Submandibular mass), 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 Sheppard on board---> Help appreciated Palliative consult, Veronica on board---> Help appreciated ENT, Dr. Salgado on board---> Help appreciated Medication/Managment: * Fluconazole 100mg IV daily * Morphine 2mg IVP Q6 PRN Neuro: Intubated Medication/Management: * Propofol 1,000mg IV 5mcg/kg/min Cardio: Hypotension Medication/Management: * Levophed 8mg IV 4mcg/min Pulm: Pneumonia and difficulty breathing secondary to enlarged submandibular mass Chest X-ray (06/20/17): New opacity mid right lung and questionable opacity at right base Gold Marker consult, Dr. GREY---> Help appreciated Medication/Management: * Intubated * Duonebs 2.5mg INH RQ6H * Azithromycin 500mg IVPB Q24H ( started 06/20/17) GI: No acute distress Endo: Elevated blood glucose Medication/Management: * Accuchecks * ISS high dose protocol Q6 * Lantus 15 unit SC HS ID: Code sepsis Lactate: 6.4, 6.1, 5.7 ( Trending down), Bandemia, Leukocytosis Infectious Disease consult, Dr. Dominguez---> Help appreciated Medication/Management: * Zosyn 3.375gm IVPB Q8H ( Started 06/20/17)---> stopped (06/22/17) * Primaxin 500mg IV Q8H ( Started 06/22/17) * Vanco 1gm IVPB Q24H ( Started 06/20/17) * Vanco 250mg PO QID rectally * Flagyl 500mg/100mh, 250mg IVPB Q8H (06/26/17) * D5WNS @100mls/hr * Tylenol 650mg GT Q6 prn Prophylaxis: DVT: SCDs, anticogulation on hold GI: Protonix 40mg IVP daily
--- NOTE | 2017-06-27 11:51 | CP.PCM.PN ---
Objective - Vital Signs/Intake and Output Vital Signs (last 24 hours): Temp Pulse Resp BP Pulse Ox 98 F 96 H 15 128/54 L 97 06/27/17 08:00 06/27/17 11:06 06/27/17 11:06 06/27/17 11:06 06/27/17 11:06 Intake and Output: 06/27/17 06/27/17 06:59 18:59 Intake Total 2445.0 243.5 Output Total 430 100 Balance 2015.0 143.5 - Medications Medications: Current Medications Acetaminophen (Tylenol 650mg/20.3ml Solution Ud) 650 mg GT Q6 PRN PRN Reason: Pain, Mild (1-3) Albuterol Sulfate (Albuterol 0.083% Inhal Anita (2.5 Mg/3 Ml) Ud) 2.5 mg INH RQ6 [facility] Last Admin: 06/27/17 07:28 Dose: 2.5 mg Famotidine (Pepcid) 20 mg IVP DAILY [facility] Last Admin: 06/27/17 10:50 Dose: 20 mg Heparin Sodium (Porcine) (Heparin) 5,000 units SC Q8H [facility] Last Admin: 06/27/17 06:10 Dose: 5,000 units Fluconazole (Diflucan Iv 100 Mg/50 Ml Ns) 50 mls @ 100 mls/hr IVPB DAILY [facility] Last Admin: 06/27/17 10:50 Dose: 100 mls/hr Propofol (Diprivan) 1,000 mg in 100 mls @ 2.313 mls/hr IV .Q24H PRN; Protocol; 5 MCG/KG/MIN PRN Reason: TITRATE PER MD ORDER Last Titration: 06/26/17 07:18 Dose: 8 mcg/kg/min, 3.701 mls/hr Imipenem/Cilastatin Sodium 500 (mg/ Sodium Chloride) 100 mls @ 100 mls/hr IVPB Q8H [facility] Last Admin: 06/27/17 11:33 Dose: 100 mls/hr Vancomycin/Sodium Chloride (Vancocin) 1 gm in 200 mls @ 166.7 mls/hr IVPB Q24H [facility] Stop: 06/30/17 14:01 Last Admin: 06/26/17 13:21 Dose: 166.7 mls/hr Metronidazole 250 mg/ (Miscellaneous) 50 mls @ 100 mls/hr IVPB Q8 [facility] Last Admin: 06/27/17 06:15 Dose: 100 mls/hr Norepinephrine Bitartrate 8 mg (/ Sodium Chloride) 258 mls @ 7.74 mls/hr IV .Q24H PRN; Protocol; 4 MCG/MIN PRN Reason: TITRATE PER MD ORDER Last Titration: 06/27/17 06:47 Dose: 8 mcg/min, 15.48 mls/hr Insulin Glargine (Lantus) 15 unit SC HS [facility] Last Admin: 06/26/17 21:07 Dose: 15 units Insulin Human Regular (Novolin R) 0 unit SC Q6 JUAN CARLOS PRN Reason: Protocol Last Admin: 06/27/17 06:25 Dose: 2 unit Morphine Sulfate (Morphine) 2 mg IVP Q4 PRN PRN Reason: Pain, moderate (4-7) Last Admin: 06/26/17 03:18 Dose: 2 mg Neomycin/Polymyxin/Bacitracin (Neosporin Triple Antibiotic Oint) 0.5 gm TOP BID [facility] Last Admin: 06/27/17 10:51 Dose: 1 applic Vancomycin HCl (Vancocin (Oral Or Rectal Use)) 250 mg PO QID [facility] Last Admin: 06/27/17 10:56 Dose: 250 mg - Labs Labs: 06/27/17 06:28 06/27/17 06:28 PT 15.7 SECONDS (9.7-12.2) H 06/20/17 11:44 INR 1.4 06/20/17 11:44 APTT 26 SECONDS (21-34) 06/20/17 11:44 Assessment and Plan (1) Respiratory failure Status: Acute (2) Oropharyngeal cancer Status: Acute (3) Pneumonia Status: Acute
--- NOTE | 2017-06-27 12:00 | RAD ---
Chest x-ray single frontal view History: Intubation. Comparison: 06/26/2017 Findings: Lines and tubes in stable position. Moderate left pleural effusion and small right pleural effusion. Confluent airspace opacification in the mid to lower lung zones bilaterally ; left greater than right. Moderate venous congestion. Scattered nodular densities in both lung poe. Mild cardiomegaly. Calcification at the aortic knob. Degenerative changes in the spine and shoulders. Impression: Lines and tubes in stable position. Moderate left pleural effusion and small right pleural effusion. Confluent airspace opacification in the mid to lower lung zones bilaterally ; left greater than right. Moderate venous congestion. Scattered nodular densities in both lung poe. Mild cardiomegaly.
[2017-06-27] MEDS ORDERED: Propofol 10 mg/ml 100 MG/10 ML VIAL IV PRN (13:50)
[2017-06-27] MEDS: Vancomycin 1 gm/NS 200 ml 1 GM/200 ML BAG IVPB SCH (14:03)
--- NOTE | 2017-06-27 18:27 | CP.PCM.PN ---
Subjective - Date & Time of Evaluation Date of Evaluation: 06/27/17 Time of Evaluation: 18:27 - Subjective Subjective: CHIEF COMPLAINTS TODAY : PATIENT REMAINS ON VENTILATOR unable to wean temp 99.9 as per RN no bowel movements since last night. Unable to obtain review of systems ROS on observation only HEENT : LEFT SUBMANDIBULAR MASS AND SWELLING, ON VENTILATOR Resp : No SOB wheezing, cough Cardio : No CP, PND orthopnea GI : No abd. Pain, n/v +VE PEG IN PLACE. TAX ASSISTANT : No headache , focal deficit. Musculoskel : N Ext. : Pedal pulses intact, no edema or calf pain Derm : N Psych : N. PE. Pt. is ON VENTILATOR, SEDATED TACHYCARDIC. V.S As noted in the chart Head ,ear nose,throat and eyes : Normal. Neck : Supple with normal carotids.LT. SIDED JAW SWELLING WITH CELLULITIS AND TENDERNESS, LEFT-SIDED MANDIBULAR MASS BX SITE. +VE LB Lungs: SCATTERED RHONCHI AND RALES. Heart : S1 & S2 normal . . No murmur. S4 + Abd : Soft non tender with normal bowel sounds.+VE PEG , DRAINAGE AROUND THE PEG SITE Neuro : Moves all ext. with no localized deficit. Ext : No edema with intact pulses. Neg. calf tenderness Derm : No rashes or decubitus ulcer. Radiology/Labs . CHEST X-RAY 06/27/17-confluent airspace opacities mid to lower lung zones bilaterally L>RT. Moderate left pleural effusion. Scattered nodular densities in both lungs. Moderate venous congestion. stools positive C. difficile antigen. abdominal wound culture Klebsiella pneumoniae ESBL -VE URINE CULTURE +ve Enterococcus faecalis 06/20/17.S-AMPICILLIN VANCOMYCIN WBC 26.2. CREATININE 0.7/bun 81 sodium 156 Objective - Vital Signs/Intake and Output Vital Signs (last 24 hours): Temp Pulse Resp BP Pulse Ox 99.4 F 92 H 20 117/51 L 97 06/27/17 16:00 06/27/17 17:21 06/27/17 17:21 06/27/17 17:21 06/27/17 17:21 Intake and Output: 06/27/17 06/27/17 06:59 18:59 Intake Total 2445.0 1193.1 Output Total 430 781 Balance 2015.0 412.1 - Medications Medications: Current Medications Acetaminophen (Tylenol 650mg/20.3ml Solution Ud) 650 mg GT Q6 PRN PRN Reason: Pain, Mild (1-3) Albuterol Sulfate (Albuterol 0.083% Inhal Anita (2.5 Mg/3 Ml) Ud) 2.5 mg INH RQ6 [facility] Last Admin: 06/27/17 13:15 Dose: 2.5 mg Famotidine (Pepcid) 20 mg IVP DAILY [facility] Last Admin: 06/27/17 10:50 Dose: 20 mg Heparin Sodium (Porcine) (Heparin) 5,000 units SC Q8H [facility] Last Admin: 06/27/17 13:05 Dose: 5,000 units Fluconazole (Diflucan Iv 100 Mg/50 Ml Ns) 50 mls @ 100 mls/hr IVPB DAILY [facility] Last Admin: 06/27/17 10:50 Dose: 100 mls/hr Imipenem/Cilastatin Sodium 500 (mg/ Sodium Chloride) 100 mls @ 100 mls/hr IVPB Q8H [facility] Last Admin: 06/27/17 11:33 Dose: 100 mls/hr Vancomycin/Sodium Chloride (Vancocin) 1 gm in 200 mls @ 166.7 mls/hr IVPB Q24H [facility] Stop: 06/30/17 14:01 Last Admin: 06/27/17 14:03 Dose: 166.7 mls/hr Metronidazole 250 mg/ (Miscellaneous) 50 mls @ 100 mls/hr IVPB Q8 [facility] Last Admin: 06/27/17 13:06 Dose: 100 mls/hr Norepinephrine Bitartrate 8 mg (/ Sodium Chloride) 258 mls @ 7.74 mls/hr IV .Q24H PRN; Protocol; 4 MCG/MIN PRN Reason: TITRATE PER MD ORDER Last Admin: 06/27/17 16:41 Dose: 2 mcg/min, 3.87 mls/hr Propofol (Diprivan) 1,000 mg in 100 mls @ 2.504 mls/hr IV .Q24H PRN; Protocol; 5 MCG/KG/MIN PRN Reason: TITRATE PER MD ORDER Insulin Glargine (Lantus) 15 unit SC HS [facility] Last Admin: 06/26/17 21:07 Dose: 15 units Insulin Human Regular (Novolin R) 0 unit SC Q6 JUAN CARLOS PRN Reason: Protocol Last Admin: 06/27/17 17:53 Dose: 4 unit Morphine Sulfate (Morphine) 2 mg IVP Q4 PRN PRN Reason: Pain, moderate (4-7) Last Admin: 06/26/17 03:18 Dose: 2 mg Neomycin/Polymyxin/Bacitracin (Neosporin Triple Antibiotic Oint) 0.5 gm TOP BID [facility] Last Admin: 06/27/17 17:55 Dose: 1 applic Vancomycin HCl (Vancocin (Oral Or Rectal Use)) 250 mg PO QID [facility] Last Admin: 06/27/17 17:44 Dose: 250 mg - Labs Labs: 06/27/17 06:28 06/27/17 06:28 PT 15.7 SECONDS (9.7-12.2) H 06/20/17 11:44 INR 1.4 06/20/17 11:44 APTT 26 SECONDS (21-34) 06/20/17 11:44 Assessment and Plan (1) Respiratory failure Status: Acute (2) Pneumonia Status: Acute (3) Dysphagia Status: Acute (4) Oropharyngeal cancer Status: Acute (5) Dehydration Status: Acute (6) UTI (urinary tract infection) due to Enterococcus Status: Acute (7) PMC (pseudomembranous colitis) Status: Acute - Assessment and Plan (Free Text) Assessment: IMPRESSION; SEPSIS- SYNDROME/HYPOTENSION ACUTE RESPIRATORY FAILURE . BILATERAL MULTIFOCAL PNEUMONIA /nodular densities r/o metastasis PSEUDOMEMBRANOUS COLITIS.( c. 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 S/P PEG/GT -EXIT SITE INFECTION. S/P MED-PORT . TRANSAMINITIS ? DRUGS. PLAN; ON iv pRIMAXIN 500 EVERY 8 HOURLY 06/22/17 CONTINUE iv VANCOMYCIN 1 G ONCE A DAY DAILY. 06/20/17- PATIENT HAS ENTEROCOCCAL UTI ALSO ON iv FLUCONAZOLE, 100 MG od ADDED BY BUFFER COPPER 06/22/17. ON iv fLAGYL DECREASED DOSE TO 250 EVERY 8 HOURLY FOR CDAD 06/24/17 SPUTUM gRAM STAIN AND CULTURE.-P FOLLOW-UP RENAL FUNCTIONS CLOSELY. PULMONARY TOILET PER BUFFER COPPER. CONTACT PRECAUTIONS.
--- NOTE | 2017-06-27 22:22 | CP.PCM.PN ---
Subjective - Date & Time of Evaluation Date of Evaluation: 06/27/17 Time of Evaluation: 18:00 - Subjective Subjective: Pt is in ICU, remains on ventilator, Oxygen requirement is increased, pt is deteriorating, prognosis is poor, infiltrates in b/l lungs, on antibiotics Objective - Vital Signs/Intake and Output Vital Signs (last 24 hours): Temp Pulse Resp BP Pulse Ox 99.4 F 96 H 17 101/53 L 97 06/27/17 16:00 06/27/17 19:05 06/27/17 19:05 06/27/17 19:05 06/27/17 19:05 Intake and Output: 06/27/17 06/28/17 18:59 06:59 Intake Total 1421.7 41.2 Output Total 871 25 Balance 550.7 16.2 - Medications Medications: Current Medications Acetaminophen (Tylenol 650mg/20.3ml Solution Ud) 650 mg GT Q6 PRN PRN Reason: Pain, Mild (1-3) Albuterol Sulfate (Albuterol 0.083% Inhal Anita (2.5 Mg/3 Ml) Ud) 2.5 mg INH RQ6 [facility] Last Admin: 06/27/17 13:15 Dose: 2.5 mg Famotidine (Pepcid) 20 mg IVP DAILY [facility] Last Admin: 06/27/17 10:50 Dose: 20 mg Heparin Sodium (Porcine) (Heparin) 5,000 units SC Q8H [facility] Last Admin: 06/27/17 13:05 Dose: 5,000 units Fluconazole (Diflucan Iv 100 Mg/50 Ml Ns) 50 mls @ 100 mls/hr IVPB DAILY [facility] Last Admin: 06/27/17 10:50 Dose: 100 mls/hr Imipenem/Cilastatin Sodium 500 (mg/ Sodium Chloride) 100 mls @ 100 mls/hr IVPB Q8H [facility] Last Admin: 06/27/17 20:51 Dose: 100 mls/hr Vancomycin/Sodium Chloride (Vancocin) 1 gm in 200 mls @ 166.7 mls/hr IVPB Q24H [facility] Stop: 06/30/17 14:01 Last Admin: 06/27/17 14:03 Dose: 166.7 mls/hr Metronidazole 250 mg/ (Miscellaneous) 50 mls @ 100 mls/hr IVPB Q8 [facility] Last Admin: 06/27/17 13:06 Dose: 100 mls/hr Norepinephrine Bitartrate 8 mg (/ Sodium Chloride) 258 mls @ 7.74 mls/hr IV .Q24H PRN; Protocol; 4 MCG/MIN PRN Reason: TITRATE PER MD ORDER Last Admin: 06/27/17 16:41 Dose: 2 mcg/min, 3.87 mls/hr Propofol (Diprivan) 1,000 mg in 100 mls @ 2.504 mls/hr IV .Q24H PRN; Protocol; 5 MCG/KG/MIN PRN Reason: TITRATE PER MD ORDER Insulin Glargine (Lantus) 15 unit SC HS [facility] Last Admin: 06/26/17 21:07 Dose: 15 units Insulin Human Regular (Novolin R) 0 unit SC Q6 JUAN CARLOS PRN Reason: Protocol Last Admin: 06/27/17 17:53 Dose: 4 unit Morphine Sulfate (Morphine) 2 mg IVP Q4 PRN PRN Reason: Pain, moderate (4-7) Last Admin: 06/26/17 03:18 Dose: 2 mg Neomycin/Polymyxin/Bacitracin (Neosporin Triple Antibiotic Oint) 0.5 gm TOP BID [facility] Last Admin: 06/27/17 17:55 Dose: 1 applic Vancomycin HCl (Vancocin (Oral Or Rectal Use)) 250 mg PO QID [facility] Last Admin: 06/27/17 17:44 Dose: 250 mg - Labs Labs: 06/27/17 06:28 06/27/17 06:28 PT 15.7 SECONDS (9.7-12.2) H 06/20/17 11:44 INR 1.4 06/20/17 11:44 APTT 26 SECONDS (21-34) 06/20/17 11:44 - Constitutional Appears: No Acute Distress - Head Exam Head Exam: ATRAUMATIC, NORMAL INSPECTION, NORMOCEPHALIC - Eye Exam Eye Exam: EOMI, Normal appearance, PERRL Pupil Exam: NORMAL ACCOMODATION, PERRL - Respiratory Exam Respiratory Exam: Decreased Breath Sounds, Rales - Cardiovascular Exam Cardiovascular Exam: REGULAR RHYTHM, +S1, +S2. absent: Murmur - GI/Abdominal Exam GI & Abdominal Exam: Soft, Normal Bowel Sounds. absent: Tenderness - Neurological Exam Neurological Exam: Alert, Awake, CN II-XII Intact, Normal Gait, Oriented x3 Assessment and Plan (1) Mass of left side of neck Status: Acute (2) Dysphagia Status: Acute (3) Dehydration Status: Acute (4) Lactic acid acidosis Status: Acute (5) Respiratory failure Assessment & Plan: on MV oxygen 70% Fio2 Status: Acute (6) Oropharyngeal cancer Status: Acute (7) Septicemia Assessment & Plan: vancomycin an primaxin Status: Acute
[2017-06-27] MEDS: (Lantus) Insulin Glargine, Recombinant SC SCH (22:44)
[2017-06-28] MEDS: (Novolin R) Insulin Human Regular 100 units/ml vial SC SCH ×4 (01:10→17:43)
[2017-06-28] MEDS: Albuterol 0.083% Inhal Sol (2.5 mg/3 mL) UD INH SCH ×4 (01:17→19:41)
[2017-06-28] MEDS: metroNIDAZOLE IV 500 mg/100 ml 250 MG in Premixed IV 1 EA IVPB SCH ×3 (05:42→22:13)
[2017-06-28 06:04] LABS: ABG ALLEN TEST POS; ABG MECHANICAL RATE 20; ARTERIAL BLOOD GAS MODE PRVC; ARTERIAL BLOOD HGB O2 SAT 94.4 % (95.0-98.0); ATERIAL BLOOD GAS PEEP 5; CARBOXYHEMOGLOBIN 2.1 % (0.5-1.5); DRAW SITE RR; HHB 2.2 % (0.0-5.0); METHEMOGLOBIN 1.3 % (0.0-3.0)
[2017-06-28 06:34] LABS: BASO # 0.1 K/uL (0.0-0.2); BASO % 0.2 % (0.0-2.0); CHLORIDE 121 mmol/L (98-107); EOS # 0.1 K/uL (0.0-0.7); EOS % 0.2 % (0.0-4.0); GRANULAR CAST 5 /lpf (0-1); HEMATOCRIT 33.3 % (35.0-51.0); LYMPH # 0.5 K/uL (1.0-4.3); LYMPH % 1.3 % (20.0-40.0); MEAN CELL VOLUME 96.4 fL (80.0-94.0); MEAN CORPUSCULAR HEMOGLOBIN 31.2 pg (27.0-31.0); MEAN CORPUSCULAR HGB CONC 32.4 g/dL (33.0-37.0); MEAN PLATELET VOLUME 11.3 fL (7.2-11.7); MONO # 0.5 K/uL (0.0-0.8); MONO % 1.5 % (0.0-10.0); NRBC % 1.7 % (0.0-2.0); PLATELET COUNT 202 K/uL (130-400); RBC URINE 15 /hpf (0-3); RED CELL DISTRIBUTION WIDTH 15.9 % (11.5-14.5); SODIUM 156 mmol/L (132-148); URINE BACTERIA RARE (<OCC); URINE BILIRUBIN NEGATIVE (NEGATIVE); URINE BLOOD 1+ (NEGATIVE); URINE COLOR Amber (YELLOW); URINE GLUCOSE (UA) 1+ mg/dL (Normal); URINE KETONE TRACE mg/dL (NEGATIVE); URINE LEUKOCYTE ESTERASE TRACE Leu/uL (Negative); URINE PROTEIN NEGATIVE (NEGATIVE); WBC URINE 4 /hpf (0-5); WHITE BLOOD COUNT 34.5 K/uL (4.8-10.8)
[2017-06-28 06:35] LABS: POTASSIUM 4.8 mmol/L (3.6-5.2)
[2017-06-28 06:36] LABS: GFR AFRICAN-AMERICAN > 60
[2017-06-28 06:37] LABS: ALB/GLOB RATIO 0.6 (1.0-2.1); ALKALINE PHOSPHATASE 296 U/L (38-126); ALT/SGPT 49 U/L (21-72); AST/SGOT 66 U/L (17-59); BILIRUBIN,TOTAL 0.7 mg/dL (0.2-1.3); BLOOD UREA NITROGEN 74 mg/dL (9-20); CARBON DIOXIDE 22 mmol/L (22-30); GLUCOSE,RANDOM 192 mg/dL (75-110); PHOSPHOROUS 3.3 mg/dL (2.5-4.5); TOTAL PROTEIN 5.3 g/dL (6.3-8.3)
[2017-06-28 06:38] LABS: CALCIUM 7.6 mg/dl (8.6-10.4)
[2017-06-28 08:05] LABS: EOSINOPHIL 1 % (0-4); MYELOCYTE 2 % (0-0); NEUTROPHIL 86 % (50-75); NUCLEATED RED BLOOD CELL 4 % (0-0); TOTAL CELLS COUNTED 100
[2017-06-28 08:06] LABS: LARGE PLATELETS PRESENT
--- NOTE | 2017-06-28 08:54 | RAD ---
Chest x-ray single frontal view History: Intubation. Comparison: 06/27/2017 Findings: Lines and tubes in stable position. Confluent consolidative changes in the left mid to lower lung zone as well as the right lung base. Prominent diffuse increased interstitial lung markings. Bilateral hilar prominence. Calcification at the aortic knob. Mild cardiomegaly. Degenerative changes in the spine. Impression: Lines and tubes in stable position. Confluent consolidative changes in the left mid to lower lung zone as well as the right lung base. Prominent diffuse increased interstitial lung markings. Bilateral hilar prominence. Calcification at the aortic knob. Mild cardiomegaly.
[2017-06-28] MEDS ORDERED: Sodium Chloride 0.9% 1,000 ML IV ONE (09:28)
[2017-06-28] MEDS: Fluconazole IV 100mg/50 ml NS 50 ML IVPB SCH (09:57)
[2017-06-28] MEDS: Bacitracin/Neomycin/Polymyxin Oint(30GM) TOP SCH ×2 (09:58→17:38)
[2017-06-28] MEDS: Vancomycin 125 MG/5 ML SOLN (ORAL/RECTAL) PO SCH ×4 (09:59→22:14)
[2017-06-28] MEDS: Albumin Human 25% (12.5 gm/50 ml) IV SCH ×2 (10:05→17:37)
[2017-06-28] MEDS: Propofol 10 mg/ml 1,000 MG/100 ML VIAL IV PRN (11:02)
--- NOTE | 2017-06-28 13:15 | CP.PCM.CON ---
<Foster Cancino - Last Filed: 06/28/17 13:43> History of Present Illness - History of Present Illness History of Present Illness: Reason for consultation: Tracheostomy. Requested by: Dr. Perez Pt s/e. Imaging studies and progress notes reviewed. 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 Will schedule trach for or Tuesday in the OR. Will write preop orders. a/p; 1. Resp failure -Intubated and on vent support. 2. Tracheostomy on or Tuesday. Past Patient History - Past Medical History & Family History Past Medical History?: Yes - Past Social History Smoking Status: Never Smoked Alcohol: None Home Situation {Lives}: Alone - CARDIAC Hx Cardiac Disorders: No - PULMONARY Hx Respiratory Disorders: No - NEUROLOGICAL Hx Neurological Disorder: No - HEENT Hx HEENT Problems: No - RENAL Hx Chronic Kidney Disease: No - ENDOCRINE/METABOLIC Hx Endocrine Disorders: No - HEMATOLOGICAL/ONCOLOGICAL Hx Blood Disorders: No - INTEGUMENTARY Hx Dermatological Problems: No - MUSCULOSKELETAL/RHEUMATOLOGICAL Hx Musculoskeletal Disorders: No Hx Falls: No - GASTROINTESTINAL Hx Gastrointestinal Disorders: No - GENITOURINARY/GYNECOLOGICAL Hx Genitourinary Disorders: No - PSYCHIATRIC Hx Psychophysiologic Disorder: No Hx Substance Use: No - SURGICAL HISTORY Hx Surgeries: No - ANESTHESIA Hx Anesthesia: No Hx Anesthesia Reactions: No Meds Allergies/Adverse Reactions: Allergies Allergy/AdvReac Type Severity Reaction Status Date / Time No Known Allergies Allergy Verified 06/14/17 10:12 - Medications Medications: Current Medications Acetaminophen (Tylenol 650mg/20.3ml Solution Ud) 650 mg GT Q6 PRN PRN Reason: Pain, Mild (1-3) Albumin Human (Albumin Human 25% (12.5 Gm/50 Ml)) 12.5 gm IV Q8H [facility] Stop: 06/30/17 01:31 Last Admin: 06/28/17 10:05 Dose: 12.5 gm Albuterol Sulfate (Albuterol 0.083% Inhal Anita (2.5 Mg/3 Ml) Ud) 2.5 mg INH RQ6 [facility] CARLOS Last Admin: 06/28/17 07:34 Dose: 2.5 mg Famotidine (Pepcid) 20 mg IVP DAILY [facility] Last Admin: 06/28/17 09:59 Dose: 20 mg Heparin Sodium (Porcine) (Heparin) 5,000 units SC Q8H [facility] Last Admin: 06/28/17 05:49 Dose: 5,000 units Fluconazole (Diflucan Iv 100 Mg/50 Ml Ns) 50 mls @ 100 mls/hr IVPB DAILY [facility] Last Admin: 06/28/17 09:57 Dose: 100 mls/hr Imipenem/Cilastatin Sodium 500 (mg/ Sodium Chloride) 100 mls @ 100 mls/hr IVPB Q8H [facility] Last Admin: 06/28/17 10:59 Dose: 100 mls/hr Vancomycin/Sodium Chloride (Vancocin) 1 gm in 200 mls @ 166.7 mls/hr IVPB Q24H [facility] Stop: 06/30/17 14:01 Last Admin: 06/27/17 14:03 Dose: 166.7 mls/hr Metronidazole 250 mg/ (Miscellaneous) 50 mls @ 100 mls/hr IVPB Q8 [facility] Last Admin: 06/28/17 05:42 Dose: 100 mls/hr Norepinephrine Bitartrate 8 mg (/ Sodium Chloride) 258 mls @ 7.74 mls/hr IV .Q24H PRN; Protocol; 4 MCG/MIN PRN Reason: TITRATE PER MD ORDER Last Titration: 06/28/17 09:54 Dose: 6 mcg/min, 11.61 mls/hr Propofol (Diprivan) 1,000 mg in 100 mls @ 2.504 mls/hr IV .Q24H PRN; Protocol; 5 MCG/KG/MIN PRN Reason: TITRATE PER MD ORDER Last Admin: 06/28/17 11:02 Dose: 5 mcg/kg/min, 2.504 mls/hr Insulin Glargine (Lantus) 15 unit SC HS [facility] Last Admin: 06/27/17 22:44 Dose: 15 units Insulin Human Regular (Novolin R) 0 unit SC Q6 [facility]UAN CARLOS PRN Reason: Protocol Last Admin: 06/28/17 11:49 Dose: 1 unit Morphine Sulfate (Morphine) 2 mg IVP Q4 PRN PRN Reason: Pain, moderate (4-7) Last Admin: 06/26/17 03:18 Dose: 2 mg Neomycin/Polymyxin/Bacitracin (Neosporin Triple Antibiotic Oint) 0.5 gm TOP BID [facility] Last Admin: 06/28/17 09:58 Dose: 1 applic Vancomycin HCl (Vancocin (Oral Or Rectal Use)) 250 mg PO QID [facility] Last Admin: 06/28/17 09:59 Dose: 250 mg Results - Vital Signs Recent Vital Signs: Last Vital Signs Temp 98.2 F 06/28/17 12:00 Pulse 93 H 06/28/17 12:05 Resp 17 06/28/17 12:05 BP 86/54 L 06/28/17 12:05 Pulse Ox 96 06/28/17 12:05 - Labs Result Diagrams: 06/28/17 06:20 06/28/17 06:20 Labs: Laboratory Results - last 24 hr 06/27/17 06/28/17 06/28/17 17:44 00:19 04:41 WBC RBC Hgb Hct MCV MCH MCHC RDW Plt Count MPV Neut % (Auto) Lymph % (Auto) Trigg % (Auto) Eos % (Auto) Baso % (Auto) Neut # Lymph # Trigg # Eos # Baso # Neutrophils % (Manual) Band Neutrophils % Lymphocytes % (Manual) Monocytes % (Manual) Eosinophils % (Manual) Myelocytes % Nucleated RBC % Toxic Granulation Platelet Estimate Large Platelets Anisocytosis (manual) Puncture Site pCO2 pO2 HCO3 ABG pH ABG Total CO2 ABG O2 Saturation ABG Base Excess ABG Hemoglobin ABG Carboxyhemoglobin POC ABG HHb (Measured) ABG Methemoglobin [place]lan Test A-a O2 Difference Respiratory Index Hgb O2 Saturation Vent Mode Mechanical Rate FiO2 Tidal Volume PEEP Sodium Potassium Chloride Carbon Dioxide Anion Gap BUN Creatinine Est GFR ( Amer) Est GFR (Non-Af Amer) POC Glucose (mg/dL) 201 H 248 H 204 H Random Glucose Calcium Phosphorus Magnesium Total Bilirubin AST ALT Alkaline Phosphatase Total Protein Albumin Globulin Albumin/Globulin Ratio Urine Color Urine Clarity Urine pH Ur Specific [place] Urine Protein Urine Glucose (UA) Urine Ketones Urine Blood Urine Nitrate Urine Bilirubin Urine Urobilinogen Ur Leukocyte Esterase Urine WBC (Auto) Urine RBC (Auto) Ur Squamous Epith Cells Urine Bacteria Hyaline Casts Granular Casts (Auto) Broad Casts 06/28/17 06/28/17 06/28/17 05:29 06:20 06:20 WBC 34.5 H RBC 3.45 L Hgb 10.8 L Hct 33.3 L MCV 96.4 H MCH 31.2 H MCHC 32.4 L RDW 15.9 H Plt Count 202 MPV 11.3 Neut % (Auto) 96.8 H Lymph % (Auto) 1.3 L Trigg % (Auto) 1.5 Eos % (Auto) 0.2 Baso % (Auto) 0.2 Neut # 33.4 H Lymph # 0.5 L Trigg # 0.5 Eos # 0.1 Baso # 0.1 Neutrophils % (Manual) 86 H Band Neutrophils % 9 H Lymphocytes % (Manual) 1 L Monocytes % (Manual) 1 Eosinophils % (Manual) 1 Myelocytes % 2 H Nucleated RBC % 4 H Toxic Granulation Present Platelet Estimate Normal Large Platelets Present Anisocytosis (manual) Slight Puncture Site Rr pCO2 36 pO2 77 L HCO3 21.8 ABG pH 7.37 ABG Total CO2 21.9 L ABG O2 Saturation 97.7 ABG Base Excess -4.0 L ABG Hemoglobin 11.3 L ABG Carboxyhemoglobin 2.1 H POC ABG HHb (Measured) 2.2 ABG Methemoglobin 1.3 Harlan Test Pos A-a O2 Difference 377.0 Respiratory Index 4.9 Hgb O2 Saturation 94.4 L Vent Mode Prvc Mechanical Rate 20 FiO2 70.0 Tidal Volume 550 PEEP 5 Sodium Potassium Chloride Carbon Dioxide Anion Gap BUN Creatinine Est GFR ( Amer) Est GFR (Non-Af Amer) POC Glucose (mg/dL) Random Glucose Calcium Phosphorus Magnesium Total Bilirubin AST ALT Alkaline Phosphatase Total Protein Albumin Globulin Albumin/Globulin Ratio Urine Color Yoana Urine Clarity Hazy Urine pH 5.0 Ur Specific [place] 1.021 Urine Protein Negative Urine Glucose (UA) 1+ H Urine Ketones Trace Urine Blood 1+ H Urine Nitrate Negative Urine Bilirubin Negative Urine Urobilinogen 2.0 Ur Leukocyte Esterase Trace Urine WBC (Auto) 4 Urine RBC (Auto) 15 H Ur Squamous Epith Cells < 1 Urine Bacteria Rare Hyaline Casts 3-5 H Granular Casts (Auto) 5 Broad Casts 4 06/28/17 06/28/17 06:20 11:27 WBC RBC Hgb Hct MCV MCH MCHC RDW Plt Count MPV Neut % (Auto) Lymph % (Auto) Trigg % (Auto) Eos % (Auto) Baso % (Auto) Neut # Lymph # Trigg # Eos # Baso # Neutrophils % (Manual) Band Neutrophils % Lymphocytes % (Manual) Monocytes % (Manual) Eosinophils % (Manual) Myelocytes % Nucleated RBC % Toxic Granulation Platelet Estimate Large Platelets Anisocytosis (manual) Puncture Site pCO2 pO2 HCO3 ABG pH ABG Total CO2 ABG O2 Saturation ABG Base Excess ABG Hemoglobin ABG Carboxyhemoglobin POC ABG HHb (Measured) ABG Methemoglobin [place] Test A-a O2 Difference Respiratory Index Hgb O2 Saturation Vent Mode Mechanical Rate FiO2 Tidal Volume PEEP Sodium 156 H Potassium 4.8 Chloride 121 H Carbon Dioxide 22 Anion Gap 18 BUN 74 H Creatinine 1.0 Est GFR ( Amer) > 60 Est GFR (Non-Af Amer) > 60 POC Glucose (mg/dL) 194 H Random Glucose 192 H Calcium 7.6 L Phosphorus 3.3 Magnesium 3.0 H Total Bilirubin 0.7 AST 66 H ALT 49 Alkaline Phosphatase 296 H Total Protein 5.3 L Albumin 2.0 L Globulin 3.3 Albumin/Globulin Ratio 0.6 L Urine Color Urine Clarity Urine pH Ur Specific [place] Urine Protein Urine Glucose (UA) Urine Ketones Urine Blood Urine Nitrate Urine Bilirubin Urine Urobilinogen Ur Leukocyte Esterase Urine WBC (Auto) Urine RBC (Auto) Ur Squamous Epith Cells Urine Bacteria Hyaline Casts Granular Casts (Auto) Broad Casts <Diane Moran - Last Filed: 06/28/17 16:06> History of Present Illness - History of Present Illness History of Present Illness: Thoracic Surgery Dr. Cancino 81 y/o M w/ no medical history presented to the ED on 06/14 for L neck mass. Per EMR, pt first noticed lump ~1month ago. Pt was since by dentist, who instructed pt to come to the clinic for further evaluation. Pt was seen in clinic and sent to the ED for admission and workup. A CT Neck/Soft tissue revealed large neck mass, deep the to the L parotid, extending into soft palate, L general manager farm, posteriomedial tongue, L glottis, and displaced carotid sheath. CT C/A/P revealed LLL nodule. Neck Bx revealed SCC. G-tube and portacath were placed by Gen Surg. 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 Pt was intubated for airway protection. Thoracic surgery consulted for Trach placement. PMHx: denies Meds: reviewed in chart NKDA PSHx: Neck Bx SHx: denies tobacco, EtOH, drug use FHx: noncontributory Review of Systems - Review of Systems Systems not reviewed;Unavailable: Intubated Meds - Medications Medications: Current Medications Acetaminophen (Tylenol 650mg/20.3ml Solution Ud) 650 mg GT Q6 PRN PRN Reason: Pain, Mild (1-3) Albumin Human (Albumin Human 25% (12.5 Gm/50 Ml)) 12.5 gm IV Q8H [facility] Stop: 06/30/17 01:31 Last Admin: 06/28/17 10:05 Dose: 12.5 gm Albuterol Sulfate (Albuterol 0.083% Inhal Anita (2.5 Mg/3 Ml) Ud) 2.5 mg INH RQ6 [facility] Last Admin: 06/28/17 07:34 Dose: 2.5 mg Famotidine (Pepcid) 20 mg IVP DAILY [facility] Last Admin: 06/28/17 09:59 Dose: 20 mg Heparin Sodium (Porcine) (Heparin) 5,000 units SC Q8H [facility] Last Admin: 06/28/17 15:11 Dose: 5,000 units Fluconazole (Diflucan Iv 100 Mg/50 Ml Ns) 50 mls @ 100 mls/hr IVPB DAILY [facility] Last Admin: 06/28/17 09:57 Dose: 100 mls/hr Imipenem/Cilastatin Sodium 500 (mg/ Sodium Chloride) 100 mls @ 100 mls/hr IVPB Q8H [facility] Last Admin: 06/28/17 10:59 Dose: 100 mls/hr Vancomycin/Sodium Chloride (Vancocin) 1 gm in 200 mls @ 166.7 mls/hr IVPB Q24H [facility] Stop: 06/30/17 14:01 Last Admin: 06/28/17 15:14 Dose: 166.7 mls/hr Metronidazole 250 mg/ (Miscellaneous) 50 mls @ 100 mls/hr IVPB Q8 [facility] Last Admin: 06/28/17 15:12 Dose: 100 mls/hr Norepinephrine Bitartrate 8 mg (/ Sodium Chloride) 258 mls @ 7.74 mls/hr IV .Q24H PRN; Protocol; 4 MCG/MIN PRN Reason: TITRATE PER MD ORDER Last Titration: 06/28/17 09:54 Dose: 6 mcg/min, 11.61 mls/hr Propofol (Diprivan) 1,000 mg in 100 mls @ 2.504 mls/hr IV .Q24H PRN; Protocol; 5 MCG/KG/MIN PRN Reason: TITRATE PER MD ORDER Last Admin: 06/28/17 11:02 Dose: 5 mcg/kg/min, 2.504 mls/hr Insulin Glargine (Lantus) 15 unit SC HS [facility] Last Admin: 06/27/17 22:44 Dose: 15 units Insulin Human Regular (Novolin R) 0 unit SC Q6 [facility] CAR[facility]OS PRN Reason: Protocol Last Admin: 06/28/17 11:49 Dose: 1 unit Morphine Sulfate (Morphine) 2 mg IVP Q4 PRN PRN Reason: Pain, moderate (4-7) Last Admin: 06/26/17 03:18 Dose: 2 mg Neomycin/Polymyxin/Bacitracin (Neosporin Triple Antibiotic Oint) 0.5 gm TOP BID [facility] Last Admin: 06/28/17 09:58 Dose: 1 applic Vancomycin HCl (Vancocin (Oral Or Rectal Use)) 250 mg PO QID [facility] Last Admin: 06/28/17 15:14 Dose: 250 mg Physical Exam - Constitutional Appears: Toxic, No Acute Distress - Head Exam Head Exam: NORMAL INSPECTION - ENT Exam ENT Exam: Mucous Membranes Moist - Neck Exam Additional comments: firm L lateral neck mass RIJ portacath in place - Respiratory Exam Respiratory Exam: NORMAL BREATHING PATTERN (mechanical ventation). absent: Accessory Muscle Use, Respiratory Distress - Cardiovascular Exam Cardiovascular Exam: absent: Bradycardia, Tachycardia - GI/Abdominal Exam GI & Abdominal Exam: Soft. absent: Distended, Tenderness Additional comments: gastrostomy tube in place - Extremities Exam Extremities exam: Positive for: normal inspection - Neurological Exam Neurological exam: Altered (sedated) - Skin Skin Exam: Dry, Normal Color, Warm Results - Vital Signs Recent Vital Signs: Last Vital Signs Temp 98.2 F 06/28/17 12:00 Pulse 93 H 06/28/17 12:05 Resp 17 06/28/17 12:05 BP 86/54 L 06/28/17 12:05 Pulse Ox 96 06/28/17 12:05 - Labs Result Diagrams: 06/28/17 06:20 06/28/17 06:20 Labs: Laboratory Results - last 24 hr 06/27/17 06/28/17 06/28/17 17:44 00:19 04:41 WBC RBC Hgb Hct MCV MCH MCHC RDW Plt Count MPV Neut % (Auto) Lymph % (Auto) Trigg % (Auto) Eos % (Auto) Baso % (Auto) Neut # Lymph # Trigg # Eos # Baso # Neutrophils % (Manual) Band Neutrophils % Lymphocytes % (Manual) Monocytes % (Manual) Eosinophils % (Manual) Myelocytes % Nucleated RBC % Toxic Granulation Platelet Estimate Large Platelets Anisocytosis (manual) Puncture Site pCO2 pO2 HCO3 ABG pH ABG Total CO2 ABG O2 Saturation ABG Base Excess ABG Hemoglobin ABG Carboxyhemoglobin POC ABG HHb (Measured) ABG Methemoglobin [place]lan Test A-a O2 Difference Respiratory Index Hgb O2 Saturation Vent Mode Mechanical Rate FiO2 Tidal Volume PEEP Sodium Potassium Chloride Carbon Dioxide Anion Gap BUN Creatinine Est GFR ( Amer) Est GFR (Non-Af Amer) POC Glucose (mg/dL) 201 H 248 H 204 H Random Glucose Calcium Phosphorus Magnesium Total Bilirubin AST ALT Alkaline Phosphatase Total Protein Albumin Globulin Albumin/Globulin Ratio Urine Color Urine Clarity Urine pH Ur Specific [place] Urine Protein Urine Glucose (UA) Urine Ketones Urine Blood Urine Nitrate Urine Bilirubin Urine Urobilinogen Ur Leukocyte Esterase Urine WBC (Auto) Urine RBC (Auto) Ur Squamous Epith Cells Urine Bacteria Hyaline Casts Granular Casts (Auto) Broad Casts 06/28/17 06/28/17 06/28/17 05:29 06:20 06:20 WBC 34.5 H RBC 3.45 L Hgb 10.8 L Hct 33.3 L MCV 96.4 H MCH 31.2 H MCHC 32.4 L RDW 15.9 H Plt Count 202 MPV 11.3 Neut % (Auto) 96.8 H Lymph % (Auto) 1.3 L Trigg % (Auto) 1.5 Eos % (Auto) 0.2 Baso % (Auto) 0.2 Neut # 33.4 H Lymph # 0.5 L Trigg # 0.5 Eos # 0.1 Baso # 0.1 Neutrophils % (Manual) 86 H Band Neutrophils % 9 H Lymphocytes % (Manual) 1 L Monocytes % (Manual) 1 Eosinophils % (Manual) 1 Myelocytes % 2 H Nucleated RBC % 4 H Toxic Granulation Present Platelet Estimate Normal Large Platelets Present Anisocytosis (manual) Slight Puncture Site Rr pCO2 36 pO2 77 L HCO3 21.8 ABG pH 7.37 ABG Total CO2 21.9 L ABG O2 Saturation 97.7 ABG Base Excess -4.0 L ABG Hemoglobin 11.3 L ABG Carboxyhemoglobin 2.1 H POC ABG HHb (Measured) 2.2 ABG Methemoglobin 1.3 Harlan Test Pos A-a O2 Difference 377.0 Respiratory Index 4.9 Hgb O2 Saturation 94.4 L Vent Mode Prvc Mechanical Rate 20 FiO2 70.0 Tidal Volume 550 PEEP 5 Sodium Potassium Chloride Carbon Dioxide Anion Gap BUN Creatinine Est GFR ( Amer) Est GFR (Non-Af Amer) POC Glucose (mg/dL) Random Glucose Calcium Phosphorus Magnesium Total Bilirubin AST ALT Alkaline Phosphatase Total Protein Albumin Globulin Albumin/Globulin Ratio Urine Color Yoana Urine Clarity Hazy Urine pH 5.0 Ur Specific [place] 1.021 Urine Protein Negative Urine Glucose (UA) 1+ H Urine Ketones Trace Urine Blood 1+ H Urine Nitrate Negative Urine Bilirubin Negative Urine Urobilinogen 2.0 Ur Leukocyte Esterase Trace Urine WBC (Auto) 4 Urine RBC (Auto) 15 H Ur Squamous Epith Cells < 1 Urine Bacteria Rare Hyaline Casts 3-5 H Granular Casts (Auto) 5 Broad Casts 4 06/28/17 06/28/17 06:20 11:27 WBC RBC Hgb Hct MCV MCH MCHC RDW Plt Count MPV Neut % (Auto) Lymph % (Auto) Trigg % (Auto) Eos % (Auto) Baso % (Auto) Neut # Lymph # Trigg # Eos # Baso # Neutrophils % (Manual) Band Neutrophils % Lymphocytes % (Manual) Monocytes % (Manual) Eosinophils % (Manual) Myelocytes % Nucleated RBC % Toxic Granulation Platelet Estimate Large Platelets Anisocytosis (manual) Puncture Site pCO2 pO2 HCO3 ABG pH ABG Total CO2 ABG O2 Saturation ABG Base Excess ABG Hemoglobin ABG Carboxyhemoglobin POC ABG HHb (Measured) ABG Methemoglobin [place] Test A-a O2 Difference Respiratory Index Hgb O2 Saturation Vent Mode Mechanical Rate FiO2 Tidal Volume PEEP Sodium 156 H Potassium 4.8 Chloride 121 H Carbon Dioxide 22 Anion Gap 18 BUN 74 H Creatinine 1.0 Est GFR ( Amer) > 60 Est GFR (Non-Af Amer) > 60 POC Glucose (mg/dL) 194 H Random Glucose 192 H Calcium 7.6 L Phosphorus 3.3 Magnesium 3.0 H Total Bilirubin 0.7 AST 66 H ALT 49 Alkaline Phosphatase 296 H Total Protein 5.3 L Albumin 2.0 L Globulin 3.3 Albumin/Globulin Ratio 0.6 L Urine Color Urine Clarity Urine pH Ur Specific [place] Urine Protein Urine Glucose (UA) Urine Ketones Urine Blood Urine Nitrate Urine Bilirubin Urine Urobilinogen Ur Leukocyte Esterase Urine WBC (Auto) Urine RBC (Auto) Ur Squamous Epith Cells Urine Bacteria Hyaline Casts Granular Casts (Auto) Broad Casts - Imaging and Cardiology CT scan - head Status: Image reviewed by me, Report reviewed by me
[2017-06-28] MEDS: Vancomycin 1 gm/NS 200 ml 1 GM/200 ML BAG IVPB SCH (15:14)
--- NOTE | 2017-06-28 15:27 | CP.PCM.CON ---
Past Patient History - Past Medical History & Family History Past Medical History?: Yes - Past Social History Smoking Status: Never Smoked Alcohol: None Home Situation {Lives}: Alone - CARDIAC Hx Cardiac Disorders: No - PULMONARY Hx Respiratory Disorders: No - NEUROLOGICAL Hx Neurological Disorder: No - HEENT Hx HEENT Problems: No - RENAL Hx Chronic Kidney Disease: No - ENDOCRINE/METABOLIC Hx Endocrine Disorders: No - HEMATOLOGICAL/ONCOLOGICAL Hx Blood Disorders: No - INTEGUMENTARY Hx Dermatological Problems: No - MUSCULOSKELETAL/RHEUMATOLOGICAL Hx Musculoskeletal Disorders: No Hx Falls: No - GASTROINTESTINAL Hx Gastrointestinal Disorders: No - GENITOURINARY/GYNECOLOGICAL Hx Genitourinary Disorders: No - PSYCHIATRIC Hx Psychophysiologic Disorder: No Hx Substance Use: No - SURGICAL HISTORY Hx Surgeries: No - ANESTHESIA Hx Anesthesia: No Hx Anesthesia Reactions: No Meds Allergies/Adverse Reactions: Allergies Allergy/AdvReac Type Severity Reaction Status Date / Time No Known Allergies Allergy Verified 06/14/17 10:12 - Medications Medications: Current Medications Acetaminophen (Tylenol 650mg/20.3ml Solution Ud) 650 mg GT Q6 PRN PRN Reason: Pain, Mild (1-3) Albumin Human (Albumin Human 25% (12.5 Gm/50 Ml)) 12.5 gm IV Q8H [facility] Stop: 06/30/17 01:31 Last Admin: 06/28/17 10:05 Dose: 12.5 gm Albuterol Sulfate (Albuterol 0.083% Inhal Anita (2.5 Mg/3 Ml) Ud) 2.5 mg INH RQ6 [facility] Last Admin: 06/28/17 07:34 Dose: 2.5 mg Famotidine (Pepcid) 20 mg IVP DAILY [facility] Last Admin: 06/28/17 09:59 Dose: 20 mg Heparin Sodium (Porcine) (Heparin) 5,000 units SC Q8H [facility] Last Admin: 06/28/17 15:11 Dose: 5,000 units Fluconazole (Diflucan Iv 100 Mg/50 Ml Ns) 50 mls @ 100 mls/hr IVPB DAILY [facility] Last Admin: 06/28/17 09:57 Dose: 100 mls/hr Imipenem/Cilastatin Sodium 500 (mg/ Sodium Chloride) 100 mls @ 100 mls/hr IVPB Q8H [facility] Last Admin: 06/28/17 10:59 Dose: 100 mls/hr Vancomycin/Sodium Chloride (Vancocin) 1 gm in 200 mls @ 166.7 mls/hr IVPB Q24H [facility] Stop: 06/30/17 14:01 Last Admin: 06/28/17 15:14 Dose: 166.7 mls/hr Metronidazole 250 mg/ (Miscellaneous) 50 mls @ 100 mls/hr IVPB Q8 [facility] Last Admin: 06/28/17 15:12 Dose: 100 mls/hr Norepinephrine Bitartrate 8 mg (/ Sodium Chloride) 258 mls @ 7.74 mls/hr IV .Q24H PRN; Protocol; 4 MCG/MIN PRN Reason: TITRATE PER MD ORDER Last Titration: 06/28/17 09:54 Dose: 6 mcg/min, 11.61 mls/hr Propofol (Diprivan) 1,000 mg in 100 mls @ 2.504 mls/hr IV .Q24H PRN; Protocol; 5 MCG/KG/MIN PRN Reason: TITRATE PER MD ORDER Last Admin: 06/28/17 11:02 Dose: 5 mcg/kg/min, 2.504 mls/hr Insulin Glargine (Lantus) 15 unit SC HS [facility] Last Admin: 06/27/17 22:44 Dose: 15 units Insulin Human Regular (Novolin R) 0 unit SC Q6 JUAN CARLOS PRN Reason: Protocol Last Admin: 06/28/17 11:49 Dose: 1 unit Morphine Sulfate (Morphine) 2 mg IVP Q4 PRN PRN Reason: Pain, moderate (4-7) Last Admin: 06/26/17 03:18 Dose: 2 mg Neomycin/Polymyxin/Bacitracin (Neosporin Triple Antibiotic Oint) 0.5 gm TOP BID [facility] Last Admin: 06/28/17 09:58 Dose: 1 applic Vancomycin HCl (Vancocin (Oral Or Rectal Use)) 250 mg PO QID [facility] Last Admin: 06/28/17 15:14 Dose: 250 mg Results - Vital Signs Recent Vital Signs: Last Vital Signs Temp 98.2 F 06/28/17 12:00 Pulse 93 H 06/28/17 12:05 Resp 17 06/28/17 12:05 BP 86/54 L 06/28/17 12:05 Pulse Ox 96 06/28/17 12:05 - Labs Result Diagrams: 06/28/17 06:20 06/28/17 06:20 Labs: Laboratory Results - last 24 hr 06/27/17 06/28/17 06/28/17 17:44 00:19 04:41 WBC RBC Hgb Hct MCV MCH MCHC RDW Plt Count MPV Neut % (Auto) Lymph % (Auto) [place] % (Auto) Eos % (Auto) Baso % (Auto) Neut # Lymph # [place] # Eos # Baso # Neutrophils % (Manual) Band Neutrophils % Lymphocytes % (Manual) Monocytes % (Manual) Eosinophils % (Manual) Myelocytes % Nucleated RBC % Toxic Granulation Platelet Estimate Large Platelets Anisocytosis (manual) Puncture Site pCO2 pO2 HCO3 ABG pH ABG Total CO2 ABG O2 Saturation ABG Base Excess ABG Hemoglobin ABG Carboxyhemoglobin POC ABG HHb (Measured) ABG Methemoglobin [place] Test A-a O2 Difference Respiratory Index Hgb O2 Saturation Vent Mode Mechanical Rate FiO2 Tidal Volume PEEP Sodium Potassium Chloride Carbon Dioxide Anion Gap BUN Creatinine Est GFR ( Amer) Est GFR (Non-Af Amer) POC Glucose (mg/dL) 201 H 248 H 204 H Random Glucose Calcium Phosphorus Magnesium Total Bilirubin AST ALT Alkaline Phosphatase Total Protein Albumin Globulin Albumin/Globulin Ratio Urine Color Urine Clarity Urine pH Ur Specific [place] Urine Protein Urine Glucose (UA) Urine Ketones Urine Blood Urine Nitrate Urine Bilirubin Urine Urobilinogen Ur Leukocyte Esterase Urine WBC (Auto) Urine RBC (Auto) Ur Squamous Epith Cells Urine Bacteria Hyaline Casts Granular Casts (Auto) Broad Casts 06/28/17 06/28/17 06/28/17 05:29 06:20 06:20 WBC 34.5 H RBC 3.45 L Hgb 10.8 L Hct 33.3 L MCV 96.4 H MCH 31.2 H MCHC 32.4 L RDW 15.9 H Plt Count 202 MPV 11.3 Neut % (Auto) 96.8 H Lymph % (Auto) 1.3 L [place] % (Auto) 1.5 Eos % (Auto) 0.2 Baso % (Auto) 0.2 Neut # 33.4 H Lymph # 0.5 L [place] # 0.5 Eos # 0.1 Baso # 0.1 Neutrophils % (Manual) 86 H Band Neutrophils % 9 H Lymphocytes % (Manual) 1 L Monocytes % (Manual) 1 Eosinophils % (Manual) 1 Myelocytes % 2 H Nucleated RBC % 4 H Toxic Granulation Present Platelet Estimate Normal Large Platelets Present Anisocytosis (manual) Slight Puncture Site Rr pCO2 36 pO2 77 L HCO3 21.8 ABG pH 7.37 ABG Total CO2 21.9 L ABG O2 Saturation 97.7 ABG Base Excess -4.0 L ABG Hemoglobin 11.3 L ABG Carboxyhemoglobin 2.1 H POC ABG HHb (Measured) 2.2 ABG Methemoglobin 1.3 [place] Test Pos A-a O2 Difference 377.0 Respiratory Index 4.9 Hgb O2 Saturation 94.4 L Vent Mode Prvc Mechanical Rate 20 FiO2 70.0 Tidal Volume 550 PEEP 5 Sodium Potassium Chloride Carbon Dioxide Anion Gap BUN Creatinine Est GFR ( Amer) Est GFR (Non-Af Amer) POC Glucose (mg/dL) Random Glucose Calcium Phosphorus Magnesium Total Bilirubin AST ALT Alkaline Phosphatase Total Protein Albumin Globulin Albumin/Globulin Ratio Urine Color [place] Urine Clarity Hazy Urine pH 5.0 Ur Specific [place] 1.021 Urine Protein Negative Urine Glucose (UA) 1+ H Urine Ketones Trace Urine Blood 1+ H Urine Nitrate Negative Urine Bilirubin Negative Urine Urobilinogen 2.0 Ur Leukocyte Esterase Trace Urine WBC (Auto) 4 Urine RBC (Auto) 15 H Ur Squamous Epith Cells < 1 Urine Bacteria Rare Hyaline Casts 3-5 H Granular Casts (Auto) 5 Broad Casts 4 06/28/17 06/28/17 06:20 11:27 WBC RBC Hgb Hct MCV MCH MCHC RDW Plt Count MPV Neut % (Auto) Lymph % (Auto) [place] % (Auto) Eos % (Auto) Baso % (Auto) Neut # Lymph # [place] # Eos # Baso # Neutrophils % (Manual) Band Neutrophils % Lymphocytes % (Manual) Monocytes % (Manual) Eosinophils % (Manual) Myelocytes % Nucleated RBC % Toxic Granulation Platelet Estimate Large Platelets Anisocytosis (manual) Puncture Site pCO2 pO2 HCO3 ABG pH ABG Total CO2 ABG O2 Saturation ABG Base Excess ABG Hemoglobin ABG Carboxyhemoglobin POC ABG HHb (Measured) ABG Methemoglobin [place] Test A-a O2 Difference Respiratory Index Hgb O2 Saturation Vent Mode Mechanical Rate FiO2 Tidal Volume PEEP Sodium 156 H Potassium 4.8 Chloride 121 H Carbon Dioxide 22 Anion Gap 18 BUN 74 H Creatinine 1.0 Est GFR ( Amer) > 60 Est GFR (Non-Af Amer) > 60 POC Glucose (mg/dL) 194 H Random Glucose 192 H Calcium 7.6 L Phosphorus 3.3 Magnesium 3.0 H Total Bilirubin 0.7 AST 66 H ALT 49 Alkaline Phosphatase 296 H Total Protein 5.3 L Albumin 2.0 L Globulin 3.3 Albumin/Globulin Ratio 0.6 L Urine Color Urine Clarity Urine pH Ur Specific [place] Urine Protein Urine Glucose (UA) Urine Ketones Urine Blood Urine Nitrate Urine Bilirubin Urine Urobilinogen Ur Leukocyte Esterase Urine WBC (Auto) Urine RBC (Auto) Ur Squamous Epith Cells Urine Bacteria Hyaline Casts Granular Casts (Auto) Broad Casts
--- NOTE | 2017-06-28 17:36 | CP.CCUPN ---
<Mateo Marie E - Last Filed: 06/28/17 17:37> CCU Subjective - Physician Review Subjective (Free Text): Patient was seen and examined at bedside. Patient remains intubated. Unable to evaluate adequate ROS due to patient current clinical status. CCU Objective - Vital Signs / Intake & Output Vital Signs (Last 4 hours): Vital Signs Temp Pulse Resp BP Pulse Ox 06/28/17 16:05 95 H 16 95/56 L 94 L 06/28/17 16:00 98.7 F 93 H 15 94 L 06/28/17 15:05 95 H 18 95/51 L 94 L 06/28/17 15:00 96 H 17 95 06/28/17 14:05 94 H 18 85/52 L 97 06/28/17 14:00 95 H 15 96 Intake and Output (Last 8hrs): Intake & Output 06/28/17 06/28/17 06/28/17 06:59 14:59 22:59 Intake Total 738.4 1584.5 287.2 Output Total 350 375 100 Balance 388.4 1209.5 187.2 Intake: IV 140 Intake, IV Amount 228.4 1204.5 227.2 Right Port-A-Cath 202.5 1134.7 22.6 right PC side port 25.9 69.8 204.6 Oral 300 Tube Feeding 210 240 60 Output: Urine 350 375 100 Urine, Voided 350 375 100 Other: # Bowel Movements 1 - Physical Exam Head: Positive for: Atraumatic Mouth: Positive for: Dry Respiratory/Chest: Positive for: Good Air Exchange (Anteriorly ), Other ( Patient is currently inutbated ). Negative for: Respiratory Distress, Accessory Muscle Use Cardiovascular: Positive for: Regular Rate and Rhythm, Murmurs, Normal S1, S2 Abdomen: Positive for: Other (Mildly diminished bowel sounds ). Negative for: Tenderness, Distention, Normal Bowel Sounds Upper Extremity: Positive for: Edema Lower Extremity: Positive for: Edema. Negative for: Swelling Neurological: Negative for: GCS=15, Speech Normal Skin: Positive for: Normal Color - Medications Active Medications: Active Medications Generic Name Dose Route Start Last Admin Trade Name Freq PRN Reason Stop Dose Admin Acetaminophen 650 mg 06/16/17 17:25 Tylenol 650mg/20.3ml Solution Ud GT Q6 PRN Pain, Mild (1-3) Albumin Human 12.5 gm 06/28/17 09:30 06/28/17 10:05 Albumin Human 25% (12.5 Gm/50 Ml) IV 06/30/17 01:31 12.5 gm Q8H JUAN CARLOS Administration Albuterol Sulfate 2.5 mg 06/25/17 12:00 06/28/17 07:34 Albuterol 0.083% Inhal Anita (2.5 Mg/3 Ml) Ud INH 2.5 mg RQ6 JUAN CARLOS Administration Famotidine 20 mg 06/27/17 10:15 06/28/17 09:59 Pepcid IVP 20 mg DAILY JUAN CARLOS Administration Heparin Sodium (Porcine) 5,000 units 06/25/17 22:00 06/28/17 15:11 Heparin SC 5,000 units Q8H JUAN CARLOS Administration Fluconazole 50 mls @ 100 mls/hr 06/22/17 10:00 06/28/17 09:57 Diflucan Iv 100 Mg/50 Ml Ns IVPB 100 mls/hr DAILY JUAN CARLOS Administration Imipenem/Cilastatin Sodium 500 100 mls @ 100 mls/hr 06/22/17 12:00 06/28/17 10:59 mg/ Sodium Chloride IVPB 100 mls/hr Q8H JUAN CARLOS Administration Vancomycin/Sodium Chloride 1 gm in 200 mls @ 166.7 mls/hr 06/25/17 14:00 15:14 Vancocin IVPB 06/30/17 14:01 166.7 mls/hr Q24H JUAN CARLOS Administration Metronidazole 250 mg/ 50 mls @ 100 mls/hr 06/26/17 06:00 06/28/17 15:12 Miscellaneous IVPB 100 mls/hr Q8 JUAN CARLOS Administration Norepinephrine Bitartrate 8 mg 258 mls @ 7.74 mls/hr 06/27/17 00:40 06/28/17 09:54 / Sodium Chloride IV 6 mcg/min .Q24H PRN 11.61 mls/hr TITRATE PER MD ORDER Titration Protocol 4 MCG/MIN Propofol 1,000 mg in 100 mls @ 2.504 mls/hr 06/27/17 14:00 06/28/17 11:02 Diprivan IV 5 mcg/kg/min .Q24H PRN 2.504 mls/hr TITRATE PER MD ORDER Administration Protocol 5 MCG/KG/MIN Insulin Glargine 15 unit 06/26/17 22:00 06/27/17 22:44 Lantus SC 15 units HS JUAN CARLOS Administration Insulin Human Regular 0 unit 06/26/17 10:36 06/28/17 11:49 Novolin R SC 1 unit Q6 JUAN CARLOS Administration Protocol Morphine Sulfate 2 mg 06/25/17 10:14 06/26/17 03:18 Morphine IVP 2 mg Q4 PRN Administration Pain, moderate (4-7) Neomycin/Polymyxin/Bacitracin 0.5 gm 06/26/17 22:30 06/28/17 09:58 Neosporin Triple Antibiotic Oint TOP 1 applic BID JUAN CARLOS Administration Vancomycin HCl 250 mg 06/26/17 23:15 06/28/17 15:14 Vancocin (Oral Or Rectal Use) PO 250 mg QID JUAN CARLOS Administration - Patient Studies Lab Studies: Lab Studies 06/28/17 06/28/17 06/28/17 Range/Units 11:27 06:20 06:20 WBC 34.5 H (4.8-10.8) K/uL RBC 3.45 L (4.40-5.90) Mil/uL Hgb 10.8 L (12.0-18.0) g/dL Hct 33.3 L (35.0-51.0) % MCV 96.4 H (80.0-94.0) fL MCH 31.2 H (27.0-31.0) pg MCHC 32.4 L (33.0-37.0) g/dL RDW 15.9 H (11.5-14.5) % Plt Count 202 (130-400) K/uL MPV 11.3 (7.2-11.7) fL Neut % (Auto) 96.8 H (50.0-75.0) % Lymph % (Auto) 1.3 L (20.0-40.0) % [place] % (Auto) 1.5 (0.0-10.0) % Eos % (Auto) 0.2 (0.0-4.0) % Baso % (Auto) 0.2 (0.0-2.0) % Neut # 33.4 H (1.8-7.0) K/uL Lymph # 0.5 L (1.0-4.3) K/uL [place] # 0.5 (0.0-0.8) K/uL Eos # 0.1 (0.0-0.7) K/uL Baso # 0.1 (0.0-0.2) K/uL Neutrophils % (Manual) 86 H (50-75) % Band Neutrophils % 9 H (0-2) % Lymphocytes % (Manual) 1 L (20-40) % Monocytes % (Manual) 1 (0-10) % Eosinophils % (Manual) 1 (0-4) % Myelocytes % 2 H (0-0) % Nucleated RBC % 4 H (0-0) % Toxic Granulation Present Platelet Estimate Normal (NORMAL) Large Platelets Present Anisocytosis (manual) Slight Puncture Site pCO2 (35-45) mm/Hg pO2 (80-100) mm/Hg HCO3 (21-28) mmol/L ABG pH (7.35-7.45) ABG Total CO2 (22-28) mmol/L ABG O2 Saturation (95-98) % ABG Base Excess (-2.0-3.0) mmol/L ABG Hemoglobin (11.7-17.4) g/dL ABG Carboxyhemoglobin (0.5-1.5) % POC ABG HHb (Measured) (0.0-5.0) % ABG Methemoglobin (0.0-3.0) % Harlan Test A-a O2 Difference mm/Hg Respiratory Index Hgb O2 Saturation (95.0-98.0) % Vent Mode Mechanical Rate FiO2 % Tidal Volume PEEP Sodium 156 H (132-148) mmol/L Potassium 4.8 (3.6-5.2) mmol/L Chloride 121 H (98-107) mmol/L Carbon Dioxide 22 (22-30) mmol/L Anion Gap 18 (10-20) BUN 74 H (9-20) mg/dL Creatinine 1.0 (0.8-1.5) mg/dL Est GFR ( Amer) > 60 Est GFR (Non-Af Amer) > 60 POC Glucose (mg/dL) 194 H (65-110) mg/dL Random Glucose 192 H (75-110) mg/dL Calcium 7.6 L (8.6-10.4) mg/dl Phosphorus 3.3 (2.5-4.5) mg/dL Magnesium 3.0 H (1.6-2.3) mg/dL Total Bilirubin 0.7 (0.2-1.3) mg/dL AST 66 H (17-59) U/L ALT 49 (21-72) U/L Alkaline Phosphatase 296 H (38-126) U/L Total Protein 5.3 L (6.3-8.3) g/dL Albumin 2.0 L (3.5-5.0) g/dL Globulin 3.3 (2.2-3.9) gm/dL Albumin/Globulin Ratio 0.6 L (1.0-2.1) Urine Color (YELLOW) Urine Clarity (Clear) Urine pH (5.0-8.0) Ur Specific [place] (1.003-1.030) Urine Protein (NEGATIVE) mg/dL Urine Glucose (UA) (Normal) mg/dL Urine Ketones (NEGATIVE) mg/dL Urine Blood (NEGATIVE) Urine Nitrate (NEGATIVE) Urine Bilirubin (NEGATIVE) Urine Urobilinogen (0.2-1.0) mg/dL Ur Leukocyte Esterase (Negative) Lilia/uL Urine WBC (Auto) (0-5) /hpf Urine RBC (Auto) (0-3) /hpf Ur Squamous Epith Cells (0-5) /hpf Urine Bacteria (<OCC) Hyaline Casts (0-2) /lpf Granular Casts (Auto) (0-1) /lpf Broad Casts (0-1) /lpf 06/28/17 06/28/17 06/28/17 Range/Units 06:20 05:29 04:41 WBC (4.8-10.8) K/uL RBC (4.40-5.90) Mil/uL Hgb (12.0-18.0) g/dL Hct (35.0-51.0) % MCV (80.0-94.0) fL MCH (27.0-31.0) pg MCHC (33.0-37.0) g/dL RDW (11.5-14.5) % Plt Count (130-400) K/uL MPV (7.2-11.7) fL Neut % (Auto) (50.0-75.0) % Lymph % (Auto) (20.0-40.0) % [place] % (Auto) (0.0-10.0) % Eos % (Auto) (0.0-4.0) % Baso % (Auto) (0.0-2.0) % Neut # (1.8-7.0) K/uL Lymph # (1.0-4.3) K/uL [place] # (0.0-0.8) K/uL Eos # (0.0-0.7) K/uL Baso # (0.0-0.2) K/uL Neutrophils % (Manual) (50-75) % Band Neutrophils % (0-2) % Lymphocytes % (Manual) (20-40) % Monocytes % (Manual) (0-10) % Eosinophils % (Manual) (0-4) % Myelocytes % (0-0) % Nucleated RBC % (0-0) % Toxic Granulation Platelet Estimate (NORMAL) Large Platelets Anisocytosis (manual) Puncture Site Rr pCO2 36 (35-45) mm/Hg pO2 77 L (80-100) mm/Hg HCO3 21.8 (21-28) mmol/L ABG pH 7.37 (7.35-7.45) ABG Total CO2 21.9 L (22-28) mmol/L ABG O2 Saturation 97.7 (95-98) % ABG Base Excess -4.0 L (-2.0-3.0) mmol/L ABG Hemoglobin 11.3 L (11.7-17.4) g/dL ABG Carboxyhemoglobin 2.1 H (0.5-1.5) % POC ABG HHb (Measured) 2.2 (0.0-5.0) % ABG Methemoglobin 1.3 (0.0-3.0) % Harlan Test Pos A-a O2 Difference 377.0 mm/Hg Respiratory Index 4.9 Hgb O2 Saturation 94.4 L (95.0-98.0) % Vent Mode Prvc Mechanical Rate 20 FiO2 70.0 % Tidal Volume 550 PEEP 5 Sodium (132-148) mmol/L Potassium (3.6-5.2) mmol/L Chloride (98-107) mmol/L Carbon Dioxide (22-30) mmol/L Anion Gap (10-20) BUN (9-20) mg/dL Creatinine (0.8-1.5) mg/dL Est GFR ( Amer) Est GFR (Non-Af Amer) POC Glucose (mg/dL) 204 H (65-110) mg/dL Random Glucose (75-110) mg/dL Calcium (8.6-10.4) mg/dl Phosphorus (2.5-4.5) mg/dL Magnesium (1.6-2.3) mg/dL Total Bilirubin (0.2-1.3) mg/dL AST (17-59) U/L ALT (21-72) U/L Alkaline Phosphatase (38-126) U/L Total Protein (6.3-8.3) g/dL Albumin (3.5-5.0) g/dL Globulin (2.2-3.9) gm/dL Albumin/Globulin Ratio (1.0-2.1) Urine Color Yoana (YELLOW) Urine Clarity Hazy (Clear) Urine pH 5.0 (5.0-8.0) Ur Specific [place] 1.021 (1.003-1.030) Urine Protein Negative (NEGATIVE) mg/dL Urine Glucose (UA) 1+ H (Normal) mg/dL Urine Ketones Trace (NEGATIVE) mg/dL Urine Blood 1+ H (NEGATIVE) Urine Nitrate Negative (NEGATIVE) Urine Bilirubin Negative (NEGATIVE) Urine Urobilinogen 2.0 (0.2-1.0) mg/dL Ur Leukocyte Esterase Trace (Negative) Lilia/uL Urine WBC (Auto) 4 (0-5) /hpf Urine RBC (Auto) 15 H (0-3) /hpf Ur Squamous Epith Cells < 1 (0-5) /hpf Urine Bacteria Rare (<OCC) Hyaline Casts 3-5 H (0-2) /lpf Granular Casts (Auto) 5 (0-1) /lpf Broad Casts 4 (0-1) /lpf 06/28/17 06/27/17 Range/Units 00:19 17:44 WBC (4.8-10.8) K/uL RBC (4.40-5.90) Mil/uL Hgb (12.0-18.0) g/dL Hct (35.0-51.0) % MCV (80.0-94.0) fL MCH (27.0-31.0) pg MCHC (33.0-37.0) g/dL RDW (11.5-14.5) % Plt Count (130-400) K/uL MPV (7.2-11.7) fL Neut % (Auto) (50.0-75.0) % Lymph % (Auto) (20.0-40.0) % [place] % (Auto) (0.0-10.0) % Eos % (Auto) (0.0-4.0) % Baso % (Auto) (0.0-2.0) % Neut # (1.8-7.0) K/uL Lymph # (1.0-4.3) K/uL [place] # (0.0-0.8) K/uL Eos # (0.0-0.7) K/uL Baso # (0.0-0.2) K/uL Neutrophils % (Manual) (50-75) % Band Neutrophils % (0-2) % Lymphocytes % (Manual) (20-40) % Monocytes % (Manual) (0-10) % Eosinophils % (Manual) (0-4) % Myelocytes % (0-0) % Nucleated RBC % (0-0) % Toxic Granulation Platelet Estimate (NORMAL) Large Platelets Anisocytosis (manual) Puncture Site pCO2 (35-45) mm/Hg pO2 (80-100) mm/Hg HCO3 (21-28) mmol/L ABG pH (7.35-7.45) ABG Total CO2 (22-28) mmol/L ABG O2 Saturation (95-98) % ABG Base Excess (-2.0-3.0) mmol/L ABG Hemoglobin (11.7-17.4) g/dL ABG Carboxyhemoglobin (0.5-1.5) % POC ABG HHb (Measured) (0.0-5.0) % ABG Methemoglobin (0.0-3.0) % Harlan Test A-a O2 Difference mm/Hg Respiratory Index Hgb O2 Saturation (95.0-98.0) % Vent Mode Mechanical Rate FiO2 % Tidal Volume PEEP Sodium (132-148) mmol/L Potassium (3.6-5.2) mmol/L Chloride (98-107) mmol/L Carbon Dioxide (22-30) mmol/L Anion Gap (10-20) BUN (9-20) mg/dL Creatinine (0.8-1.5) mg/dL Est GFR ( Amer) Est GFR (Non-Af Amer) POC Glucose (mg/dL) 248 H 201 H (65-110) mg/dL Random Glucose (75-110) mg/dL Calcium (8.6-10.4) mg/dl Phosphorus (2.5-4.5) mg/dL Magnesium (1.6-2.3) mg/dL Total Bilirubin (0.2-1.3) mg/dL AST (17-59) U/L ALT (21-72) U/L Alkaline Phosphatase (38-126) U/L Total Protein (6.3-8.3) g/dL Albumin (3.5-5.0) g/dL Globulin (2.2-3.9) gm/dL Albumin/Globulin Ratio (1.0-2.1) Urine Color (YELLOW) Urine Clarity (Clear) Urine pH (5.0-8.0) Ur Specific [place] (1.003-1.030) Urine Protein (NEGATIVE) mg/dL Urine Glucose (UA) (Normal) mg/dL Urine Ketones (NEGATIVE) mg/dL Urine Blood (NEGATIVE) Urine Nitrate (NEGATIVE) Urine Bilirubin (NEGATIVE) Urine Urobilinogen (0.2-1.0) mg/dL Ur Leukocyte Esterase (Negative) Lilia/uL Urine WBC (Auto) (0-5) /hpf Urine RBC (Auto) (0-3) /hpf Ur Squamous Epith Cells (0-5) /hpf Urine Bacteria (<OCC) Hyaline Casts (0-2) /lpf Granular Casts (Auto) (0-1) /lpf Broad Casts (0-1) /lpf Laboratory Results - last 24 hr 06/27/17 06/28/17 06/28/17 17:44 00:19 04:41 WBC RBC Hgb Hct MCV MCH MCHC RDW Plt Count MPV Neut % (Auto) Lymph % (Auto) [place] % (Auto) Eos % (Auto) Baso % (Auto) Neut # Lymph # [place] # Eos # Baso # Neutrophils % (Manual) Band Neutrophils % Lymphocytes % (Manual) Monocytes % (Manual) Eosinophils % (Manual) Myelocytes % Nucleated RBC % Toxic Granulation Platelet Estimate Large Platelets Anisocytosis (manual) Puncture Site pCO2 pO2 HCO3 ABG pH ABG Total CO2 ABG O2 Saturation ABG Base Excess ABG Hemoglobin ABG Carboxyhemoglobin POC ABG HHb (Measured) ABG Methemoglobin Harlan Test A-a O2 Difference Respiratory Index Hgb O2 Saturation Vent Mode Mechanical Rate FiO2 Tidal Volume PEEP Sodium Potassium Chloride Carbon Dioxide Anion Gap BUN Creatinine Est GFR ( Amer) Est GFR (Non-Af Amer) POC Glucose (mg/dL) 201 H 248 H 204 H Random Glucose Calcium Phosphorus Magnesium Total Bilirubin AST ALT Alkaline Phosphatase Total Protein Albumin Globulin Albumin/Globulin Ratio Urine Color Urine Clarity Urine pH Ur Specific [place] Urine Protein Urine Glucose (UA) Urine Ketones Urine Blood Urine Nitrate Urine Bilirubin Urine Urobilinogen Ur Leukocyte Esterase Urine WBC (Auto) Urine RBC (Auto) Ur Squamous Epith Cells Urine Bacteria Hyaline Casts Granular Casts (Auto) Broad Casts 06/28/17 06/28/17 06/28/17 05:29 06:20 06:20 WBC 34.5 H RBC 3.45 L Hgb 10.8 L Hct 33.3 L MCV 96.4 H MCH 31.2 H MCHC 32.4 L RDW 15.9 H Plt Count 202 MPV 11.3 Neut % (Auto) 96.8 H Lymph % (Auto) 1.3 L [place] % (Auto) 1.5 Eos % (Auto) 0.2 Baso % (Auto) 0.2 Neut # 33.4 H Lymph # 0.5 L [place] # 0.5 Eos # 0.1 Baso # 0.1 Neutrophils % (Manual) 86 H Band Neutrophils % 9 H Lymphocytes % (Manual) 1 L Monocytes % (Manual) 1 Eosinophils % (Manual) 1 Myelocytes % 2 H Nucleated RBC % 4 H Toxic Granulation Present Platelet Estimate Normal Large Platelets Present Anisocytosis (manual) Slight Puncture Site Rr pCO2 36 pO2 77 L HCO3 21.8 ABG pH 7.37 ABG Total CO2 21.9 L ABG O2 Saturation 97.7 ABG Base Excess -4.0 L ABG Hemoglobin 11.3 L ABG Carboxyhemoglobin 2.1 H POC ABG HHb (Measured) 2.2 ABG Methemoglobin 1.3 Harlan Test Pos A-a O2 Difference 377.0 Respiratory Index 4.9 Hgb O2 Saturation 94.4 L Vent Mode Prvc Mechanical Rate 20 FiO2 70.0 Tidal Volume 550 PEEP 5 Sodium Potassium Chloride Carbon Dioxide Anion Gap BUN Creatinine Est GFR ( Amer) Est GFR (Non-Af Amer) POC Glucose (mg/dL) Random Glucose Calcium Phosphorus Magnesium Total Bilirubin AST ALT Alkaline Phosphatase Total Protein Albumin Globulin Albumin/Globulin Ratio Urine Color Yoana Urine Clarity Hazy Urine pH 5.0 Ur Specific [place] 1.021 Urine Protein Negative Urine Glucose (UA) 1+ H Urine Ketones Trace Urine Blood 1+ H Urine Nitrate Negative Urine Bilirubin Negative Urine Urobilinogen 2.0 Ur Leukocyte Esterase Trace Urine WBC (Auto) 4 Urine RBC (Auto) 15 H Ur Squamous Epith Cells < 1 Urine Bacteria Rare Hyaline Casts 3-5 H Granular Casts (Auto) 5 Broad Casts 4 06/28/17 06/28/17 06:20 11:27 WBC RBC Hgb Hct MCV MCH MCHC RDW Plt Count MPV Neut % (Auto) Lymph % (Auto) [place] % (Auto) Eos % (Auto) Baso % (Auto) Neut # Lymph # [place] # Eos # Baso # Neutrophils % (Manual) Band Neutrophils % Lymphocytes % (Manual) Monocytes % (Manual) Eosinophils % (Manual) Myelocytes % Nucleated RBC % Toxic Granulation Platelet Estimate Large Platelets Anisocytosis (manual) Puncture Site pCO2 pO2 HCO3 ABG pH ABG Total CO2 ABG O2 Saturation ABG Base Excess ABG Hemoglobin ABG Carboxyhemoglobin POC ABG HHb (Measured) ABG Methemoglobin Harlan Test A-a O2 Difference Respiratory Index Hgb O2 Saturation Vent Mode Mechanical Rate FiO2 Tidal Volume PEEP Sodium 156 H Potassium 4.8 Chloride 121 H Carbon Dioxide 22 Anion Gap 18 BUN 74 H Creatinine 1.0 Est GFR ( Amer) > 60 Est GFR (Non-Af Amer) > 60 POC Glucose (mg/dL) 194 H Random Glucose 192 H Calcium 7.6 L Phosphorus 3.3 Magnesium 3.0 H Total Bilirubin 0.7 AST 66 H ALT 49 Alkaline Phosphatase 296 H Total Protein 5.3 L Albumin 2.0 L Globulin 3.3 Albumin/Globulin Ratio 0.6 L Urine Color Urine Clarity Urine pH Ur Specific [place] Urine Protein Urine Glucose (UA) Urine Ketones Urine Blood Urine Nitrate Urine Bilirubin Urine Urobilinogen Ur Leukocyte Esterase Urine WBC (Auto) Urine RBC (Auto) Ur Squamous Epith Cells Urine Bacteria Hyaline Casts Granular Casts (Auto) Broad Casts Fingerstick Blood Sugar Results: 204 Review of Systems - Review of Systems Review of Systems: Unable to evaluate due to patient's current clinical status Critical Care Progress Note - Ventilator Checklist Head of Bed 30 Degrees: No Daily Sedation Vacation: Yes Daily Assessment of Readiness to Wean: No Daily Spontaneous Breathing Trial: No PUD Prophalyxis: Yes DVT Prophylaxis: Yes - Nutrition Nutrition: Nutrition Category Date Time Status NPO Diet [DIET] Diets 06/14/17 Lunch Active Assessment/Plan - Assessment and Plan (Free Text) Assessment: 81 y/o male, with no significant past medical history, presents to emergency department for evaluation of left lateral neck mass underneath the chin extending from jaw (Submandibular mass), 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 Sheppard on board---> Help appreciated Palliative consult, Veronica on board---> Help appreciated ENT, Dr. Salgado on board---> Help appreciated Cardiothoracic Consult, Dr. Cancino ( Possible Tracheostomy)---> Help appreciated Medication/Managment: * Fluconazole 100mg IV daily * Morphine 2mg IVP Q6 PRN Neuro: Intubated Medication/Management: * Propofol 1,000mg IV 5mcg/kg/min Cardio: Hypotension Medication/Management: * Levophed 8mg IV 4mcg/min Pulm: Pneumonia and difficulty breathing secondary to enlarged submandibular mass Chest X-ray (06/20/17): New opacity mid right lung and questionable opacity at right base Director Of Property Management consult, Dr. PEREZ---> Help appreciated Medication/Management: * Intubated * Duonebs 2.5mg INH RQ6H * Azithromycin 500mg IVPB Q24H ( started 06/20/17) GI: No acute distress Endo: Elevated blood glucose Medication/Management: * Accuchecks * ISS high dose protocol Q6 * Lantus 15 unit SC HS Renal: Hypernatremia possibly secondary due to dehydration Medication/Management: * NS 1L bolus (06/28/17) * Albumin 12.5gm IV Q8H (6 doses)- 06/28/17 ID: Code sepsis Lactate: 6.4, 6.1, 5.7 ( Trending down), Bandemia, Leukocytosis Infectious Disease consult, Dr. Dominguez---> Help appreciated Medication/Management: * Zosyn 3.375gm IVPB Q8H ( Started 06/20/17)---> stopped (06/22/17) * Primaxin 500mg IV Q8H ( Started 06/22/17) * Vanco 1gm IVPB Q24H ( Started 06/20/17) * Vanco 250mg PO QID rectally (06/26/17) * Flagyl 500mg/100mh, 250mg IVPB Q8H (06/26/17) * D5WNS @100mls/hr * Tylenol 650mg GT Q6 prn Prophylaxis: DVT: SCDs, anticogulation on hold GI: Pepcid 20mg IVP daily Tube feeding <Darryl Perez S - Last Filed: 06/28/17 18:25> CCU Objective - Vital Signs / Intake & Output Vital Signs (Last 4 hours): Vital Signs Temp Pulse Resp BP Pulse Ox 06/28/17 17:05 104/58 L 06/28/17 17:00 98 H 19 95 06/28/17 16:05 95 H 16 95/56 L 94 L 06/28/17 16:00 98.7 F 93 H 15 94 L 06/28/17 15:05 95 H 18 95/51 L 94 L 06/28/17 15:00 96 H 17 95 Intake and Output (Last 8hrs): Intake & Output 06/28/17 06/28/17 06/28/17 06:59 14:59 22:59 Intake Total 738.4 1584.5 378.5 Output Total 350 375 200 Balance 388.4 1209.5 178.5 Intake: IV 140 Intake, IV Amount 228.4 1204.5 288.5 Right Port-A-Cath 202.5 1134.7 33.9 right PC side port 25.9 69.8 254.6 Oral 300 Tube Feeding 210 240 90 Output: Urine 350 375 200 Urine, Voided 350 375 200 Other: # Bowel Movements 1 - Medications Active Medications: Active Medications Generic Name Dose Route Start Last Admin Trade Name Freq PRN Reason Stop Dose Admin Acetaminophen 650 mg 06/16/17 17:25 Tylenol 650mg/20.3ml Solution Ud GT Q6 PRN Pain, Mild (1-3) Albumin Human 12.5 gm 06/28/17 09:30 06/28/17 17:37 Albumin Human 25% (12.5 Gm/50 Ml) IV 06/30/17 01:31 12.5 gm Q8H JUAN CARLOS Administration Albuterol Sulfate 2.5 mg 06/25/17 12:00 06/28/17 07:34 Albuterol 0.083% Inhal Anita (2.5 Mg/3 Ml) Ud INH 2.5 mg RQ6 JUAN CARLOS Administration Famotidine 20 mg 06/27/17 10:15 06/28/17 09:59 Pepcid IVP 20 mg DAILY JUAN CARLOS Administration Heparin Sodium (Porcine) 5,000 units 06/25/17 22:00 06/28/17 15:11 Heparin SC 5,000 units Q8H JUAN CARLOS Administration Fluconazole 50 mls @ 100 mls/hr 06/22/17 10:00 06/28/17 09:57 Diflucan Iv 100 Mg/50 Ml Ns IVPB 100 mls/hr DAILY JUAN CARLOS Administration Imipenem/Cilastatin Sodium 500 100 mls @ 100 mls/hr 06/22/17 12:00 06/28/17 10:59 mg/ Sodium Chloride IVPB 100 mls/hr Q8H JUAN CARLOS Administration Vancomycin/Sodium Chloride 1 gm in 200 mls @ 166.7 mls/hr 06/25/17 14:00 15:14 Vancocin IVPB 06/30/17 14:01 166.7 mls/hr Q24H JUAN CARLOS Administration Metronidazole 250 mg/ 50 mls @ 100 mls/hr 06/26/17 06:00 06/28/17 15:12 Miscellaneous IVPB 100 mls/hr Q8 JUAN CARLOS Administration Norepinephrine Bitartrate 8 mg 258 mls @ 7.74 mls/hr 06/27/17 00:40 06/28/17 09:54 / Sodium Chloride IV 6 mcg/min .Q24H PRN 11.61 mls/hr TITRATE PER MD ORDER Titration Protocol 4 MCG/MIN Propofol 1,000 mg in 100 mls @ 2.504 mls/hr 06/27/17 14:00 06/28/17 11:02 Diprivan IV 5 mcg/kg/min .Q24H PRN 2.504 mls/hr TITRATE PER MD ORDER Administration Protocol 5 MCG/KG/MIN Insulin Glargine 15 unit 06/26/17 22:00 06/27/17 22:44 Lantus SC 15 units HS JUAN CARLOS Administration Insulin Human Regular 0 unit 06/26/17 10:36 06/28/17 17:43 Novolin R SC 2 unit Q6 JUAN CARLOS Administration Protocol Morphine Sulfate 2 mg 06/25/17 10:06/26/17 03:18 Morphine IVP 2 mg Q4 PRN Administration Pain, moderate (4-7) Neomycin/Polymyxin/Bacitracin 0.5 gm 06/26/17 22:30 06/28/17 17:38 Neosporin Triple Antibiotic Oint TOP 1 applic BID JUAN CARLOS Administration Vancomycin HCl 250 mg 06/26/17 23:15 06/28/17 17:38 Vancocin (Oral Or Rectal Use) PO 250 mg QID JUAN CARLOS Administration - Patient Studies Lab Studies: Lab Studies 06/28/17 06/28/17 06/28/17 Range/Units 17:41 11:27 06:20 WBC (4.8-10.8) K/uL RBC (4.40-5.90) Mil/uL Hgb (12.0-18.0) g/dL Hct (35.0-51.0) % MCV (80.0-94.0) fL MCH (27.0-31.0) pg MCHC (33.0-37.0) g/dL RDW (11.5-14.5) % Plt Count (130-400) K/uL MPV (7.2-11.7) fL Neut % (Auto) (50.0-75.0) % Lymph % (Auto) (20.0-40.0) % [place] % (Auto) (0.0-10.0) % Eos % (Auto) (0.0-4.0) % Baso % (Auto) (0.0-2.0) % Neut # (1.8-7.0) K/uL Lymph # (1.0-4.3) K/uL [place] # (0.0-0.8) K/uL Eos # (0.0-0.7) K/uL Baso # (0.0-0.2) K/uL Neutrophils % (Manual) (50-75) % Band Neutrophils % (0-2) % Lymphocytes % (Manual) (20-40) % Monocytes % (Manual) (0-10) % Eosinophils % (Manual) (0-4) % Myelocytes % (0-0) % Nucleated RBC % (0-0) % Toxic Granulation Platelet Estimate (NORMAL) Large Platelets Anisocytosis (manual) Puncture Site pCO2 (35-45) mm/Hg pO2 (80-100) mm/Hg HCO3 (21-28) mmol/L ABG pH (7.35-7.45) ABG Total CO2 (22-28) mmol/L ABG O2 Saturation (95-98) % ABG Base Excess (-2.0-3.0) mmol/L ABG Hemoglobin (11.7-17.4) g/dL ABG Carboxyhemoglobin (0.5-1.5) % POC ABG HHb (Measured) (0.0-5.0) % ABG Methemoglobin (0.0-3.0) % [place] Test A-a O2 Difference mm/Hg Respiratory Index Hgb O2 Saturation (95.0-98.0) % Vent Mode Mechanical Rate FiO2 % Tidal Volume PEEP Sodium 156 H (132-148) mmol/L Potassium 4.8 (3.6-5.2) mmol/L Chloride 121 H (98-107) mmol/L Carbon Dioxide 22 (22-30) mmol/L Anion Gap 18 (10-20) BUN 74 H (9-20) mg/dL Creatinine 1.0 (0.8-1.5) mg/dL Est GFR ( Amer) > 60 Est GFR (Non-Af Amer) > 60 POC Glucose (mg/dL) 197 H 194 H (65-110) mg/dL Random Glucose 192 H (75-110) mg/dL Calcium 7.6 L (8.6-10.4) mg/dl Phosphorus 3.3 (2.5-4.5) mg/dL Magnesium 3.0 H (1.6-2.3) mg/dL Total Bilirubin 0.7 (0.2-1.3) mg/dL AST 66 H (17-59) U/L ALT 49 (21-72) U/L Alkaline Phosphatase 296 H (38-126) U/L Total Protein 5.3 L (6.3-8.3) g/dL Albumin 2.0 L (3.5-5.0) g/dL Globulin 3.3 (2.2-3.9) gm/dL Albumin/Globulin Ratio 0.6 L (1.0-2.1) Urine Color (YELLOW) Urine Clarity (Clear) Urine pH (5.0-8.0) Ur Specific [place] (1.003-1.030) Urine Protein (NEGATIVE) mg/dL Urine Glucose (UA) (Normal) mg/dL Urine Ketones (NEGATIVE) mg/dL Urine Blood (NEGATIVE) Urine Nitrate (NEGATIVE) Urine Bilirubin (NEGATIVE) Urine Urobilinogen (0.2-1.0) mg/dL Ur Leukocyte Esterase (Negative) Lilia/uL Urine WBC (Auto) (0-5) /hpf Urine RBC (Auto) (0-3) /hpf Ur Squamous Epith Cells (0-5) /hpf Urine Bacteria (<OCC) Hyaline Casts (0-2) /lpf Granular Casts (Auto) (0-1) /lpf Broad Casts (0-1) /lpf 06/28/17 06/28/17 06/28/17 Range/Units 06:20 06:20 05:29 WBC 34.5 H (4.8-10.8) K/uL RBC 3.45 L (4.40-5.90) Mil/uL Hgb 10.8 L (12.0-18.0) g/dL Hct 33.3 L (35.0-51.0) % MCV 96.4 H (80.0-94.0) fL MCH 31.2 H (27.0-31.0) pg MCHC 32.4 L (33.0-37.0) g/dL RDW 15.9 H (11.5-14.5) % Plt Count 202 (130-400) K/uL MPV 11.3 (7.2-11.7) fL Neut % (Auto) 96.8 H (50.0-75.0) % Lymph % (Auto) 1.3 L (20.0-40.0) % [place] % (Auto) 1.5 (0.0-10.0) % Eos % (Auto) 0.2 (0.0-4.0) % Baso % (Auto) 0.2 (0.0-2.0) % Neut # 33.4 H (1.8-7.0) K/uL Lymph # 0.5 L (1.0-4.3) K/uL [place] # 0.5 (0.0-0.8) K/uL Eos # 0.1 (0.0-0.7) K/uL Baso # 0.1 (0.0-0.2) K/uL Neutrophils % (Manual) 86 H (50-75) % Band Neutrophils % 9 H (0-2) % Lymphocytes % (Manual) 1 L (20-40) % Monocytes % (Manual) 1 (0-10) % Eosinophils % (Manual) 1 (0-4) % Myelocytes % 2 H (0-0) % Nucleated RBC % 4 H (0-0) % Toxic Granulation Present Platelet Estimate Normal (NORMAL) Large Platelets Present Anisocytosis (manual) Slight Puncture Site Rr pCO2 36 (35-45) mm/Hg pO2 77 L (80-100) mm/Hg HCO3 21.8 (21-28) mmol/L ABG pH 7.37 (7.35-7.45) ABG Total CO2 21.9 L (22-28) mmol/L ABG O2 Saturation 97.7 (95-98) % ABG Base Excess -4.0 L (-2.0-3.0) mmol/L ABG Hemoglobin 11.3 L (11.7-17.4) g/dL ABG Carboxyhemoglobin 2.1 H (0.5-1.5) % POC ABG HHb (Measured) 2.2 (0.0-5.0) % ABG Methemoglobin 1.3 (0.0-3.0) % Harlan Test Pos A-a O2 Difference 377.0 mm/Hg Respiratory Index 4.9 Hgb O2 Saturation 94.4 L (95.0-98.0) % Vent Mode Prvc Mechanical Rate 20 FiO2 70.0 % Tidal Volume 550 PEEP 5 Sodium (132-148) mmol/L Potassium (3.6-5.2) mmol/L Chloride (98-107) mmol/L Carbon Dioxide (22-30) mmol/L Anion Gap (10-20) BUN (9-20) mg/dL Creatinine (0.8-1.5) mg/dL Est GFR ( Amer) Est GFR (Non-Af Amer) POC Glucose (mg/dL) (65-110) mg/dL Random Glucose (75-110) mg/dL Calcium (8.6-10.4) mg/dl Phosphorus (2.5-4.5) mg/dL Magnesium (1.6-2.3) mg/dL Total Bilirubin (0.2-1.3) mg/dL AST (17-59) U/L ALT (21-72) U/L Alkaline Phosphatase (38-126) U/L Total Protein (6.3-8.3) g/dL Albumin (3.5-5.0) g/dL Globulin (2.2-3.9) gm/dL Albumin/Globulin Ratio (1.0-2.1) Urine Color Yoana (YELLOW) Urine Clarity Hazy (Clear) Urine pH 5.0 (5.0-8.0) Ur Specific [place] 1.021 (1.003-1.030) Urine Protein Negative (NEGATIVE) mg/dL Urine Glucose (UA) 1+ H (Normal) mg/dL Urine Ketones Trace (NEGATIVE) mg/dL Urine Blood 1+ H (NEGATIVE) Urine Nitrate Negative (NEGATIVE) Urine Bilirubin Negative (NEGATIVE) Urine Urobilinogen 2.0 (0.2-1.0) mg/dL Ur Leukocyte Esterase Trace (Negative) Lilia/uL Urine WBC (Auto) 4 (0-5) /hpf Urine RBC (Auto) 15 H (0-3) /hpf Ur Squamous Epith Cells < 1 (0-5) /hpf Urine Bacteria Rare (<OCC) Hyaline Casts 3-5 H (0-2) /lpf Granular Casts (Auto) 5 (0-1) /lpf Broad Casts 4 (0-1) /lpf 06/28/17 06/28/17 Range/Units 04:41 00:19 WBC (4.8-10.8) K/uL RBC (4.40-5.90) Mil/uL Hgb (12.0-18.0) g/dL Hct (35.0-51.0) % MCV (80.0-94.0) fL MCH (27.0-31.0) pg MCHC (33.0-37.0) g/dL RDW (11.5-14.5) % Plt Count (130-400) K/uL MPV (7.2-11.7) fL Neut % (Auto) (50.0-75.0) % Lymph % (Auto) (20.0-40.0) % [place] % (Auto) (0.0-10.0) % Eos % (Auto) (0.0-4.0) % Baso % (Auto) (0.0-2.0) % Neut # (1.8-7.0) K/uL Lymph # (1.0-4.3) K/uL [place] # (0.0-0.8) K/uL Eos # (0.0-0.7) K/uL Baso # (0.0-0.2) K/uL Neutrophils % (Manual) (50-75) % Band Neutrophils % (0-2) % Lymphocytes % (Manual) (20-40) % Monocytes % (Manual) (0-10) % Eosinophils % (Manual) (0-4) % Myelocytes % (0-0) % Nucleated RBC % (0-0) % Toxic Granulation Platelet Estimate (NORMAL) Large Platelets Anisocytosis (manual) Puncture Site pCO2 (35-45) mm/Hg pO2 (80-100) mm/Hg HCO3 (21-28) mmol/L ABG pH (7.35-7.45) ABG Total CO2 (22-28) mmol/L ABG O2 Saturation (95-98) % ABG Base Excess (-2.0-3.0) mmol/L ABG Hemoglobin (11.7-17.4) g/dL ABG Carboxyhemoglobin (0.5-1.5) % POC ABG HHb (Measured) (0.0-5.0) % ABG Methemoglobin (0.0-3.0) % Harlan Test A-a O2 Difference mm/Hg Respiratory Index Hgb O2 Saturation (95.0-98.0) % Vent Mode Mechanical Rate FiO2 % Tidal Volume PEEP Sodium (132-148) mmol/L Potassium (3.6-5.2) mmol/L Chloride (98-107) mmol/L Carbon Dioxide (22-30) mmol/L Anion Gap (10-20) BUN (9-20) mg/dL Creatinine (0.8-1.5) mg/dL Est GFR ( Amer) Est GFR (Non-Af Amer) POC Glucose (mg/dL) 204 H 248 H (65-110) mg/dL Random Glucose (75-110) mg/dL Calcium (8.6-10.4) mg/dl Phosphorus (2.5-4.5) mg/dL Magnesium (1.6-2.3) mg/dL Total Bilirubin (0.2-1.3) mg/dL AST (17-59) U/L ALT (21-72) U/L Alkaline Phosphatase (38-126) U/L Total Protein (6.3-8.3) g/dL Albumin (3.5-5.0) g/dL Globulin (2.2-3.9) gm/dL Albumin/Globulin Ratio (1.0-2.1) Urine Color (YELLOW) Urine Clarity (Clear) Urine pH (5.0-8.0) Ur Specific [place] (1.003-1.030) Urine Protein (NEGATIVE) mg/dL Urine Glucose (UA) (Normal) mg/dL Urine Ketones (NEGATIVE) mg/dL Urine Blood (NEGATIVE) Urine Nitrate (NEGATIVE) Urine Bilirubin (NEGATIVE) Urine Urobilinogen (0.2-1.0) mg/dL Ur Leukocyte Esterase (Negative) Lilia/uL Urine WBC (Auto) (0-5) /hpf Urine RBC (Auto) (0-3) /hpf Ur Squamous Epith Cells (0-5) /hpf Urine Bacteria (<OCC) Hyaline Casts (0-2) /lpf Granular Casts (Auto) (0-1) /lpf Broad Casts (0-1) /lpf Laboratory Results - last 24 hr 06/28/17 06/28/17 06/28/17 00:19 04:41 05:29 WBC RBC Hgb Hct MCV MCH MCHC RDW Plt Count MPV Neut % (Auto) Lymph % (Auto) [place] % (Auto) Eos % (Auto) Baso % (Auto) Neut # Lymph # [place] # Eos # Baso # Neutrophils % (Manual) Band Neutrophils % Lymphocytes % (Manual) Monocytes % (Manual) Eosinophils % (Manual) Myelocytes % Nucleated RBC % Toxic Granulation Platelet Estimate Large Platelets Anisocytosis (manual) Puncture Site Rr pCO2 36 pO2 77 L HCO3 21.8 ABG pH 7.37 ABG Total CO2 21.9 L ABG O2 Saturation 97.7 ABG Base Excess -4.0 L ABG Hemoglobin 11.3 L ABG Carboxyhemoglobin 2.1 H POC ABG HHb (Measured) 2.2 ABG Methemoglobin 1.3 Harlan Test Pos A-a O2 Difference 377.0 Respiratory Index 4.9 Hgb O2 Saturation 94.4 L Vent Mode Prvc Mechanical Rate 20 FiO2 70.0 Tidal Volume 550 PEEP 5 Sodium Potassium Chloride Carbon Dioxide Anion Gap BUN Creatinine Est GFR ( Amer) Est GFR (Non-Af Amer) POC Glucose (mg/dL) 248 H 204 H Random Glucose Calcium Phosphorus Magnesium Total Bilirubin AST ALT Alkaline Phosphatase Total Protein Albumin Globulin Albumin/Globulin Ratio Urine Color Urine Clarity Urine pH Ur Specific [place] Urine Protein Urine Glucose (UA) Urine Ketones Urine Blood Urine Nitrate Urine Bilirubin Urine Urobilinogen Ur Leukocyte Esterase Urine WBC (Auto) Urine RBC (Auto) Ur Squamous Epith Cells Urine Bacteria Hyaline Casts Granular Casts (Auto) Broad Casts 06/28/17 06/28/17 06/28/17 06:20 06:20 06:20 WBC 34.5 H RBC 3.45 L Hgb 10.8 L Hct 33.3 L MCV 96.4 H MCH 31.2 H MCHC 32.4 L RDW 15.9 H Plt Count 202 MPV 11.3 Neut % (Auto) 96.8 H Lymph % (Auto) 1.3 L [place] % (Auto) 1.5 Eos % (Auto) 0.2 Baso % (Auto) 0.2 Neut # 33.4 H Lymph # 0.5 L [place] # 0.5 Eos # 0.1 Baso # 0.1 Neutrophils % (Manual) 86 H Band Neutrophils % 9 H Lymphocytes % (Manual) 1 L Monocytes % (Manual) 1 Eosinophils % (Manual) 1 Myelocytes % 2 H Nucleated RBC % 4 H Toxic Granulation Present Platelet Estimate Normal Large Platelets Present Anisocytosis (manual) Slight Puncture Site pCO2 pO2 HCO3 ABG pH ABG Total CO2 ABG O2 Saturation ABG Base Excess ABG Hemoglobin ABG Carboxyhemoglobin POC ABG HHb (Measured) ABG Methemoglobin Harlan Test A-a O2 Difference Respiratory Index Hgb O2 Saturation Vent Mode Mechanical Rate FiO2 Tidal Volume PEEP Sodium 156 H Potassium 4.8 Chloride 121 H Carbon Dioxide 22 Anion Gap 18 BUN 74 H Creatinine 1.0 Est GFR ( Amer) > 60 Est GFR (Non-Af Amer) > 60 POC Glucose (mg/dL) Random Glucose 192 H Calcium 7.6 L Phosphorus 3.3 Magnesium 3.0 H Total Bilirubin 0.7 AST 66 H ALT 49 Alkaline Phosphatase 296 H Total Protein 5.3 L Albumin 2.0 L Globulin 3.3 Albumin/Globulin Ratio 0.6 L Urine Color Yoana Urine Clarity Hazy Urine pH 5.0 Ur Specific [place] 1.021 Urine Protein Negative Urine Glucose (UA) 1+ H Urine Ketones Trace Urine Blood 1+ H Urine Nitrate Negative Urine Bilirubin Negative Urine Urobilinogen 2.0 Ur Leukocyte Esterase Trace Urine WBC (Auto) 4 Urine RBC (Auto) 15 H Ur Squamous Epith Cells < 1 Urine Bacteria Rare Hyaline Casts 3-5 H Granular Casts (Auto) 5 Broad Casts 4 06/28/17 06/28/17 11:27 17:41 WBC RBC Hgb Hct MCV MCH MCHC RDW Plt Count MPV Neut % (Auto) Lymph % (Auto) [place] % (Auto) Eos % (Auto) Baso % (Auto) Neut # Lymph # [place] # Eos # Baso # Neutrophils % (Manual) Band Neutrophils % Lymphocytes % (Manual) Monocytes % (Manual) Eosinophils % (Manual) Myelocytes % Nucleated RBC % Toxic Granulation Platelet Estimate Large Platelets Anisocytosis (manual) Puncture Site pCO2 pO2 HCO3 ABG pH ABG Total CO2 ABG O2 Saturation ABG Base Excess ABG Hemoglobin ABG Carboxyhemoglobin POC ABG HHb (Measured) ABG Methemoglobin Harlan Test A-a O2 Difference Respiratory Index Hgb O2 Saturation Vent Mode Mechanical Rate FiO2 Tidal Volume PEEP Sodium Potassium Chloride Carbon Dioxide Anion Gap BUN Creatinine Est GFR ( Amer) Est GFR (Non-Af Amer) POC Glucose (mg/dL) 194 H 197 H Random Glucose Calcium Phosphorus Magnesium Total Bilirubin AST ALT Alkaline Phosphatase Total Protein Albumin Globulin Albumin/Globulin Ratio Urine Color Urine Clarity Urine pH Ur Specific [place] Urine Protein Urine Glucose (UA) Urine Ketones Urine Blood Urine Nitrate Urine Bilirubin Urine Urobilinogen Ur Leukocyte Esterase Urine WBC (Auto) Urine RBC (Auto) Ur Squamous Epith Cells Urine Bacteria Hyaline Casts Granular Casts (Auto) Broad Casts Critical Care Progress Note - Nutrition Nutrition: Nutrition Category Date Time Status NPO Diet [DIET] Diets 06/14/17 Lunch Active Assessment/Plan (1) Respiratory failure Current Visit: Yes Status: Acute Comment: Reduce FiO2 as tolerated Continue antibiotics for pneumonia Improving chest x-ray noted Continue feeding Continue antibiotic for C. difficile colitis Culture and sensitivity of fluid from PEG site Discontinue IV fluids (2) Oropharyngeal cancer Current Visit: Yes Status: Acute (3) Pneumonia Current Visit: Yes Status: Acute Attending/Attestation - Attestation I have personally seen and examined this patient.: Yes I have fully participated in the care of the patient.: Yes I have reviewed all pertinent clinical information: Yes Notes (Text): 06/28/17 18:23 patient seen and examined in the intensive care unit. Case discussed with house staff in the morning. Remained intubated nasally FiO2 70% Continue antibiotics for pneumonia Continue feeding Being treated for C. difficile colitis Case discussed with infectious disease Thoracic consult for tracheostomy
--- NOTE | 2017-06-28 21:17 | CP.PCM.PN ---
Subjective - Date & Time of Evaluation Date of Evaluation: 06/28/17 Time of Evaluation: 21:17 - Subjective Subjective: CHIEF COMPLAINTS TODAY : PATIENT REMAINS ON VENTILATOR unable to wean , PATIENT FOR TRACHEOSTOMY PER SURGERY increasing WBC count. RN REPORTS ONE LOOSE STOOL THIS AM. Unable to obtain review of systems ROS on observation only HEENT : LEFT SUBMANDIBULAR MASS AND SWELLING, ON VENTILATOR Resp : No SOB wheezing, cough Cardio : No CP, PND orthopnea GI : No abd. Pain, n/v +VE PEG IN PLACE. INFLATED PAD BUFFER : No headache , focal deficit. Musculoskel : N Ext. : Pedal pulses intact, no edema or calf pain Derm : N Psych : N. PE. Pt. is ON VENTILATOR, SEDATED TACHYCARDIC. V.S As noted in the chart Head ,ear nose,throat and eyes : Normal. Neck : Supple with normal carotids.LT. SIDED JAW SWELLING WITH CELLULITIS AND TENDERNESS, LEFT-SIDED MANDIBULAR MASS BX SITE. +VE LB Lungs: SCATTERED RHONCHI AND RALES. Heart : S1 & S2 normal . . No murmur. S4 + Abd : Soft non tender with normal bowel sounds.+VE PEG , DRAINAGE AROUND THE PEG SITE Neuro : Moves all ext. with no localized deficit. Ext : No edema with intact pulses. Neg. calf tenderness Derm : No rashes or decubitus ulcer. Radiology/Labs . CHEST X-RAY 06/27/17-confluent airspace opacities mid to lower lung zones bilaterally L>RT. Moderate left pleural effusion. Scattered nodular densities in both lungs. Moderate venous congestion. stools positive C. difficile antigen. abdominal wound culture Klebsiella pneumoniae ESBL -VE URINE CULTURE +ve Enterococcus faecalis 06/20/17.S-AMPICILLIN VANCOMYCIN WBC INCREASING 34.5 CREATININE 1.0/bun 74 sodium 156 Objective - Vital Signs/Intake and Output Vital Signs (last 24 hours): Temp Pulse Resp BP Pulse Ox 98.8 F 100 H 20 91/59 L 96 06/28/17 20:00 06/28/17 20:05 06/28/17 20:05 06/28/17 20:05 06/28/17 20:05 Intake and Output: 06/28/17 06/29/17 18:59 06:59 Intake Total 2006.6 87.2 Output Total 625 50 Balance 1381.6 37.2 - Medications Medications: Current Medications Acetaminophen (Tylenol 650mg/20.3ml Solution Ud) 650 mg GT Q6 PRN PRN Reason: Pain, Mild (1-3) Albumin Human (Albumin Human 25% (12.5 Gm/50 Ml)) 12.5 gm IV Q8H [facility] Stop: 06/30/17 01:31 Last Admin: 06/28/17 17:37 Dose: 12.5 gm Albuterol Sulfate (Albuterol 0.083% Inhal Anita (2.5 Mg/3 Ml) Ud) 2.5 mg INH RQ6 [facility] Last Admin: 06/28/17 19:41 Dose: 2.5 mg Famotidine (Pepcid) 20 mg IVP DAILY [facility] Last Admin: 06/28/17 09:59 Dose: 20 mg Heparin Sodium (Porcine) (Heparin) 5,000 units SC Q8H [facility] Last Admin: 06/28/17 15:11 Dose: 5,000 units Fluconazole (Diflucan Iv 100 Mg/50 Ml Ns) 50 mls @ 100 mls/hr IVPB DAILY [facility] Last Admin: 06/28/17 09:57 Dose: 100 mls/hr Imipenem/Cilastatin Sodium 500 (mg/ Sodium Chloride) 100 mls @ 100 mls/hr IVPB Q8H [facility] Last Admin: 06/28/17 20:19 Dose: 100 mls/hr Vancomycin/Sodium Chloride (Vancocin) 1 gm in 200 mls @ 166.7 mls/hr IVPB Q24H [facility] Stop: 06/30/17 14:01 Last Admin: 06/28/17 15:14 Dose: 166.7 mls/hr Metronidazole 250 mg/ (Miscellaneous) 50 mls @ 100 mls/hr IVPB Q8 [facility] Last Admin: 06/28/17 15:12 Dose: 100 mls/hr Norepinephrine Bitartrate 8 mg (/ Sodium Chloride) 258 mls @ 7.74 mls/hr IV .Q24H PRN; Protocol; 4 MCG/MIN PRN Reason: TITRATE PER MD ORDER Last Titration: 06/28/17 09:54 Dose: 6 mcg/min, 11.61 mls/hr Propofol (Diprivan) 1,000 mg in 100 mls @ 2.504 mls/hr IV .Q24H PRN; Protocol; 5 MCG/KG/MIN PRN Reason: TITRATE PER MD ORDER Last Admin: 06/28/17 11:02 Dose: 5 mcg/kg/min, 2.504 mls/hr Insulin Glargine (Lantus) 15 unit SC HS [facility] Last Admin: 06/27/17 22:44 Dose: 15 units Insulin Human Regular (Novolin R) 0 unit SC Q6 [facility] PRN Reason: Protocol Last Admin: 06/28/17 17:43 Dose: 2 unit Morphine Sulfate (Morphine) 2 mg IVP Q4 PRN PRN Reason: Pain, moderate (4-7) Last Admin: 06/26/17 03:18 Dose: 2 mg Neomycin/Polymyxin/Bacitracin (Neosporin Triple Antibiotic Oint) 0.5 gm TOP BID [facility] Last Admin: 06/28/17 17:38 Dose: 1 applic Vancomycin HCl (Vancocin (Oral Or Rectal Use)) 250 mg PO QID [facility] Last Admin: 06/28/17 17:38 Dose: 250 mg - Labs Labs: 06/28/17 06:20 06/28/17 06:20 PT 15.7 SECONDS (9.7-12.2) H 06/20/17 11:44 INR 1.4 06/20/17 11:44 APTT 26 SECONDS (21-34) 06/20/17 11:44 Assessment and Plan (1) Respiratory failure Status: Acute (2) Pneumonia Status: Acute (3) Dysphagia Status: Acute (4) Oropharyngeal cancer Status: Acute (5) Dehydration Status: Acute (6) UTI (urinary tract infection) due to Enterococcus Status: Acute (7) PMC (pseudomembranous colitis) Status: Acute - Assessment and Plan (Free Text) Assessment: IMPRESSION; SEPSIS- SYNDROME/HYPOTENSION ACUTE RESPIRATORY FAILURE . BILATERAL MULTIFOCAL PNEUMONIA /nodular densities r/o metastasis PSEUDOMEMBRANOUS COLITIS.( c. 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 S/P PEG/GT -EXIT SITE INFECTION. S/P MED-PORT . TRANSAMINITIS ? DRUGS. PLAN; Agree with adding PO VANCOMYCIN 250 MG 4 TIMES A DAY FOR CDAD.06/28/17 ON iv PRIMAXIN 500 EVERY 8 HOURLY 06/22/17 CONTINUE iv VANCOMYCIN 1 G ONCE A DAY DAILY. 06/20/17- PATIENT HAS ENTEROCOCCAL UTI ALSO ON iv FLUCONAZOLE, 100 MG od ADDED BY ROLL SHEETING CUTTER 06/22/17. CONTINUE ON iv fLAGYL 250 EVERY 8 HOURLY 06/24/17 SPUTUM GRAM STAIN AND CULTURE.-P FOLLOW-UP RENAL FUNCTIONS CLOSELY. PATIENT FOR TRACHEOSTOMY UNABLE TO WEAN. PULMONARY TOILET PER ROLL SHEETING CUTTER. CONTACT PRECAUTIONS. PROGNOSIS GUARDED.
[2017-06-28] MEDS: (Lantus) Insulin Glargine, Recombinant SC SCH (22:14)
--- NOTE | 2017-06-28 22:45 | CP.PCM.PN ---
Subjective - Date & Time of Evaluation Date of Evaluation: 06/28/17 Time of Evaluation: 09:35 - Subjective Subjective: Pt is drowsy, not responding, deteriorating, WBC gone up, B.P dropped, no fevr, extensive b/l lung disease remains on MV Objective - Vital Signs/Intake and Output Vital Signs (last 24 hours): Temp Pulse Resp BP Pulse Ox 98.8 F 92 H 20 114/73 98 06/28/17 20:00 06/28/17 22:26 06/28/17 22:26 06/28/17 22:26 06/28/17 22:26 Intake and Output: 06/28/17 06/29/17 18:59 06:59 Intake Total 2006.6 205.2 Output Total 625 50 Balance 1381.6 155.2 - Medications Medications: Current Medications Acetaminophen (Tylenol 650mg/20.3ml Solution Ud) 650 mg GT Q6 PRN PRN Reason: Pain, Mild (1-3) Albumin Human (Albumin Human 25% (12.5 Gm/50 Ml)) 12.5 gm IV Q8H [facility] Stop: 06/30/17 01:31 Last Admin: 06/28/17 17:37 Dose: 12.5 gm Albuterol Sulfate (Albuterol 0.083% Inhal Anita (2.5 Mg/3 Ml) Ud) 2.5 mg INH RQ6 [facility] Last Admin: 06/28/17 19:41 Dose: 2.5 mg Famotidine (Pepcid) 20 mg IVP DAILY [facility] Last Admin: 06/28/17 09:59 Dose: 20 mg Heparin Sodium (Porcine) (Heparin) 5,000 units SC Q8H [facility] Last Admin: 06/28/17 22:14 Dose: 5,000 units Fluconazole (Diflucan Iv 100 Mg/50 Ml Ns) 50 mls @ 100 mls/hr IVPB DAILY [facility] Last Admin: 06/28/17 09:57 Dose: 100 mls/hr Imipenem/Cilastatin Sodium 500 (mg/ Sodium Chloride) 100 mls @ 100 mls/hr IVPB Q8H [facility] Last Admin: 06/28/17 20:19 Dose: 100 mls/hr Vancomycin/Sodium Chloride (Vancocin) 1 gm in 200 mls @ 166.7 mls/hr IVPB Q24H [facility] Stop: 06/30/17 14:01 Last Admin: 06/28/17 15:14 Dose: 166.7 mls/hr Metronidazole 250 mg/ (Miscellaneous) 50 mls @ 100 mls/hr IVPB Q8 [facility] Last Admin: 06/28/17 22:13 Dose: 100 mls/hr Norepinephrine Bitartrate 8 mg (/ Sodium Chloride) 258 mls @ 7.74 mls/hr IV .Q24H PRN; Protocol; 4 MCG/MIN PRN Reason: TITRATE PER MD ORDER Last Admin: 06/28/17 22:26 Dose: 6 mcg/min, 11.61 mls/hr Propofol (Diprivan) 1,000 mg in 100 mls @ 2.504 mls/hr IV .Q24H PRN; Protocol; 5 MCG/KG/MIN PRN Reason: TITRATE PER MD ORDER Last Admin: 06/28/17 11:02 Dose: 5 mcg/kg/min, 2.504 mls/hr Insulin Glargine (Lantus) 15 unit SC HS [facility] Last Admin: 06/28/17 22:14 Dose: 15 units Insulin Human Regular (Novolin R) 0 unit SC Q6 [facility] PRN Reason: Protocol Last Admin: 06/28/17 17:43 Dose: 2 unit Morphine Sulfate (Morphine) 2 mg IVP Q4 PRN PRN Reason: Pain, moderate (4-7) Last Admin: 06/26/17 03:18 Dose: 2 mg Neomycin/Polymyxin/Bacitracin (Neosporin Triple Antibiotic Oint) 0.5 gm TOP BID [facility] Last Admin: 06/28/17 17:38 Dose: 1 applic Vancomycin HCl (Vancocin (Oral Or Rectal Use)) 250 mg PO QID [facility] Last Admin: 06/28/17 22:14 Dose: 250 mg - Labs Labs: 06/28/17 06:20 06/28/17 06:20 PT 15.7 SECONDS (9.7-12.2) H 06/20/17 11:44 INR 1.4 06/20/17 11:44 APTT 26 SECONDS (21-34) 06/20/17 11:44 - Constitutional Appears: Confused, Chronically Ill - Head Exam Head Exam: ATRAUMATIC, NORMAL INSPECTION, NORMOCEPHALIC - Eye Exam Eye Exam: EOMI, Normal appearance, PERRL Pupil Exam: NORMAL ACCOMODATION, PERRL - Respiratory Exam Respiratory Exam: Clear to Ausculation Bilateral, NORMAL BREATHING PATTERN - Cardiovascular Exam Cardiovascular Exam: REGULAR RHYTHM, +S1, +S2. absent: Murmur - GI/Abdominal Exam GI & Abdominal Exam: Soft, Normal Bowel Sounds. absent: Tenderness Assessment and Plan (1) Mass of left side of neck Assessment & Plan: Reduce FiO2 as tolerated Continue antibiotics for pneumonia Improving chest x-ray noted Continue feeding Continue antibiotic for C. difficile colitis Culture and sensitivity of fluid from PEG site Discontinue IV fluids Status: Acute (2) Dysphagia Status: Acute (3) Dehydration Status: Acute (4) Lactic acid acidosis Status: Acute (5) Respiratory failure Status: Acute (6) Oropharyngeal cancer Status: Acute (7) Septicemia Status: Acute
[2017-06-29] MEDS: (Novolin R) Insulin Human Regular 100 units/ml vial SC SCH ×4 (00:30→18:33)
[2017-06-29] MEDS: Albumin Human 25% (12.5 gm/50 ml) IV SCH ×3 (00:30→17:19)
[2017-06-29] MEDS: Albuterol 0.083% Inhal Sol (2.5 mg/3 mL) UD INH SCH ×4 (01:24→19:11)
[2017-06-29 04:23] LABS: ABG MECHANICAL RATE 20; ARTERIAL BLOOD GAS MODE PRVC; ATERIAL BLOOD GAS PEEP 5; DRAW SITE RBA
[2017-06-29] MEDS: metroNIDAZOLE IV 500 mg/100 ml 250 MG in Premixed IV 1 EA IVPB SCH ×3 (05:45→21:30)
[2017-06-29 06:25] LABS: BASO % 0.1 % (0.0-2.0); EOS # 0.1 K/uL (0.0-0.7); EOS % 0.3 % (0.0-4.0); HEMATOCRIT 32.8 % (35.0-51.0); LYMPH # 0.8 K/uL (1.0-4.3); LYMPH % 2.8 % (20.0-40.0); MEAN CELL VOLUME 96.7 fL (80.0-94.0); MEAN CORPUSCULAR HEMOGLOBIN 30.5 pg (27.0-31.0); MEAN CORPUSCULAR HGB CONC 31.5 g/dL (33.0-37.0); MEAN PLATELET VOLUME 11.7 fL (7.2-11.7); MONO # 0.4 K/uL (0.0-0.8); MONO % 1.3 % (0.0-10.0); PLATELET COUNT 204 K/uL (130-400); RED CELL DISTRIBUTION WIDTH 15.9 % (11.5-14.5); WHITE BLOOD COUNT 28.6 K/uL (4.8-10.8)
[2017-06-29 06:39] LABS: CHLORIDE 124 mmol/L (98-107); POTASSIUM 4.2 mmol/L (3.6-5.2); SODIUM 159 mmol/L (132-148)
[2017-06-29 06:41] LABS: GFR AFRICAN-AMERICAN > 60
[2017-06-29 06:42] LABS: ALB/GLOB RATIO 0.7 (1.0-2.1); ALKALINE PHOSPHATASE 238 U/L (38-126); ALT/SGPT 44 U/L (21-72); AST/SGOT 38 U/L (17-59); BILIRUBIN,TOTAL 0.8 mg/dL (0.2-1.3); BLOOD UREA NITROGEN 64 mg/dL (9-20); CALCIUM 7.5 mg/dl (8.6-10.4); CARBON DIOXIDE 23 mmol/L (22-30); GLUCOSE,RANDOM 177 mg/dL (75-110); PHOSPHOROUS 2.9 mg/dL (2.5-4.5); TOTAL PROTEIN 5.2 g/dL (6.3-8.3)
--- NOTE | 2017-06-29 08:20 | CP.PCM.PN ---
Subjective - Date & Time of Evaluation Date of Evaluation: 06/29/17 Time of Evaluation: 08:03 - Subjective Subjective: Surgery Progress Note for Dr. Cancino HPI: Patient seen and examined at bedside. Patient intubated and does not respond to our questions. Objective - Vital Signs/Intake and Output Vital Signs (last 24 hours): Temp Pulse Resp BP Pulse Ox 98.8 F 82 17 102/54 L 97 06/29/17 04:00 06/29/17 06:04 06/29/17 06:04 06/29/17 06:04 06/29/17 06:04 Intake and Output: 06/29/17 06/29/17 06:59 18:59 Intake Total 1292.7 Output Total 530 Balance 762.7 - Medications Medications: Current Medications Acetaminophen (Tylenol 650mg/20.3ml Solution Ud) 650 mg GT Q6 PRN PRN Reason: Pain, Mild (1-3) Albumin Human (Albumin Human 25% (12.5 Gm/50 Ml)) 12.5 gm IV Q8H [facility] Stop: 06/30/17 01:31 Last Admin: 06/29/17 00:30 Dose: 12.5 gm Albuterol Sulfate (Albuterol 0.083% Inhal Anita (2.5 Mg/3 Ml) Ud) 2.5 mg INH RQ6 [facility] Last Admin: 06/29/17 07:24 Dose: 2.5 mg Famotidine (Pepcid) 20 mg IVP DAILY [facility] Last Admin: 06/28/17 09:59 Dose: 20 mg Heparin Sodium (Porcine) (Heparin) 5,000 units SC Q8H [facility] Last Admin: 06/29/17 05:45 Dose: 5,000 units Fluconazole (Diflucan Iv 100 Mg/50 Ml Ns) 50 mls @ 100 mls/hr IVPB DAILY [facility] Last Admin: 06/28/17 09:57 Dose: 100 mls/hr Imipenem/Cilastatin Sodium 500 (mg/ Sodium Chloride) 100 mls @ 100 mls/hr IVPB Q8H [facility] Last Admin: 06/29/17 03:03 Dose: 100 mls/hr Vancomycin/Sodium Chloride (Vancocin) 1 gm in 200 mls @ 166.7 mls/hr IVPB Q24H [facility] Stop: 06/30/17 14:01 Last Admin: 06/28/17 15:14 Dose: 166.7 mls/hr Metronidazole 250 mg/ (Miscellaneous) 50 mls @ 100 mls/hr IVPB Q8 [facility] Last Admin: 06/29/17 05:45 Dose: 100 mls/hr Norepinephrine Bitartrate 8 mg (/ Sodium Chloride) 258 mls @ 7.74 mls/hr IV .Q24H PRN; Protocol; 4 MCG/MIN PRN Reason: TITRATE PER MD ORDER Last Titration: 06/29/17 05:51 Dose: 6 mcg/min, 11.61 mls/hr Propofol (Diprivan) 1,000 mg in 100 mls @ 2.504 mls/hr IV .Q24H PRN; Protocol; 5 MCG/KG/MIN PRN Reason: TITRATE PER MD ORDER Last Admin: 06/28/17 11:02 Dose: 5 mcg/kg/min, 2.504 mls/hr Insulin Glargine (Lantus) 15 unit SC HS [facility] Last Admin: 06/28/17 22:14 Dose: 15 units Insulin Human Regular (Novolin R) 0 unit SC Q6 JUAN CARLOS PRN Reason: Protocol Last Admin: 06/29/17 05:49 Dose: 4 unit Morphine Sulfate (Morphine) 2 mg IVP Q4 PRN PRN Reason: Pain, moderate (4-7) Last Admin: 06/26/17 03:18 Dose: 2 mg Neomycin/Polymyxin/Bacitracin (Neosporin Triple Antibiotic Oint) 0.5 gm TOP BID [facility] Last Admin: 06/28/17 17:38 Dose: 1 applic Vancomycin HCl (Vancocin (Oral Or Rectal Use)) 250 mg PO QID [facility] Last Admin: 06/28/17 22:14 Dose: 250 mg - Labs Labs: 06/29/17 06:14 06/29/17 06:14 PT 15.7 SECONDS (9.7-12.2) H 06/20/17 11:44 INR 1.4 06/20/17 11:44 APTT 26 SECONDS (21-34) 06/20/17 11:44 - Constitutional Appears: Chronically Ill - Head Exam Head Exam: ATRAUMATIC, NORMOCEPHALIC - Eye Exam Eye Exam: PERRL - ENT Exam ENT Exam: Mucous Membranes Moist - Neck Exam Additional comments: submandibular mass - Respiratory Exam Respiratory Exam: Rales (intubated) - Cardiovascular Exam Cardiovascular Exam: REGULAR RHYTHM - GI/Abdominal Exam GI & Abdominal Exam: Soft, Normal Bowel Sounds. absent: Distended, Tenderness - Extremities Exam Extremities Exam: absent: Joint Swelling, Tenderness - Neurological Exam Neurological Exam: absent: Alert, Awake Assessment and Plan - Assessment and Plan (Free Text) Assessment: 81M W/ARF consulted for Trach Plan: * Patient currently on pressors, ICU states they will try to wean patient off today * Will delay tracheotomy until patient is off pressors and BP stable * Medical Management per ICU * Further reccs per Dr. Barak Foreman PGY1
[2017-06-29 08:36] LABS: NEUTROPHIL 84 % (50-75); NUCLEATED RED BLOOD CELL 2 % (0-0); TOTAL CELLS COUNTED 100
[2017-06-29 08:37] LABS: LARGE PLATELETS PRESENT
[2017-06-29] MEDS: Fluconazole IV 100mg/50 ml NS 50 ML IVPB SCH (10:02)
[2017-06-29] MEDS: Bacitracin/Neomycin/Polymyxin Oint(30GM) TOP SCH ×2 (10:02→17:14)
[2017-06-29] MEDS: Vancomycin 125 MG/5 ML SOLN (ORAL/RECTAL) PO SCH ×4 (10:03→21:48)
--- NOTE | 2017-06-29 11:24 | RAD ---
HISTORY: Intubation COMPARISON: Portable chest 06/28/2017. FINDINGS: LUNGS: Endotracheal tube is not simply changed in position with right central venous port unchanged as well. Mild interval reduction in left basilar airspace disease which remains greater than that seen at the right side nevertheless. PLEURA: No significant pleural effusion identified, no pneumothorax apparent. CARDIOVASCULAR: Cardiomediastinal silhouette is stable with no pulmonary vascular derangement identified. OSSEOUS STRUCTURES: No significant abnormalities. VISUALIZED UPPER ABDOMEN: Normal. OTHER FINDINGS: None. IMPRESSION: Mildly diminished left basilar airspace disease with significant residual remaining. Minimal patchy density remains in the right base.
[2017-06-29] MEDS: Vancomycin 1 gm/NS 200 ml 1 GM/200 ML BAG IVPB SCH (13:04)
--- NOTE | 2017-06-29 13:36 | CP.PCM.PN ---
Subjective - Date & Time of Evaluation Date of Evaluation: 06/29/17 Time of Evaluation: 13:36 - Subjective Subjective: CHIEF COMPLAINTS TODAY : PATIENT REMAINS ON VENTILATOR Unable to obtain review of systems ROS on observation only HEENT : LEFT SUBMANDIBULAR MASS AND SWELLING, ON VENTILATOR Resp : No SOB wheezing, cough Cardio : No CP, PND orthopnea GI : No abd. Pain, n/v +VE PEG IN PLACE. 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 Musculoskel : N Ext. : Pedal pulses intact, no edema or calf pain Derm : N Psych : N. PE. Pt. is ON VENTILATOR, SEDATED V.S As noted in the chart Head ,ear nose,throat and eyes : Normal. Neck : Supple with normal carotids.LT. SIDED JAW SWELLING WITH CELLULITIS AND TENDERNESS, LEFT-SIDED MANDIBULAR MASS BX SITE. +VE LB Lungs: SCATTERED RHONCHI AND RALES. Heart : S1 & S2 normal . . No murmur. S4 + Abd : Soft non tender with normal bowel sounds.+VE PEG , DRAINAGE AROUND THE PEG SITE Neuro : Moves all ext. with no localized deficit. Ext : No edema with intact pulses. Neg. calf tenderness Derm : No rashes or decubitus ulcer. Radiology/Labs . WBC 28.6 IMPROVED BUT BANDS STILL 12% CREATININE 0.9/bun 64 LFTS IMPROVING TRANSAMINASES. ALKALINE PHOSPHATASE 238. stools positive C. difficile antigen. abdominal wound culture Klebsiella pneumoniae ESBL -VE URINE CULTURE +ve Enterococcus faecalis 06/20/17.S-AMPICILLIN VANCOMYCIN Objective - Vital Signs/Intake and Output Vital Signs (last 24 hours): Temp Pulse Resp BP Pulse Ox 98.4 F 95 H 21 112/65 92 L 06/29/17 12:00 06/29/17 12:44 06/29/17 12:44 06/29/17 12:44 06/29/17 12:44 Intake and Output: 06/29/17 06/29/17 06:59 18:59 Intake Total 1292.7 486.6 Output Total 530 305 Balance 762.7 181.6 - Medications Medications: Current Medications Acetaminophen (Tylenol 650mg/20.3ml Solution Ud) 650 mg GT Q6 PRN PRN Reason: Pain, Mild (1-3) Albumin Human (Albumin Human 25% (12.5 Gm/50 Ml)) 12.5 gm IV Q8H JUAN CARLOS Stop: 06/30/17 01:31 Last Admin: 06/29/17 10:01 Dose: 12.5 gm Albuterol Sulfate (Albuterol 0.083% Inhal Anita (2.5 Mg/3 Ml) Ud) 2.5 mg INH RQ6 [facility] Last Admin: 06/29/17 07:24 Dose: 2.5 mg Famotidine (Pepcid) 20 mg IVP DAILY [facility] Last Admin: 06/29/17 10:03 Dose: 20 mg Heparin Sodium (Porcine) (Heparin) 5,000 units SC Q8H [facility] Last Admin: 06/29/17 05:45 Dose: 5,000 units Fluconazole (Diflucan Iv 100 Mg/50 Ml Ns) 50 mls @ 100 mls/hr IVPB DAILY [facility] Last Admin: 06/29/17 10:02 Dose: 100 mls/hr Imipenem/Cilastatin Sodium 500 (mg/ Sodium Chloride) 100 mls @ 100 mls/hr IVPB Q8H [facility] Last Admin: 06/29/17 13:05 Dose: 100 mls/hr Vancomycin/Sodium Chloride (Vancocin) 1 gm in 200 mls @ 166.7 mls/hr IVPB Q24H [facility] Stop: 06/30/17 14:01 Last Admin: 06/29/17 13:04 Dose: 166.7 mls/hr Metronidazole 250 mg/ (Miscellaneous) 50 mls @ 100 mls/hr IVPB Q8 [facility] Last Admin: 06/29/17 05:45 Dose: 100 mls/hr Norepinephrine Bitartrate 8 mg (/ Sodium Chloride) 258 mls @ 7.74 mls/hr IV .Q24H PRN; Protocol; 4 MCG/MIN PRN Reason: TITRATE PER MD ORDER Last Titration: 06/29/17 13:29 Dose: 5 mcg/min, 9.67 mls/hr Propofol (Diprivan) 1,000 mg in 100 mls @ 2.504 mls/hr IV .Q24H PRN; Protocol; 5 MCG/KG/MIN PRN Reason: TITRATE PER MD ORDER Last Admin: 06/28/17 11:02 Dose: 5 mcg/kg/min, 2.504 mls/hr Insulin Glargine (Lantus) 15 unit SC [facility] Last Admin: 06/28/17 22:14 Dose: 15 units Insulin Human Regular (Novolin R) 0 unit SC Q6 [facility] PRN Reason: Protocol Last Admin: 06/29/17 13:09 Dose: 2 unit Neomycin/Polymyxin/Bacitracin (Neosporin Triple Antibiotic Oint) 0.5 gm TOP BID [facility] Last Admin: 06/29/17 10:02 Dose: 1 applic Vancomycin HCl (Vancocin (Oral Or Rectal Use)) 250 mg PO QID [facility] Last Admin: 06/29/17 13:04 Dose: 250 mg - Labs Labs: 06/29/17 06:14 06/29/17 06:14 PT 15.7 SECONDS (9.7-12.2) H 06/20/17 11:44 INR 1.4 06/20/17 11:44 APTT 26 SECONDS (21-34) 06/20/17 11:44 Assessment and Plan (1) Respiratory failure Status: Acute (2) Pneumonia Status: Acute (3) Dysphagia Status: Acute (4) Oropharyngeal cancer Status: Acute (5) Dehydration Status: Acute (6) UTI (urinary tract infection) due to Enterococcus Status: Acute (7) PMC (pseudomembranous colitis) Status: Acute - Assessment and Plan (Free Text) Assessment: IMPRESSION; SEPSIS- SYNDROME/HYPOTENSION ACUTE RESPIRATORY FAILURE . BILATERAL MULTIFOCAL PNEUMONIA /nodular densities r/o metastasis PSEUDOMEMBRANOUS COLITIS.( c. 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 S/P PEG/GT -EXIT SITE INFECTION. S/P MED-PORT . TRANSAMINITIS ? DRUGS. PLAN; ON iv PRIMAXIN 500 EVERY 8 HOURLY 06/22/17 CONTINUE iv VANCOMYCIN 1 G ONCE A DAY DAILY. 06/20/17- PATIENT HAS ENTEROCOCCAL UTI ALSO ON PO VANCOMYCIN 250 MG 4 TIMES A DAY FOR CDAD.06/28/17 ON iv FLUCONAZOLE, 100 MG od ADDED BY COMPUTER CUSTOMER SUPPORT SPECIALIST 06/22/17. CONTINUE ON iv fLAGYL 250 EVERY 8 HOURLY 06/24/17 SPUTUM GRAM STAIN AND CULTURE.-P FOLLOW-UP RENAL FUNCTIONS CLOSELY. PATIENT FOR TRACHEOSTOMY WHEN MORE STABLE PULMONARY TOILET PER COMPUTER CUSTOMER SUPPORT SPECIALIST. CONTACT [facility].
--- NOTE | 2017-06-29 14:09 | CP.CCUPN ---
<Mateo Marie - Last Filed: 06/29/17 14:06> CCU Subjective - Physician Review Subjective (Free Text): Patient was seen and examined at bedside. Patient remains intubated. Unable to evaluate adequate ROS due to patient current clinical status. Patient is clinically unchanged. CCU Objective - Vital Signs / Intake & Output Vital Signs (Last 4 hours): Vital Signs Temp Pulse Resp BP Pulse Ox 06/29/17 13:45 99 H 19 113/64 91 L 06/29/17 13:24 100 H 22 90/63 L 93 L 06/29/17 13:04 99 H 19 106/65 91 L 06/29/17 13:00 99 H 18 92 L 06/29/17 12:44 95 H 21 112/65 92 L 06/29/17 12:25 93 H 19 104/59 L 89 L 06/29/17 12:04 90 19 95/65 L 93 L 06/29/17 12:00 98.4 F 93 H 17 96 06/29/17 11:45 93 H 18 93/61 L 06/29/17 11:24 93 H 21 93/58 L 94 L 06/29/17 11:17 91 H 21 95/55 L 92 L 06/29/17 11:05 96 H 18 91 L 06/29/17 11:00 91 H 18 94 L 06/29/17 10:45 92 H 20 94/54 L 95 06/29/17 10:24 95 H 20 102/57 L 95 Intake and Output (Last 8hrs): Intake & Output 06/28/17 06/29/17 06/29/17 22:59 06:59 14:59 Intake Total 814.5 900.3 486.6 Output Total 400 380 305 Balance 414.5 520.3 181.6 Intake: IV 118 146.6 81.4 Intake, IV Amount 456.5 513.7 195.2 Right Port-A-Cath 90.4 145.3 79.1 Right Proximal Port Port- 100 350 A-Cath right PC side port 266.1 18.4 116.1 Tube Feeding 240 240 210 Output: Urine 400 380 305 Urine, Voided 400 380 305 Other: # Bowel Movements 0 0 1 - Physical Exam Head: Positive for: Atraumatic Mouth: Positive for: Moist Mucous Membranes Respiratory/Chest: Positive for: Good Air Exchange (Anteriorly ), Other ( Patient is currently inutbated ). Negative for: Respiratory Distress, Accessory Muscle Use Cardiovascular: Positive for: Regular Rate and Rhythm, Murmurs, Normal S1, S2 Abdomen: Positive for: Other (Mildly diminished bowel sounds ). Negative for: Tenderness, Distention, Normal Bowel Sounds Upper Extremity: Positive for: Edema Lower Extremity: Positive for: Edema. Negative for: Swelling Neurological: Negative for: GCS=15, Speech Normal Skin: Positive for: Normal Color Psychiatric: Positive for: Alert - Medications Active Medications: Active Medications Generic Name Dose Route Start Last Admin Trade Name Freq PRN Reason Stop Dose Admin Acetaminophen 650 mg 06/16/17 17:25 Tylenol 650mg/20.3ml Solution Ud GT Q6 PRN Pain, Mild (1-3) Albumin Human 12.5 gm 06/28/17 09:30 06/29/17 10:01 Albumin Human 25% (12.5 Gm/50 Ml) IV 06/30/17 01:31 12.5 gm Q8H JUAN CARLOS Administration Albuterol Sulfate 2.5 mg 06/25/17 12:00 06/29/17 13:53 Albuterol 0.083% Inhal Anita (2.5 Mg/3 Ml) Ud INH 2.5 mg RQ6 JUAN CARLOS Administration Famotidine 20 mg 06/27/17 10:15 06/29/17 10:03 Pepcid IVP 20 mg DAILY JUAN CARLOS Administration Heparin Sodium (Porcine) 5,000 units 06/25/17 22:00 06/29/17 05:45 Heparin SC 5,000 units Q8H JUAN CARLOS Administration Fluconazole 50 mls @ 100 mls/hr 06/22/17 10:00 06/29/17 10:02 Diflucan Iv 100 Mg/50 Ml Ns IVPB 100 mls/hr DAILY JUAN CARLOS Administration Imipenem/Cilastatin Sodium 500 100 mls @ 100 mls/hr 06/22/17 12:00 06/29/17 13:05 mg/ Sodium Chloride IVPB 100 mls/hr Q8H JUAN CARLOS Administration Vancomycin/Sodium Chloride 1 gm in 200 mls @ 166.7 mls/hr 06/25/17 14:00 13:04 Vancocin IVPB 06/30/17 14:01 166.7 mls/hr Q24H JUAN CARLOS Administration Metronidazole 250 mg/ 50 mls @ 100 mls/hr 06/26/17 06:00 06/29/17 05:45 Miscellaneous IVPB 100 mls/hr Q8 JUAN CARLOS Administration Norepinephrine Bitartrate 8 mg 258 mls @ 7.74 mls/hr 06/27/17 00:40 06/29/17 13:29 / Sodium Chloride IV 5 mcg/min .Q24H PRN 9.67 mls/hr TITRATE PER MD ORDER Titration Protocol 4 MCG/MIN Propofol 1,000 mg in 100 mls @ 2.504 mls/hr 06/27/17 14:00 06/28/17 11:02 Diprivan IV 5 mcg/kg/min .Q24H PRN 2.504 mls/hr TITRATE PER MD ORDER Administration Protocol 5 MCG/KG/MIN Insulin Glargine 15 unit 06/26/17 22:00 06/28/17 22:14 Lantus SC 15 units HS JUAN CARLOS Administration Insulin Human Regular 0 unit 06/26/17 10:36 06/29/17 13:09 Novolin R SC 2 unit Q6 JUAN CARLOS Administration Protocol Neomycin/Polymyxin/Bacitracin 0.5 gm 06/26/17 22:30 06/29/17 10:02 Neosporin Triple Antibiotic Oint TOP 1 applic BID JUAN CARLOS Administration Vancomycin HCl 250 mg 06/26/17 23:15 06/29/17 13:04 Vancocin (Oral Or Rectal Use) PO 250 mg QID JUAN CARLOS Administration - Patient Studies Lab Studies: Microbiology Studies 06/28/17 08:00 Urine Culture - Final Urine,Catheterized No Growth (<1,000 CFU/ML) Lab Studies 06/29/17 06/29/17 06/29/17 Range/Units 11:39 06:14 06:14 WBC 28.6 H (4.8-10.8) K/uL RBC 3.39 L (4.40-5.90) Mil/uL Hgb 10.3 L (12.0-18.0) g/dL Hct 32.8 L (35.0-51.0) % MCV 96.7 H (80.0-94.0) fL MCH 30.5 (27.0-31.0) pg MCHC 31.5 L (33.0-37.0) g/dL RDW 15.9 H (11.5-14.5) % Plt Count 204 (130-400) K/uL MPV 11.7 (7.2-11.7) fL Neut % (Auto) 95.5 H (50.0-75.0) % Lymph % (Auto) 2.8 L (20.0-40.0) % [place] % (Auto) 1.3 (0.0-10.0) % Eos % (Auto) 0.3 (0.0-4.0) % Baso % (Auto) 0.1 (0.0-2.0) % Neut # 27.3 H (1.8-7.0) K/uL Lymph # 0.8 L (1.0-4.3) K/uL [place] # 0.4 (0.0-0.8) K/uL Eos # 0.1 (0.0-0.7) K/uL Baso # 0.0 (0.0-0.2) K/uL Neutrophils % (Manual) 84 H (50-75) % Band Neutrophils % 12 H* (0-2) % Lymphocytes % (Manual) 1 L (20-40) % Monocytes % (Manual) 3 (0-10) % Nucleated RBC % 2 H (0-0) % Toxic Granulation Present Platelet Estimate Normal (NORMAL) Large Platelets Present Anisocytosis (manual) Slight Target Cells Slight Puncture Site pCO2 (35-45) mm/Hg pO2 (80-100) mm/Hg HCO3 (21-28) mmol/L ABG pH (7.35-7.45) ABG Total CO2 (22-28) mmol/L ABG O2 Saturation (95-98) % ABG Base Excess (-2.0-3.0) mmol/L Harlan Test ABG Potassium (3.6-5.2) mmol/L A-a O2 Difference mm/Hg Respiratory Index Sodium 159 H (132-148) mmol/l Chloride 124 H (98-107) mmol/L Glucose (75-110) mg/dl Lactate (0.7-2.1) mmol/L Vent Mode Mechanical Rate FiO2 % Tidal Volume PEEP Potassium 4.2 (3.6-5.2) mmol/L Carbon Dioxide 23 (22-30) mmol/L Anion Gap 16 (10-20) BUN 64 H (9-20) mg/dL Creatinine 0.9 (0.8-1.5) mg/dL Est GFR ( Amer) > 60 Est GFR (Non-Af Amer) > 60 POC Glucose (mg/dL) 167 H (65-110) mg/dL Random Glucose 177 H (75-110) mg/dL Calcium 7.5 L (8.6-10.4) mg/dl Phosphorus 2.9 (2.5-4.5) mg/dL Magnesium 3.0 H (1.6-2.3) mg/dL Total Bilirubin 0.8 (0.2-1.3) mg/dL AST 38 (17-59) U/L ALT 44 (21-72) U/L Alkaline Phosphatase 238 H (38-126) U/L Total Protein 5.2 L (6.3-8.3) g/dL Albumin 2.1 L (3.5-5.0) g/dL Globulin 3.0 (2.2-3.9) gm/dL Albumin/Globulin Ratio 0.7 L (1.0-2.1) Arterial Blood Potassium (3.6-5.2) mmol/L 06/29/17 06/29/17 06/28/17 Range/Units 05:35 04:18 23:52 WBC (4.8-10.8) K/uL RBC (4.40-5.90) Mil/uL Hgb (12.0-18.0) g/dL Hct (35.0-51.0) % MCV (80.0-94.0) fL MCH (27.0-31.0) pg MCHC (33.0-37.0) g/dL RDW (11.5-14.5) % Plt Count (130-400) K/uL MPV (7.2-11.7) fL Neut % (Auto) (50.0-75.0) % Lymph % (Auto) (20.0-40.0) % [place] % (Auto) (0.0-10.0) % Eos % (Auto) (0.0-4.0) % Baso % (Auto) (0.0-2.0) % Neut # (1.8-7.0) K/uL Lymph # (1.0-4.3) K/uL [place] # (0.0-0.8) K/uL Eos # (0.0-0.7) K/uL Baso # (0.0-0.2) K/uL Neutrophils % (Manual) (50-75) % Band Neutrophils % (0-2) % Lymphocytes % (Manual) (20-40) % Monocytes % (Manual) (0-10) % Nucleated RBC % (0-0) % Toxic Granulation Platelet Estimate (NORMAL) Large Platelets Anisocytosis (manual) Target Cells Puncture Site Rba pCO2 34 L (35-45) mm/Hg pO2 88 (80-100) mm/Hg HCO3 22.6 (21-28) mmol/L ABG pH 7.40 (7.35-7.45) ABG Total CO2 22.1 (22-28) mmol/L ABG O2 Saturation 99.1 H (95-98) % ABG Base Excess -3.0 L (-2.0-3.0) mmol/L Harlan Test Na ABG Potassium 4.2 (3.6-5.2) mmol/L A-a O2 Difference 369.0 mm/Hg Respiratory Index 4.2 Sodium 159.0 H (132-148) mmol/l Chloride 130.0 H (98-107) mmol/L Glucose 207 H (75-110) mg/dl Lactate 3.0 H (0.7-2.1) mmol/L Vent Mode Prvc Mechanical Rate 20 FiO2 70.0 % Tidal Volume 550 PEEP 5 Potassium (3.6-5.2) mmol/L Carbon Dioxide (22-30) mmol/L Anion Gap (10-20) BUN (9-20) mg/dL Creatinine (0.8-1.5) mg/dL Est GFR ( Amer) Est GFR (Non-Af Amer) POC Glucose (mg/dL) 249 H 257 H (65-110) mg/dL Random Glucose (75-110) mg/dL Calcium (8.6-10.4) mg/dl Phosphorus (2.5-4.5) mg/dL Magnesium (1.6-2.3) mg/dL Total Bilirubin (0.2-1.3) mg/dL AST (17-59) U/L ALT (21-72) U/L Alkaline Phosphatase (38-126) U/L Total Protein (6.3-8.3) g/dL Albumin (3.5-5.0) g/dL Globulin (2.2-3.9) gm/dL Albumin/Globulin Ratio (1.0-2.1) Arterial Blood Potassium 4.2 (3.6-5.2) mmol/L 06/28/17 Range/Units 17:41 WBC (4.8-10.8) K/uL RBC (4.40-5.90) Mil/uL Hgb (12.0-18.0) g/dL Hct (35.0-51.0) % MCV (80.0-94.0) fL MCH (27.0-31.0) pg MCHC (33.0-37.0) g/dL RDW (11.5-14.5) % Plt Count (130-400) K/uL MPV (7.2-11.7) fL Neut % (Auto) (50.0-75.0) % Lymph % (Auto) (20.0-40.0) % [place] % (Auto) (0.0-10.0) % Eos % (Auto) (0.0-4.0) % Baso % (Auto) (0.0-2.0) % Neut # (1.8-7.0) K/uL Lymph # (1.0-4.3) K/uL [place] # (0.0-0.8) K/uL Eos # (0.0-0.7) K/uL Baso # (0.0-0.2) K/uL Neutrophils % (Manual) (50-75) % Band Neutrophils % (0-2) % Lymphocytes % (Manual) (20-40) % Monocytes % (Manual) (0-10) % Nucleated RBC % (0-0) % Toxic Granulation Platelet Estimate (NORMAL) Large Platelets Anisocytosis (manual) Target Cells Puncture Site pCO2 (35-45) mm/Hg pO2 (80-100) mm/Hg HCO3 (21-28) mmol/L ABG pH (7.35-7.45) ABG Total CO2 (22-28) mmol/L ABG O2 Saturation (95-98) % ABG Base Excess (-2.0-3.0) mmol/L Harlan Test ABG Potassium (3.6-5.2) mmol/L A-a O2 Difference mm/Hg Respiratory Index Sodium (132-148) mmol/l Chloride (98-107) mmol/L Glucose (75-110) mg/dl Lactate (0.7-2.1) mmol/L Vent Mode Mechanical Rate FiO2 % Tidal Volume PEEP Potassium (3.6-5.2) mmol/L Carbon Dioxide (22-30) mmol/L Anion Gap (10-20) BUN (9-20) mg/dL Creatinine (0.8-1.5) mg/dL Est GFR ( Amer) Est GFR (Non-Af Amer) POC Glucose (mg/dL) 197 H (65-110) mg/dL Random Glucose (75-110) mg/dL Calcium (8.6-10.4) mg/dl Phosphorus (2.5-4.5) mg/dL Magnesium (1.6-2.3) mg/dL Total Bilirubin (0.2-1.3) mg/dL AST (17-59) U/L ALT (21-72) U/L Alkaline Phosphatase (38-126) U/L Total Protein (6.3-8.3) g/dL Albumin (3.5-5.0) g/dL Globulin (2.2-3.9) gm/dL Albumin/Globulin Ratio (1.0-2.1) Arterial Blood Potassium (3.6-5.2) mmol/L Laboratory Results - last 24 hr 06/28/17 06/28/17 06/29/17 17:41 23:52 04:18 WBC RBC Hgb Hct MCV MCH MCHC RDW Plt Count MPV Neut % (Auto) Lymph % (Auto) [place] % (Auto) Eos % (Auto) Baso % (Auto) Neut # Lymph # [place] # Eos # Baso # Neutrophils % (Manual) Band Neutrophils % Lymphocytes % (Manual) Monocytes % (Manual) Nucleated RBC % Toxic Granulation Platelet Estimate Large Platelets Anisocytosis (manual) Target Cells Puncture Site Rba pCO2 34 L pO2 88 HCO3 22.6 ABG pH 7.40 ABG Total CO2 22.1 ABG O2 Saturation 99.1 H ABG Base Excess -3.0 L Harlan Test Na ABG Potassium 4.2 A-a O2 Difference 369.0 Respiratory Index 4.2 Sodium 159.0 H Chloride 130.0 H Glucose 207 H Lactate 3.0 H Vent Mode Prvc Mechanical Rate 20 FiO2 70.0 Tidal Volume 550 PEEP 5 Potassium Carbon Dioxide Anion Gap BUN Creatinine Est GFR ( Amer) Est GFR (Non-Af Amer) POC Glucose (mg/dL) 197 H 257 H Random Glucose Calcium Phosphorus Magnesium Total Bilirubin AST ALT Alkaline Phosphatase Total Protein Albumin Globulin Albumin/Globulin Ratio Arterial Blood Potassium 4.2 06/29/17 06/29/17 06/29/17 05:35 06:14 06:14 WBC 28.6 H RBC 3.39 L Hgb 10.3 L Hct 32.8 L MCV 96.7 H MCH 30.5 MCHC 31.5 L RDW 15.9 H Plt Count 204 MPV 11.7 Neut % (Auto) 95.5 H Lymph % (Auto) 2.8 L [place] % (Auto) 1.3 Eos % (Auto) 0.3 Baso % (Auto) 0.1 Neut # 27.3 H Lymph # 0.8 L [place] # 0.4 Eos # 0.1 Baso # 0.0 Neutrophils % (Manual) 84 H Band Neutrophils % 12 H* Lymphocytes % (Manual) 1 L Monocytes % (Manual) 3 Nucleated RBC % 2 H Toxic Granulation Present Platelet Estimate Normal Large Platelets Present Anisocytosis (manual) Slight Target Cells Slight Puncture Site pCO2 pO2 HCO3 ABG pH ABG Total CO2 ABG O2 Saturation ABG Base Excess Harlan Test ABG Potassium A-a O2 Difference Respiratory Index Sodium 159 H Chloride 124 H Glucose Lactate Vent Mode Mechanical Rate FiO2 Tidal Volume PEEP Potassium 4.2 Carbon Dioxide 23 Anion Gap 16 BUN 64 H Creatinine 0.9 Est GFR ( Amer) > 60 Est GFR (Non-Af Amer) > 60 POC Glucose (mg/dL) 249 H Random Glucose 177 H Calcium 7.5 L Phosphorus 2.9 Magnesium 3.0 H Total Bilirubin 0.8 AST 38 ALT 44 Alkaline Phosphatase 238 H Total Protein 5.2 L Albumin 2.1 L Globulin 3.0 Albumin/Globulin Ratio 0.7 L Arterial Blood Potassium 06/29/17 11:39 WBC RBC Hgb Hct MCV MCH MCHC RDW Plt Count MPV Neut % (Auto) Lymph % (Auto) [place] % (Auto) Eos % (Auto) Baso % (Auto) Neut # Lymph # [place] # Eos # Baso # Neutrophils % (Manual) Band Neutrophils % Lymphocytes % (Manual) Monocytes % (Manual) Nucleated RBC % Toxic Granulation Platelet Estimate Large Platelets Anisocytosis (manual) Target Cells Puncture Site pCO2 pO2 HCO3 ABG pH ABG Total CO2 ABG O2 Saturation ABG Base Excess Harlan Test ABG Potassium A-a O2 Difference Respiratory Index Sodium Chloride Glucose Lactate Vent Mode Mechanical Rate FiO2 Tidal Volume PEEP Potassium Carbon Dioxide Anion Gap BUN Creatinine Est GFR ( Amer) Est GFR (Non-Af Amer) POC Glucose (mg/dL) 167 H Random Glucose Calcium Phosphorus Magnesium Total Bilirubin AST ALT Alkaline Phosphatase Total Protein Albumin Globulin Albumin/Globulin Ratio Arterial Blood Potassium Fingerstick Blood Sugar Results: 249 Review of Systems - Review of Systems Review of Systems: Unable to evaluate adequate ROS due to patient's current clinical status Critical Care Progress Note - Ventilator Checklist Daily Sedation Vacation: Yes Daily Assessment of Readiness to Wean: No Daily Spontaneous Breathing Trial: No PUD Prophalyxis: Yes DVT Prophylaxis: Yes - Nutrition Nutrition: Nutrition Category Date Time Status NPO Diet [DIET] Diets 06/14/17 Lunch Active Assessment/Plan - Assessment and Plan (Free Text) Assessment: 81 y/o male, with no significant past medical history, presents to emergency department for evaluation of left lateral neck mass underneath the chin extending from jaw (Submandibular mass), 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 Sheppard on board---> Help appreciated Palliative consult, Veronica on board---> Help appreciated ENT, Dr. Salgado on board---> Help appreciated Cardiothoracic Consult, Dr. Cancino ( Possible Tracheostomy)---> Help appreciated * Plans for tracheostomy once pressor is discontinued and BP is stable Medication/Managment: * Fluconazole 100mg IV daily * Morphine 2mg IVP Q6 PRN Neuro: Intubated Medication/Management: * Propofol 1,000mg IV 5mcg/kg/min ( On titration) Cardio: Hypotension Medication/Management: * Levophed 8mg IV 4mcg/min ( On titration) Pulm: Pneumonia and respiratory distress secondary to enlarged submandibular mass Radio Electronics Technician consult, Dr. PEREZ---> Help appreciated Medication/Management: * Intubated * Duonebs 2.5mg INH RQ6H * Azithromycin 500mg IVPB Q24H ( started 06/20/17) GI: No acute distress Endo: Elevated blood glucose Medication/Management: * Accuchecks * ISS high dose protocol Q6 * Lantus 15 unit SC HS Renal: Hypernatremia possibly secondary due to dehydration Medication/Management: * NS 1L bolus (06/28/17) * Albumin 12.5gm IV Q8H (6 doses)- 06/28/17) * Free H2O Q6H ID: Code sepsis Lactate: 6.4, 6.1, 5.7 ( Trending down), Bandemia, Leukocytosis Infectious Disease consult, Dr. Dominguez---> Help appreciated Medication/Management: * Zosyn 3.375gm IVPB Q8H ( Started 06/20/17)---> stopped (06/22/17) * Primaxin 500mg IV Q8H ( Started 06/22/17) * Vanco 1gm IVPB Q24H ( Started 06/20/17) * Vanco 250mg PO QID rectally (06/26/17) * Flagyl 500mg/100mh, 250mg IVPB Q8H (06/26/17) * D5WNS @100mls/hr * Tylenol 650mg GT Q6 prn Prophylaxis: DVT: SCDs, Heparin 5,000 units SC Q8H GI: Pepcid 20mg IVP daily Tube feeding <Darryl Perez S - Last Filed: 06/29/17 16:23> CCU Objective - Vital Signs / Intake & Output Vital Signs (Last 4 hours): Vital Signs Pulse Resp BP Pulse Ox 06/29/17 15:05 95 H 17 114/60 92 L 06/29/17 15:00 94 H 18 94 L 06/29/17 14:45 93 H 19 103/54 L 92 L 06/29/17 14:24 88 20 112/56 L 94 L 06/29/17 14:05 99 H 20 104/58 L 94 L 06/29/17 14:00 99 H 20 94 L 06/29/17 13:45 99 H 19 113/64 91 L 06/29/17 13:24 100 H 22 90/63 L 93 L 06/29/17 13:04 99 H 19 106/65 91 L 06/29/17 13:00 99 H 18 92 L 06/29/17 12:44 95 H 21 112/65 92 L 06/29/17 12:25 93 H 19 104/59 L 89 L Intake and Output (Last 8hrs): Intake & Output 06/29/17 06/29/17 06/29/17 06:59 14:59 22:59 Intake Total 900.3 522.6 141.7 Output Total 380 355 50 Balance 520.3 167.6 91.7 Intake: IV 146.6 81.4 100 Intake, IV Amount 513.7 201.2 11.7 Right Port-A-Cath 145.3 82.8 9.4 Right Proximal Port Port- 350 A-Cath right PC side port 18.4 118.4 2.3 Tube Feeding 240 240 30 Output: Urine 380 355 50 Urine, Voided 380 355 50 Other: # Bowel Movements 0 1 - Medications Active Medications: Active Medications Generic Name Dose Route Start Last Admin Trade Name Freq PRN Reason Stop Dose Admin Acetaminophen 650 mg 06/16/17 17:25 Tylenol 650mg/20.3ml Solution Ud GT Q6 PRN Pain, Mild (1-3) Albumin Human 12.5 gm 06/28/17 09:30 06/29/17 10:01 Albumin Human 25% (12.5 Gm/50 Ml) IV 06/30/17 01:31 12.5 gm Q8H JUAN CARLOS Administration Albuterol Sulfate 2.5 mg 06/25/17 12:00 06/29/17 13:53 Albuterol 0.083% Inhal Anita (2.5 Mg/3 Ml) Ud INH 2.5 mg RQ6 JUAN CARLOS Administration Famotidine 20 mg 06/27/17 10:15 06/29/17 10:03 Pepcid IVP 20 mg DAILY JUAN CARLOS Administration Heparin Sodium (Porcine) 5,000 units 06/25/17 22:00 06/29/17 15:03 Heparin SC 5,000 units Q8H JUAN CARLOS Administration Fluconazole 50 mls @ 100 mls/hr 06/22/17 10:00 06/29/17 10:02 Diflucan Iv 100 Mg/50 Ml Ns IVPB 100 mls/hr DAILY JUAN CARLOS Administration Imipenem/Cilastatin Sodium 500 100 mls @ 100 mls/hr 06/22/17 12:00 06/29/17 13:05 mg/ Sodium Chloride IVPB 100 mls/hr Q8H JUAN CARLOS Administration Vancomycin/Sodium Chloride 1 gm in 200 mls @ 166.7 mls/hr 06/25/17 14:00 13:04 Vancocin IVPB 06/30/17 14:01 166.7 mls/hr Q24H JUAN CARLOS Administration Metronidazole 250 mg/ 50 mls @ 100 mls/hr 06/26/17 06:00 06/29/17 15:03 Miscellaneous IVPB 100 mls/hr Q8 JUAN CARLOS Administration Norepinephrine Bitartrate 8 mg 258 mls @ 7.74 mls/hr 06/27/17 00:40 06/29/17 13:29 / Sodium Chloride IV 5 mcg/min .Q24H PRN 9.67 mls/hr TITRATE PER MD ORDER Titration Protocol 4 MCG/MIN Propofol 1,000 mg in 100 mls @ 2.504 mls/hr 06/27/17 14:00 06/29/17 15:19 Diprivan IV 5 mcg/kg/min .Q24H PRN 2.504 mls/hr TITRATE PER MD ORDER Administration Protocol 5 MCG/KG/MIN Insulin Glargine 15 unit 06/26/17 22:00 06/28/17 22:14 Lantus SC 15 units HS JUAN CARLOS Administration Insulin Human Regular 0 unit 06/26/17 10:36 06/29/17 13:09 Novolin R SC 2 unit Q6 JUAN CARLOS Administration Protocol Neomycin/Polymyxin/Bacitracin 0.5 gm 06/26/17 22:30 06/29/17 10:02 Neosporin Triple Antibiotic Oint TOP 1 applic BID JUAN CARLOS Administration Vancomycin HCl 250 mg 06/26/17 23:15 06/29/17 13:04 Vancocin (Oral Or Rectal Use) PO 250 mg QID JUAN CARLOS Administration - Patient Studies Lab Studies: Microbiology Studies 06/28/17 08:00 Urine Culture - Final Urine,Catheterized No Growth (<1,000 CFU/ML) Lab Studies 06/29/17 06/29/1717 Range/Units 11:39 06:14 06:14 WBC 28.6 H (4.8-10.8) K/uL RBC 3.39 L (4.40-5.90) Mil/uL Hgb 10.3 L (12.0-18.0) g/dL Hct 32.8 L (35.0-51.0) % MCV 96.7 H (80.0-94.0) fL MCH 30.5 (27.0-31.0) pg MCHC 31.5 L (33.0-37.0) g/dL RDW 15.9 H (11.5-14.5) % Plt Count 204 (130-400) K/uL MPV 11.7 (7.2-11.7) fL Neut % (Auto) 95.5 H (50.0-75.0) % Lymph % (Auto) 2.8 L (20.0-40.0) % [place] % (Auto) 1.3 (0.0-10.0) % Eos % (Auto) 0.3 (0.0-4.0) % Baso % (Auto) 0.1 (0.0-2.0) % Neut # 27.3 H (1.8-7.0) K/uL Lymph # 0.8 L (1.0-4.3) K/uL [place] # 0.4 (0.0-0.8) K/uL Eos # 0.1 (0.0-0.7) K/uL Baso # 0.0 (0.0-0.2) K/uL Neutrophils % (Manual) 84 H (50-75) % Band Neutrophils % 12 H* (0-2) % Lymphocytes % (Manual) 1 L (20-40) % Monocytes % (Manual) 3 (0-10) % Nucleated RBC % 2 H (0-0) % Toxic Granulation Present Platelet Estimate Normal (NORMAL) Large Platelets Present Anisocytosis (manual) Slight Target Cells Slight Puncture Site pCO2 (35-45) mm/Hg pO2 (80-100) mm/Hg HCO3 (21-28) mmol/L ABG pH (7.35-7.45) ABG Total CO2 (22-28) mmol/L ABG O2 Saturation (95-98) % ABG Base Excess (-2.0-3.0) mmol/L Harlan Test ABG Potassium (3.6-5.2) mmol/L A-a O2 Difference mm/Hg Respiratory Index Sodium 159 H (132-148) mmol/l Chloride 124 H (98-107) mmol/L Glucose (75-110) mg/dl Lactate (0.7-2.1) mmol/L Vent Mode Mechanical Rate FiO2 % Tidal Volume PEEP Potassium 4.2 (3.6-5.2) mmol/L Carbon Dioxide 23 (22-30) mmol/L Anion Gap 16 (10-20) BUN 64 H (9-20) mg/dL Creatinine 0.9 (0.8-1.5) mg/dL Est GFR ( Amer) > 60 Est GFR (Non-Af Amer) > 60 POC Glucose (mg/dL) 167 H (65-110) mg/dL Random Glucose 177 H (75-110) mg/dL Calcium 7.5 L (8.6-10.4) mg/dl Phosphorus 2.9 (2.5-4.5) mg/dL Magnesium 3.0 H (1.6-2.3) mg/dL Total Bilirubin 0.8 (0.2-1.3) mg/dL AST 38 (17-59) U/L ALT 44 (21-72) U/L Alkaline Phosphatase 238 H (38-126) U/L Total Protein 5.2 L (6.3-8.3) g/dL Albumin 2.1 L (3.5-5.0) g/dL Globulin 3.0 (2.2-3.9) gm/dL Albumin/Globulin Ratio 0.7 L (1.0-2.1) Arterial Blood Potassium (3.6-5.2) mmol/L 06/29/17 06/29/17 06/28/17 Range/Units 05:35 04:18 23:52 WBC (4.8-10.8) K/uL RBC (4.40-5.90) Mil/uL Hgb (12.0-18.0) g/dL Hct (35.0-51.0) % MCV (80.0-94.0) fL MCH (27.0-31.0) pg MCHC (33.0-37.0) g/dL RDW (11.5-14.5) % Plt Count (130-400) K/uL MPV (7.2-11.7) fL Neut % (Auto) (50.0-75.0) % Lymph % (Auto) (20.0-40.0) % [place] % (Auto) (0.0-10.0) % Eos % (Auto) (0.0-4.0) % Baso % (Auto) (0.0-2.0) % Neut # (1.8-7.0) K/uL Lymph # (1.0-4.3) K/uL [place] # (0.0-0.8) K/uL Eos # (0.0-0.7) K/uL Baso # (0.0-0.2) K/uL Neutrophils % (Manual) (50-75) % Band Neutrophils % (0-2) % Lymphocytes % (Manual) (20-40) % Monocytes % (Manual) (0-10) % Nucleated RBC % (0-0) % Toxic Granulation Platelet Estimate (NORMAL) Large Platelets Anisocytosis (manual) Target Cells Puncture Site Rba pCO2 34 L (35-45) mm/Hg pO2 88 (80-100) mm/Hg HCO3 22.6 (21-28) mmol/L ABG pH 7.40 (7.35-7.45) ABG Total CO2 22.1 (22-28) mmol/L ABG O2 Saturation 99.1 H (95-98) % ABG Base Excess -3.0 L (-2.0-3.0) mmol/L Harlan Test Na ABG Potassium 4.2 (3.6-5.2) mmol/L A-a O2 Difference 369.0 mm/Hg Respiratory Index 4.2 Sodium 159.0 H (132-148) mmol/l Chloride 130.0 H (98-107) mmol/L Glucose 207 H (75-110) mg/dl Lactate 3.0 H (0.7-2.1) mmol/L Vent Mode Prvc Mechanical Rate 20 FiO2 70.0 % Tidal Volume 550 PEEP 5 Potassium (3.6-5.2) mmol/L Carbon Dioxide (22-30) mmol/L Anion Gap (10-20) BUN (9-20) mg/dL Creatinine (0.8-1.5) mg/dL Est GFR ( Amer) Est GFR (Non-Af Amer) POC Glucose (mg/dL) 249 H 257 H (65-110) mg/dL Random Glucose (75-110) mg/dL Calcium (8.6-10.4) mg/dl Phosphorus (2.5-4.5) mg/dL Magnesium (1.6-2.3) mg/dL Total Bilirubin (0.2-1.3) mg/dL AST (17-59) U/L ALT (21-72) U/L Alkaline Phosphatase (38-126) U/L Total Protein (6.3-8.3) g/dL Albumin (3.5-5.0) g/dL Globulin (2.2-3.9) gm/dL Albumin/Globulin Ratio (1.0-2.1) Arterial Blood Potassium 4.2 (3.6-5.2) mmol/L 06/28/17 Range/Units 17:41 WBC (4.8-10.8) K/uL RBC (4.40-5.90) Mil/uL Hgb (12.0-18.0) g/dL Hct (35.0-51.0) % MCV (80.0-94.0) fL MCH (27.0-31.0) pg MCHC (33.0-37.0) g/dL RDW (11.5-14.5) % Plt Count (130-400) K/uL MPV (7.2-11.7) fL Neut % (Auto) (50.0-75.0) % Lymph % (Auto) (20.0-40.0) % [place] % (Auto) (0.0-10.0) % Eos % (Auto) (0.0-4.0) % Baso % (Auto) (0.0-2.0) % Neut # (1.8-7.0) K/uL Lymph # (1.0-4.3) K/uL [place] # (0.0-0.8) K/uL Eos # (0.0-0.7) K/uL Baso # (0.0-0.2) K/uL Neutrophils % (Manual) (50-75) % Band Neutrophils % (0-2) % Lymphocytes % (Manual) (20-40) % Monocytes % (Manual) (0-10) % Nucleated RBC % (0-0) % Toxic Granulation Platelet Estimate (NORMAL) Large Platelets Anisocytosis (manual) Target Cells Puncture Site pCO2 (35-45) mm/Hg pO2 (80-100) mm/Hg HCO3 (21-28) mmol/L ABG pH (7.35-7.45) ABG Total CO2 (22-28) mmol/L ABG O2 Saturation (95-98) % ABG Base Excess (-2.0-3.0) mmol/L Harlan Test ABG Potassium (3.6-5.2) mmol/L A-a O2 Difference mm/Hg Respiratory Index Sodium (132-148) mmol/l Chloride (98-107) mmol/L Glucose (75-110) mg/dl Lactate (0.7-2.1) mmol/L Vent Mode Mechanical Rate FiO2 % Tidal Volume PEEP Potassium (3.6-5.2) mmol/L Carbon Dioxide (22-30) mmol/L Anion Gap (10-20) BUN (9-20) mg/dL Creatinine (0.8-1.5) mg/dL Est GFR ( Amer) Est GFR (Non-Af Amer) POC Glucose (mg/dL) 197 H (65-110) mg/dL Random Glucose (75-110) mg/dL Calcium (8.6-10.4) mg/dl Phosphorus (2.5-4.5) mg/dL Magnesium (1.6-2.3) mg/dL Total Bilirubin (0.2-1.3) mg/dL AST (17-59) U/L ALT (21-72) U/L Alkaline Phosphatase (38-126) U/L Total Protein (6.3-8.3) g/dL Albumin (3.5-5.0) g/dL Globulin (2.2-3.9) gm/dL Albumin/Globulin Ratio (1.0-2.1) Arterial Blood Potassium (3.6-5.2) mmol/L Laboratory Results - last 24 hr 06/28/17 06/28/17 06/29/17 17:41 23:52 04:18 WBC RBC Hgb Hct MCV MCH MCHC RDW Plt Count MPV Neut % (Auto) Lymph % (Auto) [place] % (Auto) Eos % (Auto) Baso % (Auto) Neut # Lymph # [place] # Eos # Baso # Neutrophils % (Manual) Band Neutrophils % Lymphocytes % (Manual) Monocytes % (Manual) Nucleated RBC % Toxic Granulation Platelet Estimate Large Platelets Anisocytosis (manual) Target Cells Puncture Site Rba pCO2 34 L pO2 88 HCO3 22.6 ABG pH 7.40 ABG Total CO2 22.1 ABG O2 Saturation 99.1 H ABG Base Excess -3.0 L [place] Test Na ABG Potassium 4.2 A-a O2 Difference 369.0 Respiratory Index 4.2 Sodium 159.0 H Chloride 130.0 H Glucose 207 H Lactate 3.0 H Vent Mode Prvc Mechanical Rate 20 FiO2 70.0 Tidal Volume 550 PEEP 5 Potassium Carbon Dioxide Anion Gap BUN Creatinine Est GFR ( Amer) Est GFR (Non-Af Amer) POC Glucose (mg/dL) 197 H 257 H Random Glucose Calcium Phosphorus Magnesium Total Bilirubin AST ALT Alkaline Phosphatase Total Protein Albumin Globulin Albumin/Globulin Ratio Arterial Blood Potassium 4.2 06/29/17 06/29/17 06/29/17 05:35 06:14 06:14 WBC 28.6 H RBC 3.39 L Hgb 10.3 L Hct 32.8 L MCV 96.7 H MCH 30.5 MCHC 31.5 L RDW 15.9 H Plt Count 204 MPV 11.7 Neut % (Auto) 95.5 H Lymph % (Auto) 2.8 L [place] % (Auto) 1.3 Eos % (Auto) 0.3 Baso % (Auto) 0.1 Neut # 27.3 H Lymph # 0.8 L [place] # 0.4 Eos # 0.1 Baso # 0.0 Neutrophils % (Manual) 84 H Band Neutrophils % 12 H* Lymphocytes % (Manual) 1 L Monocytes % (Manual) 3 Nucleated RBC % 2 H Toxic Granulation Present Platelet Estimate Normal Large Platelets Present Anisocytosis (manual) Slight Target Cells Slight Puncture Site pCO2 pO2 HCO3 ABG pH ABG Total CO2 ABG O2 Saturation ABG Base Excess [place] Test ABG Potassium A-a O2 Difference Respiratory Index Sodium 159 H Chloride 124 H Glucose Lactate Vent Mode Mechanical Rate FiO2 Tidal Volume PEEP Potassium 4.2 Carbon Dioxide 23 Anion Gap 16 BUN 64 H Creatinine 0.9 Est GFR ( Amer) > 60 Est GFR (Non-Af Amer) > 60 POC Glucose (mg/dL) 249 H Random Glucose 177 H Calcium 7.5 L Phosphorus 2.9 Magnesium 3.0 H Total Bilirubin 0.8 AST 38 ALT 44 Alkaline Phosphatase 238 H Total Protein 5.2 L Albumin 2.1 L Globulin 3.0 Albumin/Globulin Ratio 0.7 L Arterial Blood Potassium 06/29/17 11:39 WBC RBC Hgb Hct MCV MCH MCHC RDW Plt Count MPV Neut % (Auto) Lymph % (Auto) [place] % (Auto) Eos % (Auto) Baso % (Auto) Neut # Lymph # [place] # Eos # Baso # Neutrophils % (Manual) Band Neutrophils % Lymphocytes % (Manual) Monocytes % (Manual) Nucleated RBC % Toxic Granulation Platelet Estimate Large Platelets Anisocytosis (manual) Target Cells Puncture Site pCO2 pO2 HCO3 ABG pH ABG Total CO2 ABG O2 Saturation ABG Base Excess [place] Test ABG Potassium A-a O2 Difference Respiratory Index Sodium Chloride Glucose Lactate Vent Mode Mechanical Rate FiO2 Tidal Volume PEEP Potassium Carbon Dioxide Anion Gap BUN Creatinine Est GFR ( Amer) Est GFR (Non-Af Amer) POC Glucose (mg/dL) 167 H Random Glucose Calcium Phosphorus Magnesium Total Bilirubin AST ALT Alkaline Phosphatase Total Protein Albumin Globulin Albumin/Globulin Ratio Arterial Blood Potassium Critical Care Progress Note - Nutrition Nutrition: Nutrition Category Date Time Status NPO Diet [DIET] Diets 06/14/17 Lunch Active Assessment/Plan (1) Respiratory failure Current Visit: Yes Status: Acute Comment: Reduce FiO2 as tolerated Continue antibiotics for pneumonia Improving chest x-ray noted Continue feeding Continue antibiotic for C. difficile colitis Culture and sensitivity of fluid from PEG site Discontinue IV fluids (2) Oropharyngeal cancer Current Visit: Yes Status: Acute (3) Pneumonia Current Visit: Yes Status: Acute Attending/Attestation - Attestation I have personally seen and examined this patient.: Yes I have fully participated in the care of the patient.: Yes I have reviewed all pertinent clinical information: Yes Notes (Text): 06/29/17 16:21 Patient seen and examined in the intensive care unit. Case discussed with house staff in the morning. Remains intubated on ventilatory support FiO2 reduced to 60% Remains sedated on diprivan Taper off pressors as tolerated Tracheostomy when patient off pressors Continue feeding
[2017-06-29] MEDS: Propofol 10 mg/ml 1,000 MG/100 ML VIAL IV PRN (15:19)
--- NOTE | 2017-06-29 15:19 | CP.PCM.PN ---
Subjective - Date & Time of Evaluation Date of Evaluation: 06/29/17 Time of Evaluation: 17:00 - Subjective Subjective: pt seen and examined, remains sick, wbc elevated, on mechanical ventilator, attempt weaning Objective - Vital Signs/Intake and Output Vital Signs (last 24 hours): Temp Pulse Resp BP Pulse Ox 98.4 F 95 H 17 114/60 92 L 06/29/17 12:00 06/29/17 15:05 06/29/17 15:05 06/29/17 15:05 06/29/17 15:05 Intake and Output: 06/29/17 06/29/17 06:59 18:59 Intake Total 1292.7 564.3 Output Total 530 405 Balance 762.7 159.3 - Medications Medications: Current Medications Acetaminophen (Tylenol 650mg/20.3ml Solution Ud) 650 mg GT Q6 PRN PRN Reason: Pain, Mild (1-3) Albumin Human (Albumin Human 25% (12.5 Gm/50 Ml)) 12.5 gm IV Q8H [facility] Stop: 06/30/17 01:31 Last Admin: 06/29/17 10:01 Dose: 12.5 gm Albuterol Sulfate (Albuterol 0.083% Inhal Anita (2.5 Mg/3 Ml) Ud) 2.5 mg INH RQ6 [facility] Last Admin: 06/29/17 13:53 Dose: 2.5 mg Famotidine (Pepcid) 20 mg IVP DAILY [facility] Last Admin: 06/29/17 10:03 Dose: 20 mg Heparin Sodium (Porcine) (Heparin) 5,000 units SC Q8H [facility] Last Admin: 06/29/17 15:03 Dose: 5,000 units Fluconazole (Diflucan Iv 100 Mg/50 Ml Ns) 50 mls @ 100 mls/hr IVPB DAILY [facility] Last Admin: 06/29/17 10:02 Dose: 100 mls/hr Imipenem/Cilastatin Sodium 500 (mg/ Sodium Chloride) 100 mls @ 100 mls/hr IVPB Q8H [facility] Last Admin: 06/29/17 13:05 Dose: 100 mls/hr Vancomycin/Sodium Chloride (Vancocin) 1 gm in 200 mls @ 166.7 mls/hr IVPB Q24H [facility] Stop: 06/30/17 14:01 Last Admin: 06/29/17 13:04 Dose: 166.7 mls/hr Metronidazole 250 mg/ (Miscellaneous) 50 mls @ 100 mls/hr IVPB Q8 [facility] Last Admin: 06/29/17 15:03 Dose: 100 mls/hr Norepinephrine Bitartrate 8 mg (/ Sodium Chloride) 258 mls @ 7.74 mls/hr IV .Q24H PRN; Protocol; 4 MCG/MIN PRN Reason: TITRATE PER MD ORDER Last Titration: 06/29/17 13:29 Dose: 5 mcg/min, 9.67 mls/hr Propofol (Diprivan) 1,000 mg in 100 mls @ 2.504 mls/hr IV .Q24H PRN; Protocol; 5 MCG/KG/MIN PRN Reason: TITRATE PER MD ORDER Last Admin: 06/28/17 11:02 Dose: 5 mcg/kg/min, 2.504 mls/hr Insulin Glargine (Lantus) 15 unit SC HS [facility] Last Admin: 06/28/17 22:14 Dose: 15 units Insulin Human Regular (Novolin R) 0 unit SC Q6 JUAN CARLOS PRN Reason: Protocol Last Admin: 06/29/17 13:09 Dose: 2 unit Neomycin/Polymyxin/Bacitracin (Neosporin Triple Antibiotic Oint) 0.5 gm TOP BID [facility] Last Admin: 06/29/17 10:02 Dose: 1 applic Vancomycin HCl (Vancocin (Oral Or Rectal Use)) 250 mg PO QID [facility] Last Admin: 06/29/17 13:04 Dose: 250 mg - Labs Labs: 06/29/17 06:14 06/29/17 06:14 PT 15.7 SECONDS (9.7-12.2) H 06/20/17 11:44 INR 1.4 06/20/17 11:44 APTT 26 SECONDS (21-34) 06/20/17 11:44 - Constitutional Appears: Younger Than Stated Age, Chronically Ill - Eye Exam Eye Exam: EOMI, Normal appearance, PERRL Pupil Exam: NORMAL ACCOMODATION, PERRL - ENT Exam ENT Exam: Mucous Membranes Moist, Normal Exam - Respiratory Exam Respiratory Exam: Decreased Breath Sounds, Rales, Rhonchi - Cardiovascular Exam Cardiovascular Exam: REGULAR RHYTHM, +S1, +S2. absent: Murmur - GI/Abdominal Exam GI & Abdominal Exam: Soft, Normal Bowel Sounds. absent: Tenderness Assessment and Plan (1) Mass of left side of neck Status: Acute (2) Dysphagia Status: Acute (3) Dehydration Status: Acute (4) Lactic acid acidosis Status: Acute (5) Respiratory failure Assessment & Plan: on MV attempt weaning monitor oxygenation Status: Acute (6) Oropharyngeal cancer Status: Acute (7) Septicemia Assessment & Plan: on antibiotics Status: Acute
[2017-06-29] MEDS: (Lantus) Insulin Glargine, Recombinant SC SCH (21:45)
[2017-06-30] MEDS: (Novolin R) Insulin Human Regular 100 units/ml vial SC SCH ×4 (00:54→18:14)
[2017-06-30] MEDS: Albumin Human 25% (12.5 gm/50 ml) IV SCH (01:09)
[2017-06-30] MEDS: Albuterol 0.083% Inhal Sol (2.5 mg/3 mL) UD INH SCH ×4 (01:50→19:17)
[2017-06-30] MEDS: metroNIDAZOLE IV 500 mg/100 ml 250 MG in Premixed IV 1 EA IVPB SCH ×3 (05:24→21:39)
[2017-06-30 05:50] LABS: ABG ALLEN TEST POS; ABG MECHANICAL RATE 20; ARTERIAL BLOOD GAS MODE PRVC; ARTERIAL BLOOD HGB O2 SAT 95.6 % (95.0-98.0); ATERIAL BLOOD GAS PEEP 5; CARBOXYHEMOGLOBIN 1.9 % (0.5-1.5); DRAW SITE R RAD; HHB 0.6 % (0.0-5.0); METHEMOGLOBIN 1.8 % (0.0-3.0)
[2017-06-30 06:35] LABS: BASO % 0.2 % (0.0-2.0); EOS # 0.1 K/uL (0.0-0.7); EOS % 0.4 % (0.0-4.0); HEMATOCRIT 28.7 % (35.0-51.0); LYMPH # 0.8 K/uL (1.0-4.3); LYMPH % 3.8 % (20.0-40.0); MEAN CELL VOLUME 98.8 fL (80.0-94.0); MEAN CORPUSCULAR HEMOGLOBIN 31.3 pg (27.0-31.0); MEAN CORPUSCULAR HGB CONC 31.7 g/dL (33.0-37.0); MEAN PLATELET VOLUME 11.6 fL (7.2-11.7); MONO # 0.5 K/uL (0.0-0.8); MONO % 2.5 % (0.0-10.0); NRBC % 3.6 % (0.0-2.0); PLATELET COUNT 160 K/uL (130-400); RED CELL DISTRIBUTION WIDTH 15.8 % (11.5-14.5); WHITE BLOOD COUNT 19.6 K/uL (4.8-10.8)
[2017-06-30 06:44] LABS: CHLORIDE 126 mmol/L (98-107); SODIUM 156 mmol/L (132-148)
[2017-06-30 06:45] LABS: POTASSIUM 4.5 mmol/L (3.6-5.2)
[2017-06-30 06:47] LABS: ALB/GLOB RATIO 0.8 (1.0-2.1); ALKALINE PHOSPHATASE 260 U/L (38-126); AST/SGOT 32 U/L (17-59); BILIRUBIN,TOTAL 0.9 mg/dL (0.2-1.3); BLOOD UREA NITROGEN 61 mg/dL (9-20); CARBON DIOXIDE 22 mmol/L (22-30); GFR AFRICAN-AMERICAN > 60; GLUCOSE,RANDOM 185 mg/dL (75-110); PHOSPHOROUS 3.3 mg/dL (2.5-4.5); TOTAL PROTEIN 5.1 g/dL (6.3-8.3)
[2017-06-30 06:48] LABS: ALT/SGPT 36 U/L (21-72); CALCIUM 7.4 mg/dl (8.6-10.4)
[2017-06-30 08:46] LABS: NEUTROPHIL 80 % (50-75); NUCLEATED RED BLOOD CELL 2 % (0-0); TOTAL CELLS COUNTED 100
--- NOTE | 2017-06-30 09:18 | CP.CCUPN ---
<Rikki Hurtado - Last Filed: 06/30/17 16:30> CCU Objective - Vital Signs / Intake & Output Vital Signs (Last 4 hours): Vital Signs Pulse Resp BP Pulse Ox 06/30/17 16:00 105 H 22 96 06/30/17 15:55 105 H 16 110/63 06/30/17 15:00 105 H 16 97 06/30/17 14:55 101 H 19 133/75 96 06/30/17 14:24 122/67 06/30/17 14:00 105 H 16 95 06/30/17 13:55 105 H 17 122/67 94 L 06/30/17 13:00 97 H 24 96 06/30/17 12:55 96 H 22 113/58 L 96 Intake and Output (Last 8hrs): Intake & Output 06/30/17 06/30/17 06/30/17 06:59 14:59 22:59 Intake Total 629.3 440 240 Output Total 375 330 60 Balance 254.3 110 180 Intake: IV 158 Intake, IV Amount 231.3 200 200 Right Port-A-Cath 12.9 Right Proximal Port Port- 200 200 200 A-Cath right PC side port 18.4 Tube Feeding 240 240 40 Output: Urine 375 330 60 Urine, Voided 375 330 60 Other: # Bowel Movements 1 - Medications Active Medications: Active Medications Generic Name Dose Route Start Last Admin Trade Name Freq PRN Reason Stop Dose Admin Acetaminophen 650 mg 06/16/17 17:25 Tylenol 650mg/20.3ml Solution Ud GT Q6 PRN Pain, Mild (1-3) Albuterol Sulfate 2.5 mg 06/25/17 12:00 06/30/17 14:19 Albuterol 0.083% Inhal Anita (2.5 Mg/3 Ml) Ud INH 2.5 mg RQ6 JUAN CARLOS Administration Famotidine 20 mg 06/27/17 10:15 06/30/17 09:36 Pepcid IVP 20 mg DAILY JUAN CARLOS Administration Furosemide 20 mg 06/30/17 13:00 06/30/17 14:24 Lasix IVP 20 mg Q12H JUAN CARLOS Administration Heparin Sodium (Porcine) 5,000 units 06/25/17 22:00 06/30/17 14:24 Heparin SC 5,000 units Q8H JUAN CARLOS Administration Fluconazole 50 mls @ 100 mls/hr 06/22/17 10:00 06/30/17 10:01 Diflucan Iv 100 Mg/50 Ml Ns IVPB 100 mls/hr DAILY JUAN CARLOS Administration Imipenem/Cilastatin Sodium 500 100 mls @ 100 mls/hr 06/22/17 12:00 06/30/17 11:29 mg/ Sodium Chloride IVPB 100 mls/hr Q8H JUAN CARLOS Administration Metronidazole 250 mg/ 50 mls @ 100 mls/hr 06/26/17 06:00 06/30/17 13:22 Miscellaneous IVPB 100 mls/hr Q8 JUAN CARLOS Administration Norepinephrine Bitartrate 8 mg 258 mls @ 7.74 mls/hr 06/27/17 00:40 06/30/17 03:17 / Sodium Chloride IV 0 mcg/min .Q24H PRN 0 mls/hr TITRATE PER MD ORDER Titration Protocol 4 MCG/MIN Insulin Glargine 15 unit 06/26/17 22:00 06/29/17 21:45 Lantus SC 15 units HS JUAN CARLOS Administration Insulin Human Regular 0 unit 06/26/17 10:36 06/30/17 11:42 Novolin R SC 6 unit Q6 JUAN CARLOS Administration Protocol Neomycin/Polymyxin/Bacitracin 0.5 gm 06/26/17 22:30 06/30/17 09:35 Neosporin Triple Antibiotic Oint TOP 1 applic BID JUAN ACRLOS Administration Vancomycin HCl 250 mg 06/26/17 23:15 06/30/17 14:25 Vancocin (Oral Or Rectal Use) PO 250 mg QID JUAN CARLOS Administration - Patient Studies Lab Studies: Microbiology Studies 06/28/17 Unknown Gram Stain - Final Sputum Induced Sputum Culture - Preliminary Gram Negative Saleem Lab Studies 06/30/17 06/30/17 06/30/17 Range/Units 11:39 06:23 06:23 WBC 19.6 H (4.8-10.8) K/uL RBC 2.90 L (4.40-5.90) Mil/uL Hgb 9.1 L (12.0-18.0) g/dL Hct 28.7 L (35.0-51.0) % MCV 98.8 H D (80.0-94.0) fL MCH 31.3 H (27.0-31.0) pg MCHC 31.7 L (33.0-37.0) g/dL RDW 15.8 H (11.5-14.5) % Plt Count 160 (130-400) K/uL MPV 11.6 (7.2-11.7) fL Neut % (Auto) 93.1 H (50.0-75.0) % Lymph % (Auto) 3.8 L (20.0-40.0) % Robertson % (Auto) 2.5 (0.0-10.0) % Eos % (Auto) 0.4 (0.0-4.0) % Baso % (Auto) 0.2 (0.0-2.0) % Neut # 18.2 H (1.8-7.0) K/uL Lymph # 0.8 L (1.0-4.3) K/uL Robertson # 0.5 (0.0-0.8) K/uL Eos # 0.1 (0.0-0.7) K/uL Baso # 0.0 (0.0-0.2) K/uL Neutrophils % (Manual) 80 H (50-75) % Band Neutrophils % 17 H* (0-2) % Lymphocytes % (Manual) 2 L (20-40) % Monocytes % (Manual) 1 (0-10) % Nucleated RBC % 2 H (0-0) % Platelet Estimate Normal (NORMAL) Poikilocytosis (manual Slight Basophilic Stippling Slight Anisocytosis (manual) Slight Target Cells Slight Puncture Site pCO2 (35-45) mm/Hg pO2 (80-100) mm/Hg HCO3 (21-28) mmol/L ABG pH (7.35-7.45) ABG Total CO2 (22-28) mmol/L ABG O2 Saturation (95-98) % ABG Base Excess (-2.0-3.0) mmol/L ABG Hemoglobin (11.7-17.4) g/dL ABG Carboxyhemoglobin (0.5-1.5) % POC ABG HHb (Measured) (0.0-5.0) % ABG Methemoglobin (0.0-3.0) % Harlan Test A-a O2 Difference mm/Hg Respiratory Index Hgb O2 Saturation (95.0-98.0) % Vent Mode Mechanical Rate FiO2 % Tidal Volume PEEP Sodium 156 H (132-148) mmol/L Potassium 4.5 (3.6-5.2) mmol/L Chloride 126 H (98-107) mmol/L Carbon Dioxide 22 (22-30) mmol/L Anion Gap 13 (10-20) BUN 61 H (9-20) mg/dL Creatinine 0.8 (0.8-1.5) mg/dL Est GFR ( Amer) > 60 Est GFR (Non-Af Amer) > 60 POC Glucose (mg/dL) 263 H (65-110) mg/dL Random Glucose 185 H (75-110) mg/dL Calcium 7.4 L (8.6-10.4) mg/dl Phosphorus 3.3 (2.5-4.5) mg/dL Magnesium 3.0 H (1.6-2.3) mg/dL Total Bilirubin 0.9 (0.2-1.3) mg/dL AST 32 (17-59) U/L ALT 36 (21-72) U/L Alkaline Phosphatase 260 H (38-126) U/L Total Protein 5.1 L (6.3-8.3) g/dL Albumin 2.2 L (3.5-5.0) g/dL Globulin 2.9 (2.2-3.9) gm/dL Albumin/Globulin Ratio 0.8 L (1.0-2.1) 06/30/17 06/30/17 06/29/17 Range/Units 05:16 05:09 23:44 WBC (4.8-10.8) K/uL RBC (4.40-5.90) Mil/uL Hgb (12.0-18.0) g/dL Hct (35.0-51.0) % MCV (80.0-94.0) fL MCH (27.0-31.0) pg MCHC (33.0-37.0) g/dL RDW (11.5-14.5) % Plt Count (130-400) K/uL MPV (7.2-11.7) fL Neut % (Auto) (50.0-75.0) % Lymph % (Auto) (20.0-40.0) % Robertson % (Auto) (0.0-10.0) % Eos % (Auto) (0.0-4.0) % Baso % (Auto) (0.0-2.0) % Neut # (1.8-7.0) K/uL Lymph # (1.0-4.3) K/uL Robertson # (0.0-0.8) K/uL Eos # (0.0-0.7) K/uL Baso # (0.0-0.2) K/uL Neutrophils % (Manual) (50-75) % Band Neutrophils % (0-2) % Lymphocytes % (Manual) (20-40) % Monocytes % (Manual) (0-10) % Nucleated RBC % (0-0) % Platelet Estimate (NORMAL) Poikilocytosis (manual Basophilic Stippling Anisocytosis (manual) Target Cells Puncture Site R rad pCO2 37 (35-45) mm/Hg pO2 104 H (80-100) mm/Hg HCO3 23.6 (21-28) mmol/L ABG pH 7.40 (7.35-7.45) ABG Total CO2 24.0 (22-28) mmol/L ABG O2 Saturation 99.4 H (95-98) % ABG Base Excess -1.7 (-2.0-3.0) mmol/L ABG Hemoglobin 9.0 L (11.7-17.4) g/dL ABG Carboxyhemoglobin 1.9 H (0.5-1.5) % POC ABG HHb (Measured) 0.6 (0.0-5.0) % ABG Methemoglobin 1.8 (0.0-3.0) % Harlan Test Pos A-a O2 Difference 278.0 mm/Hg Respiratory Index 2.7 Hgb O2 Saturation 95.6 (95.0-98.0) % Vent Mode Prvc Mechanical Rate 20 FiO2 60.0 % Tidal Volume 550 PEEP 5 Sodium (132-148) mmol/L Potassium (3.6-5.2) mmol/L Chloride (98-107) mmol/L Carbon Dioxide (22-30) mmol/L Anion Gap (10-20) BUN (9-20) mg/dL Creatinine (0.8-1.5) mg/dL Est GFR ( Amer) Est GFR (Non-Af Amer) POC Glucose (mg/dL) 251 H 197 H (65-110) mg/dL Random Glucose (75-110) mg/dL Calcium (8.6-10.4) mg/dl Phosphorus (2.5-4.5) mg/dL Magnesium (1.6-2.3) mg/dL Total Bilirubin (0.2-1.3) mg/dL AST (17-59) U/L ALT (21-72) U/L Alkaline Phosphatase (38-126) U/L Total Protein (6.3-8.3) g/dL Albumin (3.5-5.0) g/dL Globulin (2.2-3.9) gm/dL Albumin/Globulin Ratio (1.0-2.1) 06/29/17 Range/Units 17:44 WBC (4.8-10.8) K/uL RBC (4.40-5.90) Mil/uL Hgb (12.0-18.0) g/dL Hct (35.0-51.0) % MCV (80.0-94.0) fL MCH (27.0-31.0) pg MCHC (33.0-37.0) g/dL RDW (11.5-14.5) % Plt Count (130-400) K/uL MPV (7.2-11.7) fL Neut % (Auto) (50.0-75.0) % Lymph % (Auto) (20.0-40.0) % Robertson % (Auto) (0.0-10.0) % Eos % (Auto) (0.0-4.0) % Baso % (Auto) (0.0-2.0) % Neut # (1.8-7.0) K/uL Lymph # (1.0-4.3) K/uL Robertson # (0.0-0.8) K/uL Eos # (0.0-0.7) K/uL Baso # (0.0-0.2) K/uL Neutrophils % (Manual) (50-75) % Band Neutrophils % (0-2) % Lymphocytes % (Manual) (20-40) % Monocytes % (Manual) (0-10) % Nucleated RBC % (0-0) % Platelet Estimate (NORMAL) Poikilocytosis (manual Basophilic Stippling Anisocytosis (manual) Target Cells Puncture Site pCO2 (35-45) mm/Hg pO2 (80-100) mm/Hg HCO3 (21-28) mmol/L ABG pH (7.35-7.45) ABG Total CO2 (22-28) mmol/L ABG O2 Saturation (95-98) % ABG Base Excess (-2.0-3.0) mmol/L ABG Hemoglobin (11.7-17.4) g/dL ABG Carboxyhemoglobin (0.5-1.5) % POC ABG HHb (Measured) (0.0-5.0) % ABG Methemoglobin (0.0-3.0) % Harlan Test A-a O2 Difference mm/Hg Respiratory Index Hgb O2 Saturation (95.0-98.0) % Vent Mode Mechanical Rate FiO2 % Tidal Volume PEEP Sodium (132-148) mmol/L Potassium (3.6-5.2) mmol/L Chloride (98-107) mmol/L Carbon Dioxide (22-30) mmol/L Anion Gap (10-20) BUN (9-20) mg/dL Creatinine (0.8-1.5) mg/dL Est GFR ( Amer) Est GFR (Non-Af Amer) POC Glucose (mg/dL) 180 H (65-110) mg/dL Random Glucose (75-110) mg/dL Calcium (8.6-10.4) mg/dl Phosphorus (2.5-4.5) mg/dL Magnesium (1.6-2.3) mg/dL Total Bilirubin (0.2-1.3) mg/dL AST (17-59) U/L ALT (21-72) U/L Alkaline Phosphatase (38-126) U/L Total Protein (6.3-8.3) g/dL Albumin (3.5-5.0) g/dL Globulin (2.2-3.9) gm/dL Albumin/Globulin Ratio (1.0-2.1) Laboratory Results - last 24 hr 06/29/17 06/29/17 06/30/17 17:44 23:44 05:09 WBC RBC Hgb Hct MCV MCH MCHC RDW Plt Count MPV Neut % (Auto) Lymph % (Auto) Robertson % (Auto) Eos % (Auto) Baso % (Auto) Neut # Lymph # Robertson # Eos # Baso # Neutrophils % (Manual) Band Neutrophils % Lymphocytes % (Manual) Monocytes % (Manual) Nucleated RBC % Platelet Estimate Poikilocytosis (manual Basophilic Stippling Anisocytosis (manual) Target Cells Puncture Site pCO2 pO2 HCO3 ABG pH ABG Total CO2 ABG O2 Saturation ABG Base Excess ABG Hemoglobin ABG Carboxyhemoglobin POC ABG HHb (Measured) ABG Methemoglobin Harlan Test A-a O2 Difference Respiratory Index Hgb O2 Saturation Vent Mode Mechanical Rate FiO2 Tidal Volume PEEP Sodium Potassium Chloride Carbon Dioxide Anion Gap BUN Creatinine Est GFR ( Amer) Est GFR (Non-Af Amer) POC Glucose (mg/dL) 180 H 197 H 251 H Random Glucose Calcium Phosphorus Magnesium Total Bilirubin AST ALT Alkaline Phosphatase Total Protein Albumin Globulin Albumin/Globulin Ratio 06/30/17 06/30/17 06/30/17 05:16 06:23 06:23 WBC 19.6 H RBC 2.90 L Hgb 9.1 L Hct 28.7 L MCV 98.8 H D MCH 31.3 H MCHC 31.7 L RDW 15.8 H Plt Count 160 MPV 11.6 Neut % (Auto) 93.1 H Lymph % (Auto) 3.8 L Robertson % (Auto) 2.5 Eos % (Auto) 0.4 Baso % (Auto) 0.2 Neut # 18.2 H Lymph # 0.8 L Robertson # 0.5 Eos # 0.1 Baso # 0.0 Neutrophils % (Manual) 80 H Band Neutrophils % 17 H* Lymphocytes % (Manual) 2 L Monocytes % (Manual) 1 Nucleated RBC % 2 H Platelet Estimate Normal Poikilocytosis (manual Slight Basophilic Stippling Slight Anisocytosis (manual) Slight Target Cells Slight Puncture Site R rad pCO2 37 pO2 104 H HCO3 23.6 ABG pH 7.40 ABG Total CO2 24.0 ABG O2 Saturation 99.4 H ABG Base Excess -1.7 ABG Hemoglobin 9.0 L ABG Carboxyhemoglobin 1.9 H POC ABG HHb (Measured) 0.6 ABG Methemoglobin 1.8 Harlan Test Pos A-a O2 Difference 278.0 Respiratory Index 2.7 Hgb O2 Saturation 95.6 Vent Mode Prvc Mechanical Rate 20 FiO2 60.0 Tidal Volume 550 PEEP 5 Sodium 156 H Potassium 4.5 Chloride 126 H Carbon Dioxide 22 Anion Gap 13 BUN 61 H Creatinine 0.8 Est GFR ( Amer) > 60 Est GFR (Non-Af Amer) > 60 POC Glucose (mg/dL) Random Glucose 185 H Calcium 7.4 L Phosphorus 3.3 Magnesium 3.0 H Total Bilirubin 0.9 AST 32 ALT 36 Alkaline Phosphatase 260 H Total Protein 5.1 L Albumin 2.2 L Globulin 2.9 Albumin/Globulin Ratio 0.8 L 06/30/17 11:39 WBC RBC Hgb Hct MCV MCH MCHC RDW Plt Count MPV Neut % (Auto) Lymph % (Auto) Robertson % (Auto) Eos % (Auto) Baso % (Auto) Neut # Lymph # Robertson # Eos # Baso # Neutrophils % (Manual) Band Neutrophils % Lymphocytes % (Manual) Monocytes % (Manual) Nucleated RBC % Platelet Estimate Poikilocytosis (manual Basophilic Stippling Anisocytosis (manual) Target Cells Puncture Site pCO2 pO2 HCO3 ABG pH ABG Total CO2 ABG O2 Saturation ABG Base Excess ABG Hemoglobin ABG Carboxyhemoglobin POC ABG HHb (Measured) ABG Methemoglobin Harlan Test A-a O2 Difference Respiratory Index Hgb O2 Saturation Vent Mode Mechanical Rate FiO2 Tidal Volume PEEP Sodium Potassium Chloride Carbon Dioxide Anion Gap BUN Creatinine Est GFR ( Amer) Est GFR (Non-Af Amer) POC Glucose (mg/dL) 263 H Random Glucose Calcium Phosphorus Magnesium Total Bilirubin AST ALT Alkaline Phosphatase Total Protein Albumin Globulin Albumin/Globulin Ratio Critical Care Progress Note - Nutrition Nutrition: Nutrition Category Date Time Status NPO Diet [DIET] Diets 06/14/17 Lunch Active Attending/Attestation - Attestation I have personally seen and examined this patient.: Yes I have fully participated in the care of the patient.: Yes I have reviewed all pertinent clinical information: Yes Notes (Text): 06/30/17 16:30 I have seen and examined the patient. Medical records, lab studies, and imaging were reviewed by me and a management plan was formulated on multidisciplinary rounds with resident Dr. Marie. I agree with their above documented assessment and plan. Stopped sedation. Severely volume overloaded, starting diuresis with albumin drip. stopped pressors. Trach scheduled for tomorrow. PEG revision to be done by Dr. Rodriguez on Tuesday. Patient currently unresponsive, if this maintain will have to obtain head CT. Critical Care Time 35 minutes. Multi-disciplinary rounds were performed with house staff, nursing, speech therapy, respiratory therapy, pharmacy and nutrition with integrated input from the primary team/attending and other consulting services. The documented time is cumulative and includes review of patient data/exams/labs/chart review and examination of the patient on rounds and throughout the day; time is exclusive of any procedures or teaching time. <Mateo Marie E - Last Filed: 06/30/17 18:52> CCU Subjective - Physician Review Subjective (Free Text): Patient was seen and examined at bedside. Patient remains intubated. Unable to evaluate adequate ROS due to patient current clinical status. Patient is clinically unchanged. CCU Objective - Vital Signs / Intake & Output Vital Signs (Last 4 hours): Vital Signs Pulse Resp BP Pulse Ox 06/30/17 07:00 82 20 97 06/30/17 06:55 84 20 112/57 L 95 06/30/17 06:00 84 18 97 06/30/17 05:55 85 19 113/53 L 96 Intake and Output (Last 8hrs): Intake & Output 06/29/17 06/30/17 06/30/17 22:59 06:59 14:59 Intake Total 787.0 629.3 30 Output Total 385 375 50 Balance 402.0 254.3 -20 Intake: IV 130 158 Intake, IV Amount 217.0 231.3 Right Port-A-Cath 48.6 12.9 Right Proximal Port Port- 150 200 A-Cath right PC side port 18.4 18.4 Tube Feeding 240 240 30 Other 200 Output: Urine 385 375 50 Urine, Voided 385 375 50 Other: # Bowel Movements 0 1 - Physical Exam Head: Positive for: Atraumatic Mouth: Positive for: Moist Mucous Membranes Respiratory/Chest: Positive for: Good Air Exchange (Anteriorly ), Other ( Patient is currently inutbated ). Negative for: Respiratory Distress, Accessory Muscle Use Cardiovascular: Positive for: Regular Rate and Rhythm, Murmurs, Normal S1, S2 Abdomen: Positive for: Other (Mildly diminished bowel sounds ). Negative for: Tenderness, Distention, Normal Bowel Sounds Upper Extremity: Positive for: Edema Lower Extremity: Positive for: Edema. Negative for: Swelling Neurological: Negative for: GCS=15, Speech Normal Skin: Positive for: Normal Color Psychiatric: Positive for: Alert - Medications Active Medications: Active Medications Generic Name Dose Route Start Last Admin Trade Name Freq PRN Reason Stop Dose Admin Acetaminophen 650 mg 06/16/17 17:25 Tylenol 650mg/20.3ml Solution Ud GT Q6 PRN Pain, Mild (1-3) Albuterol Sulfate 2.5 mg 06/25/17 12:00 06/30/17 08:48 Albuterol 0.083% Inhal Anita (2.5 Mg/3 Ml) Ud INH 2.5 mg RQ6 JUAN CARLOS Administration Famotidine 20 mg 06/27/17 10:15 06/29/17 10:03 Pepcid IVP 20 mg DAILY JUAN CARLOS Administration Heparin Sodium (Porcine) 5,000 units 06/25/17 22:00 06/30/17 05:45 Heparin SC 5,000 units Q8H JUAN CARLOS Administration Fluconazole 50 mls @ 100 mls/hr 06/22/17 10:00 06/29/17 10:02 Diflucan Iv 100 Mg/50 Ml Ns IVPB 100 mls/hr DAILY JUAN CARLOS Administration Imipenem/Cilastatin Sodium 500 100 mls @ 100 mls/hr 06/22/17 12:00 06/30/17 03:26 mg/ Sodium Chloride IVPB 100 mls/hr Q8H JUAN CARLOS Administration Vancomycin/Sodium Chloride 1 gm in 200 mls @ 166.7 mls/hr 06/25/17 14:00 13:04 Vancomycin 1 Gm/Ns 200 Ml IVPB 06/30/17 14:01 166.7 mls/hr Q24H JUAN CARLOS Administration Metronidazole 250 mg/ 50 mls @ 100 mls/hr 06/26/17 06:00 06/30/17 05:24 Miscellaneous IVPB 100 mls/hr Q8 JUAN CARLOS Administration Norepinephrine Bitartrate 8 mg 258 mls @ 7.74 mls/hr 06/27/17 00:40 06/30/17 03:17 / Sodium Chloride IV 0 mcg/min .Q24H PRN 0 mls/hr TITRATE PER MD ORDER Titration Protocol 4 MCG/MIN Propofol 1,000 mg in 100 mls @ 2.504 mls/hr 06/27/17 14:00 06/29/17 15:19 Diprivan IV 5 mcg/kg/min .Q24H PRN 2.504 mls/hr TITRATE PER MD ORDER Administration Protocol 5 MCG/KG/MIN Insulin Glargine 15 unit 06/26/17 22:00 06/29/17 21:45 Lantus SC 15 units HS JUAN CARLOS Administration Insulin Human Regular 0 unit 06/26/17 10:36 06/30/17 05:25 Novolin R SC 6 unit Q6 JUAN CARLOS Administration Protocol Neomycin/Polymyxin/Bacitracin 0.5 gm 06/26/17 22:30 06/29/17 17:14 Neosporin Triple Antibiotic Oint TOP 1 applic BID JUAN CARLOS Administration Vancomycin HCl 250 mg 06/26/17 23:15 06/29/17 21:48 Vancocin (Oral Or Rectal Use) PO 250 mg QID JUAN CARLOS Administration - Patient Studies Lab Studies: Microbiology Studies 06/28/17 Unknown Gram Stain - Final Sputum Induced 06/28/17 08:00 Urine Culture - Final Urine,Catheterized No Growth (<1,000 CFU/ML) Lab Studies 06/30/17 06/30/17 06/30/17 Range/Units 06:23 06:23 05:16 WBC 19.6 H (4.8-10.8) K/uL RBC 2.90 L (4.40-5.90) Mil/uL Hgb 9.1 L (12.0-18.0) g/dL Hct 28.7 L (35.0-51.0) % MCV 98.8 H D (80.0-94.0) fL MCH 31.3 H (27.0-31.0) pg MCHC 31.7 L (33.0-37.0) g/dL RDW 15.8 H (11.5-14.5) % Plt Count 160 (130-400) K/uL MPV 11.6 (7.2-11.7) fL Neut % (Auto) 93.1 H (50.0-75.0) % Lymph % (Auto) 3.8 L (20.0-40.0) % Robertson % (Auto) 2.5 (0.0-10.0) % Eos % (Auto) 0.4 (0.0-4.0) % Baso % (Auto) 0.2 (0.0-2.0) % Neut # 18.2 H (1.8-7.0) K/uL Lymph # 0.8 L (1.0-4.3) K/uL Robertson # 0.5 (0.0-0.8) K/uL Eos # 0.1 (0.0-0.7) K/uL Baso # 0.0 (0.0-0.2) K/uL Neutrophils % (Manual) 80 H (50-75) % Band Neutrophils % 17 H* (0-2) % Lymphocytes % (Manual) 2 L (20-40) % Monocytes % (Manual) 1 (0-10) % Nucleated RBC % 2 H (0-0) % Platelet Estimate Normal (NORMAL) Poikilocytosis (manual Slight Basophilic Stippling Slight Anisocytosis (manual) Slight Target Cells Slight Puncture Site R rad pCO2 37 (35-45) mm/Hg pO2 104 H (80-100) mm/Hg HCO3 23.6 (21-28) mmol/L ABG pH 7.40 (7.35-7.45) ABG Total CO2 24.0 (22-28) mmol/L ABG O2 Saturation 99.4 H (95-98) % ABG Base Excess -1.7 (-2.0-3.0) mmol/L ABG Hemoglobin 9.0 L (11.7-17.4) g/dL ABG Carboxyhemoglobin 1.9 H (0.5-1.5) % POC ABG HHb (Measured) 0.6 (0.0-5.0) % ABG Methemoglobin 1.8 (0.0-3.0) % Harlan Test Pos A-a O2 Difference 278.0 mm/Hg Respiratory Index 2.7 Hgb O2 Saturation 95.6 (95.0-98.0) % Vent Mode Prvc Mechanical Rate 20 FiO2 60.0 % Tidal Volume 550 PEEP 5 Sodium 156 H (132-148) mmol/L Potassium 4.5 (3.6-5.2) mmol/L Chloride 126 H (98-107) mmol/L Carbon Dioxide 22 (22-30) mmol/L Anion Gap 13 (10-20) BUN 61 H (9-20) mg/dL Creatinine 0.8 (0.8-1.5) mg/dL Est GFR ( Amer) > 60 Est GFR (Non-Af Amer) > 60 POC Glucose (mg/dL) (65-110) mg/dL Random Glucose 185 H (75-110) mg/dL Calcium 7.4 L (8.6-10.4) mg/dl Phosphorus 3.3 (2.5-4.5) mg/dL Magnesium 3.0 H (1.6-2.3) mg/dL Total Bilirubin 0.9 (0.2-1.3) mg/dL AST 32 (17-59) U/L ALT 36 (21-72) U/L Alkaline Phosphatase 260 H (38-126) U/L Total Protein 5.1 L (6.3-8.3) g/dL Albumin 2.2 L (3.5-5.0) g/dL Globulin 2.9 (2.2-3.9) gm/dL Albumin/Globulin Ratio 0.8 L (1.0-2.1) 06/30/17 06/29/17 06/29/17 Range/Units 05:09 23:44 17:44 WBC (4.8-10.8) K/uL RBC (4.40-5.90) Mil/uL Hgb (12.0-18.0) g/dL Hct (35.0-51.0) % MCV (80.0-94.0) fL MCH (27.0-31.0) pg MCHC (33.0-37.0) g/dL RDW (11.5-14.5) % Plt Count (130-400) K/uL MPV (7.2-11.7) fL Neut % (Auto) (50.0-75.0) % Lymph % (Auto) (20.0-40.0) % Robertson % (Auto) (0.0-10.0) % Eos % (Auto) (0.0-4.0) % Baso % (Auto) (0.0-2.0) % Neut # (1.8-7.0) K/uL Lymph # (1.0-4.3) K/uL Robertson # (0.0-0.8) K/uL Eos # (0.0-0.7) K/uL Baso # (0.0-0.2) K/uL Neutrophils % (Manual) (50-75) % Band Neutrophils % (0-2) % Lymphocytes % (Manual) (20-40) % Monocytes % (Manual) (0-10) % Nucleated RBC % (0-0) % Platelet Estimate (NORMAL) Poikilocytosis (manual Basophilic Stippling Anisocytosis (manual) Target Cells Puncture Site pCO2 (35-45) mm/Hg pO2 (80-100) mm/Hg HCO3 (21-28) mmol/L ABG pH (7.35-7.45) ABG Total CO2 (22-28) mmol/L ABG O2 Saturation (95-98) % ABG Base Excess (-2.0-3.0) mmol/L ABG Hemoglobin (11.7-17.4) g/dL ABG Carboxyhemoglobin (0.5-1.5) % POC ABG HHb (Measured) (0.0-5.0) % ABG Methemoglobin (0.0-3.0) % Harlan Test A-a O2 Difference mm/Hg Respiratory Index Hgb O2 Saturation (95.0-98.0) % Vent Mode Mechanical Rate FiO2 % Tidal Volume PEEP Sodium (132-148) mmol/L Potassium (3.6-5.2) mmol/L Chloride (98-107) mmol/L Carbon Dioxide (22-30) mmol/L Anion Gap (10-20) BUN (9-20) mg/dL Creatinine (0.8-1.5) mg/dL Est GFR ( Amer) Est GFR (Non-Af Amer) POC Glucose (mg/dL) 251 H 197 H 180 H (65-110) mg/dL Random Glucose (75-110) mg/dL Calcium (8.6-10.4) mg/dl Phosphorus (2.5-4.5) mg/dL Magnesium (1.6-2.3) mg/dL Total Bilirubin (0.2-1.3) mg/dL AST (17-59) U/L ALT (21-72) U/L Alkaline Phosphatase (38-126) U/L Total Protein (6.3-8.3) g/dL Albumin (3.5-5.0) g/dL Globulin (2.2-3.9) gm/dL Albumin/Globulin Ratio (1.0-2.1) 06/29/17 Range/Units 11:39 WBC (4.8-10.8) K/uL RBC (4.40-5.90) Mil/uL Hgb (12.0-18.0) g/dL Hct (35.0-51.0) % MCV (80.0-94.0) fL MCH (27.0-31.0) pg MCHC (33.0-37.0) g/dL RDW (11.5-14.5) % Plt Count (130-400) K/uL MPV (7.2-11.7) fL Neut % (Auto) (50.0-75.0) % Lymph % (Auto) (20.0-40.0) % Robertson % (Auto) (0.0-10.0) % Eos % (Auto) (0.0-4.0) % Baso % (Auto) (0.0-2.0) % Neut # (1.8-7.0) K/uL Lymph # (1.0-4.3) K/uL Robertson # (0.0-0.8) K/uL Eos # (0.0-0.7) K/uL Baso # (0.0-0.2) K/uL Neutrophils % (Manual) (50-75) % Band Neutrophils % (0-2) % Lymphocytes % (Manual) (20-40) % Monocytes % (Manual) (0-10) % Nucleated RBC % (0-0) % Platelet Estimate (NORMAL) Poikilocytosis (manual Basophilic Stippling Anisocytosis (manual) Target Cells Puncture Site pCO2 (35-45) mm/Hg pO2 (80-100) mm/Hg HCO3 (21-28) mmol/L ABG pH (7.35-7.45) ABG Total CO2 (22-28) mmol/L ABG O2 Saturation (95-98) % ABG Base Excess (-2.0-3.0) mmol/L ABG Hemoglobin (11.7-17.4) g/dL ABG Carboxyhemoglobin (0.5-1.5) % POC ABG HHb (Measured) (0.0-5.0) % ABG Methemoglobin (0.0-3.0) % Harlan Test A-a O2 Difference mm/Hg Respiratory Index Hgb O2 Saturation (95.0-98.0) % Vent Mode Mechanical Rate FiO2 % Tidal Volume PEEP Sodium (132-148) mmol/L Potassium (3.6-5.2) mmol/L Chloride (98-107) mmol/L Carbon Dioxide (22-30) mmol/L Anion Gap (10-20) BUN (9-20) mg/dL Creatinine (0.8-1.5) mg/dL Est GFR ( Amer) Est GFR (Non-Af Amer) POC Glucose (mg/dL) 167 H (65-110) mg/dL Random Glucose (75-110) mg/dL Calcium (8.6-10.4) mg/dl Phosphorus (2.5-4.5) mg/dL Magnesium (1.6-2.3) mg/dL Total Bilirubin (0.2-1.3) mg/dL AST (17-59) U/L ALT (21-72) U/L Alkaline Phosphatase (38-126) U/L Total Protein (6.3-8.3) g/dL Albumin (3.5-5.0) g/dL Globulin (2.2-3.9) gm/dL Albumin/Globulin Ratio (1.0-2.1) Laboratory Results - last 24 hr 06/29/17 06/29/17 06/29/17 11:39 17:44 23:44 WBC RBC Hgb Hct MCV MCH MCHC RDW Plt Count MPV Neut % (Auto) Lymph % (Auto) Robertson % (Auto) Eos % (Auto) Baso % (Auto) Neut # Lymph # Robertson # Eos # Baso # Neutrophils % (Manual) Band Neutrophils % Lymphocytes % (Manual) Monocytes % (Manual) Nucleated RBC % Platelet Estimate Poikilocytosis (manual Basophilic Stippling Anisocytosis (manual) Target Cells Puncture Site pCO2 pO2 HCO3 ABG pH ABG Total CO2 ABG O2 Saturation ABG Base Excess ABG Hemoglobin ABG Carboxyhemoglobin POC ABG HHb (Measured) ABG Methemoglobin Harlan Test A-a O2 Difference Respiratory Index Hgb O2 Saturation Vent Mode Mechanical Rate FiO2 Tidal Volume PEEP Sodium Potassium Chloride Carbon Dioxide Anion Gap BUN Creatinine Est GFR ( Amer) Est GFR (Non-Af Amer) POC Glucose (mg/dL) 167 H 180 H 197 H Random Glucose Calcium Phosphorus Magnesium Total Bilirubin AST ALT Alkaline Phosphatase Total Protein Albumin Globulin Albumin/Globulin Ratio 06/30/17 06/30/17 06/30/17 05:09 05:16 06:23 WBC 19.6 H RBC 2.90 L Hgb 9.1 L Hct 28.7 L MCV 98.8 H D MCH 31.3 H MCHC 31.7 L RDW 15.8 H Plt Count 160 MPV 11.6 Neut % (Auto) 93.1 H Lymph % (Auto) 3.8 L Robertson % (Auto) 2.5 Eos % (Auto) 0.4 Baso % (Auto) 0.2 Neut # 18.2 H Lymph # 0.8 L Robertson # 0.5 Eos # 0.1 Baso # 0.0 Neutrophils % (Manual) 80 H Band Neutrophils % 17 H* Lymphocytes % (Manual) 2 L Monocytes % (Manual) 1 Nucleated RBC % 2 H Platelet Estimate Normal Poikilocytosis (manual Slight Basophilic Stippling Slight Anisocytosis (manual) Slight Target Cells Slight Puncture Site R rad pCO2 37 pO2 104 H HCO3 23.6 ABG pH 7.40 ABG Total CO2 24.0 ABG O2 Saturation 99.4 H ABG Base Excess -1.7 ABG Hemoglobin 9.0 L ABG Carboxyhemoglobin 1.9 H POC ABG HHb (Measured) 0.6 ABG Methemoglobin 1.8 Harlan Test Pos A-a O2 Difference 278.0 Respiratory Index 2.7 Hgb O2 Saturation 95.6 Vent Mode Prvc Mechanical Rate 20 FiO2 60.0 Tidal Volume 550 PEEP 5 Sodium Potassium Chloride Carbon Dioxide Anion Gap BUN Creatinine Est GFR ( Amer) Est GFR (Non-Af Amer) POC Glucose (mg/dL) 251 H Random Glucose Calcium Phosphorus Magnesium Total Bilirubin AST ALT Alkaline Phosphatase Total Protein Albumin Globulin Albumin/Globulin Ratio 06/30/17 06:23 WBC RBC Hgb Hct MCV MCH MCHC RDW Plt Count MPV Neut % (Auto) Lymph % (Auto) Robertson % (Auto) Eos % (Auto) Baso % (Auto) Neut # Lymph # Robertson # Eos # Baso # Neutrophils % (Manual) Band Neutrophils % Lymphocytes % (Manual) Monocytes % (Manual) Nucleated RBC % Platelet Estimate Poikilocytosis (manual Basophilic Stippling Anisocytosis (manual) Target Cells Puncture Site pCO2 pO2 HCO3 ABG pH ABG Total CO2 ABG O2 Saturation ABG Base Excess ABG Hemoglobin ABG Carboxyhemoglobin POC ABG HHb (Measured) ABG Methemoglobin Harlan Test A-a O2 Difference Respiratory Index Hgb O2 Saturation Vent Mode Mechanical Rate FiO2 Tidal Volume PEEP Sodium 156 H Potassium 4.5 Chloride 126 H Carbon Dioxide 22 Anion Gap 13 BUN 61 H Creatinine 0.8 Est GFR ( Amer) > 60 Est GFR (Non-Af Amer) > 60 POC Glucose (mg/dL) Random Glucose 185 H Calcium 7.4 L Phosphorus 3.3 Magnesium 3.0 H Total Bilirubin 0.9 AST 32 ALT 36 Alkaline Phosphatase 260 H Total Protein 5.1 L Albumin 2.2 L Globulin 2.9 Albumin/Globulin Ratio 0.8 L Fingerstick Blood Sugar Results: 251 Review of Systems - Review of Systems Review of Systems: Unable to evaluate ROS due to patient's current clinical status Critical Care Progress Note - Ventilator Checklist Daily Sedation Vacation: No PUD Prophalyxis: Yes DVT Prophylaxis: Yes - Nutrition Nutrition: Nutrition Category Date Time Status NPO Diet [DIET] Diets 06/14/17 Lunch Active Assessment/Plan - Assessment and Plan (Free Text) Assessment: 81 y/o male, with no significant past medical history, presents to emergency department for evaluation of left lateral neck mass underneath the chin extending from jaw (Submandibular mass), 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 Sheppard on board---> Help appreciated Palliative consult, Veronica on board---> Help appreciated ENT, Dr. Salgado on board---> Help appreciated Cardiothoracic Consult, Dr. Cancino ( Possible Tracheostomy)---> Help appreciated * Plans for tracheostomy (06/30/17) Medication/Managment: * Fluconazole 100mg IV daily * Morphine 2mg IVP Q6 PRN Neuro: Intubated Medication/Management: * Off sedation Cardio: Hypotension, Volume overloaded Medication/Management: * Levophed 8mg IV 4mcg/min ( On titration)- Discontinued 06/30/17 Pulm: Pneumonia and respiratory distress secondary to enlarged submandibular mass. Wafer Machine Operator consult, Dr. GREY---> Help appreciated Medication/Management: * Intubated * Duonebs 2.5mg INH RQ6H * Azithromycin 500mg IVPB Q24H ( started 06/20/17) * Albumin drip (6x doses) and lasix 20mg IVP Q12H GI: No acute distress Endo: Elevated blood glucose Medication/Management: * Accuchecks Q6H * ISS high dose protocol Q6H * Lantus 15 unit SC HS Renal: Hypernatremia possibly secondary due to dehydration Medication/Management: * NS 1L bolus (06/28/17) * Albumin 12.5gm IV Q8H (6 doses)- 06/28/17) * Free H2O Q6H ID: Code sepsis Lactate: 6.4, 6.1, 5.7 ( Trending down), Bandemia, Leukocytosis Infectious Disease consult, Dr. Dominguez---> Help appreciated Medication/Management: * Zosyn 3.375gm IVPB Q8H ( Started 06/20/17)---> stopped (06/22/17) * Primaxin 500mg IV Q8H ( Started 06/22/17) * Vanco 1gm IVPB Q24H ( Started 06/20/17) * Vanco 250mg PO QID rectally (06/26/17) * Flagyl 500mg/100mh, 250mg IVPB Q8H (06/26/17) * D5WNS @100mls/hr * Tylenol 650mg GT Q6 prn Prophylaxis: DVT: SCDs, Heparin 5,000 units SC Q8H GI: Pepcid 20mg IVP daily Tube feeding
[2017-06-30] MEDS: Vancomycin 125 MG/5 ML SOLN (ORAL/RECTAL) PO SCH ×4 (09:35→22:30)
[2017-06-30] MEDS: Bacitracin/Neomycin/Polymyxin Oint(30GM) TOP SCH ×2 (09:35→17:50)
[2017-06-30] MEDS: Fluconazole IV 100mg/50 ml NS 50 ML IVPB SCH (10:01)
--- NOTE | 2017-06-30 10:49 | RAD ---
HISTORY: intubation COMPARISON: 06/29/2017 FINDINGS: LUNGS: Interval increase bibasilar opacities increasing bibasilar infiltrates and/or atelectasis inferred. The mottled lucencies both medial lung bases PLEURA: Trace bilateral pleural effusions no pleural thickening possible. No increasing pleural effusions suggested. No pneumothorax CARDIOVASCULAR: Top-normal heart size. Mild interstitial pulmonary edema suspect- slightly increased. OSSEOUS STRUCTURES: No significant abnormalities. VISUALIZED UPPER ABDOMEN: Normal. OTHER FINDINGS: Endotracheal tube tip -clavicle level. Right Port-A-Cath tip superior vena cava.Both- unchanged IMPRESSION: Interval increased bibasilar patchy infiltrates and/or atelectasis. Interval increase bilateral interstitial pulmonary edema probable. Bilateral trace pleural effusions probable and similar Similar support lines endotracheal tube and Port-A-Cath
[2017-06-30] MEDS ORDERED: Albumin Human 5% (12.5 gm/250 ml) IV ONE (12:48)
[2017-06-30] MEDS: Vancomycin 1 gm/NS 200 ml 1 GM/200 ML BAG IVPB SCH (13:23)
--- NOTE | 2017-06-30 17:12 | CP.PCM.PN ---
Objective - Vital Signs/Intake and Output Vital Signs (last 24 hours): Temp Pulse Resp BP Pulse Ox 97.6 F 105 H 22 110/63 96 06/30/17 12:00 06/30/17 16:00 06/30/17 16:00 06/30/17 15:55 06/30/17 16:00 Intake and Output: 06/30/17 06/30/17 06:59 18:59 Intake Total 929.0 680 Output Total 550 390 Balance 379.0 290 - Medications Medications: Current Medications Acetaminophen (Tylenol 650mg/20.3ml Solution Ud) 650 mg GT Q6 PRN PRN Reason: Pain, Mild (1-3) Albuterol Sulfate (Albuterol 0.083% Inhal Anita (2.5 Mg/3 Ml) Ud) 2.5 mg INH RQ6 [facility] Last Admin: 06/30/17 14:19 Dose: 2.5 mg Famotidine (Pepcid) 20 mg IVP DAILY [facility] Last Admin: 06/30/17 09:36 Dose: 20 mg Furosemide (Lasix) 20 mg IVP Q12H [facility] Last Admin: 06/30/17 14:24 Dose: 20 mg Heparin Sodium (Porcine) (Heparin) 5,000 units SC Q8H [facility] Last Admin: 06/30/17 14:24 Dose: 5,000 units Fluconazole (Diflucan Iv 100 Mg/50 Ml Ns) 50 mls @ 100 mls/hr IVPB DAILY [facility] Last Admin: 06/30/17 10:01 Dose: 100 mls/hr Imipenem/Cilastatin Sodium 500 (mg/ Sodium Chloride) 100 mls @ 100 mls/hr IVPB Q8H [facility] Last Admin: 06/30/17 11:29 Dose: 100 mls/hr Metronidazole 250 mg/ (Miscellaneous) 50 mls @ 100 mls/hr IVPB Q8 [facility] Last Admin: 06/30/17 13:22 Dose: 100 mls/hr Norepinephrine Bitartrate 8 mg (/ Sodium Chloride) 258 mls @ 7.74 mls/hr IV .Q24H PRN; Protocol; 4 MCG/MIN PRN Reason: TITRATE PER MD ORDER Last Titration: 06/30/17 03:17 Dose: 0 mcg/min, 0 mls/hr Insulin Glargine (Lantus) 15 unit SC HS [facility] Last Admin: 06/29/17 21:45 Dose: 15 units Insulin Human Regular (Novolin R) 0 unit SC Q6 [facility] PRN Reason: Protocol Last Admin: 06/30/17 11:42 Dose: 6 unit Neomycin/Polymyxin/Bacitracin (Neosporin Triple Antibiotic Oint) 0.5 gm TOP BID [facility] Last Admin: 06/30/17 09:35 Dose: 1 applic Vancomycin HCl (Vancocin (Oral Or Rectal Use)) 250 mg PO QID [facility] Last Admin: 06/30/17 14:25 Dose: 250 mg - Labs Labs: 06/30/17 06:23 06/30/17 06:23 PT 15.7 SECONDS (9.7-12.2) H 06/20/17 11:44 INR 1.4 06/20/17 11:44 APTT 26 SECONDS (21-34) 06/20/17 11:44 Assessment and Plan (1) Respiratory failure Status: Acute (2) Oropharyngeal cancer Status: Acute (3) Pneumonia Status: Acute
--- NOTE | 2017-06-30 19:39 | CP.PCM.PN ---
Subjective - Date & Time of Evaluation Date of Evaluation: 06/30/17 Time of Evaluation: 19:39 - Subjective Subjective: CHIEF COMPLAINTS TODAY : PATIENT REMAINS ON VENTILATOR FOR TRACH IN A.M. ON iv IMIPENEM, FLUCONAZOLE, iv fLAGYL bY MOUTH VANCOMYCIN. Unable to obtain review of systems ROS on observation only HEENT : LEFT SUBMANDIBULAR MASS AND SWELLING, ON VENTILATOR Resp : No SOB wheezing, cough Cardio : No CP, PND orthopnea GI : No abd. Pain, n/v +VE PEG IN PLACE. MASTER PLUMBER : No headache , focal deficit. Musculoskel : N Ext. : Pedal pulses intact, no edema or calf pain Derm : N Psych : N. PE. Pt. is ON VENTILATOR, SEDATED V.S As noted in the chart Head ,ear nose,throat and eyes : Normal. Neck : Supple with normal carotids.LT. SIDED JAW SWELLING WITH CELLULITIS AND TENDERNESS, LEFT-SIDED MANDIBULAR MASS BX SITE. +VE LB Lungs: SCATTERED RHONCHI AND RALES. Heart : S1 & S2 normal . . No murmur. S4 + Abd : Soft non tender with normal bowel sounds.+VE PEG , DRAINAGE AROUND THE PEG SITE Neuro : Moves all ext. with no localized deficit. Ext : No edema with intact pulses. Neg. calf tenderness Derm : No rashes or decubitus ulcer. Radiology/Labs . WBC 19.6 IMPROVING CREATININE 00.8 /bun 61 sPUTUM GRAM-NEGATIVE FRANCINE. LFTS IMPROVING stools positive C. difficile antigen. abdominal wound culture Klebsiella pneumoniae ESBL -VE URINE CULTURE +ve Enterococcus faecalis 06/20/17.S-AMPICILLIN VANCOMYCIN Objective - Vital Signs/Intake and Output Vital Signs (last 24 hours): Temp Pulse Resp BP Pulse Ox 98.1 F 100 H 15 95/53 L 96 06/30/17 16:00 06/30/17 18:00 06/30/17 18:00 06/30/17 17:55 06/30/17 18:00 Intake and Output: 06/30/17 07/01/17 18:59 06:59 Intake Total 1375 65 Output Total 810 30 Balance 565 35 - Medications Medications: Current Medications Acetaminophen (Tylenol 650mg/20.3ml Solution Ud) 650 mg GT Q6 PRN PRN Reason: Pain, Mild (1-3) Albuterol Sulfate (Albuterol 0.083% Inhal Anita (2.5 Mg/3 Ml) Ud) 2.5 mg INH RQ6 [facility] Last Admin: 06/30/17 19:17 Dose: 2.5 mg Famotidine (Pepcid) 20 mg IVP DAILY [facility] Last Admin: 06/30/17 09:36 Dose: 20 mg Furosemide (Lasix) 20 mg IVP Q12H [facility] Last Admin: 06/30/17 14:24 Dose: 20 mg Heparin Sodium (Porcine) (Heparin) 5,000 units SC Q8H [facility] Last Admin: 06/30/17 14:24 Dose: 5,000 units Fluconazole (Diflucan Iv 100 Mg/50 Ml Ns) 50 mls @ 100 mls/hr IVPB DAILY [facility] Last Admin: 06/30/17 10:01 Dose: 100 mls/hr Imipenem/Cilastatin Sodium 500 (mg/ Sodium Chloride) 100 mls @ 100 mls/hr IVPB Q8H [facility] Last Admin: 06/30/17 11:29 Dose: 100 mls/hr Metronidazole 250 mg/ (Miscellaneous) 50 mls @ 100 mls/hr IVPB Q8 [facility] Last Admin: 06/30/17 13:22 Dose: 100 mls/hr Norepinephrine Bitartrate 8 mg (/ Sodium Chloride) 258 mls @ 7.74 mls/hr IV .Q24H PRN; Protocol; 4 MCG/MIN PRN Reason: TITRATE PER MD ORDER Last Titration: 06/30/17 03:17 Dose: 0 mcg/min, 0 mls/hr Insulin Glargine (Lantus) 15 unit SC HS [facility] Last Admin: 06/29/17 21:45 Dose: 15 units Insulin Human Regular (Novolin R) 0 unit SC Q6 [facility] PRN Reason: Protocol Last Admin: 06/30/17 18:14 Dose: 4 unit Neomycin/Polymyxin/Bacitracin (Neosporin Triple Antibiotic Oint) 0.5 gm TOP BID [facility] Last Admin: 06/30/17 17:50 Dose: 1 applic Vancomycin HCl (Vancocin (Oral Or Rectal Use)) 250 mg PO QID [facility] Last Admin: 06/30/17 17:49 Dose: 250 mg - Labs Labs: 06/30/17 06:23 06/30/17 06:23 PT 15.7 SECONDS (9.7-12.2) H 06/20/17 11:44 INR 1.4 06/20/17 11:44 APTT 26 SECONDS (21-34) 06/20/17 11:44 Assessment and Plan (1) Respiratory failure Status: Acute (2) Pneumonia Status: Acute (3) Dysphagia Status: Acute (4) Oropharyngeal cancer Status: Acute (5) Dehydration Status: Acute (6) UTI (urinary tract infection) due to Enterococcus Status: Acute (7) PMC (pseudomembranous colitis) Status: Acute - Assessment and Plan (Free Text) Assessment: IMPRESSION; SEPSIS- SYNDROME/HYPOTENSION ACUTE RESPIRATORY FAILURE . BILATERAL MULTIFOCAL PNEUMONIA /nodular densities r/o metastasis PSEUDOMEMBRANOUS COLITIS.( c. 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 S/P PEG/GT -EXIT SITE INFECTION. S/P MED-PORT . TRANSAMINITIS ? DRUGS. PLAN; ON iv PRIMAXIN 500 EVERY 8 HOURLY 06/22/17 DC iv VANCOMYCIN 1 G ONCE A DAY DAILY. 06/20/17--06/30/17 ON PO VANCOMYCIN 250 MG 4 TIMES A DAY FOR CDAD.06/28/17 ON iv FLUCONAZOLE, 100 MG od ADDED BY MEAT CUTTING BLOCK REPAIRER 06/22/17. CONTINUE ON iv fLAGYL 250 EVERY 8 HOURLY 06/24/17. F/U SPUTUM CULTURES. PATIENT FOR TRACH IN THE A.M. cONTINUE PULMONARY TOILET.
[2017-06-30] MEDS: (Lantus) Insulin Glargine, Recombinant SC SCH (21:08)
--- NOTE | 2017-06-30 21:49 | CP.PCM.PN ---
Subjective - Date & Time of Evaluation Date of Evaluation: 06/30/17 Time of Evaluation: 19:00 - Subjective Subjective: pt seen and evalauted is for trach today, pt already have peg, pt is on MV, he doesnot have any first degree relative who can make medical decisions for him Objective - Vital Signs/Intake and Output Vital Signs (last 24 hours): Temp Pulse Resp BP Pulse Ox 99.2 F 100 H 15 95/53 L 96 06/30/17 20:00 06/30/17 18:00 06/30/17 18:00 06/30/17 17:55 06/30/17 18:00 Intake and Output: 06/30/17 07/01/17 18:59 06:59 Intake Total 1375 130 Output Total 810 70 Balance 565 60 - Medications Medications: Current Medications Acetaminophen (Tylenol 650mg/20.3ml Solution Ud) 650 mg GT Q6 PRN PRN Reason: Pain, Mild (1-3) Albuterol Sulfate (Albuterol 0.083% Inhal Anita (2.5 Mg/3 Ml) Ud) 2.5 mg INH RQ6 [facility] Last Admin: 06/30/17 19:17 Dose: 2.5 mg Famotidine (Pepcid) 20 mg IVP DAILY [facility] Last Admin: 06/30/17 09:36 Dose: 20 mg Furosemide (Lasix) 20 mg IVP Q12H [facility] Last Admin: 06/30/17 14:24 Dose: 20 mg Heparin Sodium (Porcine) (Heparin) 5,000 units SC Q8H [facility] Last Admin: 06/30/17 21:06 Dose: 5,000 units Fluconazole (Diflucan Iv 100 Mg/50 Ml Ns) 50 mls @ 100 mls/hr IVPB DAILY [facility] Last Admin: 06/30/17 10:01 Dose: 100 mls/hr Imipenem/Cilastatin Sodium 500 (mg/ Sodium Chloride) 100 mls @ 100 mls/hr IVPB Q8H [facility] Last Admin: 06/30/17 21:02 Dose: 100 mls/hr Metronidazole 250 mg/ (Miscellaneous) 50 mls @ 100 mls/hr IVPB Q8 [facility] Last Admin: 06/30/17 21:39 Dose: 100 mls/hr Norepinephrine Bitartrate 8 mg (/ Sodium Chloride) 258 mls @ 7.74 mls/hr IV .Q24H PRN; Protocol; 4 MCG/MIN PRN Reason: TITRATE PER MD ORDER Last Titration: 06/30/17 03:17 Dose: 0 mcg/min, 0 mls/hr Insulin Glargine (Lantus) 15 unit SC HS [facility] Last Admin: 06/30/17 21:08 Dose: 15 units Insulin Human Regular (Novolin R) 0 unit SC Q6 [facility] PRN Reason: Protocol Last Admin: 06/30/17 18:14 Dose: 4 unit Neomycin/Polymyxin/Bacitracin (Neosporin Triple Antibiotic Oint) 0.5 gm TOP BID [facility] Last Admin: 06/30/17 17:50 Dose: 1 applic Vancomycin HCl (Vancocin (Oral Or Rectal Use)) 250 mg PO QID [facility] Last Admin: 06/30/17 17:49 Dose: 250 mg - Labs Labs: 06/30/17 06:23 06/30/17 06:23 PT 15.7 SECONDS (9.7-12.2) H 06/20/17 11:44 INR 1.4 06/20/17 11:44 APTT 26 SECONDS (21-34) 06/20/17 11:44 - Constitutional Appears: In Acute Distress, Confused, Chronically Ill - Head Exam Head Exam: ATRAUMATIC, NORMAL INSPECTION, NORMOCEPHALIC - Eye Exam Eye Exam: EOMI, Normal appearance, PERRL Pupil Exam: NORMAL ACCOMODATION, PERRL - Respiratory Exam Respiratory Exam: Decreased Breath Sounds, Rales, Rhonchi - Cardiovascular Exam Cardiovascular Exam: REGULAR RHYTHM, +S1, +S2. absent: Murmur - GI/Abdominal Exam GI & Abdominal Exam: Soft, Normal Bowel Sounds. 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 Sheppard on board---> Help appreciated Palliative consult, Veronica on board---> Help appreciated ENT, Dr. Salgado on board---> Help appreciated Cardiothoracic Consult, Dr. Cancino ( Possible Tracheostomy)---> Help appreciated * Plans for tracheostomy (06/30/17) Medication/Managment: * Fluconazole 100mg IV daily * Morphine 2mg IVP Q6 PRN Neuro: Intubated Medication/Management: * Off sedation Cardio: Hypotension, Volume overloaded Medication/Management: * Levophed 8mg IV 4mcg/min ( On titration)- Discontinued 06/30/17 Pulm: Pneumonia and respiratory distress secondary to enlarged submandibular mass. Gold Wheel Blocker And Polisher consult, Dr. GREY---> Help appreciated Medication/Management: * Intubated * Duonebs 2.5mg INH RQ6H * Azithromycin 500mg IVPB Q24H ( started 06/20/17) * Albumin drip (6x doses) and lasix 20mg IVP Q12H GI: No acute distress Endo: Elevated blood glucose Medication/Management: * Accuchecks Q6H * ISS high dose protocol Q6H * Lantus 15 unit SC HS Renal: Hypernatremia possibly secondary due to dehydration Medication/Management: * NS 1L bolus (06/28/17) * Albumin 12.5gm IV Q8H (6 doses)- 06/28/17) * Free H2O Q6H ID: Code sepsis Lactate: 6.4, 6.1, 5.7 ( Trending down), Bandemia, Leukocytosis Infectious Disease consult, Dr. Dominguez---> Help appreciated Medication/Management: * Zosyn 3.375gm IVPB Q8H ( Started 06/20/17)---> stopped (06/22/17) * Primaxin 500mg IV Q8H ( Started 06/22/17) * Vanco 1gm IVPB Q24H ( Started 06/20/17) * Vanco 250mg PO QID rectally (06/26/17) * Flagyl 500mg/100mh, 250mg IVPB Q8H (06/26/17) * D5WNS @100mls/hr * Tylenol 650mg GT Q6 prn Prophylaxis: DVT: SCDs, Heparin 5,000 units SC Q8H GI: Pepcid 20mg IVP daily Tube feeding
[2017-07-01] MEDS: (Novolin R) Insulin Human Regular 100 units/ml vial SC SCH ×4 (01:34→19:31)
[2017-07-01] MEDS: Albuterol 0.083% Inhal Sol (2.5 mg/3 mL) UD INH SCH ×3 (01:40→13:35)
[2017-07-01] MEDS: metroNIDAZOLE IV 500 mg/100 ml 250 MG in Premixed IV 1 EA IVPB SCH ×2 (05:20→14:30)
[2017-07-01 05:57] LABS: ABG ALLEN TEST POS; ABG MECHANICAL RATE 16; ARTERIAL BLOOD GAS MODE PRVC; ARTERIAL BLOOD HGB O2 SAT 94.8 % (95.0-98.0); ATERIAL BLOOD GAS PEEP 8; CARBOXYHEMOGLOBIN 2.8 % (0.5-1.5); DRAW SITE R RAD; HHB 0.8 % (0.0-5.0); METHEMOGLOBIN 1.7 % (0.0-3.0)
[2017-07-01 06:38] LABS: BASO % 0.1 % (0.0-2.0); EOS % 0.1 % (0.0-4.0); HEMATOCRIT 33.8 % (35.0-51.0); LYMPH # 0.5 K/uL (1.0-4.3); LYMPH % 2.1 % (20.0-40.0); MEAN CELL VOLUME 100.8 fL (80.0-94.0); MEAN CORPUSCULAR HEMOGLOBIN 31.1 pg (27.0-31.0); MEAN CORPUSCULAR HGB CONC 30.9 g/dL (33.0-37.0); MEAN PLATELET VOLUME 11.9 fL (7.2-11.7); MONO # 0.8 K/uL (0.0-0.8); MONO % 3.6 % (0.0-10.0); NRBC % 2.2 % (0.0-2.0); PLATELET COUNT 171 K/uL (130-400); RED CELL DISTRIBUTION WIDTH 16.2 % (11.5-14.5); WHITE BLOOD COUNT 21.9 K/uL (4.8-10.8)
[2017-07-01 06:49] LABS: CHLORIDE 124 mmol/L (98-107); POTASSIUM 4.4 mmol/L (3.6-5.2); SODIUM 158 mmol/L (132-148)
[2017-07-01 06:51] LABS: GFR AFRICAN-AMERICAN > 60
[2017-07-01 06:52] LABS: ALB/GLOB RATIO 0.8 (1.0-2.1); ALKALINE PHOSPHATASE 389 U/L (38-126); ALT/SGPT 35 U/L (21-72); AST/SGOT 53 U/L (17-59); BLOOD UREA NITROGEN 62 mg/dL (9-20); CARBON DIOXIDE 24 mmol/L (22-30); GLUCOSE,RANDOM 165 mg/dL (75-110); PHOSPHOROUS 4.7 mg/dL (2.5-4.5); TOTAL PROTEIN 5.3 g/dL (6.3-8.3)
[2017-07-01 06:53] LABS: CALCIUM 7.3 mg/dl (8.6-10.4); MAGNESIUM 2.9 mg/dL (1.6-2.3)
[2017-07-01 08:25] LABS: INR 1.3
[2017-07-01 08:35] LABS: NEUTROPHIL 92 % (50-75); NUCLEATED RED BLOOD CELL 5 % (0-0); TOTAL CELLS COUNTED 100
[2017-07-01] MEDS: Bacitracin/Neomycin/Polymyxin Oint(30GM) TOP SCH ×2 (09:30→17:37)
[2017-07-01] MEDS: Fluconazole IV 100mg/50 ml NS 50 ML IVPB SCH (10:15)
[2017-07-01] MEDS: Vancomycin 125 MG/5 ML SOLN (ORAL/RECTAL) PO SCH ×3 (10:16→17:39)
--- NOTE | 2017-07-01 10:35 | CT ---
PROCEDURE: CT HEAD WITHOUT CONTRAST. HISTORY: S/P intubation COMPARISON: None available. TECHNIQUE: Axial computed tomography images were obtained through the head/brain without intravenous contrast. Radiation dose: Total exam DLP = 1228.53 mGy-cm. This CT exam was performed using one or more of the following dose reduction techniques: Automated exposure control, adjustment of the mA and/or kV according to patient size, and/or use of iterative reconstruction technique. FINDINGS: HEMORRHAGE: No intracranial hemorrhage. BRAIN: There are foci of hypodensity seen at the left temporal frontal parietal lobes and left basal ganglia of uncertain etiology. The possibility of vasogenic edema also should be considered at the left brain. Underline neoplasm is not totally excluded. Moderate volume loss is also noted. VENTRICLES: Unremarkable. No hydrocephalus. CALVARIUM: No evidence of acute fracture or destructive bony lesion. PARANASAL SINUSES: Mucosal thickening is noted in the left maxillary and ethmoid sinuses. MASTOID AIR CELLS: Complete opacification of the left mastoid and left middle ear and partial opacification of the right mastoid and middle ear noted suggestive of mastoiditis. OTHER FINDINGS: There is partially imaged large mass lesion at the left oral cavity extending to the left upper neck highly suggestive of malignant neoplasm. IMPRESSION: No evidence of acute intracranial hemorrhage. Foci of hypodensities seen in the left brain white matter and left basal ganglia of uncertain etiology. The possibility of underline neoplasm with surrounding vasogenic edema cannot be totally excluded. The differential diagnosis includes less likely foci of old infarction. Large soft tissue mass lesion at the left oral cavity extending to the left upper neck highly suggestive of malignant neoplasm. Bilateral mastoid air cells and middle ears opacification larger on the left.
--- NOTE | 2017-07-01 11:04 | RAD ---
HISTORY: on vent COMPARISON: Portable chest 06/29/2017 8:38 a.m.. FINDINGS: Endotracheal tube terminates well above the clavicles and needs to be advanced another 7-10 cm antegrade into the trachea. Tunneled right central venous chest port is unchanged in position. LUNGS: Decreased right basilar airspace disease is appreciate with minimal residual. There is some improved in the left base however significant airspace disease remains. PLEURA: No significant pleural effusion identified, no pneumothorax apparent. CARDIOVASCULAR: Normal. OSSEOUS STRUCTURES: No significant abnormalities. VISUALIZED UPPER ABDOMEN: Normal. OTHER FINDINGS: None. IMPRESSION: Interval improvement in right-sided infiltrate more so than the left basilar infiltrate. Endotracheal tube terminates in the trachea above the clavicle significantly. Advancement is advised as discussed above. Right chest port unchanged in position. Findings were discussed with Dr. Brandt, 07/01/2017 10:58 a.m..
--- NOTE | 2017-07-01 11:40 | CP.PCM.PN ---
Subjective - Date & Time of Evaluation Date of Evaluation: 07/01/17 Time of Evaluation: 11:38 - Subjective Subjective: Pt s/e Head CT(0f 07/01/17 am) reviewed with Dr. Brown, and is consitent with brain metastasis. Discussed with Dr. Hurtado and decided not to perform tracheostomy today. a/p: Gigantic left sided neck mass-squamous cell ca. Probable brain metastsis. MRI Oncology consult. Neurology consult. Cancel tacheostomy for today. Objective - Vital Signs/Intake and Output Vital Signs (last 24 hours): Temp Pulse Resp BP Pulse Ox 98.5 F 93 H 16 107/55 L 99 07/01/17 08:00 07/01/17 09:00 07/01/17 09:00 07/01/17 08:55 07/01/17 09:00 Intake and Output: 07/01/17 07/01/17 06:59 18:59 Intake Total 1065 0 Output Total 955 160 Balance 110 -160 - Medications Medications: Current Medications Acetaminophen (Tylenol 650mg/20.3ml Solution Ud) 650 mg GT Q6 PRN PRN Reason: Pain, Mild (1-3) Albuterol Sulfate (Albuterol 0.083% Inhal Anita (2.5 Mg/3 Ml) Ud) 2.5 mg INH RQ6 [facility] Last Admin: 07/01/17 07:33 Dose: 2.5 mg Famotidine (Pepcid) 20 mg IVP DAILY [facility] Last Admin: 07/01/17 10:14 Dose: 20 mg Furosemide (Lasix) 20 mg IVP Q12H [facility] Last Admin: 07/01/17 01:32 Dose: 20 mg Heparin Sodium (Porcine) (Heparin) 5,000 units SC Q8H [facility] Last Admin: 06/30/17 21:06 Dose: 5,000 units Fluconazole (Diflucan Iv 100 Mg/50 Ml Ns) 50 mls @ 100 mls/hr IVPB DAILY [facility] Last Admin: 07/01/17 10:15 Dose: 100 mls/hr Imipenem/Cilastatin Sodium 500 (mg/ Sodium Chloride) 100 mls @ 100 mls/hr IVPB Q8H [facility] Last Admin: 07/01/17 11:12 Dose: 100 mls/hr Metronidazole 250 mg/ (Miscellaneous) 50 mls @ 100 mls/hr IVPB Q8 [facility] Last Admin: 07/01/17 05:20 Dose: 100 mls/hr Norepinephrine Bitartrate 8 mg (/ Sodium Chloride) 258 mls @ 7.74 mls/hr IV .Q24H PRN; Protocol; 4 MCG/MIN PRN Reason: TITRATE PER MD ORDER Last Titration: 06/30/17 03:17 Dose: 0 mcg/min, 0 mls/hr Insulin Glargine (Lantus) 15 unit SC HS [facility] Last Admin: 06/30/17 21:08 Dose: 15 units Insulin Human Regular (Novolin R) 0 unit SC Q6 [facility] PRN Reason: Protocol Last Admin: 07/01/17 01:34 Dose: Not Given Neomycin/Polymyxin/Bacitracin (Neosporin Triple Antibiotic Oint) 0.5 gm TOP BID [facility] Last Admin: 06/30/17 17:50 Dose: 1 applic Vancomycin HCl (Vancocin (Oral Or Rectal Use)) 250 mg PO QID [facility] Last Admin: 07/01/17 10:16 Dose: Not Given - Labs Labs: 07/01/17 06:26 07/01/17 06:26 PT 15.0 SECONDS (9.7-12.2) H 07/01/17 08:13 INR 1.3 07/01/17 08:13 APTT 39 SECONDS (21-34) H 07/01/17 08:13
--- NOTE | 2017-07-01 13:18 | CP.PCM.PN ---
Subjective - Date & Time of Evaluation Date of Evaluation: 07/01/17 Time of Evaluation: 08:30 - Subjective Subjective: patient seen and examined. Remains intubated on ventilatory support FiO2 50% weak gag reflex no response to painful stimuli For CAT scan of the head Patient is scheduled for tracheostomy Continue antibiotics Off pressors Objective - Vital Signs/Intake and Output Vital Signs (last 24 hours): Temp Pulse Resp BP Pulse Ox 98.5 F 93 H 16 100/53 L 99 07/01/17 08:00 07/01/17 09:00 07/01/17 09:00 07/01/17 13:00 07/01/17 09:00 Intake and Output: 07/01/17 07/01/17 06:59 18:59 Intake Total 1065 0 Output Total 955 160 Balance 110 -160 - Medications Medications: Current Medications Acetaminophen (Tylenol 650mg/20.3ml Solution Ud) 650 mg GT Q6 PRN PRN Reason: Pain, Mild (1-3) Albuterol Sulfate (Albuterol 0.083% Inhal Anita (2.5 Mg/3 Ml) Ud) 2.5 mg INH RQ6 [facility] Last Admin: 07/01/17 07:33 Dose: 2.5 mg Famotidine (Pepcid) 20 mg IVP DAILY [facility] Last Admin: 07/01/17 10:14 Dose: 20 mg Furosemide (Lasix) 20 mg IVP Q12H [facility] Last Admin: 07/01/17 13:00 Dose: 20 mg Heparin Sodium (Porcine) (Heparin) 5,000 units SC Q8H [facility] Last Admin: 06/30/17 21:06 Dose: 5,000 units Fluconazole (Diflucan Iv 100 Mg/50 Ml Ns) 50 mls @ 100 mls/hr IVPB DAILY [facility] Last Admin: 07/01/17 10:15 Dose: 100 mls/hr Imipenem/Cilastatin Sodium 500 (mg/ Sodium Chloride) 100 mls @ 100 mls/hr IVPB Q8H [facility] Last Admin: 07/01/17 11:12 Dose: 100 mls/hr Metronidazole 250 mg/ (Miscellaneous) 50 mls @ 100 mls/hr IVPB Q8 [facility] Last Admin: 07/01/17 05:20 Dose: 100 mls/hr Insulin Glargine (Lantus) 15 unit SC HS [facility] Last Admin: 06/30/17 21:08 Dose: 15 units Insulin Human Regular (Novolin R) 0 unit SC Q6 [facility] PRN Reason: Protocol Last Admin: 07/01/17 12:13 Dose: 2 unit Neomycin/Polymyxin/Bacitracin (Neosporin Triple Antibiotic Oint) 0.5 gm TOP BID [facility] Last Admin: 07/01/17 09:30 Dose: 1 applic Vancomycin HCl (Vancocin (Oral Or Rectal Use)) 250 mg PO QID [facility] Last Admin: 07/01/17 13:01 Dose: 250 mg - Labs Labs: 07/01/17 06:26 07/01/17 06:26 PT 15.0 SECONDS (9.7-12.2) H 07/01/17 08:13 INR 1.3 07/01/17 08:13 APTT 39 SECONDS (21-34) H 07/01/17 08:13 - Head Exam Head Exam: ATRAUMATIC, NORMOCEPHALIC - Neck Exam Neck Exam: Normal Inspection - Respiratory Exam Respiratory Exam: Decreased Breath Sounds - Cardiovascular Exam Cardiovascular Exam: REGULAR RHYTHM - GI/Abdominal Exam GI & Abdominal Exam: Soft - Extremities Exam Extremities Exam: Pedal Edema - Neurological Exam Neurological Exam: Altered Assessment and Plan (1) Respiratory failure Assessment & Plan: continue ventilatory support A CAT scan of the head Patient is scheduled for tracheostomy but prognosis is poor Continue antibiotics Status: Acute (2) Oropharyngeal cancer Status: Acute (3) Pneumonia Status: Acute
--- NOTE | 2017-07-01 13:35 | CP.PCM.CON ---
History of Present Illness - History of Present Illness History of Present Illness: Palliative consult Requested by Sidney FRANK Reason: Goals of care, brain cancer Patient is a 81 yo male without significant PMH, admitted with large Left neck mass that fas rapidly grown over the last few weeks. Patient reported difficulties chewing and swallowing the food. 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 The proposed G tube insertion was not durable and patient was not stable enough for the tracheostomy. Patient does not have known family members to come forward and advocate for the patient. PMH: unknown , except newly diagnosed oral metastatic disease Soc. Hx: single, retired Fam. hx: unknown Review of Systems - Review of Systems All systems: reviewed and no additional remarkable complaints except Review of Systems: ROS obtained from nursing, no acute events overnight. Remains life support dependent. Past Patient History - Past Medical History & Family History Past Medical History?: Yes - Past Social History Smoking Status: Never Smoked Alcohol: None Home Situation {Lives}: Alone - CARDIAC Hx Cardiac Disorders: No - PULMONARY Hx Respiratory Disorders: No - NEUROLOGICAL Hx Neurological Disorder: No - HEENT Hx HEENT Problems: No - RENAL Hx Chronic Kidney Disease: No - ENDOCRINE/METABOLIC Hx Endocrine Disorders: No - HEMATOLOGICAL/ONCOLOGICAL Hx Blood Disorders: No - INTEGUMENTARY Hx Dermatological Problems: No - MUSCULOSKELETAL/RHEUMATOLOGICAL Hx Musculoskeletal Disorders: No Hx Falls: No - GASTROINTESTINAL Hx Gastrointestinal Disorders: No - GENITOURINARY/GYNECOLOGICAL Hx Genitourinary Disorders: No - PSYCHIATRIC Hx Psychophysiologic Disorder: No Hx Substance Use: No - SURGICAL HISTORY Hx Surgeries: No - ANESTHESIA Hx Anesthesia: No Hx Anesthesia Reactions: No Meds Allergies/Adverse Reactions: Allergies Allergy/AdvReac Type Severity Reaction Status Date / Time No Known Allergies Allergy Verified 06/14/17 10:12 - Medications Medications: Current Medications Acetaminophen (Tylenol 650mg/20.3ml Solution Ud) 650 mg GT Q6 PRN PRN Reason: Pain, Mild (1-3) Albuterol Sulfate (Albuterol 0.083% Inhal Anita (2.5 Mg/3 Ml) Ud) 2.5 mg INH RQ6 [facility] Last Admin: 07/01/17 07:33 Dose: 2.5 mg Famotidine (Pepcid) 20 mg IVP DAILY [facility] Last Admin: 07/01/17 10:14 Dose: 20 mg Furosemide (Lasix) 20 mg IVP Q12H [facility] Last Admin: 07/01/17 13:00 Dose: 20 mg Heparin Sodium (Porcine) (Heparin) 5,000 units SC Q8H [facility] Last Admin: 06/30/17 21:06 Dose: 5,000 units Fluconazole (Diflucan Iv 100 Mg/50 Ml Ns) 50 mls @ 100 mls/hr IVPB DAILY [facility] Last Admin: 07/01/17 10:15 Dose: 100 mls/hr Imipenem/Cilastatin Sodium 500 (mg/ Sodium Chloride) 100 mls @ 100 mls/hr IVPB Q8H [facility] Last Admin: 07/01/17 11:12 Dose: 100 mls/hr Metronidazole 250 mg/ (Miscellaneous) 50 mls @ 100 mls/hr IVPB Q8 [facility] Last Admin: 07/01/17 05:20 Dose: 100 mls/hr Insulin Glargine (Lantus) 15 unit SC HS [facility] Last Admin: 06/30/17 21:08 Dose: 15 units Insulin Human Regular (Novolin R) 0 unit SC Q6 [facility] PRN Reason: Protocol Last Admin: 07/01/17 12:13 Dose: 2 unit Neomycin/Polymyxin/Bacitracin (Neosporin Triple Antibiotic Oint) 0.5 gm TOP BID [facility] Last Admin: 07/01/17 09:30 Dose: 1 applic Vancomycin HCl (Vancocin (Oral Or Rectal Use)) 250 mg PO QID [facility] Last Admin: 07/01/17 13:01 Dose: 250 mg Physical Exam - Constitutional Appears: In Acute Distress - Head Exam Head Exam: ATRAUMATIC, NORMAL INSPECTION, NORMOCEPHALIC - Eye Exam Additional comments: eye lids half way closed, does not track - ENT Exam Additional comments: left neck dressing oozing greenish color - Respiratory Exam Additional comments: On MV support - Cardiovascular Exam Cardiovascular Exam: Tachycardia, REGULAR RHYTHM - GI/Abdominal Exam GI & Abdominal Exam: Normal Bowel Sounds, Soft - Rectal Exam Rectal Exam: Deferred - Back Exam Back exam: NORMAL INSPECTION - Neurological Exam Neurological exam: Motor Sensory Deficit - Psychiatric Exam Psychiatric exam: Flat Affect - Skin Skin Exam: Pallor Results - Vital Signs Recent Vital Signs: Last Vital Signs Temp 98.5 F 07/01/17 08:00 Pulse 93 H 07/01/17 09:00 Resp 16 07/01/17 09:00 BP 100/53 L 07/01/17 13:00 Pulse Ox 99 07/01/17 09:00 - Labs Result Diagrams: 07/01/17 06:26 07/01/17 06:26 Labs: Laboratory Results - last 24 hr 06/30/17 07/01/17 07/01/17 18:05 00:28 05:00 WBC RBC Hgb Hct MCV MCH MCHC RDW Plt Count MPV Neut % (Auto) Lymph % (Auto) [place] % (Auto) Eos % (Auto) Baso % (Auto) Neut # Lymph # [place] # Eos # Baso # Neutrophils % (Manual) Band Neutrophils % Lymphocytes % (Manual) Monocytes % (Manual) Nucleated RBC % Platelet Estimate Polychromasia Hypochromasia (manual) Anisocytosis (manual) Macrocytosis (manual) Target Cells PT INR APTT Puncture Site R rad pCO2 64 H pO2 96 HCO3 22.0 ABG pH 7.20 L ABG Total CO2 27.0 ABG O2 Saturation 99.2 H ABG Base Excess -3.7 L ABG Hemoglobin 10.5 L ABG Carboxyhemoglobin 2.8 H POC ABG HHb (Measured) 0.8 ABG Methemoglobin 1.7 [place] Test Pos A-a O2 Difference 181.0 Respiratory Index 1.9 Hgb O2 Saturation 94.8 L Vent Mode Prvc Mechanical Rate 16 FiO2 50.0 Tidal Volume 500 PEEP 8 Sodium Potassium Chloride Carbon Dioxide Anion Gap BUN Creatinine Est GFR ( Amer) Est GFR (Non-Af Amer) POC Glucose (mg/dL) 200 H 241 H Random Glucose Calcium Phosphorus Magnesium Total Bilirubin AST ALT Alkaline Phosphatase Total Protein Albumin Globulin Albumin/Globulin Ratio 07/01/17 07/01/17 07/01/17 05:30 06:26 06:26 WBC 21.9 H RBC 3.36 L Hgb 10.5 L Hct 33.8 L MCV 100.8 H D MCH 31.1 H MCHC 30.9 L RDW 16.2 H Plt Count 171 MPV 11.9 H Neut % (Auto) 94.1 H Lymph % (Auto) 2.1 L [place] % (Auto) 3.6 Eos % (Auto) 0.1 Baso % (Auto) 0.1 Neut # 20.6 H Lymph # 0.5 L [place] # 0.8 Eos # 0.0 Baso # 0.0 Neutrophils % (Manual) 92 H Band Neutrophils % 2 Lymphocytes % (Manual) 2 L Monocytes % (Manual) 4 Nucleated RBC % 5 H Platelet Estimate Normal Polychromasia Slight Hypochromasia (manual) Slight Anisocytosis (manual) Slight Macrocytosis (manual) Slight Target Cells Slight PT INR APTT Puncture Site pCO2 pO2 HCO3 ABG pH ABG Total CO2 ABG O2 Saturation ABG Base Excess ABG Hemoglobin ABG Carboxyhemoglobin POC ABG HHb (Measured) ABG Methemoglobin [place] Test A-a O2 Difference Respiratory Index Hgb O2 Saturation Vent Mode Mechanical Rate FiO2 Tidal Volume PEEP Sodium 158 H Potassium 4.4 Chloride 124 H Carbon Dioxide 24 Anion Gap 14 BUN 62 H Creatinine 1.0 Est GFR ( Amer) > 60 Est GFR (Non-Af Amer) > 60 POC Glucose (mg/dL) 199 H Random Glucose 165 H Calcium 7.3 L Phosphorus 4.7 H Magnesium 2.9 H Total Bilirubin 1.0 AST 53 ALT 35 Alkaline Phosphatase 389 H D Total Protein 5.3 L Albumin 2.4 L Globulin 2.9 Albumin/Globulin Ratio 0.8 L 07/01/17 07/01/17 08:13 11:54 WBC RBC Hgb Hct MCV MCH MCHC RDW Plt Count MPV Neut % (Auto) Lymph % (Auto) [place] % (Auto) Eos % (Auto) Baso % (Auto) Neut # Lymph # [place] # Eos # Baso # Neutrophils % (Manual) Band Neutrophils % Lymphocytes % (Manual) Monocytes % (Manual) Nucleated RBC % Platelet Estimate Polychromasia Hypochromasia (manual) Anisocytosis (manual) Macrocytosis (manual) Target Cells PT 15.0 H INR 1.3 APTT 39 H Puncture Site pCO2 pO2 HCO3 ABG pH ABG Total CO2 ABG O2 Saturation ABG Base Excess ABG Hemoglobin ABG Carboxyhemoglobin POC ABG HHb (Measured) ABG Methemoglobin [place] Test A-a O2 Difference Respiratory Index Hgb O2 Saturation Vent Mode Mechanical Rate FiO2 Tidal Volume PEEP Sodium Potassium Chloride Carbon Dioxide Anion Gap BUN Creatinine Est GFR ( Amer) Est GFR (Non-Af Amer) POC Glucose (mg/dL) 162 H Random Glucose Calcium Phosphorus Magnesium Total Bilirubin AST ALT Alkaline Phosphatase Total Protein Albumin Globulin Albumin/Globulin Ratio Assessment & Plan - Assessment and Plan (Free Text) Assessment: Code status Unknown, there is no Advance Directive / Living Will on chart. PPS 0 % I reviewed medical records, all diagnostic studies, examined patient in the bed abd discussed his clinical presentation with nursing. Patient is unresponsive to stimuli, eye lids half way closed, does not track movements. pupils sluggish to response to light. Skin pale. Left neck dressing in place. Patient is intubated without sedation. GCS of 3. WBC 21.0, afebrile. primaxyn IV, Flagyl IV and Vanco IV on board. BP 100/53. The rest of organ Systems examined and no acute findings noted. Patient's record, has only one electrical contacts adjuster, his friend Poppy Crane, . As per nursing, the hvac residential service technician was able to get in touch with her over the phone. I called the number [phone] today and got busy signal each time. I was told that Doctor Molina the Bioethics Committee chair person was contacted for assistance with this matter. Impression * This is terminally ill patient with wide spread metastatic disease, on full life support * Patient's wishes for the end of life care are not known * There is no family members contact info, except one friend Poppy Crane who is not answering the phone * Patient is not a candidate for the tracheostomy due to cancer location * Patient did not tolerate proposed GT insertion * Patient is NPO on IV fluids at risk for mlnutrition * Significant loss of quality of life with no expected meaningful recovery Suggestion * Patient should be removed from life support and allowed natural or he will suffer long and slow dying process * I would not go for any PEG or Trach as patient's condition is obviously terminal and no further aggressive treatment would bring about benefices for this patient * Bioethics Consult is appropriate next step Thank you for consulting Palliatice Care
--- NOTE | 2017-07-01 13:58 | CP.PCM.PN ---
Subjective - Date & Time of Evaluation Date of Evaluation: 07/01/17 Time of Evaluation: 13:58 - Subjective Subjective: CHIEF COMPLAINTS TODAY : PATIENT REMAINS ON VENTILATOR UNRESPONSIVE-VEGETATIVE STATE SEEN BY PALLIATIVE CARE CT BRAIN.- ?METASTASES TO THE BRAIN ON iv IMIPENEM, FLUCONAZOLE, iv fLAGYL bY MOUTH VANCOMYCIN. Unable to obtain review of systems ROS on observation only HEENT : LEFT SUBMANDIBULAR MASS AND SWELLING, ON VENTILATOR Resp : No SOB wheezing, cough Cardio : No CP, PND orthopnea GI : No abd. Pain, n/v +VE PEG IN PLACE. REEL HOOKER : No headache , focal deficit. Musculoskel : N Ext. : Pedal pulses intact, no edema or calf pain Derm : N Psych : N. PE. Pt. is ON VENTILATOR, UNRESPONSIVE V.S As noted in the chart Head ,ear nose,throat and eyes : Normal. Neck : Supple with normal carotids.LT. SIDED JAW SWELLING WITH CELLULITIS AND TENDERNESS, LEFT-SIDED MANDIBULAR MASS BX SITE. +VE LB Lungs: SCATTERED RHONCHI AND RALES. Heart : S1 & S2 normal . . No murmur. S4 + Abd : Soft non tender with normal bowel sounds.+VE PEG , DRAINAGE AROUND THE PEG SITE Neuro : DIFFICULT TO EVALUATE. Ext : No edema with intact pulses. Neg. calf tenderness Derm : No rashes or decubitus ulcer. Radiology/Labs . WBC 21.9 CREATININE 1.0/bun 62 SPUTUM GRAM-06/28/17+VE kLEBSIELLA PNEUMONIAE URINE CULTURE REPEAT 06/28/17 NO GROWTH. LFTS INCREASING ALKALINE PHOSPHATASE ? 2 2 MALIGNANCY stools positive C. difficile antigen. abdominal wound culture Klebsiella pneumoniae ESBL -VE URINE CULTURE +ve Enterococcus faecalis 06/20/17.S-AMPICILLIN VANCOMYCIN Objective - Vital Signs/Intake and Output Vital Signs (last 24 hours): Temp Pulse Resp BP Pulse Ox 98.5 F 93 H 16 100/53 L 99 07/01/17 08:00 07/01/17 09:00 07/01/17 09:00 07/01/17 13:00 07/01/17 09:00 Intake and Output: 07/01/17 07/01/17 06:59 18:59 Intake Total 1065 0 Output Total 955 195 Balance 110 -195 - Medications Medications: Current Medications Acetaminophen (Tylenol 650mg/20.3ml Solution Ud) 650 mg GT Q6 PRN PRN Reason: Pain, Mild (1-3) Albuterol Sulfate (Albuterol 0.083% Inhal Anita (2.5 Mg/3 Ml) Ud) 2.5 mg INH RQ6 [facility] Last Admin: 07/01/17 13:35 Dose: 2.5 mg Famotidine (Pepcid) 20 mg IVP DAILY [facility] Last Admin: 07/01/17 10:14 Dose: 20 mg Furosemide (Lasix) 20 mg IVP Q12H [facility] Last Admin: 07/01/17 13:00 Dose: 20 mg Heparin Sodium (Porcine) (Heparin) 5,000 units SC Q8H [facility] Last Admin: 06/30/17 21:06 Dose: 5,000 units Fluconazole (Diflucan Iv 100 Mg/50 Ml Ns) 50 mls @ 100 mls/hr IVPB DAILY [facility] Last Admin: 07/01/17 10:15 Dose: 100 mls/hr Imipenem/Cilastatin Sodium 500 (mg/ Sodium Chloride) 100 mls @ 100 mls/hr IVPB Q8H [facility] Last Admin: 07/01/17 11:12 Dose: 100 mls/hr Metronidazole 250 mg/ (Miscellaneous) 50 mls @ 100 mls/hr IVPB Q8 [facility] Last Admin: 07/01/17 05:20 Dose: 100 mls/hr Insulin Glargine (Lantus) 15 unit SC HS [facility] Last Admin: 06/30/17 21:08 Dose: 15 units Insulin Human Regular (Novolin R) 0 unit SC Q6 [facility] PRN Reason: Protocol Last Admin: 07/01/17 12:13 Dose: 2 unit Neomycin/Polymyxin/Bacitracin (Neosporin Triple Antibiotic Oint) 0.5 gm TOP BID [facility] Last Admin: 07/01/17 09:30 Dose: 1 applic Vancomycin HCl (Vancocin (Oral Or Rectal Use)) 250 mg PO QID [facility] Last Admin: 07/01/17 13:01 Dose: 250 mg - Labs Labs: 07/01/17 06:26 07/01/17 06:26 PT 15.0 SECONDS (9.7-12.2) H 07/01/17 08:13 INR 1.3 07/01/17 08:13 APTT 39 SECONDS (21-34) H 07/01/17 08:13 Assessment and Plan (1) Respiratory failure Status: Acute (2) Pneumonia Status: Acute (3) Dysphagia Status: Acute (4) Oropharyngeal cancer Status: Acute (5) Dehydration Status: Acute (6) UTI (urinary tract infection) due to Enterococcus Status: Acute (7) PMC (pseudomembranous colitis) Status: Acute - Assessment and Plan (Free Text) Assessment: IMPRESSION; OROPHARYNGEAL CA. S/P BX .06/15/17. WITH PROBABLE METASTASIS TO THE BRAIN. ACUTE RESPIRATORY FAILURE . BILATERAL MULTIFOCAL PNEUMONIA /nodular densities :mets PSEUDOMEMBRANOUS COLITIS.( c. DIFFICILE ANTIGEN POSITIVE 06/24/17 ) DYSPHAGIA S/P PEG/GT -EXIT SITE INFECTION. S/P MED-PORT . PLAN; ON iv PRIMAXIN 500 EVERY 8 HOURLY 06/22/17 ON PO VANCOMYCIN 250 MG 4 TIMES A DAY FOR CDAD.06/28/17 ON iv FLUCONAZOLE, 100 MG od ADDED BY PLASTIC DESIGN APPLIER 06/22/17. CONTINUE ON iv fLAGYL 250 EVERY 8 HOURLY 06/24/17. PROGNOSIS GUARDED. PER PLASTIC DESIGN APPLIER/PMD
--- NOTE | 2017-07-01 14:07 | CP.CCUPN ---
<Mateo Marie E - Last Filed: 07/01/17 15:37> CCU Subjective - Physician Review Events Since Last Encounter (Free Text): Off sedation Subjective (Free Text): Patient was seen and examined at bedside. Patient remains intubated but off sedation. Unable to evaluate adequate ROS due to patient current clinical status. Patient is clinically unchanged. CCU Objective - Vital Signs / Intake & Output Vital Signs (Last 4 hours): Vital Signs BP 07/01/17 13:00 100/53 L Intake and Output (Last 8hrs): Intake & Output 06/30/17 07/01/17 07/01/17 22:59 06:59 14:59 Intake Total 1225 525 0 Output Total 650 785 195 Balance 575 -260 -195 Intake: Intake, IV Amount 525 225 Right Proximal Port Port- 350 150 A-Cath right PC side port 175 75 Tube Feeding 350 50 0 Other 350 250 Output: Urine 650 535 195 Urine, Voided 650 535 195 Emesis 250 Other: # Bowel Movements 0 0 - Physical Exam Head: Positive for: Atraumatic Respiratory/Chest: Positive for: Good Air Exchange (Anteriorly ), Other ( Patient is currently inutbated ). Negative for: Respiratory Distress, Accessory Muscle Use Cardiovascular: Positive for: Regular Rate and Rhythm, Murmurs, Normal S1, S2 Abdomen: Positive for: Other (Mildly diminished bowel sounds ). Negative for: Tenderness, Distention, Normal Bowel Sounds Upper Extremity: Positive for: Edema Lower Extremity: Positive for: Edema. Negative for: Swelling Neurological: Negative for: GCS=15, Speech Normal Skin: Positive for: Pale - Medications Active Medications: Active Medications Generic Name Dose Route Start Last Admin Trade Name Freq PRN Reason Stop Dose Admin Acetaminophen 650 mg 06/16/17 17:25 Tylenol 650mg/20.3ml Solution Ud GT Q6 PRN Pain, Mild (1-3) Albuterol Sulfate 2.5 mg 06/25/17 12:00 07/01/17 13:35 Albuterol 0.083% Inhal Anita (2.5 Mg/3 Ml) Ud INH 2.5 mg RQ6 JUAN CARLOS Administration Famotidine 20 mg 06/27/17 10:15 07/01/17 10:14 Pepcid IVP 20 mg DAILY JUAN CARLOS Administration Furosemide 20 mg 06/30/17 13:00 07/01/17 13:00 Lasix IVP 20 mg Q12H JUAN CARLOS Administration Heparin Sodium (Porcine) 5,000 units 06/25/17 22:00 06/30/17 21:06 Heparin SC 5,000 units Q8H JUAN CARLOS Administration Fluconazole 50 mls @ 100 mls/hr 06/22/17 10:00 07/01/17 10:15 Diflucan Iv 100 Mg/50 Ml Ns IVPB 100 mls/hr DAILY JUAN CARLOS Administration Imipenem/Cilastatin Sodium 500 100 mls @ 100 mls/hr 06/22/17 12:00 07/01/17 11:12 mg/ Sodium Chloride IVPB 100 mls/hr Q8H JUAN CARLOS Administration Metronidazole 250 mg/ 50 mls @ 100 mls/hr 06/26/17 06:00 07/01/17 05:20 Miscellaneous IVPB 100 mls/hr Q8 JUAN CARLOS Administration Insulin Glargine 15 unit 06/26/17 22:00 06/30/17 21:08 Lantus SC 15 units HS JUAN CARLOS Administration Insulin Human Regular 0 unit 06/26/17 10:36 07/01/17 12:13 Novolin R SC 2 unit Q6 JUAN CARLOS Administration Protocol Neomycin/Polymyxin/Bacitracin 0.5 gm 06/26/17 22:30 07/01/17 09:30 Neosporin Triple Antibiotic Oint TOP 1 applic BID JUAN CARLOS Administration Vancomycin HCl 250 mg 06/26/17 23:15 07/01/17 13:01 Vancocin (Oral Or Rectal Use) PO 250 mg QID JUA NCARLOS Administration - Patient Studies Lab Studies: Microbiology Studies 06/28/17 Unknown Gram Stain - Final Sputum Induced Sputum Culture - Final Klebsiella Pneumoniae Ssp Pneu Lab Studies 07/01/17 07/01/17 07/01/17 Range/Units 11:54 08:13 06:26 WBC (4.8-10.8) K/uL RBC (4.40-5.90) Mil/uL Hgb (12.0-18.0) g/dL Hct (35.0-51.0) % MCV (80.0-94.0) fL MCH (27.0-31.0) pg MCHC (33.0-37.0) g/dL RDW (11.5-14.5) % Plt Count (130-400) K/uL MPV (7.2-11.7) fL Neut % (Auto) (50.0-75.0) % Lymph % (Auto) (20.0-40.0) % [place] % (Auto) (0.0-10.0) % Eos % (Auto) (0.0-4.0) % Baso % (Auto) (0.0-2.0) % Neut # (1.8-7.0) K/uL Lymph # (1.0-4.3) K/uL [place] # (0.0-0.8) K/uL Eos # (0.0-0.7) K/uL Baso # (0.0-0.2) K/uL Neutrophils % (Manual) (50-75) % Band Neutrophils % (0-2) % Lymphocytes % (Manual) (20-40) % Monocytes % (Manual) (0-10) % Nucleated RBC % (0-0) % Platelet Estimate (NORMAL) Polychromasia Hypochromasia (manual) Anisocytosis (manual) Macrocytosis (manual) Target Cells PT 15.0 H (9.7-12.2) SECONDS INR 1.3 APTT 39 H (21-34) SECONDS Puncture Site pCO2 (35-45) mm/Hg pO2 (80-100) mm/Hg HCO3 (21-28) mmol/L ABG pH (7.35-7.45) ABG Total CO2 (22-28) mmol/L ABG O2 Saturation (95-98) % ABG Base Excess (-2.0-3.0) mmol/L ABG Hemoglobin (11.7-17.4) g/dL ABG Carboxyhemoglobin (0.5-1.5) % POC ABG HHb (Measured) (0.0-5.0) % ABG Methemoglobin (0.0-3.0) % Harlan Test A-a O2 Difference mm/Hg Respiratory Index Hgb O2 Saturation (95.0-98.0) % Vent Mode Mechanical Rate FiO2 % Tidal Volume PEEP Sodium 158 H (132-148) mmol/L Potassium 4.4 (3.6-5.2) mmol/L Chloride 124 H (98-107) mmol/L Carbon Dioxide 24 (22-30) mmol/L Anion Gap 14 (10-20) BUN 62 H (9-20) mg/dL Creatinine 1.0 (0.8-1.5) mg/dL Est GFR ( Amer) > 60 Est GFR (Non-Af Amer) > 60 POC Glucose (mg/dL) 162 H (65-110) mg/dL Random Glucose 165 H (75-110) mg/dL Calcium 7.3 L (8.6-10.4) mg/dl Phosphorus 4.7 H (2.5-4.5) mg/dL Magnesium 2.9 H (1.6-2.3) mg/dL Total Bilirubin 1.0 (0.2-1.3) mg/dL AST 53 (17-59) U/L ALT 35 (21-72) U/L Alkaline Phosphatase 389 H D (38-126) U/L Total Protein 5.3 L (6.3-8.3) g/dL Albumin 2.4 L (3.5-5.0) g/dL Globulin 2.9 (2.2-3.9) gm/dL Albumin/Globulin Ratio 0.8 L (1.0-2.1) 07/01/17 07/01/17 07/01/17 Range/Units 06:26 05:30 05:00 WBC 21.9 H (4.8-10.8) K/uL RBC 3.36 L (4.40-5.90) Mil/uL Hgb 10.5 L (12.0-18.0) g/dL Hct 33.8 L (35.0-51.0) % MCV 100.8 H D (80.0-94.0) fL MCH 31.1 H (27.0-31.0) pg MCHC 30.9 L (33.0-37.0) g/dL RDW 16.2 H (11.5-14.5) % Plt Count 171 (130-400) K/uL MPV 11.9 H (7.2-11.7) fL Neut % (Auto) 94.1 H (50.0-75.0) % Lymph % (Auto) 2.1 L (20.0-40.0) % [place] % (Auto) 3.6 (0.0-10.0) % Eos % (Auto) 0.1 (0.0-4.0) % Baso % (Auto) 0.1 (0.0-2.0) % Neut # 20.6 H (1.8-7.0) K/uL Lymph # 0.5 L (1.0-4.3) K/uL [place] # 0.8 (0.0-0.8) K/uL Eos # 0.0 (0.0-0.7) K/uL Baso # 0.0 (0.0-0.2) K/uL Neutrophils % (Manual) 92 H (50-75) % Band Neutrophils % 2 (0-2) % Lymphocytes % (Manual) 2 L (20-40) % Monocytes % (Manual) 4 (0-10) % Nucleated RBC % 5 H (0-0) % Platelet Estimate Normal (NORMAL) Polychromasia Slight Hypochromasia (manual) Slight Anisocytosis (manual) Slight Macrocytosis (manual) Slight Target Cells Slight PT (9.7-12.2) SECONDS INR APTT (21-34) SECONDS Puncture Site R rad pCO2 64 H (35-45) mm/Hg pO2 96 (80-100) mm/Hg HCO3 22.0 (21-28) mmol/L ABG pH 7.20 L (7.35-7.45) ABG Total CO2 27.0 (22-28) mmol/L ABG O2 Saturation 99.2 H (95-98) % ABG Base Excess -3.7 L (-2.0-3.0) mmol/L ABG Hemoglobin 10.5 L (11.7-17.4) g/dL ABG Carboxyhemoglobin 2.8 H (0.5-1.5) % POC ABG HHb (Measured) 0.8 (0.0-5.0) % ABG Methemoglobin 1.7 (0.0-3.0) % Harlan Test Pos A-a O2 Difference 181.0 mm/Hg Respiratory Index 1.9 Hgb O2 Saturation 94.8 L (95.0-98.0) % Vent Mode Prvc Mechanical Rate 16 FiO2 50.0 % Tidal Volume 500 PEEP 8 Sodium (132-148) mmol/L Potassium (3.6-5.2) mmol/L Chloride (98-107) mmol/L Carbon Dioxide (22-30) mmol/L Anion Gap (10-20) BUN (9-20) mg/dL Creatinine (0.8-1.5) mg/dL Est GFR ( Amer) Est GFR (Non-Af Amer) POC Glucose (mg/dL) 199 H (65-110) mg/dL Random Glucose (75-110) mg/dL Calcium (8.6-10.4) mg/dl Phosphorus (2.5-4.5) mg/dL Magnesium (1.6-2.3) mg/dL Total Bilirubin (0.2-1.3) mg/dL AST (17-59) U/L ALT (21-72) U/L Alkaline Phosphatase (38-126) U/L Total Protein (6.3-8.3) g/dL Albumin (3.5-5.0) g/dL Globulin (2.2-3.9) gm/dL Albumin/Globulin Ratio (1.0-2.1) 07/01/17 06/30/17 Range/Units 00:28 18:05 WBC (4.8-10.8) K/uL RBC (4.40-5.90) Mil/uL Hgb (12.0-18.0) g/dL Hct (35.0-51.0) % MCV (80.0-94.0) fL MCH (27.0-31.0) pg MCHC (33.0-37.0) g/dL RDW (11.5-14.5) % Plt Count (130-400) K/uL MPV (7.2-11.7) fL Neut % (Auto) (50.0-75.0) % Lymph % (Auto) (20.0-40.0) % [place] % (Auto) (0.0-10.0) % Eos % (Auto) (0.0-4.0) % Baso % (Auto) (0.0-2.0) % Neut # (1.8-7.0) K/uL Lymph # (1.0-4.3) K/uL [place] # (0.0-0.8) K/uL Eos # (0.0-0.7) K/uL Baso # (0.0-0.2) K/uL Neutrophils % (Manual) (50-75) % Band Neutrophils % (0-2) % Lymphocytes % (Manual) (20-40) % Monocytes % (Manual) (0-10) % Nucleated RBC % (0-0) % Platelet Estimate (NORMAL) Polychromasia Hypochromasia (manual) Anisocytosis (manual) Macrocytosis (manual) Target Cells PT (9.7-12.2) SECONDS INR APTT (21-34) SECONDS Puncture Site pCO2 (35-45) mm/Hg pO2 (80-100) mm/Hg HCO3 (21-28) mmol/L ABG pH (7.35-7.45) ABG Total CO2 (22-28) mmol/L ABG O2 Saturation (95-98) % ABG Base Excess (-2.0-3.0) mmol/L ABG Hemoglobin (11.7-17.4) g/dL ABG Carboxyhemoglobin (0.5-1.5) % POC ABG HHb (Measured) (0.0-5.0) % ABG Methemoglobin (0.0-3.0) % Harlan Test A-a O2 Difference mm/Hg Respiratory Index Hgb O2 Saturation (95.0-98.0) % Vent Mode Mechanical Rate FiO2 % Tidal Volume PEEP Sodium (132-148) mmol/L Potassium (3.6-5.2) mmol/L Chloride (98-107) mmol/L Carbon Dioxide (22-30) mmol/L Anion Gap (10-20) BUN (9-20) mg/dL Creatinine (0.8-1.5) mg/dL Est GFR ( Amer) Est GFR (Non-Af Amer) POC Glucose (mg/dL) 241 H 200 H (65-110) mg/dL Random Glucose (75-110) mg/dL Calcium (8.6-10.4) mg/dl Phosphorus (2.5-4.5) mg/dL Magnesium (1.6-2.3) mg/dL Total Bilirubin (0.2-1.3) mg/dL AST (17-59) U/L ALT (21-72) U/L Alkaline Phosphatase (38-126) U/L Total Protein (6.3-8.3) g/dL Albumin (3.5-5.0) g/dL Globulin (2.2-3.9) gm/dL Albumin/Globulin Ratio (1.0-2.1) Laboratory Results - last 24 hr 06/30/17 07/01/17 07/01/17 18:05 00:28 05:00 WBC RBC Hgb Hct MCV MCH MCHC RDW Plt Count MPV Neut % (Auto) Lymph % (Auto) [place] % (Auto) Eos % (Auto) Baso % (Auto) Neut # Lymph # [place] # Eos # Baso # Neutrophils % (Manual) Band Neutrophils % Lymphocytes % (Manual) Monocytes % (Manual) Nucleated RBC % Platelet Estimate Polychromasia Hypochromasia (manual) Anisocytosis (manual) Macrocytosis (manual) Target Cells PT INR APTT Puncture Site R rad pCO2 64 H pO2 96 HCO3 22.0 ABG pH 7.20 L ABG Total CO2 27.0 ABG O2 Saturation 99.2 H ABG Base Excess -3.7 L ABG Hemoglobin 10.5 L ABG Carboxyhemoglobin 2.8 H POC ABG HHb (Measured) 0.8 ABG Methemoglobin 1.7 Harlan Test Pos A-a O2 Difference 181.0 Respiratory Index 1.9 Hgb O2 Saturation 94.8 L Vent Mode Prvc Mechanical Rate 16 FiO2 50.0 Tidal Volume 500 PEEP 8 Sodium Potassium Chloride Carbon Dioxide Anion Gap BUN Creatinine Est GFR ( Amer) Est GFR (Non-Af Amer) POC Glucose (mg/dL) 200 H 241 H Random Glucose Calcium Phosphorus Magnesium Total Bilirubin AST ALT Alkaline Phosphatase Total Protein Albumin Globulin Albumin/Globulin Ratio 07/01/17 07/01/17 07/01/17 05:30 06:26 06:26 WBC 21.9 H RBC 3.36 L Hgb 10.5 L Hct 33.8 L MCV 100.8 H D MCH 31.1 H MCHC 30.9 L RDW 16.2 H Plt Count 171 MPV 11.9 H Neut % (Auto) 94.1 H Lymph % (Auto) 2.1 L [place] % (Auto) 3.6 Eos % (Auto) 0.1 Baso % (Auto) 0.1 Neut # 20.6 H Lymph # 0.5 L [place] # 0.8 Eos # 0.0 Baso # 0.0 Neutrophils % (Manual) 92 H Band Neutrophils % 2 Lymphocytes % (Manual) 2 L Monocytes % (Manual) 4 Nucleated RBC % 5 H Platelet Estimate Normal Polychromasia Slight Hypochromasia (manual) Slight Anisocytosis (manual) Slight Macrocytosis (manual) Slight Target Cells Slight PT INR APTT Puncture Site pCO2 pO2 HCO3 ABG pH ABG Total CO2 ABG O2 Saturation ABG Base Excess ABG Hemoglobin ABG Carboxyhemoglobin POC ABG HHb (Measured) ABG Methemoglobin Harlan Test A-a O2 Difference Respiratory Index Hgb O2 Saturation Vent Mode Mechanical Rate FiO2 Tidal Volume PEEP Sodium 158 H Potassium 4.4 Chloride 124 H Carbon Dioxide 24 Anion Gap 14 BUN 62 H Creatinine 1.0 Est GFR ( Amer) > 60 Est GFR (Non-Af Amer) > 60 POC Glucose (mg/dL) 199 H Random Glucose 165 H Calcium 7.3 L Phosphorus 4.7 H Magnesium 2.9 H Total Bilirubin 1.0 AST 53 ALT 35 Alkaline Phosphatase 389 H D Total Protein 5.3 L Albumin 2.4 L Globulin 2.9 Albumin/Globulin Ratio 0.8 L 07/01/17 07/01/17 08:13 11:54 WBC RBC Hgb Hct MCV MCH MCHC RDW Plt Count MPV Neut % (Auto) Lymph % (Auto) [place] % (Auto) Eos % (Auto) Baso % (Auto) Neut # Lymph # [place] # Eos # Baso # Neutrophils % (Manual) Band Neutrophils % Lymphocytes % (Manual) Monocytes % (Manual) Nucleated RBC % Platelet Estimate Polychromasia Hypochromasia (manual) Anisocytosis (manual) Macrocytosis (manual) Target Cells PT 15.0 H INR 1.3 APTT 39 H Puncture Site pCO2 pO2 HCO3 ABG pH ABG Total CO2 ABG O2 Saturation ABG Base Excess ABG Hemoglobin ABG Carboxyhemoglobin POC ABG HHb (Measured) ABG Methemoglobin Harlan Test A-a O2 Difference Respiratory Index Hgb O2 Saturation Vent Mode Mechanical Rate FiO2 Tidal Volume PEEP Sodium Potassium Chloride Carbon Dioxide Anion Gap BUN Creatinine Est GFR ( Amer) Est GFR (Non-Af Amer) POC Glucose (mg/dL) 162 H Random Glucose Calcium Phosphorus Magnesium Total Bilirubin AST ALT Alkaline Phosphatase Total Protein Albumin Globulin Albumin/Globulin Ratio Fingerstick Blood Sugar Results: 162 Review of Systems - Review of Systems Review of Systems: Unable to evaluate ROS due to patient's current clinical status Critical Care Progress Note - Ventilator Checklist Daily Sedation Vacation: No Daily Assessment of Readiness to Wean: No Daily Spontaneous Breathing Trial: No PUD Prophalyxis: Yes DVT Prophylaxis: Yes - Nutrition Nutrition: Nutrition Category Date Time Status NPO Diet [DIET] Diets 06/14/17 Lunch Active Assessment/Plan - Assessment and Plan (Free Text) Assessment: 81 y/o male, with no significant past medical history, presents to emergency department for evaluation of left lateral neck mass underneath the chin extending from jaw (Submandibular mass), 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 Plans for head CT * Multiple unsuccessful attempt to contact family members regarding goal of care , therefore bioethics consult was placed. 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 Sheppard on board---> Help appreciated Palliative consult, Veronica on board---> Help appreciated ENT, Dr. Salgado on board---> Help appreciated Cardiothoracic Consult, Dr. Cancino ( Possible Tracheostomy)---> Help appreciated * Plans tracheostomy delayed until patient is more responsive Medication/Managment: * Fluconazole 100mg IV daily * Morphine 2mg IVP Q6 PRN Neuro: Intubated Medication/Management: * Off sedation Cardio: Hypotension, Volume overloaded Medication/Management: * Levophed 8mg IV 4mcg/min ( On titration)- Discontinued 06/30/17 Pulm: Pneumonia and respiratory distress secondary to enlarged submandibular mass. Wildlife Technician consult, Dr. GREY---> Help appreciated Chest X-ray (07/01/17): Interval improvement in right-sided infiltrate more so than the left basilar infiltrate. Medication/Management: * Intubated * Duonebs 2.5mg INH RQ6H * Lasix 20mg IVP Q12H GI: No acute distress Endo: Elevated blood glucose Medication/Management: * Accuchecks Q6H * ISS high dose protocol Q6H * Lantus 15 unit SC HS Renal: Hypernatremia possibly secondary due to dehydration Medication/Management: * NS 1L bolus (06/28/17) * Albumin 12.5gm IV Q8H (6 doses)- 06/28/17) * Free H2O Q6H ID: Code sepsis Lactate: 6.4, 6.1, 5.7 ( Trending down), Bandemia, Leukocytosis Infectious Disease consult, Dr. Dominguez---> Help appreciated Medication/Management: * Zosyn 3.375gm IVPB Q8H ( Started 06/20/17)---> stopped (06/22/17) * Primaxin 500mg IV Q8H ( Started 06/22/17) * Vanco 250mg PO QID rectally (06/26/17) * Flagyl 500mg/100mh, 250mg IVPB Q8H (06/26/17) * D5WNS @100mls/hr * Tylenol 650mg GT Q6 prn Prophylaxis: DVT: SCDs, Heparin 5,000 units SC Q8H GI: Pepcid 20mg IVP daily Tube feeding <Rikki Hurtado - Last Filed: 07/01/17 18:46> CCU Objective - Vital Signs / Intake & Output Vital Signs (Last 4 hours): Vital Signs Pulse Resp BP Pulse Ox 07/01/17 18:29 101 H 11 L 88/47 L 86 L 07/01/17 18:14 98 H 11 L 78/43 L 07/01/17 18:00 100 H 9 L 85 L 07/01/17 17:59 99 H 10 L 86/45 L 07/01/17 17:44 99 H 10 L 90/45 L 86 L 07/01/17 17:29 97 H 11 L 85/46 L 07/01/17 17:14 98 H 8 L 92/53 L 07/01/17 17:00 98 H 10 L 92 L 07/01/17 16:59 101 H 19 123/64 91 L 07/01/17 16:55 93 H 21 102/56 L 98 07/01/17 16:00 91 H 21 88/46 L 98 07/01/17 15:55 94 H 23 07/01/17 15:00 95 H 12 99 07/01/17 14:55 96 H 20 Intake and Output (Last 8hrs): Intake & Output 07/01/17 07/01/17 07/01/17 06:59 14:59 22:59 Intake Total 525 500 100 Output Total 785 340 70 Balance -260 160 30 Intake: Intake, IV Amount 225 150 Right Proximal Port Port- 150 150 A-Cath right PC side port 75 Tube Feeding 50 100 100 Other 250 250 Output: Urine 535 340 70 Urine, Voided 535 340 70 Emesis 250 Other: # Bowel Movements 0 - Medications Active Medications: Active Medications Generic Name Dose Route Start Last Admin Trade Name Freq PRN Reason Stop Dose Admin Acetaminophen 650 mg 06/16/17 17:25 Tylenol 650mg/20.3ml Solution Ud GT Q6 PRN Pain, Mild (1-3) Albuterol Sulfate 2.5 mg 06/25/17 12:00 07/01/17 13:35 Albuterol 0.083% Inhal Anita (2.5 Mg/3 Ml) Ud INH 2.5 mg RQ6 JUAN CARLOS Administration Famotidine 20 mg 06/27/17 10:15 07/01/17 10:14 Pepcid IVP 20 mg DAILY JUAN CARLOS Administration Furosemide 20 mg 06/30/17 13:00 07/01/17 13:00 Lasix IVP 20 mg Q12H JUAN CARLOS Administration Heparin Sodium (Porcine) 5,000 units 06/25/17 22:00 06/30/17 21:06 Heparin SC 5,000 units Q8H JUAN CARLOS Administration Fluconazole 50 mls @ 100 mls/hr 06/22/17 10:00 07/01/17 10:15 Diflucan Iv 100 Mg/50 Ml Ns IVPB 100 mls/hr DAILY JUAN CARLOS Administration Imipenem/Cilastatin Sodium 500 100 mls @ 100 mls/hr 06/22/17 12:00 07/01/17 11:12 mg/ Sodium Chloride IVPB 100 mls/hr Q8H JUAN CARLOS Administration Metronidazole 250 mg/ 50 mls @ 100 mls/hr 06/26/17 06:00 07/01/17 14:30 Miscellaneous IVPB 100 mls/hr Q8 JUAN CARLOS Administration Insulin Glargine 15 unit 06/26/17 22:00 06/30/17 21:08 Lantus SC 15 units HS JUAN CARLOS Administration Insulin Human Regular 0 unit 06/26/17 10:36 07/01/17 17:37 Novolin R SC Not Given Q6 JUAN CARLOS Protocol Neomycin/Polymyxin/Bacitracin 0.5 gm 06/26/17 22:30 07/01/17 17:37 Neosporin Triple Antibiotic Oint TOP Not Given BID [facility] Vancomycin HCl 250 mg 06/26/17 23:15 07/01/17 17:39 Vancocin (Oral Or Rectal Use) PO Not Given QID [facility] - Patient Studies Lab Studies: Microbiology Studies 06/28/17 Unknown Gram Stain - Final Sputum Induced Sputum Culture - Final Klebsiella Pneumoniae Ssp Pneu Lab Studies 07/01/17 07/01/17 07/01/17 Range/Units 11:54 08:13 06:26 WBC (4.8-10.8) K/uL RBC (4.40-5.90) Mil/uL Hgb (12.0-18.0) g/dL Hct (35.0-51.0) % MCV (80.0-94.0) fL MCH (27.0-31.0) pg MCHC (33.0-37.0) g/dL RDW (11.5-14.5) % Plt Count (130-400) K/uL MPV (7.2-11.7) fL Neut % (Auto) (50.0-75.0) % Lymph % (Auto) (20.0-40.0) % [place] % (Auto) (0.0-10.0) % Eos % (Auto) (0.0-4.0) % Baso % (Auto) (0.0-2.0) % Neut # (1.8-7.0) K/uL Lymph # (1.0-4.3) K/uL [place] # (0.0-0.8) K/uL Eos # (0.0-0.7) K/uL Baso # (0.0-0.2) K/uL Neutrophils % (Manual) (50-75) % Band Neutrophils % (0-2) % Lymphocytes % (Manual) (20-40) % Monocytes % (Manual) (0-10) % Nucleated RBC % (0-0) % Platelet Estimate (NORMAL) Polychromasia Hypochromasia (manual) Anisocytosis (manual) Macrocytosis (manual) Target Cells PT 15.0 H (9.7-12.2) SECONDS INR 1.3 APTT 39 H (21-34) SECONDS Puncture Site pCO2 (35-45) mm/Hg pO2 (80-100) mm/Hg HCO3 (21-28) mmol/L ABG pH (7.35-7.45) ABG Total CO2 (22-28) mmol/L ABG O2 Saturation (95-98) % ABG Base Excess (-2.0-3.0) mmol/L ABG Hemoglobin (11.7-17.4) g/dL ABG Carboxyhemoglobin (0.5-1.5) % POC ABG HHb (Measured) (0.0-5.0) % ABG Methemoglobin (0.0-3.0) % Harlan Test A-a O2 Difference mm/Hg Respiratory Index Hgb O2 Saturation (95.0-98.0) % Vent Mode Mechanical Rate FiO2 % Tidal Volume PEEP Sodium 158 H (132-148) mmol/L Potassium 4.4 (3.6-5.2) mmol/L Chloride 124 H (98-107) mmol/L Carbon Dioxide 24 (22-30) mmol/L Anion Gap 14 (10-20) BUN 62 H (9-20) mg/dL Creatinine 1.0 (0.8-1.5) mg/dL Est GFR ( Amer) > 60 Est GFR (Non-Af Amer) > 60 POC Glucose (mg/dL) 162 H (65-110) mg/dL Random Glucose 165 H (75-110) mg/dL Calcium 7.3 L (8.6-10.4) mg/dl Phosphorus 4.7 H (2.5-4.5) mg/dL Magnesium 2.9 H (1.6-2.3) mg/dL Total Bilirubin 1.0 (0.2-1.3) mg/dL AST 53 (17-59) U/L ALT 35 (21-72) U/L Alkaline Phosphatase 389 H D (38-126) U/L Total Protein 5.3 L (6.3-8.3) g/dL Albumin 2.4 L (3.5-5.0) g/dL Globulin 2.9 (2.2-3.9) gm/dL Albumin/Globulin Ratio 0.8 L (1.0-2.1) 07/01/17 07/01/17 07/01/17 Range/Units 06:26 05:30 05:00 WBC 21.9 H (4.8-10.8) K/uL RBC 3.36 L (4.40-5.90) Mil/uL Hgb 10.5 L (12.0-18.0) g/dL Hct 33.8 L (35.0-51.0) % MCV 100.8 H D (80.0-94.0) fL MCH 31.1 H (27.0-31.0) pg MCHC 30.9 L (33.0-37.0) g/dL RDW 16.2 H (11.5-14.5) % Plt Count 171 (130-400) K/uL MPV 11.9 H (7.2-11.7) fL Neut % (Auto) 94.1 H (50.0-75.0) % Lymph % (Auto) 2.1 L (20.0-40.0) % [place] % (Auto) 3.6 (0.0-10.0) % Eos % (Auto) 0.1 (0.0-4.0) % Baso % (Auto) 0.1 (0.0-2.0) % Neut # 20.6 H (1.8-7.0) K/uL Lymph # 0.5 L (1.0-4.3) K/uL [place] # 0.8 (0.0-0.8) K/uL Eos # 0.0 (0.0-0.7) K/uL Baso # 0.0 (0.0-0.2) K/uL Neutrophils % (Manual) 92 H (50-75) % Band Neutrophils % 2 (0-2) % Lymphocytes % (Manual) 2 L (20-40) % Monocytes % (Manual) 4 (0-10) % Nucleated RBC % 5 H (0-0) % Platelet Estimate Normal (NORMAL) Polychromasia Slight Hypochromasia (manual) Slight Anisocytosis (manual) Slight Macrocytosis (manual) Slight Target Cells Slight PT (9.7-12.2) SECONDS INR APTT (21-34) SECONDS Puncture Site R rad pCO2 64 H (35-45) mm/Hg pO2 96 (80-100) mm/Hg HCO3 22.0 (21-28) mmol/L ABG pH 7.20 L (7.35-7.45) ABG Total CO2 27.0 (22-28) mmol/L ABG O2 Saturation 99.2 H (95-98) % ABG Base Excess -3.7 L (-2.0-3.0) mmol/L ABG Hemoglobin 10.5 L (11.7-17.4) g/dL ABG Carboxyhemoglobin 2.8 H (0.5-1.5) % POC ABG HHb (Measured) 0.8 (0.0-5.0) % ABG Methemoglobin 1.7 (0.0-3.0) % [place]lan Test Pos A-a O2 Difference 181.0 mm/Hg Respiratory Index 1.9 Hgb O2 Saturation 94.8 L (95.0-98.0) % Vent Mode Prvc Mechanical Rate 16 FiO2 50.0 % Tidal Volume 500 PEEP 8 Sodium (132-148) mmol/L Potassium (3.6-5.2) mmol/L Chloride (98-107) mmol/L Carbon Dioxide (22-30) mmol/L Anion Gap (10-20) BUN (9-20) mg/dL Creatinine (0.8-1.5) mg/dL Est GFR ( Amer) Est GFR (Non-Af Amer) POC Glucose (mg/dL) 199 H (65-110) mg/dL Random Glucose (75-110) mg/dL Calcium (8.6-10.4) mg/dl Phosphorus (2.5-4.5) mg/dL Magnesium (1.6-2.3) mg/dL Total Bilirubin (0.2-1.3) mg/dL AST (17-59) U/L ALT (21-72) U/L Alkaline Phosphatase (38-126) U/L Total Protein (6.3-8.3) g/dL Albumin (3.5-5.0) g/dL Globulin (2.2-3.9) gm/dL Albumin/Globulin Ratio (1.0-2.1) 07/01/17 Range/Units 00:28 WBC (4.8-10.8) K/uL RBC (4.40-5.90) Mil/uL Hgb (12.0-18.0) g/dL Hct (35.0-51.0) % MCV (80.0-94.0) fL MCH (27.0-31.0) pg MCHC (33.0-37.0) g/dL RDW (11.5-14.5) % Plt Count (130-400) K/uL MPV (7.2-11.7) fL Neut % (Auto) (50.0-75.0) % Lymph % (Auto) (20.0-40.0) % [place] % (Auto) (0.0-10.0) % Eos % (Auto) (0.0-4.0) % Baso % (Auto) (0.0-2.0) % Neut # (1.8-7.0) K/uL Lymph # (1.0-4.3) K/uL [place] # (0.0-0.8) K/uL Eos # (0.0-0.7) K/uL Baso # (0.0-0.2) K/uL Neutrophils % (Manual) (50-75) % Band Neutrophils % (0-2) % Lymphocytes % (Manual) (20-40) % Monocytes % (Manual) (0-10) % Nucleated RBC % (0-0) % Platelet Estimate (NORMAL) Polychromasia Hypochromasia (manual) Anisocytosis (manual) Macrocytosis (manual) Target Cells PT (9.7-12.2) SECONDS INR APTT (21-34) SECONDS Puncture Site pCO2 (35-45) mm/Hg pO2 (80-100) mm/Hg HCO3 (21-28) mmol/L ABG pH (7.35-7.45) ABG Total CO2 (22-28) mmol/L ABG O2 Saturation (95-98) % ABG Base Excess (-2.0-3.0) mmol/L ABG Hemoglobin (11.7-17.4) g/dL ABG Carboxyhemoglobin (0.5-1.5) % POC ABG HHb (Measured) (0.0-5.0) % ABG Methemoglobin (0.0-3.0) % [place] Test A-a O2 Difference mm/Hg Respiratory Index Hgb O2 Saturation (95.0-98.0) % Vent Mode Mechanical Rate FiO2 % Tidal Volume PEEP Sodium (132-148) mmol/L Potassium (3.6-5.2) mmol/L Chloride (98-107) mmol/L Carbon Dioxide (22-30) mmol/L Anion Gap (10-20) BUN (9-20) mg/dL Creatinine (0.8-1.5) mg/dL Est GFR ( Amer) Est GFR (Non-Af Amer) POC Glucose (mg/dL) 241 H (65-110) mg/dL Random Glucose (75-110) mg/dL Calcium (8.6-10.4) mg/dl Phosphorus (2.5-4.5) mg/dL Magnesium (1.6-2.3) mg/dL Total Bilirubin (0.2-1.3) mg/dL AST (17-59) U/L ALT (21-72) U/L Alkaline Phosphatase (38-126) U/L Total Protein (6.3-8.3) g/dL Albumin (3.5-5.0) g/dL Globulin (2.2-3.9) gm/dL Albumin/Globulin Ratio (1.0-2.1) Laboratory Results - last 24 hr 07/01/17 07/01/17 07/01/17 00:28 05:00 05:30 WBC RBC Hgb Hct MCV MCH MCHC RDW Plt Count MPV Neut % (Auto) Lymph % (Auto) [place] % (Auto) Eos % (Auto) Baso % (Auto) Neut # Lymph # [place] # Eos # Baso # Neutrophils % (Manual) Band Neutrophils % Lymphocytes % (Manual) Monocytes % (Manual) Nucleated RBC % Platelet Estimate Polychromasia Hypochromasia (manual) Anisocytosis (manual) Macrocytosis (manual) Target Cells PT INR APTT Puncture Site R rad pCO2 64 H pO2 96 HCO3 22.0 ABG pH 7.20 L ABG Total CO2 27.0 ABG O2 Saturation 99.2 H ABG Base Excess -3.7 L ABG Hemoglobin 10.5 L ABG Carboxyhemoglobin 2.8 H POC ABG HHb (Measured) 0.8 ABG Methemoglobin 1.7 Harlan Test Pos A-a O2 Difference 181.0 Respiratory Index 1.9 Hgb O2 Saturation 94.8 L Vent Mode Prvc Mechanical Rate 16 FiO2 50.0 Tidal Volume 500 PEEP 8 Sodium Potassium Chloride Carbon Dioxide Anion Gap BUN Creatinine Est GFR ( Amer) Est GFR (Non-Af Amer) POC Glucose (mg/dL) 241 H 199 H Random Glucose Calcium Phosphorus Magnesium Total Bilirubin AST ALT Alkaline Phosphatase Total Protein Albumin Globulin Albumin/Globulin Ratio 07/01/17 07/01/17 07/01/17 06:26 06:26 08:13 WBC 21.9 H RBC 3.36 L Hgb 10.5 L Hct 33.8 L MCV 100.8 H D MCH 31.1 H MCHC 30.9 L RDW 16.2 H Plt Count 171 MPV 11.9 H Neut % (Auto) 94.1 H Lymph % (Auto) 2.1 L [place] % (Auto) 3.6 Eos % (Auto) 0.1 Baso % (Auto) 0.1 Neut # 20.6 H Lymph # 0.5 L [place] # 0.8 Eos # 0.0 Baso # 0.0 Neutrophils % (Manual) 92 H Band Neutrophils % 2 Lymphocytes % (Manual) 2 L Monocytes % (Manual) 4 Nucleated RBC % 5 H Platelet Estimate Normal Polychromasia Slight Hypochromasia (manual) Slight Anisocytosis (manual) Slight Macrocytosis (manual) Slight Target Cells Slight PT 15.0 H INR 1.3 APTT 39 H Puncture Site pCO2 pO2 HCO3 ABG pH ABG Total CO2 ABG O2 Saturation ABG Base Excess ABG Hemoglobin ABG Carboxyhemoglobin POC ABG HHb (Measured) ABG Methemoglobin Harlan Test A-a O2 Difference Respiratory Index Hgb O2 Saturation Vent Mode Mechanical Rate FiO2 Tidal Volume PEEP Sodium 158 H Potassium 4.4 Chloride 124 H Carbon Dioxide 24 Anion Gap 14 BUN 62 H Creatinine 1.0 Est GFR ( Amer) > 60 Est GFR (Non-Af Amer) > 60 POC Glucose (mg/dL) Random Glucose 165 H Calcium 7.3 L Phosphorus 4.7 H Magnesium 2.9 H Total Bilirubin 1.0 AST 53 ALT 35 Alkaline Phosphatase 389 H D Total Protein 5.3 L Albumin 2.4 L Globulin 2.9 Albumin/Globulin Ratio 0.8 L 07/01/17 11:54 WBC RBC Hgb Hct MCV MCH MCHC RDW Plt Count MPV Neut % (Auto) Lymph % (Auto) [place] % (Auto) Eos % (Auto) Baso % (Auto) Neut # Lymph # [place] # Eos # Baso # Neutrophils % (Manual) Band Neutrophils % Lymphocytes % (Manual) Monocytes % (Manual) Nucleated RBC % Platelet Estimate Polychromasia Hypochromasia (manual) Anisocytosis (manual) Macrocytosis (manual) Target Cells PT INR APTT Puncture Site pCO2 pO2 HCO3 ABG pH ABG Total CO2 ABG O2 Saturation ABG Base Excess ABG Hemoglobin ABG Carboxyhemoglobin POC ABG HHb (Measured) ABG Methemoglobin Harlan Test A-a O2 Difference Respiratory Index Hgb O2 Saturation Vent Mode Mechanical Rate FiO2 Tidal Volume PEEP Sodium Potassium Chloride Carbon Dioxide Anion Gap BUN Creatinine Est GFR ( Amer) Est GFR (Non-Af Amer) POC Glucose (mg/dL) 162 H Random Glucose Calcium Phosphorus Magnesium Total Bilirubin AST ALT Alkaline Phosphatase Total Protein Albumin Globulin Albumin/Globulin Ratio Critical Care Progress Note - Nutrition Nutrition: Nutrition Category Date Time Status NPO Diet [DIET] Diets 06/14/17 Lunch Active Attending/Attestation - Attestation I have personally seen and examined this patient.: Yes I have fully participated in the care of the patient.: Yes I have reviewed all pertinent clinical information: Yes Notes (Text): 07/01/17 18:39 I have seen and examined the patient. Medical records, lab studies, and imaging were reviewed by me and a management plan was formulated on multidisciplinary rounds with resident Dr. Marie. I agree with their above documented assessment and plan. Patient is in a vegetative state. CT of the head showed diffuse metastases to his brain. 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 It has been determined that any further care would be futile, as it would not prolong the patient's life in a meaningful manner. Dr. Villa, primary attending, is in agreement. Two physician administrative decision in concordance with [place] statute [id number] to withdraw life support. Patient terminally extubated at 1655 today. Now agonally breathing. Critical Care Time 35 minutes. Multi-disciplinary rounds were performed with house staff, nursing, speech therapy, respiratory therapy, pharmacy and nutrition with integrated input from the primary team/attending and other consulting services. The documented time is cumulative and includes review of patient data/exams/labs/chart review and examination of the patient on rounds and throughout the day; time is exclusive of any procedures or teaching time.
--- NOTE | 2017-07-01 20:23 | CP.PCM.PCO ---
Physician Communication Note - Physician Communication Note Physician Communication Note: patient has cancer of head and neck with metastasis to the brain, he is end
--- NOTE | 2017-07-01 20:26 | CP.PCM.PCO ---
Physician Communication Note - Physician Communication Note Physician Communication Note: he is terminal and it is appropriate to withdraw lifesupport
--- NOTE | 2017-07-01 23:50 | CP.PCM.PN ---
Subjective - Date & Time of Evaluation Date of Evaluation: 07/01/17 Time of Evaluation: 18:00 - Subjective Subjective: Pt seen and evalauted by me at bedside Objective - Vital Signs/Intake and Output Vital Signs (last 24 hours): Temp Pulse Resp BP Pulse Ox 98 F 97 H 9 L 84/45 L 88 L 07/01/17 20:00 07/01/17 20:00 07/01/17 20:00 07/01/17 20:00 07/01/17 20:00 Intake and Output: 07/01/17 07/02/17 18:59 06:59 Intake Total 600 Output Total 410 Balance 190 - Medications Medications: Current Medications Acetaminophen (Tylenol 650mg/20.3ml Solution Ud) 650 mg GT Q6 PRN PRN Reason: Pain, Mild (1-3) - Labs Labs: 07/01/17 06:26 07/01/17 06:26 PT 15.0 SECONDS (9.7-12.2) H 07/01/17 08:13 INR 1.3 07/01/17 08:13 APTT 39 SECONDS (21-34) H 07/01/17 08:13 Assessment and Plan (1) Mass of left side of neck Status: Acute (2) Dysphagia Status: Acute (3) Dehydration Status: Acute (4) Lactic acid acidosis Status: Acute (5) Respiratory failure Status: Acute (6) Oropharyngeal cancer Status: Acute (7) Septicemia Status: Acute
[2017-07-02 04:35] VITALS: BP 74/32; PULSE 99; RESP 10; TEMP 97.2; O2SAT 86
--- NOTE | 2017-07-02 22:39 | CP.PCM.DIS ---
Provider - Provider Date of Admission: 06/14/17 15:30 Attending physician: Adithya Villa MD Time Spent in preparation of Discharge (in minutes): 30 Diagnosis - Discharge Diagnosis (1) Mass of left side of neck Status: Acute (2) Dysphagia Status: Acute (3) Dehydration Status: Acute (4) Lactic acid acidosis Status: Acute (5) Respiratory failure Status: Acute (6) Oropharyngeal cancer Status: Acute (7) Septicemia Status: Acute Hospital Course - Lab Results Lab Results: Micro Results 06/28/17 Unknown Sputum Induced Gram Stain - Final 06/28/17 Unknown Sputum Induced Sputum Culture - Final Klebsiella Pneumoniae Ssp Pneu 06/28/17 08:00 Urine,Catheterized Urine Culture - Final No Growth (<1,000 CFU/ML) 06/25/17 10:09 Abdomen Gram Stain - Final 06/25/17 10:09 Abdomen Wound Culture - Final Klebsiella Pneumoniae Ssp Pneu 06/20/17 14:45 Urine Urine Culture - Final Enterococcus Faecalis 06/20/17 17:48 Nose MRSA Culture (Admit) - Final MRSA NOT DETECTED 06/14/17 11:30 Blood Blood Culture - Final NO GROWTH AFTER 5 DAYS 06/14/17 11:30 Blood Gram Stain - Final TEST NOT PERFORMED 06/14/17 11:00 Blood Blood Culture - Final NO GROWTH AFTER 5 DAYS 06/14/17 11:00 Blood Gram Stain - Final TEST NOT PERFORMED Most Recent Lab Values WBC 21.9 K/uL (4.8-10.8) H 07/01/17 06:26 RBC 3.36 Mil/uL (4.40-5.90) L 07/01/17 06:26 Hgb 10.5 g/dL (12.0-18.0) L 07/01/17 06:26 Hct 33.8 % (35.0-51.0) L 07/01/17 06:26 MCV 100.8 fL (80.0-94.0) H D 07/01/17 06:26 MCH 31.1 pg (27.0-31.0) H 07/01/17 06:26 MCHC 30.9 g/dL (33.0-37.0) L 07/01/17 06:26 RDW 16.2 % (11.5-14.5) H 07/01/17 06:26 Plt Count 171 K/uL (130-400) 07/01/17 06:26 MPV 11.9 fL (7.2-11.7) H 07/01/17 06:26 Neut % (Auto) 94.1 % (50.0-75.0) H 07/01/17 06:26 Lymph % (Auto) 2.1 % (20.0-40.0) L 07/01/17 06:26 Wilson % (Auto) 3.6 % (0.0-10.0) 07/01/17 06:26 Eos % (Auto) 0.1 % (0.0-4.0) 07/01/17 06:26 Baso % (Auto) 0.1 % (0.0-2.0) 07/01/17 06:26 Neut # 20.6 K/uL (1.8-7.0) H 07/01/17 06:26 Lymph # 0.5 K/uL (1.0-4.3) L 07/01/17 06:26 Wilson # 0.8 K/uL (0.0-0.8) 07/01/17 06:26 Eos # 0.0 K/uL (0.0-0.7) 07/01/17 06:26 Baso # 0.0 K/uL (0.0-0.2) 07/01/17 06:26 Neutrophils % (Manual) 92 % (50-75) H 07/01/17 06:26 Band Neutrophils % 2 % (0-2) 07/01/17 06:26 Lymphocytes % (Manual) 2 % (20-40) L 07/01/17 06:26 Monocytes % (Manual) 4 % (0-10) 07/01/17 06:26 Eosinophils % (Manual) 1 % (0-4) 06/28/17 06:20 Metamyelocytes % 1 % (0-0) H 06/21/17 05:51 Myelocytes % 2 % (0-0) H 06/28/17 06:20 Nucleated RBC % 5 % (0-0) H 07/01/17 06:26 Toxic Granulation Present 06/29/17 06:14 Dohle Bodies Present 06/22/17 06:15 Jude Rods 06/22/17 06:15 Platelet Estimate Normal (NORMAL) 07/01/17 06:26 Large Platelets Present 06/29/17 06:14 Giant Platelets Present 06/22/17 06:15 RBC Morphology Normal 06/14/17 11:27 Polychromasia Slight 07/01/17 06:26 Hypochromasia (manual) Slight 07/01/17 06:26 Poikilocytosis (manual Slight 06/30/17 06:23 Basophilic Stippling Slight 06/30/17 06:23 Anisocytosis (manual) Slight 07/01/17 06:26 Microcytosis (manual) Slight 06/26/17 06:17 Macrocytosis (manual) Slight 07/01/17 06:26 Spherocytes Slight 06/26/17 06:17 Target Cells Slight 07/01/17 06:26 Tear Drop Cells Slight 06/26/17 06:17 Ovalocytes Slight 06/26/17 06:17 PT 15.0 SECONDS (9.7-12.2) H 07/01/17 08:13 INR 1.3 07/01/17 08:13 APTT 39 SECONDS (21-34) H 07/01/17 08:13 Puncture Site R rad 07/01/17 05:00 pCO2 64 mm/Hg (35-45) H 07/01/17 05:00 pO2 96 mm/Hg (80-100) 07/01/17 05:00 HCO3 22.0 mmol/L (21-28) 07/01/17 05:00 ABG pH 7.20 (7.35-7.45) L 07/01/17 05:00 ABG Total CO2 27.0 mmol/L (22-28) 07/01/17 05:00 ABG O2 Saturation 99.2 % (95-98) H 07/01/17 05:00 ABG Base Excess -3.7 mmol/L (-2.0-3.0) L 07/01/17 05:00 ABG Hemoglobin 10.5 g/dL (11.7-17.4) L 07/01/17 05:00 ABG Carboxyhemoglobin 2.8 % (0.5-1.5) H 07/01/17 05:00 POC ABG HHb (Measured) 0.8 % (0.0-5.0) 07/01/17 05:00 ABG Methemoglobin 1.7 % (0.0-3.0) 07/01/17 05:00 Harlan Test Pos 07/01/17 05:00 ABG Potassium 4.2 mmol/L (3.6-5.2) 06/29/17 04:18 VBG pH 7.39 (7.32-7.43) 06/20/17 13:39 VBG pCO2 41 mmHg (40-60) 06/20/17 13:39 VBG HCO3 23.8 mmol/L 06/20/17 13:39 VBG Total CO2 26.1 mmol/L (22-28) 06/20/17 13:39 VBG O2 Sat (Calc) 66.6 % (40-65) H 06/20/17 13:39 VBG Base Excess -0.2 mmol/L (0.0-2.0) L 06/20/17 13:39 VBG Potassium 4.5 mmol/L (3.6-5.2) 06/20/17 13:39 A-a O2 Difference 181.0 mm/Hg 07/01/17 05:00 Respiratory Index 1.9 07/01/17 05:00 Hgb O2 Saturation 94.8 % (95.0-98.0) L 07/01/17 05:00 Sodium 159.0 mmol/l (132-148) H 06/29/17 04:18 Chloride 130.0 mmol/L (98-107) H 06/29/17 04:18 Glucose 207 mg/dl (75-110) H 06/29/17 04:18 Lactate 3.0 mmol/L (0.7-2.1) H 06/29/17 04:18 Liter Flow 15.0 06/20/17 09:56 Vent Mode Prvc 07/01/17 05:00 Mechanical Rate 16 07/01/17 05:00 FiO2 50.0 % 07/01/17 05:00 Tidal Volume 500 07/01/17 05:00 PEEP 8 07/01/17 05:00 Crit Value Called To Dr boswell 06/21/17 10:46 Crit Value Called By Larisa degroot rrt 06/21/17 10:46 Crit Value Read Back Y 06/21/17 10:46 Blood Gas Notified Time 1050 06/21/17 10:46 Sodium 158 mmol/L (132-148) H 07/01/17 06:26 Potassium 4.4 mmol/L (3.6-5.2) 07/01/17 06:26 Chloride 124 mmol/L (98-107) H 07/01/17 06:26 Carbon Dioxide 24 mmol/L (22-30) 07/01/17 06:26 Anion Gap 14 (10-20) 07/01/17 06:26 BUN 62 mg/dL (9-20) H 07/01/17 06:26 Creatinine 1.0 mg/dL (0.8-1.5) 07/01/17 06:26 Est GFR ( Amer) > 60 07/01/17 06:26 Est GFR (Non-Af Amer) > 60 07/01/17 06:26 POC Glucose (mg/dL) 162 mg/dL (65-110) H 07/01/17 11:54 Random Glucose 165 mg/dL (75-110) H 07/01/17 06:26 Calcium 7.3 mg/dl (8.6-10.4) L 07/01/17 06:26 Phosphorus 4.7 mg/dL (2.5-4.5) H 07/01/17 06:26 Magnesium 2.9 mg/dL (1.6-2.3) H 07/01/17 06:26 Total Bilirubin 1.0 mg/dL (0.2-1.3) 07/01/17 06:26 AST 53 U/L (17-59) 07/01/17 06:26 ALT 35 U/L (21-72) 07/01/17 06:26 Alkaline Phosphatase 389 U/L (38-126) H D 07/01/17 06:26 Total Protein 5.3 g/dL (6.3-8.3) L 07/01/17 06:26 Albumin 2.4 g/dL (3.5-5.0) L 07/01/17 06:26 Globulin 2.9 gm/dL (2.2-3.9) 07/01/17 06:26 Albumin/Globulin Ratio 0.8 (1.0-2.1) L 07/01/17 06:26 Cortisol AM Sample 61.4 ug/dL (4.46-22.7) H 06/27/17 06:28 Arterial Blood Potassium 4.2 mmol/L (3.6-5.2) 06/29/17 04:18 Venous Blood Potassium 4.5 mmol/L (3.6-5.2) 06/20/17 13:39 Urine Color Yoana (YELLOW) 06/28/17 06:20 Urine Clarity Hazy (Clear) 06/28/17 06:20 Urine pH 5.0 (5.0-8.0) 06/28/17 06:20 Ur Specific Rosalie 1.021 (1.003-1.030) 06/28/17 06:20 Urine Protein Negative mg/dL (NEGATIVE) 06/28/17 06:20 Urine Glucose (UA) 1+ mg/dL (Normal) H 06/28/17 06:20 Urine Ketones Trace mg/dL (NEGATIVE) 06/28/17 06:20 Urine Blood 1+ (NEGATIVE) H 06/28/17 06:20 Urine Nitrate Negative (NEGATIVE) 06/28/17 06:20 Urine Bilirubin Negative (NEGATIVE) 06/28/17 06:20 Urine Urobilinogen 2.0 mg/dL (0.2-1.0) 06/28/17 06:20 Ur Leukocyte Esterase Trace Lilia/uL (Negative) 06/28/17 06:20 Urine WBC (Auto) 4 /hpf (0-5) 06/28/17 06:20 Urine RBC (Auto) 15 /hpf (0-3) H 06/28/17 06:20 Ur Squamous Epith Cells < 1 /hpf (0-5) 06/28/17 06:20 Urine Bacteria Rare (<OCC) 06/28/17 06:20 Hyaline Casts 3-5 /lpf (0-2) H 06/28/17 06:20 Granular Casts (Auto) 5 /lpf (0-1) 06/28/17 06:20 Broad Casts 4 /lpf (0-1) 06/28/17 06:20 Vancomycin Trough 7.8 ug/mL (5.0-10.0) 06/24/17 13:03 C. difficile Ag & Toxin Positive (NEGATIVE) H 06/24/17 08:30 Ur L.pneumophila Ag Negative (NEGATIVE) 06/22/17 10:23 Mycoplasma pneumon IgG <=0.90 (<=0.90) 06/22/17 10:23 Mycoplasma pneumon IgM 208 U/mL (<770) 06/22/17 10:23 - Hospital Course Hospital Course: Pt was terminally extubated after careful discussion between the physicians and he this morning Discharge Exam - Head Exam Head Exam: ATRAUMATIC, NORMAL INSPECTION, NORMOCEPHALIC Discharge Plan - Follow Up Plan Condition: STABLE Disposition: WITH WITHOUT AUTOPSY
--- NOTE | 2017-07-05 15:44 | CON ---
DATE: Patient was seen on in room #357, [facility]. HISTORY OF PRESENT ILLNESS: Chart, lab, imaging study, preliminary report, etc. reviewed, confirmed and discussed with all involved and the patient. Ye is an 81-year-old male who is admitted with neck pain and abdominal pain. The patient was found to have a large oropharyngeal mass that is extending into the base of tongue, soft palate and tonsil. The mass in the neck is about 11 cm. It did start with a small mass and that slowly got into this size. The patient now complains of neck pain and difficulty in swallowing at times. Patient denies any symptoms like fever, night sweats, or weight loss. Patient denies any chest pain, shortness of breath, or palpitations. Patient denies any headache, neurological symptoms. Patient denies any nausea, vomiting, abdominal pain, fever or diarrhea. REVIEW OF SYSTEMS: As stated above. PAST MEDICAL HISTORY: Same. SURGICAL HISTORY: Same. MEDICATIONS: Same. PHYSICAL EXAMINATION GENERAL: Patient is alert, awake, oriented, comfortable in bed. VITAL SIGNS: Afebrile, pulse 82 per minute, respirations 16 per minute. HEENT: Anicteric. NECK: Soft and large. Left mass about 10-11 cm. Examination of the oropharyngeal soft, nontender bulging external effect of the mass. No JVD. CHEST: Bilateral air. No rales or rhonchi. ABDOMEN: Soft and nontender. Bowel sounds present. No palpable hepatosplenomegaly. EXTREMITIES: No clubbing. No pedal edema. No cyanosis. NEUROLOGIC: Alert, awake, oriented, and nonfocal. 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 The patient underwent biopsy and PEG placement. The patient also has been evaluated by Radiation Therapy doctor, Dr. Izquierdo. Patient will also have a chemo port placed. The treatment options discussed with all involved, with the patient and radiation doctor, Dr. Izquierdo. concurrent chemoradiotherapy with chemo treatment with cisplatin, 5-FU based chemotherapy discussed in great detail with the patient. Risks, benefits and side effects of the chemotherapy discussed. Patient understood the issues well and will let us know, and I have discussed with all involved and Dr. Villa. We will follow the patient as an outpatient as we go. Tonya Sheppard MD
== END 2017-07-02 06:00 | DRG 133 ==
LOC: C.ER 10:09 → C.9E 15:30 → C.3T 20:13 → C.6T 06-20 09:11 → C.9I 06-20 14:15
PROVIDERS: ADMIT Internal Medicine; ATTEND Internal Medicine
PROC: 0HX4XZZ Transfer Neck Skin, External Approach (ICD-10-PCS; 2017-06-15)
PROC: 0JB40ZZ Excision of Right Neck Subcutaneous Tissue and Fascia, Open Approach (ICD-10-PCS; principal; 2017-06-15 12:00)
PROC: 0DH60UZ Insertion of Feeding Device into Stomach, Open Approach (ICD-10-PCS; 2017-06-16)
PROC: 0DQL0ZZ Repair Transverse Colon, Open Approach (ICD-10-PCS; 2017-06-16)
PROC: 0JH60XZ Insertion of Tunneled Vascular Access Device into Chest Subcutaneous Tissue and Fascia, Open Approach (ICD-10-PCS; 2017-06-16)
PROC: 06H033Z Insertion of Infusion Device into Inferior Vena Cava, Percutaneous Approach (ICD-10-PCS; 2017-06-16)
PROC: B519ZZA Fluoroscopy of Inferior Vena Cava, Guidance (ICD-10-PCS; 2017-06-16)
PROC: 02HV33Z Insertion of Infusion Device into Superior Vena Cava, Percutaneous Approach (ICD-10-PCS; 2017-06-16)
PROC: B518ZZA Fluoroscopy of Superior Vena Cava, Guidance (ICD-10-PCS; 2017-06-16)
PROC: 3E0G76Z Introduction of Nutritional Substance into Upper GI, Via Natural or Artificial Opening (ICD-10-PCS; 2017-06-17)
PROC: 5A1955Z Respiratory Ventilation, Greater than 96 Consecutive Hours (ICD-10-PCS; 2017-06-21)
PROC: 0CJS8ZZ Inspection of Larynx, Via Natural or Artificial Opening Endoscopic (ICD-10-PCS; 2017-06-21)
PROC: 0BH18EZ Insertion of Endotracheal Airway into Trachea, Via Natural or Artificial Opening Endoscopic (ICD-10-PCS; 2017-06-21)
DX: C10.8 Malignant neoplasm of overlapping sites of oropharynx (principal); C79.31 Secondary malignant neoplasm of brain; C79.89 Secondary malignant neoplasm of other specified sites; J96.01 Acute respiratory failure with hypoxia; J69.0 Pneumonitis due to inhalation of food and vomit; K63.1 Perforation of intestine (nontraumatic); A41.9 Sepsis, unspecified organism; N17.9 Acute kidney failure, unspecified; E87.0 Hyperosmolality and hypernatremia; B37.0 Candidal stomatitis; A04.72 Enterocolitis due to Clostridium difficile, not specified as recurrent; E87.2 Acidosis; N39.0 Urinary tract infection, site not specified; L03.221 Cellulitis of neck; R13.12 Dysphagia, oropharyngeal phase; B95.2 Enterococcus as the cause of diseases classified elsewhere; E86.0 Dehydration; E87.70 Fluid overload, unspecified; I10 Essential (primary) hypertension; J34.2 Deviated nasal septum; K80.20 Calculus of gallbladder without cholecystitis without obstruction; Z79.4 Long term (current) use of insulin; J98.8 Other specified respiratory disorders; Z51.5 Encounter for palliative care